=== PATIENT | male | born 1960 | race American Indian/Alaskan Native ===

== ENCOUNTER 2017-04-22 18:43 | Inpatient (IN) | payer MEDICAID ==
--- NOTE | 2017-04-22 19:05 | EDM.PDOC ---
ED HPI GENERAL MEDICAL PROBLEM - General Stated Complaint: DIFFICULTY BREATHING Time Seen by Provider: 04/22/17 18:43 Source of Information: Reports: Patient, Family History Limitations: Reports: Physical Impairment, Respiratory Distress - History of Present Illness INITIAL COMMENTS - FREE TEXT/NARRATIVE: 56 y.o.w.m with a h/o dementia, came to the ed dur to SOB. Pt O2 was 82% on RA. [facility] and disability. Pt is not able to give a HPI deu to his underlying medical issues. Caregivers are present. BP 130/78 Pulse 75 Pulse ox 94% on 2 liters O2. Temp 36.7 Onset: Gradual Onset Date: 04/21/17 Onset Time: 07:00 Duration: Day(s):, Getting Worse Location: Reports: Chest, Abdomen Quality: Reports: Other (SOB) Severity: Moderate Improves with: Reports: Medication, Rest Worsens with: Reports: Other (supine position) Context: Reports: Other (elevated diaphram) Associated Symptoms: Reports: Loss of Appetite, Shortness of Breath, Weakness - Related Data Allergies Allergy/AdvReac Type Severity Reaction Status Date / Time Penicillins Allergy Cannot Verified 04/22/17 19:19 Remember vancomycin Allergy Cannot Verified 04/22/17 19:19 Remember Home Meds: Home Meds LORazepam 1 mg PO ASDIRECTED PRN 02/25/13 [History] Albuterol [Proventil HFA] 1 puff INH TID 06/13/14 [History] Benztropine Mesylate 1 mg PO BEDTIME 06/13/14 [History] Cholecalciferol (Vitamin D3) [Vitamin D3] 1,000 unit PO DAILY@0600 06/13/14 [ History] Gabapentin [Neurontin] 300 mg PO QID@08,12,16,20 06/13/14 [History] Insulin Glarg,Human.Rec.Analog [Lantus Solostar] 12 unit SUBCUT BEDTIME [History] Levothyroxine [Synthroid] 50 mcg PO DAILY 06/13/14 [History] Levothyroxine [Synthroid] 200 mcg PO DAILY@06 06/13/14 [History] Magnesium Chloride [Magnesium Dr] 128 mg PO BID 06/13/14 [History] Metoprolol Tartrate [Lopressor] 50 mg PO BID 06/13/14 [History] Multivitamin with Minerals [Multivitamins with Minerals] 1 tab PO BEDTIME [History] Omeprazole 20 mg PO BEDTIME 06/13/14 [History] Sertraline [Zoloft] 200 mg PO DAILY 06/13/14 [History] Benzoyl Peroxide 1 applic TOP BEDTIME 05/09/15 [History] Nitroglycerin [Nitrostat] 0.4 mg SL Q5M PRN 05/09/15 [History] ARIPiprazole [Abilify] 20 mg PO BEDTIME 04/23/17 [History] Aspirin [Halfprin] 81 mg PO DAILY 04/23/17 [History] Doxycycline [Vibramycin] 100 mg PO BID 04/23/17 [History] Ferrous Gluconate 324 mg PO BIDMEALS 04/23/17 [History] Furosemide [Lasix] 20 mg PO DAILY@0600 04/23/17 [History] Selenium Sulfide [Anti-Dandruff] 1 applic TOP SUWEFR 04/23/17 [History] Tiotropium [Spiriva] 18 mcg INH DAILY 04/23/17 [History] Triamcinolone Acetonide [Triamcinolone Acetonide 0.1% Crm] 1 applic TOP BID PRN 04/23/17 [History] atorvaSTATin [Lipitor] 10 mg PO BEDTIME 04/23/17 [History] Past Medical History HEENT History: Reports: Allergic Rhinitis, Impaired Vision Cardiovascular History: Reports: Angina, Hypertension Respiratory History: Reports: COPD Gastrointestinal History: Reports: Colon Polyp Genitourinary History: Reports: None PHARMACY INTAKE COORDINATOR History: Reports: None Musculoskeletal History: Reports: None Neurological History: Reports: Seizure Psychiatric History: Reports: Anxiety, Depression, Developmental Delay, Mood Swings, Psych Hospitalization(s), Suicide Attempt Endocrine/Metabolic History: Reports: Diabetes, Type II, Hypothyroidism Oncologic (Cancer) History: Reports: None Dermatologic History: Reports: Cellulitis - Infectious Disease History Infectious Disease History: Reports: Chicken Pox - Past Surgical History GI Surgical History: Reports: Appendectomy, Cholecystectomy, Colonoscopy Male Surgical History: Reports: None Social & Family History - Tobacco Use Smoking Status *Q: Never Smoker - Alcohol Use Days Per Week of Alcohol Use: 0 - Recreational Drug Use Recreational Drug Use: No ED ROS GENERAL - Review of Systems Review Of Systems: Unable To Obtain ED EXAM, GENERAL - Physical Exam Exam: See Below Exam Limited By: Altered Mental Status General Appearance: Alert, WD/WN, Mild Distress Eye Exam: Bilateral Eye: Normal Inspection Ears: Normal External Exam Ear Exam: Bilateral Ear: Auricle Normal Nose: Normal Inspection Throat/Mouth: Normal Inspection, Normal Lips Head: Atraumatic, Normocephalic Neck: Normal Inspection, Supple, Non-Tender, Full Range of Motion Respiratory/Chest: No Respiratory Distress, Respiratory Distress, Decreased Breath Sounds Cardiovascular: Normal Peripheral Pulses, Regular Rate, Rhythm, No Edema, No Gallop Peripheral Pulses: 1+: Brachial (R) GI/Abdominal: Non-Tender, Distended, Abnormal Bowel Sounds (Male) Exam: Deferred Rectal (Males) Exam: Deferred Back Exam: Normal Inspection, Full Range of Motion Extremities: Normal Inspection, Normal Range of Motion, Non-Tender, No Pedal Edema Neurological: Alert, CN II-XII Intact, No Motor/Sensory Deficits, Abnormal Gait Psychiatric: Normal Affect, Normal Mood Skin Exam: Warm, Dry, Intact, Normal Color, No Rash Lymphatic: No Adenopathy Course - Vital Signs Text/Narrative:: 56 y.o.w.m with a h/o dementia, came to the ed dur to SOB. Pt O2 was 82% on RA. [facility] and disability. Pt is not able to give a HPI deu to his underlying medical issues. Caregivers are present. BP 130/78 Pulse 75 Pulse ox 94% on 2 liters O2. Temp 36.7, pt is pasing loose stool daily. PE: WNWD WM with dementia and physical disability. Imaging: CXR: Bilat Elevated diaphram Abd. Flat/upright: Gaseous distension of bowel loops throughout the abdomen and pelvis, favored to present colon loops. DDx: Colonic ileous/Jose Syndrome vs distal colonic obstruction. CT Abd/ pelvis: Air and stool distension of the ascending colon, air distended transverse colon measureing up to 15 cm, stood distended descending and sigmoid colon Labs: CBC nl INR 1.14 D Dimer 315 PNP 355 BUN/CR ratio 50 Impression: Colonic ileus, Elevated Diaphragm, Resp distress, Dementia, Physical disability, dsitended abdomen. H/O DM Tx: NS, Duoneb Reexam: Improved, pt was able to keep his puls oxa at 94% on RA. Plan: Admit for obs with possible GI consultation Last Recorded V/S: Last Vital Signs Temp 36.6 C 04/23/17 05:20 Pulse 64 04/23/17 05:20 Resp 16 04/23/17 05:20 BP 106/63 04/23/17 05:20 Pulse Ox 94 L 04/23/17 05:20 - Orders/Labs/Meds Orders: Active Orders 24 hr Category Date Time Status Patient Status [ADT] Routine ADT 04/23/17 00:47 Active Oxygen Therapy [RC] PRN Care 04/23/17 00:47 Active VTE/DVT Education [RC] Per Unit Routine Care 04/23/17 00:47 Active Vital Signs [RC] Q4H Care 04/23/17 00:47 Active Abdomen 2V AP Flat Upright [CR] Stat Exams 04/22/17 21:52 Taken Abdomen Pelvis wo Cont [CT] Stat Exams 04/22/17 23:00 Taken CXR [Chest 1V Frontal] [CR] Stat Exams 04/22/17 18:58 Taken Resuscitation Status Routine Resus Stat 04/23/17 00:20 Ordered Medication Orders Albuterol (Ventolin Hfa) 0 gm INH TIDRT [facility] Last Admin: 04/23/17 09:07 Dose: 1 inhalation Aripiprazole (Abilify) 20 mg PO BEDTIME [facility] Aspirin (Aspirin) 81 mg PO DAILY [facility] Last Admin: 04/23/17 09:11 Dose: 81 mg Benztropine Mesylate (Cogentin) 1 mg PO BEDTIME [facility] Cholecalciferol (Vitamin D3) 1,000 units PO DAILY [facility] Last Admin: 04/23/17 09:08 Dose: 1,000 units Gabapentin (Neurontin) 300 mg PO QID [facility] Last Admin: 04/23/17 09:08 Dose: 300 mg Insulin Aspart (Novolog) 0 unit SUBCUT BIDAC [facility] PRN Reason: Protocol Last Admin: 04/23/17 09:06 Dose: Not Given Levothyroxine Sodium (Levothyroxine) 200 mcg PO DAILY@0600 [facility] Last Admin: 04/23/17 06:00 Dose: 200 mcg Lorazepam (Ativan) 1 mg PO Q4H PRN PRN Reason: Anxiety Magnesium Chloride (Mag-64) 128 mg PO BID [facility] Last Admin: 04/23/17 09:08 Dose: 128 mg Metoprolol Tartrate (Lopressor) 75 mg PO BID [facility] Multivitamins/Minerals (Vitamins And Minerals) 1 tab PO BEDTIME [facility] Nitroglycerin (Nitrostat) 0.4 mg SL ASDIRECTED PRN PRN Reason: Chest Pain Non-Formulary Medication (Benzoyl Peroxide [Benzoyl Peroxide]) 1 applic TOP BEDTIME [facility] Pantoprazole Sodium (Protonix) 40 mg PO BEDTIME [facility] Sertraline HCl (Zoloft) 200 mg PO DAILY [facility] Last Admin: 04/23/17 09:07 Dose: 200 mg Tiotropium [place] (Spiriva Handihaler) 18 mcg INH BIDRT [facility] Labs: Laboratory Tests 04/22/17 04/22/17 04/22/17 Range/Units 19:10 19:10 19:10 WBC 5.6 (4.5-12.0) X10-3/uL RBC 4.32 (4.30-5.75) x10(6)uL Hgb 12.9 (11.5-15.5) g/dL Hct 39.2 (30.0-51.3) % MCV 90.8 (80-96) fL MCH 29.8 (27.7-33.6) pg MCHC 32.8 (32.2-35.4) g/dL RDW 14.5 (11.5-15.5) % Plt Count 170 (125-369) X10(3)uL MPV 8.0 (7.4-10.4) fL Neut % (Auto) 49.7 (46-82) % Lymph % (Auto) 34.0 (13-37) % [place] % (Auto) 5.6 (4-12) % Eos % (Auto) 10 H (1.0-5.0) % Baso % (Auto) 1 (0-2) % Neut # (Auto) 2.8 (1.6-8.3) # Lymph # (Auto) 1.9 (0.6-5.0) # [place] # (Auto) 0.3 (0.0-1.3) # Eos # (Auto) 0.6 (0.0-0.8) # Baso # (Auto) 0.0 (0.0-0.2) # PT 11.5 H (8.7-11.1) INR 1.14 H (0.89-1.13) D-Dimer, Quantitative 315 (100-400) ng/mL Sodium (135-145) mmol/L Potassium (3.5-5.3) mmol/L Chloride (100-110) mmol/L Carbon Dioxide (21-32) mmol/L BUN (7-18) mg/dL Creatinine (0.70-1.30) mg/dL Est Cr Clr Drug Dosing mL/min Estimated GFR (MDRD) (>60) BUN/Creatinine Ratio (9-20) Glucose (80-116) mg/dL Calcium (8.6-10.2) mg/dL NT-Pro-B Natriuret Pep (<=125) pg/mL 04/22/17 04/22/17 Range/Units 19:10 19:10 WBC (4.5-12.0) X10-3/uL RBC (4.30-5.75) x10(6)uL Hgb (11.5-15.5) g/dL Hct (30.0-51.3) % MCV (80-96) fL MCH (27.7-33.6) pg MCHC (32.2-35.4) g/dL RDW (11.5-15.5) % Plt Count (125-369) X10(3)uL MPV (7.4-10.4) fL Neut % (Auto) (46-82) % Lymph % (Auto) (13-37) % [place] % (Auto) (4-12) % Eos % (Auto) (1.0-5.0) % Baso % (Auto) (0-2) % Neut # (Auto) (1.6-8.3) # Lymph # (Auto) (0.6-5.0) # [place] # (Auto) (0.0-1.3) # Eos # (Auto) (0.0-0.8) # Baso # (Auto) (0.0-0.2) # PT (8.7-11.1) INR (0.89-1.13) D-Dimer, Quantitative (100-400) ng/mL Sodium 140 (135-145) mmol/L Potassium 4.8 (3.5-5.3) mmol/L Chloride 107 (100-110) mmol/L Carbon Dioxide 25 (21-32) mmol/L BUN 50 H (7-18) mg/dL Creatinine 1.0 (0.70-1.30) mg/dL Est Cr Clr Drug Dosing 73.46 mL/min Estimated GFR (MDRD) > 60 (>60) BUN/Creatinine Ratio 50.0 H (9-20) Glucose 100 (80-116) mg/dL Calcium 9.0 (8.6-10.2) mg/dL NT-Pro-B Natriuret Pep 355 H (<=125) pg/mL Meds: Medications Generic Name Dose Route Start Last Admin Trade Name Freq PRN Reason Stop Dose Admin Albuterol 0 gm 04/23/17 07:00 04/23/17 09:07 Ventolin Hfa INH 1 inhalation TIDRT [facility] Administration Aripiprazole 20 mg 04/23/17 21:00 Abilify PO BEDTIME [facility] Aspirin 81 mg 04/23/17 09:00 04/23/17 09:11 Aspirin PO 81 mg DAILY [facility] Administration Benztropine Mesylate 1 mg 04/23/17 21:00 Cogentin PO BEDTIME [facility] Cholecalciferol 1,000 units 04/23/17 09:00 04/23/17 09:08 Vitamin D3 PO 1,000 units DAILY [facility] Administration Gabapentin 300 mg 04/23/17 09:00 04/23/17 09:08 Neurontin PO 300 mg QID [facility] Administration Insulin Aspart 0 unit 04/23/17 08:30 04/23/17 09:06 Novolog SUBCUT Not Given BIDAC [facility] Protocol Levothyroxine Sodium 200 mcg 04/23/17 06:00 04/23/17 06:00 Levothyroxine PO 200 mcg DAILY@0600 [facility] Administration Lorazepam 1 mg 04/23/17 02:28 Ativan PO Q4H PRN Anxiety Magnesium Chloride 128 mg 04/23/17 09:00 04/23/17 09:08 Mag-64 PO 128 mg BID [facility] Administration Metoprolol Tartrate 75 mg 04/23/17 09:00 Lopressor PO BID [facility] Multivitamins/Minerals 1 tab 04/23/17 21:00 Vitamins And Minerals PO BEDTIME [facility] Nitroglycerin 0.4 mg 04/23/17 02:28 Nitrostat SL ASDIRECTED PRN Chest Pain Non-Formulary Medication 1 applic 04/23/17 21:00 Benzoyl Peroxide [Benzoyl Peroxide] TOP BEDTIME [facility] Pantoprazole Sodium 40 mg 04/23/17 21:00 Protonix PO BEDTIME [facility] Sertraline HCl 200 mg 04/23/17 09:00 04/23/17 09:07 Zoloft PO 200 mg DAILY [facility] Administration Tiotropium [place] 18 mcg 04/23/17 07:00 Spiriva Handihaler INH BIDRT [facility] Discontinued Medications Generic Name Dose Route Start Last Admin Trade Name Carlos PRN Reason Stop Dose Admin Levothyroxine Sodium 50 mcg 04/23/17 09:00 Synthroid PO DAILY [facility] Non-Formulary Medication 200 mcg 04/23/17 09:00 Levothyroxine [Synthroid] PO DAILY [facility] Non-Formulary Medication 20 mg 04/23/17 21:00 Omeprazole [Omeprazole] PO BEDTIME [facility] Departure - Departure Time of Disposition: 00:19 Disposition: Admitted As Inpatient 68 Condition: Fair Clinical Impression: Abdominal distention, Elevated diaphragm Dementia Qualifiers: Alzheimer's disease onset: unspecified onset Dementia behavioral disturbance: with behavioral disturbance - Discharge Information - My Orders Last 24 Hours: My Active Orders 04/22/17 18:58 CXR [Chest 1V Frontal] [CR] Stat 04/22/17 21:52 Abdomen 2V AP Flat Upright [CR] Stat 04/22/17 23:00 Abdomen Pelvis wo Cont [CT] Stat 04/23/17 00:20 Resuscitation Status Routine 04/23/17 00:47 Patient Status [ADT] Routine Oxygen Therapy [RC] PRN VTE/DVT Education [RC] Per Unit Routine Vital Signs [RC] Q4H - Assessment/Plan Last 24 Hours: My Active Orders 04/22/17 18:58 CXR [Chest 1V Frontal] [CR] Stat 04/22/17 21:52 Abdomen 2V AP Flat Upright [CR] Stat 04/22/17 23:00 Abdomen Pelvis wo Cont [CT] Stat 04/23/17 00:20 Resuscitation Status Routine 04/23/17 00:47 Patient Status [ADT] Routine Oxygen Therapy [RC] PRN VTE/DVT Education [RC] Per Unit Routine Vital Signs [RC] Q4H
[2017-04-23] MEDS ORDERED: Nitroglycerin 0.4 MG Tab.SL SL PRN (02:28)
[2017-04-23] MEDS ORDERED: LORazepam 1 MG Tab PO PRN (02:28)
[2017-04-23] MEDS ORDERED: Tiotropium Inhaler 18 MCG Inhalation Powder Cap Kit of 5 INH SCH (07:00)
[2017-04-23] MEDS ORDERED: Insulin Regular, Human 100 Units/ML 3 ML Vial SUBCUT SCH (07:30)
[2017-04-23] MEDS ORDERED: Levothyroxine 50 MCG Tab PO SCH ×2 (07:30→09:00)
[2017-04-23] MEDS ORDERED: Aspirin 81 MG Tab.Chew PO SCH (09:00)
[2017-04-23] MEDS ORDERED: Magnesium Chloride 64 MG Tab.ER PO SCH (09:00)
[2017-04-23] MEDS ORDERED: Cholecalciferol (Vitamin D3) 1,000 Unit Tab PO SCH (09:00)
[2017-04-23] MEDS ORDERED: Metoprolol Tartrate 50 MG Tab PO SCH (09:00)
[2017-04-23] MEDS ORDERED: LEVOTHYROXINE 200 MCG PO SCH (09:00)
[2017-04-23] MEDS: Insulin Aspart 100 Units/ML 3 ML Pen SUBCUT SCH (09:06)
[2017-04-23] MEDS: Sertraline 100 MG Tab PO SCH (09:07)
[2017-04-23] MEDS: Albuterol 8 GM Inhaler INH SCH ×3 (09:07→20:45)
[2017-04-23] MEDS: Gabapentin 300 MG Cap PO SCH ×4 (09:08→21:41)
[2017-04-23] MEDS: Metoprolol Tartrate 50 MG Tab PO SCH ×2 (11:06→20:38)
[2017-04-23] MEDS: Tiotropium Inhaler 18 MCG Inhalation Powder Cap Kit of 5 INH SCH (11:06)
[2017-04-23] MEDS: Dextrose 5%-0.9% NaCl 1,000 ML IV SCH ×2 (13:05→21:03)
[2017-04-23] MEDS: Potassium Chloride 100 ML IV SCH ×2 (13:05→15:23)
--- NOTE | 2017-04-23 13:17 | PCM.HP ---
H&P History of Present Illness - General Date of Service: 04/23/17 - History of Present Illness Initial Comments - Free Text/Narative: Patient is a 56-year-old male comes to the emergency room per [facility] where he has a resident there. Concern was that the patient was having bouts of shortness of breath and low oxygen sats in the mid to upper 80s. This was not accompanied by fevers vomiting chills sweats rash or recent illness. Noted to have acute on chronic abdominal distention with continued loose stool and flatus. Presentation he was given O2 via nasal cannula at sats came up to the 90s respirations are less than 20 otherwise labs were normal. Chest x-ray revealed bilateral elevated diaphragms with significant large bowel air distention/colonic stool throughout. There were no signs of air-fluid levels however this did prompt a CT scan to rule out intra-abdominal free air which was negative. There was no sign of mechanical or pathological obstructive process. Review of patient's medical record indicates a prior colonoscopy in 2016 was unable to be passed through the transverse colon secondary to redundancy. Otherwise he has had no bowel resection or procedures. Currently being treated with doxycycline twice a day for a mild right foot dorsal cellulitis with slight abrasion and tenderness more. No complication. Functional status includes up with assist feeds himself is continent of urine and stool moderate cognitive disability with a history of central cerebral atrophy leading to inability to live independently. Initial examination he is sitting upright in wheelchair. Is wearing his glasses. He makes good eye contact, his speech is slurred but intelligible. this is baseline. He also tells me that he is hungry and he has no pain during my examination. He does not appear in any acute distress however he is a poor historian so history review systems are taken from caregiver and ER physician. - Related Data Allergies/Adverse Reactions: Allergies Allergy/AdvReac Type Severity Reaction Status Date / Time Penicillins Allergy Cannot Verified 04/22/17 19:19 Remember vancomycin Allergy Cannot Verified 04/22/17 19:19 Remember Home Medications: Home Meds LORazepam 1 mg PO ASDIRECTED PRN 02/25/13 [History] Albuterol [Proventil HFA] 1 puff INH TID 06/13/14 [History] Benztropine Mesylate 1 mg PO BEDTIME 06/13/14 [History] Cholecalciferol (Vitamin D3) [Vitamin D3] 1,000 unit PO DAILY@0600 06/13/14 [ History] Gabapentin [Neurontin] 300 mg PO QID@08,12,16,20 06/13/14 [History] Insulin Glarg,Human.Rec.Analog [Lantus Solostar] 12 unit SUBCUT BEDTIME [History] Levothyroxine [Synthroid] 50 mcg PO DAILY 06/13/14 [History] Levothyroxine [Synthroid] 200 mcg PO DAILY@06 06/13/14 [History] Magnesium Chloride [Magnesium Dr] 128 mg PO BID 06/13/14 [History] Metoprolol Tartrate [Lopressor] 50 mg PO BID 06/13/14 [History] Multivitamin with Minerals [Multivitamins with Minerals] 1 tab PO BEDTIME [History] Omeprazole 20 mg PO BEDTIME 06/13/14 [History] Sertraline [Zoloft] 200 mg PO DAILY 06/13/14 [History] Benzoyl Peroxide 1 applic TOP BEDTIME 05/09/15 [History] Nitroglycerin [Nitrostat] 0.4 mg SL Q5M PRN 05/09/15 [History] ARIPiprazole [Abilify] 20 mg PO BEDTIME 04/23/17 [History] Aspirin [Halfprin] 81 mg PO DAILY 04/23/17 [History] Doxycycline [Vibramycin] 100 mg PO BID 04/23/17 [History] Ferrous Gluconate 324 mg PO BIDMEALS 04/23/17 [History] Furosemide [Lasix] 20 mg PO DAILY@0600 04/23/17 [History] Selenium Sulfide [Anti-Dandruff] 1 applic TOP SUWEFR 04/23/17 [History] Tiotropium [Spiriva] 18 mcg INH DAILY 04/23/17 [History] Triamcinolone Acetonide [Triamcinolone Acetonide 0.1% Crm] 1 applic TOP BID PRN 04/23/17 [History] atorvaSTATin [Lipitor] 10 mg PO BEDTIME 04/23/17 [History] Past Medical History HEENT History: Reports: Allergic Rhinitis, Impaired Vision Other HEENT History: Allergic rhinitis. Cardiovascular History: Reports: Angina, Hypertension Other Cardiovascular History: lower leg edema. Respiratory History: Reports: COPD Gastrointestinal History: Reports: Colon Polyp Genitourinary History: Reports: None Other Genitourinary History: Increased alkaline phosphatase, hypocalcemia. 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 Neurological History: Reports: Seizure Other Neuro History: Neuroleptic induced Parkinsonism. Psychiatric History: Reports: Anxiety, Depression, Developmental Delay, Mood Swings, Psych Hospitalization(s), Suicide Attempt Other Psychiatric History: Transient alteration of awareness, moderate intellectual disabilities. Endocrine/Metabolic History: Reports: Diabetes, Type II, Hypothyroidism Hematologic History: Reports: Anemia Oncologic (Cancer) History: Reports: None Dermatologic History: Reports: Cellulitis Other Dermatologic History: Acne, dermatitis, dry scalp, stasis dermatitis both legs, history of VERSA. 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 - Past Surgical History GI Surgical History: Reports: Appendectomy, Cholecystectomy, Colonoscopy Male Surgical History: Reports: None Social & Family History - Tobacco Use Smoking Status *Q: Never Smoker - Caffeine Use Caffeine Use: Reports: Coffee - Alcohol Use Days Per Week of Alcohol Use: 0 - Recreational Drug Use Recreational Drug Use: No - Living Situation & Occupation Living situation: Reports: Single, Extended Care Facility (Resident in halfway for cognitive delay/disability.) H&P Review of Systems - Review of Systems: Review Of Systems: ROS reveals no pertinent complaints other than HPI. Exam - Exam Exam: See Below - Vital Signs Vital Signs: Last Vital Signs Temp 99 F 04/23/17 08:00 Pulse 77 04/23/17 11:06 Resp 18 04/23/17 08:00 BP 137/81 04/23/17 11:06 Pulse Ox 95 04/23/17 08:00 Weight: 81.737 kg - Exam General: Alert, Cooperative. No: Mild Distress HEENT: Conjunctiva Clear, Hearing Intact, Glasses Neck: Supple, Trachea Midline. No: Lymphadenopathy Lungs: Clear to Auscultation, Normal Respiratory Effort, Decreased Breath Sounds (Not aerating well down into the bases this is secondary to elevated hemidiaphragms.) Cardiovascular: Regular Rate, Regular Rhythm GI/Abdominal Exam: Non-Tender, Distended, Abnormal Bowel Sounds. No: Guarding, Rigid, Tender, Hernia (Male) Exam: No Hernia, Normal Inspection, Normal Prostate. No: Circumcised , Inguinal Lymphadenopathy, Scrotal Swelling, Urethral Discharge Rectal (Males) Exam: Normal Rectal Tone, Black Stool, Heme - Stool, Other ( Unusual odor to the stool. I was able to collect a smear for Hemoccult without difficulty.). No: Bloody Stool, Fecal Impaction, Hemorrhoids, Mass, Perirectal Abscess, Rectal Fissure, Tenderness Back Exam: Other (Evidence of scratches bilateral superior scapula self- inflicted. No evidence of infection. He does have scattered melanosis of the low back some of which could even be considered caf au lait in presentation. Again this is chronic and nonacute process.). No: Paraspinal Tenderness, Vertebral Tenderness Extremities: Normal Capillary Refill, Pedal Edema, Redness (There is some swelling and slight redness roughly 3 cm induration surrounding a 0.5 cm superficial abrasion with minimal serous drainage. No fluctuance or abscess formation.) Skin: Wound (Dorsum of left foot) Neuro Extensive - Motor, Sensory, Reflexes: Other (Positive gag reflex swallow mechanism. Able to protect his airway.) Psychiatric: Normal Mood, Other (Pleasant answers questions appropriately, follows instructions, asked when he will be able to go home.). No: Anxious, Agitated - Patient Data Lab Results Last 24 hrs: Laboratory Tests 04/22/17 04/22/17 04/22/17 Range/Units 19:10 19:10 19:10 WBC 5.6 (4.5-12.0) X10-3/uL RBC 4.32 (4.30-5.75) x10(6)uL Hgb 12.9 (11.5-15.5) g/dL Hct 39.2 (30.0-51.3) % MCV 90.8 (80-96) fL MCH 29.8 (27.7-33.6) pg MCHC 32.8 (32.2-35.4) g/dL RDW 14.5 (11.5-15.5) % Plt Count 170 (125-369) X10(3)uL MPV 8.0 (7.4-10.4) fL Neut % (Auto) 49.7 (46-82) % Lymph % (Auto) 34.0 (13-37) % Bowie % (Auto) 5.6 (4-12) % Eos % (Auto) 10 H (1.0-5.0) % Baso % (Auto) 1 (0-2) % Neut # (Auto) 2.8 (1.6-8.3) # Lymph # (Auto) 1.9 (0.6-5.0) # Bowie # (Auto) 0.3 (0.0-1.3) # Eos # (Auto) 0.6 (0.0-0.8) # Baso # (Auto) 0.0 (0.0-0.2) # PT 11.5 H (8.7-11.1) INR 1.14 H (0.89-1.13) D-Dimer, Quantitative 315 (100-400) ng/mL Sodium (135-145) mmol/L Potassium (3.5-5.3) mmol/L Chloride (100-110) mmol/L Carbon Dioxide (21-32) mmol/L BUN (7-18) mg/dL Creatinine (0.70-1.30) mg/dL Est Cr Clr Drug Dosing mL/min Estimated GFR (MDRD) (>60) BUN/Creatinine Ratio (9-20) Glucose (80-116) mg/dL POC Glucose (80-116) mg/dL Calcium (8.6-10.2) mg/dL NT-Pro-B Natriuret Pep (<=125) pg/mL 04/22/17 04/22/17 04/23/17 Range/Units 19:10 19:10 06:44 WBC (4.5-12.0) X10-3/uL RBC (4.30-5.75) x10(6)uL Hgb (11.5-15.5) g/dL Hct (30.0-51.3) % MCV (80-96) fL MCH (27.7-33.6) pg MCHC (32.2-35.4) g/dL RDW (11.5-15.5) % Plt Count (125-369) X10(3)uL MPV (7.4-10.4) fL Neut % (Auto) (46-82) % Lymph % (Auto) (13-37) % Bowie % (Auto) (4-12) % Eos % (Auto) (1.0-5.0) % Baso % (Auto) (0-2) % Neut # (Auto) (1.6-8.3) # Lymph # (Auto) (0.6-5.0) # Bowie # (Auto) (0.0-1.3) # Eos # (Auto) (0.0-0.8) # Baso # (Auto) (0.0-0.2) # PT (8.7-11.1) INR (0.89-1.13) D-Dimer, Quantitative (100-400) ng/mL Sodium 140 (135-145) mmol/L Potassium 4.8 (3.5-5.3) mmol/L Chloride 107 (100-110) mmol/L Carbon Dioxide 25 (21-32) mmol/L BUN 50 H (7-18) mg/dL Creatinine 1.0 (0.70-1.30) mg/dL Est Cr Clr Drug Dosing 73.46 mL/min Estimated GFR (MDRD) > 60 (>60) BUN/Creatinine Ratio 50.0 H (9-20) Glucose 100 (80-116) mg/dL POC Glucose 133 H (80-116) mg/dL Calcium 9.0 (8.6-10.2) mg/dL NT-Pro-B Natriuret Pep 355 H (<=125) pg/mL 04/23/17 Range/Units 11:09 WBC (4.5-12.0) X10-3/uL RBC (4.30-5.75) x10(6)uL Hgb (11.5-15.5) g/dL Hct (30.0-51.3) % MCV (80-96) fL MCH (27.7-33.6) pg MCHC (32.2-35.4) g/dL RDW (11.5-15.5) % Plt Count (125-369) X10(3)uL MPV (7.4-10.4) fL Neut % (Auto) (46-82) % Lymph % (Auto) (13-37) % Bowie % (Auto) (4-12) % Eos % (Auto) (1.0-5.0) % Baso % (Auto) (0-2) % Neut # (Auto) (1.6-8.3) # Lymph # (Auto) (0.6-5.0) # Bowie # (Auto) (0.0-1.3) # Eos # (Auto) (0.0-0.8) # Baso # (Auto) (0.0-0.2) # PT (8.7-11.1) INR (0.89-1.13) D-Dimer, Quantitative (100-400) ng/mL Sodium (135-145) mmol/L Potassium (3.5-5.3) mmol/L Chloride (100-110) mmol/L Carbon Dioxide (21-32) mmol/L BUN (7-18) mg/dL Creatinine (0.70-1.30) mg/dL Est Cr Clr Drug Dosing mL/min Estimated GFR (MDRD) (>60) BUN/Creatinine Ratio (9-20) Glucose (80-116) mg/dL POC Glucose 99 (80-116) mg/dL Calcium (8.6-10.2) mg/dL NT-Pro-B Natriuret Pep (<=125) pg/mL Result Diagrams: 04/22/17 19:10 04/22/17 19:10 Rhys Results Last 24 hrs: Microbiology 04/23/17 11:32 Stool Occult Blood (RHYS) - Final Stool / Feces NEGATIVE *Q Meaningful Use (ADM) - VTE *Q VTE Criteria *Q: - Stroke *Q Stroke Criteria *Q: - AMI *Q AMI Criteria *Q: - Problem List (1) Abnormal large bowel motility SNOMED Code(s): 89097711 ICD Code: K59.9 - FUNCTIONAL INTESTINAL DISORDER, UNSPECIFIED Status: Acute Current Visit: Yes (2) Abdominal distention SNOMED Code(s): 46080035 ICD Code: R14.0 - ABDOMINAL DISTENSION (GASEOUS) Status: Acute Current Visit: Yes (3) Elevated diaphragm SNOMED Code(s): 08913505 ICD Code: J98.6 - DISORDERS OF DIAPHRAGM Status: Acute Current Visit: Yes (4) SOB (shortness of breath) SNOMED Code(s): 960927494 ICD Code: R06.02 - SHORTNESS OF BREATH Status: Acute Current Visit: Yes (5) Abrasion, left foot, initial encounter SNOMED Code(s): 241635453 ICD Code: S90.812A - ABRASION, LEFT FOOT, INITIAL ENCOUNTER Status: Acute Current Visit: Yes (6) Cellulitis of left foot SNOMED Code(s): 066140990 ICD Code: L03.116 - CELLULITIS OF LEFT LOWER LIMB Status: Acute Priority : Medium Current Visit: Yes (7) Dementia SNOMED Code(s): 08263706 ICD Code: F03.90 - UNSPECIFIED DEMENTIA WITHOUT BEHAVIORAL DISTURBANCE Status: Chronic Current Visit: Yes Qualifiers: Alzheimer's disease onset: unspecified onset Dementia behavioral disturbance: with behavioral disturbance (8) Lives in halfway SNOMED Code(s): 903534232 ICD Code: Z59.3 - PROBLEMS RELATED TO LIVING IN RESIDENTIAL INSTITUTION Status: Chronic Current Visit: Yes Problem List Initiated/Reviewed/Updated: Yes Orders Last 24hrs: Active Orders 24 hr Category Date Time Status Blood Glucose Check, Bedside [RC] BIDAC Care 04/23/17 02:57 Active Notify Provider Consults [RC] ASDIRECTED Care 04/23/17 11:36 Active Consult to Physician [CONS] Routine Cons 04/23/17 11:34 Ordered ARIPiprazole [Abilify] Med 04/23/17 21:00 Active 20 mg PO BEDTIME Albuterol [Ventolin HFA] Med 04/23/17 07:00 Active 0 gm INH TIDRT Aspirin Med 04/23/17 09:00 Active 81 mg PO DAILY Bacitracin/Neomycin/Polymyxin [Triple Antibiotic Oint] Med 04/23/17 11:15 Active 0 gm TOP BID Benzoyl Peroxide [Benzoyl Peroxide] Med 04/23/17 21:00 Active 1 applic TOP BEDTIME Benztropine [Cogentin] Med 04/23/17 21:00 Active 1 mg PO BEDTIME Cholecalciferol (Vitamin D3) [Vitamin D3] Med 04/23/17 09:00 Active 1,000 units PO DAILY Dextrose 5%-0.9% NaCl [Dextrose 5%-Normal Saline] 1,000 Med 04/23/17 11:45 Active ml IV ASDIRECTED Gabapentin [Neurontin] Med 04/23/17 09:00 Active 300 mg PO QID Insulin Aspart [NovoLOG] Med 04/23/17 08:30 Hold 0 unit SUBCUT BIDAC LORazepam [Ativan] Med 04/23/17 02:28 Active 1 mg PO Q4H PRN Levothyroxine Med 04/23/17 06:00 Active 200 mcg PO DAILY@0600 Magnesium Chloride [Mag-64] Med 04/23/17 09:00 Active 128 mg PO BID Metoprolol Tartrate [Lopressor] Med 04/23/17 10:15 Active 50 mg PO BID Multivitamins/Minerals [Vitamins and Minerals] Med 04/23/17 21:00 Active 1 tab PO BEDTIME Nitroglycerin [Nitrostat] Med 04/23/17 02:28 Active 0.4 mg SL ASDIRECTED PRN Pantoprazole [ProTONIX] Med 04/23/17 21:00 Active 40 mg PO BEDTIME Potassium Chloride [KCL 20 MEQ in Water 100 ML] 100 ml Med 04/23/17 12:30 Active IV Q2H Sertraline [Zoloft] Med 04/23/17 09:00 Active 200 mg PO DAILY Tiotropium [Spiriva HandiHaler] Med 04/23/17 10:15 Active 18 mcg INH DAILY Medication Orders Albuterol (Ventolin Hfa) 0 gm INH TIDRT [facility] Last Admin: 04/23/17 09:07 Dose: 1 inhalation Aripiprazole (Abilify) 20 mg PO BEDTIME [facility] Aspirin (Aspirin) 81 mg PO DAILY [facility] Last Admin: 04/23/17 09:11 Dose: 81 mg Benztropine Mesylate (Cogentin) 1 mg PO BEDTIME [facility] Cholecalciferol (Vitamin D3) 1,000 units PO DAILY [facility] Last Admin: 04/23/17 09:08 Dose: 1,000 units Gabapentin (Neurontin) 300 mg PO QID [facility] Last Admin: 04/23/17 09:08 Dose: 300 mg Dextrose/Sodium Chloride (Dextrose 5%-Normal Saline) 1,000 mls @ 150 mls/hr IV ASDIRECTED [facility] Potassium Chloride (Kcl 20 Meq In Water 100 Ml) 100 mls @ 50 mls/hr IV Q2H [facility] Stop: 04/23/17 16:29 Insulin Aspart (Novolog) 0 unit SUBCUT BIDAC [facility] PRN Reason: Protocol Last Admin: 04/23/17 09:06 Dose: Levothyroxine Sodium (Levothyroxine) 200 mcg PO DAILY@0600 [facility] Last Admin: 04/23/17 06:00 Dose: 200 mcg Lorazepam (Ativan) 1 mg PO Q4H PRN PRN Reason: Anxiety Magnesium Chloride (Mag-64) 128 mg PO BID [facility] Last Admin: 04/23/17 09:08 Dose: 128 mg Metoprolol Tartrate (Lopressor) 50 mg PO BID [facility] Last Admin: 04/23/17 11:06 Dose: 50 mg Multivitamins/Minerals (Vitamins And Minerals) 1 tab PO BEDTIME [facility] Neomycin/Polymyxin/Bacitracin (Triple Antibiotic Oint) 0 gm TOP BID [facility] Nitroglycerin (Nitrostat) 0.4 mg SL ASDIRECTED PRN PRN Reason: Chest Pain Non-Formulary Medication (Benzoyl Peroxide [Benzoyl Peroxide]) 1 applic TOP BEDTIME [facility] Pantoprazole Sodium (Protonix) 40 mg PO BEDTIME [facility] Sertraline HCl (Zoloft) 200 mg PO DAILY [facility] Last Admin: 04/23/17 09:07 Dose: 200 mg Tiotropium [place] (Spiriva Handihaler) 18 mcg INH DAILY [facility] Last Admin: 04/23/17 11:06 Dose: 1 inhalation Assessment/Plan Comment:: Personal review of chest and abdominal x-rays as well as CT abdomen and pelvis I believe the shortness of breath is due to colonic distention compressing the lungs. I do not see any active infiltrate such as a consolidative pneumonia or pneumonitis. Significant bowel distention of the transverse colon ascending and descending colon. There is a concern for abnormal peristalsis resulting in ileus. Does not appear to be toxic megacolon but could possibly be early stages. No evidence of ischemic colitis at this point but with the degree of distention there is always a concern for avascularization of the colonic bowel versus perforation. I will get a surgical consult regarding the above concerns and best course of action whether it be NG tube, rectal tube, or even possible laparotomy should we not be able to decompress the bowel in a conservative manner. He will be made nothing by mouth. We will continue his doxycycline IV. We will use topical antibiotic to the abrasion and conservative cares for the left dorsum of the foot. This is mild. Otherwise await surgical recommendation and will follow up appropriately. Anticipate inpatient stay 48-72 hours pending above recommendations and response to management.
[2017-04-23] MEDS: Bacitracin/Neomycin/Polymyxin B Oint 28.4 GM Tube TOP SCH ×2 (13:40→20:44)
[2017-04-23] MEDS ORDERED: Doxycycline 100 MG Tab PO SCH ×2 (14:00→17:00)
[2017-04-23] MEDS: Doxycycline 100 MG in Sodium Chloride 0.9% 100 ML IV SCH (18:10)
--- NOTE | 2017-04-23 18:26 | PCM.CONS ---
H&P History of Present Illness - General Date of Service: 04/23/17 Source of Information: Patient, Old Records - History of Present Illness Initial Comments - Free Text/Narative: 56 yo RAIN who was admitted yesterday after presenting with a complaint of shortness of breath. This apparently resolved in the ED but he was noted as well to have marked abd distention. This was confirmed on both KUB as well as CT scan. It appears that this is an acute on chronic process. The pt has some issues with dementia. He does deny any abd pain, nausea or vomiting. He did have a bowel movement today and has been passing flatus this afternoon. A NGT was also placed and per nursing some air as been noted to be coming out of this as well. His CBC was normal, He has had a c scope to the mid transverse colon in the past. Unable to complete due to redundant sigmoid colon. denies pain when asked Pain Score (Numeric/FACES): 0 - Related Data Allergies/Adverse Reactions: Allergies Allergy/AdvReac Type Severity Reaction Status Date / Time Penicillins Allergy Cannot Verified 04/22/17 19:19 Remember vancomycin Allergy Cannot Verified 04/22/17 19:19 Remember Home Medications: Home Meds LORazepam 1 mg PO ASDIRECTED PRN 02/25/13 [History] Albuterol [Proventil HFA] 1 puff INH TID 06/13/14 [History] Benztropine Mesylate 1 mg PO BEDTIME 06/13/14 [History] Cholecalciferol (Vitamin D3) [Vitamin D3] 1,000 unit PO DAILY@0600 06/13/14 [ History] Gabapentin [Neurontin] 300 mg PO QID@08,12,16,20 06/13/14 [History] Insulin Glarg,Human.Rec.Analog [Lantus Solostar] 12 unit SUBCUT BEDTIME [History] Levothyroxine [Synthroid] 50 mcg PO DAILY 06/13/14 [History] Levothyroxine [Synthroid] 200 mcg PO DAILY@06 06/13/14 [History] Magnesium Chloride [Magnesium Dr] 128 mg PO BID 06/13/14 [History] Metoprolol Tartrate [Lopressor] 50 mg PO BID 06/13/14 [History] Multivitamin with Minerals [Multivitamins with Minerals] 1 tab PO BEDTIME [History] Omeprazole 20 mg PO BEDTIME 06/13/14 [History] Sertraline [Zoloft] 200 mg PO DAILY 06/13/14 [History] Benzoyl Peroxide 1 applic TOP BEDTIME 05/09/15 [History] Nitroglycerin [Nitrostat] 0.4 mg SL Q5M PRN 05/09/15 [History] ARIPiprazole [Abilify] 20 mg PO BEDTIME 04/23/17 [History] Aspirin [Halfprin] 81 mg PO DAILY 04/23/17 [History] Doxycycline [Vibramycin] 100 mg PO BID 04/23/17 [History] Ferrous Gluconate 324 mg PO BIDMEALS 04/23/17 [History] Furosemide [Lasix] 20 mg PO DAILY@0600 04/23/17 [History] Selenium Sulfide [Anti-Dandruff] 1 applic TOP SUWEFR 04/23/17 [History] Tiotropium [Spiriva] 18 mcg INH DAILY 04/23/17 [History] Triamcinolone Acetonide [Triamcinolone Acetonide 0.1% Crm] 1 applic TOP BID PRN 04/23/17 [History] atorvaSTATin [Lipitor] 10 mg PO BEDTIME 04/23/17 [History] Past Medical History HEENT History: Reports: Allergic Rhinitis, Impaired Vision Other HEENT History: Allergic rhinitis. Cardiovascular History: Reports: Angina, Hypertension Other Cardiovascular History: lower leg edema. Respiratory History: Reports: COPD Gastrointestinal History: Reports: Colon Polyp Genitourinary History: Reports: None Other Genitourinary History: Increased alkaline phosphatase, hypocalcemia. [employer] History: Reports: None Musculoskeletal History: Reports: None Other Musculoskeletal History: Unsteady gait, recurrent falls, plantar fasciitis. Neurological History: Reports: Seizure Other Neuro History: Neuroleptic induced Parkinsonism. Psychiatric History: Reports: Anxiety, Depression, Developmental Delay, Mood Swings, Psych Hospitalization(s), Suicide Attempt Other Psychiatric History: Transient alteration of awareness, moderate intellectual disabilities. Endocrine/Metabolic History: Reports: Diabetes, Type II, Hypothyroidism Hematologic History: Reports: Anemia Oncologic (Cancer) History: Reports: None Dermatologic History: Reports: Cellulitis Other Dermatologic History: Acne, dermatitis, dry scalp, stasis dermatitis both legs, history of VERSA. 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 - Past Surgical History GI Surgical History: Reports: Appendectomy, Cholecystectomy, Colonoscopy Male Surgical History: Reports: None Social & Family History - Tobacco Use Smoking Status *Q: Never Smoker - Caffeine Use Caffeine Use: Reports: Coffee - Alcohol Use Days Per Week of Alcohol Use: 0 - Recreational Drug Use Recreational Drug Use: No - Living Situation & Occupation Living situation: Reports: Single, Extended Care Facility (Resident in shelter for cognitive delay/disability.) H&P Review of Systems - Review of Systems: Review Of Systems: See Below Pulmonary: Reports: Shortness of Breath Cardiovascular: Reports: No Symptoms Gastrointestinal: Reports: Distension Skin: Reports: Erythema Exam - Exam Exam: See Below - Vital Signs Vital Signs: Last Vital Signs Temp 36.9 C 04/23/17 16:25 Pulse 64 04/23/17 16:25 Resp 18 04/23/17 16:25 BP 105/59 L 04/23/17 12:15 Pulse Ox 95 04/23/17 16:25 Weight: 81.737 kg - Exam General: Alert, Cooperative. No: Mild Distress Lungs: Clear to Auscultation, Normal Respiratory Effort Cardiovascular: Regular Rate, Regular Rhythm GI/Abdominal Exam: Distended (Markedly ), Abnormal Bowel Sounds. No: Rigid, Rebound, Tender - Patient Data Lab Results Last 24 hrs: Laboratory Results - last 24 hr 04/23/17 04/23/17 04/23/17 Range/Units 06:44 11:09 18:06 POC Glucose 133 H 99 143 H (80-116) mg/dL Result Diagrams: 04/22/17 19:10 04/22/17 19:10 Rhys Results Last 24 hrs: Microbiology 04/23/17 11:32 Stool Occult Blood (RHYS) - Final Stool / Feces Consult PN Assessment/Plan Procedures: Procedures ASSAY OF CK (CPK) (06/13/14) ASSAY OF TROPONIN QUANT (06/13/14) CHEST X-RAY 1 VIEW FRONTAL (06/13/14) COMPLETE CBC W/AUTO DIFF WBC (06/13/14) COMPREHEN METABOLIC PANEL (06/13/14) CREATINE MB FRACTION (06/13/14) CT HEAD/BRAIN W/O DYE (04/06/17) CT NECK SPINE W/O DYE (02/25/13) DIAGNOSTIC COLONOSCOPY (06/13/15) ELECTROCARDIOGRAM TRACING (06/13/14) EMERGENCY DEPT VISIT (06/13/14) EMERGENCY DEPT VISIT (02/25/13) GLUCOSE BLOOD TEST (06/13/15) ROUTINE VENIPUNCTURE (06/13/14) (1) Abdominal distention SNOMED Code(s): 33355262 Code(s): R14.0 - ABDOMINAL DISTENSION (GASEOUS) Current Visit: Yes (2) Abnormal large bowel motility SNOMED Code(s): 43808206 Code(s): K59.9 - FUNCTIONAL INTESTINAL DISORDER, UNSPECIFIED Current Visit : Yes Problem List Initiated/Reviewed/Updated: Yes My Orders Last 24 Hours: My Active Orders 04/23/17 14:38 NG [Gastrointestinal Tube Mgmt] [RC] 08,16,00 NG Tube Placement [CR] Urgent 04/23/17 14:55 Nasogastric Orogastric Tube Insertion [OM.PC] Routine 04/23/17 18:09 Communication Order [RC] ASDIRECTED 04/23/17 18:14 Communication Order [RC] ASDIRECTED 04/24/17 05:11 CBC WITH AUTO DIFF [HEME] AM 04/25/17 05:11 KUB [Abdomen 1V Flat] [CR] AM Plan: This appears to be a chronic process. Will treat with bowel rest, ngt decompression. will consider Neostigmine if no improvement. will transfer to my service as well.
[2017-04-23] MEDS: ARIPiprazole 5 MG Tab PO SCH (20:35)
[2017-04-23] MEDS: Benztropine 1 MG Tab PO SCH (20:37)
[2017-04-23] MEDS: Multivitamins, Therapeutic with Minerals Tab PO SCH (20:45)
[2017-04-23] MEDS ORDERED: Pantoprazole 40 MG Tab.CR PO SCH (21:00)
[2017-04-23] MEDS ORDERED: Non-Formulary Medication 1 Each (Aripiprazole [Abilify] 20 MG) PO SCH (21:00)
[2017-04-23] MEDS ORDERED: BENZOYL PEROXIDE TOP SCH (21:00)
[2017-04-23] MEDS ORDERED: Non-Formulary Medication 1 Each (Omeprazole [Omeprazole] 20 MG) PO SCH (21:00)
[2017-04-24] MEDS: Dextrose 5%-0.9% NaCl 1,000 ML IV SCH (03:40)
[2017-04-24] MEDS: Doxycycline 100 MG in Sodium Chloride 0.9% 100 ML IV SCH (04:23)
[2017-04-24] MEDS: Furosemide 20 MG Tab PO SCH (05:32)
[2017-04-24] MEDS ORDERED: Sodium Phosphate,Monobasic/Sodium Phosphate,Dibasic Enema 133 ML Bottle RECTAL ONE (07:45)
--- NOTE | 2017-04-24 07:45 | PCM.SURGPN ---
- General Info Date of Service: 04/24/17 POD#: 0 - Review of Systems Systems Review Comment:: had an additional bowel movement this am. notes some discomfort on the right side. - Patient Data Vitals - Most Recent: Last Vital Signs Temp 36.9 C 04/24/17 01:00 Pulse 61 04/24/17 05:30 Resp 18 04/24/17 01:00 BP 115/69 04/24/17 05:30 Pulse Ox 95 04/24/17 01:00 Weight - Most Recent: 81.737 kg I&O - Last 24 Hours: Intake & Output 04/23/17 04/24/17 04/24/17 22:59 06:59 14:59 Intake Total 784 1255 Output Total 50 Balance 784 1205 Lab Results Last 24 Hrs: Laboratory Results - last 24 hr 04/23/17 04/23/17 04/23/17 Range/Units 11:09 18:06 21:09 WBC (4.5-12.0) X10-3/uL RBC (4.30-5.75) x10(6)uL Hgb (11.5-15.5) g/dL Hct (30.0-51.3) % MCV (80-96) fL MCH (27.7-33.6) pg MCHC (32.2-35.4) g/dL RDW (11.5-15.5) % Plt Count (125-369) X10(3)uL MPV (7.4-10.4) fL Neut % (Auto) (46-82) % Lymph % (Auto) (13-37) % [place] % (Auto) (4-12) % Eos % (Auto) (1.0-5.0) % Baso % (Auto) (0-2) % Neut # (Auto) (1.6-8.3) # Lymph # (Auto) (0.6-5.0) # [place] # (Auto) (0.0-1.3) # Eos # (Auto) (0.0-0.8) # Baso # (Auto) (0.0-0.2) # Sodium (135-145) mmol/L Potassium (3.5-5.3) mmol/L Chloride (100-110) mmol/L Carbon Dioxide (21-32) mmol/L BUN (7-18) mg/dL Creatinine (0.70-1.30) mg/dL Est Cr Clr Drug Dosing mL/min Estimated GFR (MDRD) (>60) BUN/Creatinine Ratio (9-20) Glucose (80-116) mg/dL POC Glucose 99 143 H 134 H (80-116) mg/dL Calcium (8.6-10.2) mg/dL 04/24/17 04/24/17 04/24/17 Range/Units 06:08 06:08 06:11 WBC 5.9 (4.5-12.0) X10-3/uL RBC 3.89 L (4.30-5.75) x10(6)uL Hgb 11.4 L (11.5-15.5) g/dL Hct 35.5 (30.0-51.3) % MCV 91.1 (80-96) fL MCH 29.4 (27.7-33.6) pg MCHC 32.2 (32.2-35.4) g/dL RDW 14.8 (11.5-15.5) % Plt Count 158 (125-369) X10(3)uL MPV 7.9 (7.4-10.4) fL Neut % (Auto) 55.9 (46-82) % Lymph % (Auto) 29.5 (13-37) % [place] % (Auto) 6.1 (4-12) % Eos % (Auto) 8 H (1.0-5.0) % Baso % (Auto) 1 (0-2) % Neut # (Auto) 3.2 (1.6-8.3) # Lymph # (Auto) 1.7 (0.6-5.0) # [place] # (Auto) 0.4 (0.0-1.3) # Eos # (Auto) 0.5 (0.0-0.8) # Baso # (Auto) 0.1 (0.0-0.2) # Sodium 145 (135-145) mmol/L Potassium 3.7 D (3.5-5.3) mmol/L Chloride 112 H D (100-110) mmol/L Carbon Dioxide 23 (21-32) mmol/L BUN 49 H (7-18) mg/dL Creatinine 1.0 (0.70-1.30) mg/dL Est Cr Clr Drug Dosing 73.46 mL/min Estimated GFR (MDRD) > 60 (>60) BUN/Creatinine Ratio 49.0 H (9-20) Glucose 91 (80-116) mg/dL POC Glucose 90 (80-116) mg/dL Calcium 8.3 L (8.6-10.2) mg/dL Rhys Results Last 24 Hrs: Microbiology 04/23/17 11:32 Stool Occult Blood (RHYS) - Final Stool / Feces Med Orders - Current: Current Medications Albuterol (Ventolin Hfa) 0 gm INH TID [facility] Last Admin: 04/23/17 20:45 Dose: 1 puff Aripiprazole (Abilify) 20 mg PO BEDTIME [facility] Last Admin: 04/23/17 20:35 Dose: 20 mg Benztropine Mesylate (Cogentin) 1 mg PO BEDTIME [facility] Last Admin: 04/23/17 20:37 Dose: 1 mg Furosemide (Lasix) 20 mg PO DAILY@0600 [facility] Last Admin: 04/24/17 05:32 Dose: 20 mg Gabapentin (Neurontin) 300 mg PO QID [facility] Last Admin: 04/23/17 21:41 Dose: 300 mg Dextrose/Sodium Chloride (Dextrose 5%-Normal Saline) 1,000 mls @ 150 mls/hr IV ASDIRECTED [facility] Last Admin: 04/24/17 03:40 Dose: 150 mls/hr Doxycycline Hyclate 100 mg/ (Sodium Chloride) 100 mls @ 100 mls/hr IV Q12H [facility] Last Admin: 04/24/17 04:23 Dose: 100 mls/hr Insulin Aspart (Novolog) 0 unit SUBCUT BIDAC [facility] PRN Reason: Protocol Last Admin: 04/23/17 09:06 Dose: Not Given Levothyroxine Sodium (Levothyroxine) 200 mcg PO DAILY@0600 [facility] Last Admin: 04/24/17 05:32 Dose: 200 mcg Lorazepam (Ativan) 1 mg PO Q4H PRN PRN Reason: Anxiety Metoprolol Tartrate (Lopressor) 50 mg PO BID [facility] Last Admin: 04/23/17 20:38 Dose: 50 mg Multivitamins/Minerals (Vitamins And Minerals) 1 tab PO BEDTIME [facility] Last Admin: 04/23/17 20:45 Dose: 1 tab Neomycin/Polymyxin/Bacitracin (Triple Antibiotic Oint) 0 gm TOP BID [facility] Last Admin: 04/23/17 20:44 Dose: 1 applic Nitroglycerin (Nitrostat) 0.4 mg SL ASDIRECTED PRN PRN Reason: Chest Pain Non-Formulary Medication (Benzoyl Peroxide [Benzoyl Peroxide]) 1 applic TOP BEDTIME [facility] Last Admin: 04/23/17 22:23 Dose: Not Given Sertraline HCl (Zoloft) 200 mg PO DAILY [facility] Last Admin: 04/23/17 09:07 Dose: 200 mg Tiotropium [place] (Spiriva Handihaler) 18 mcg INH DAILY [facility] Last Admin: 04/23/17 11:06 Dose: 1 inhalation Discontinued Medications Albuterol (Ventolin Hfa) 0 gm INH TIDRT [facility] Last Admin: 04/23/17 15:11 Dose: 1 inhalation Aspirin (Aspirin) 81 mg PO DAILY [facility] Last Admin: 04/23/17 09:11 Dose: 81 mg Aspirin (Halfprin) 81 mg PO DAILY [facility] Cholecalciferol (Vitamin D3) 1,000 units PO DAILY [facility] Last Admin: 04/23/17 09:08 Dose: 1,000 units Doxycycline Monohydrate (Vibramycin) 100 mg PO BID@0600,2000 [facility] Last Admin: 04/23/17 20:11 Dose: Not Given Potassium Chloride (Kcl 20 Meq In Water 100 Ml) 100 mls @ 50 mls/hr IV Q2H [facility] Stop: 04/23/17 16:29 Last Admin: 04/23/17 15:23 Dose: 50 mls/hr Levothyroxine Sodium (Synthroid) 50 mcg PO DAILY [facility] Magnesium Chloride (Mag-64) 128 mg PO BID [facility] Last Admin: 04/23/17 09:08 Dose: 128 mg Non-Formulary Medication (Levothyroxine [Synthroid]) 200 mcg PO DAILY [facility] Non-Formulary Medication (Omeprazole [Omeprazole]) 20 mg PO BEDTIME [facility] Pantoprazole Sodium (Protonix) 40 mg PO BEDTIME [facility] - Exam General: Alert, Cooperative, No Acute Distress Lungs: Clear to Auscultation, Normal Respiratory Effort Cardiovascular: Regular Rate, Regular Rhythm GI/Abdominal Exam: Non-Tender, Distended (improved from yesterday ), Abnormal Bowel Sounds - Problem List & Annotations (1) Abdominal distention SNOMED Code(s): 28302863 Code(s): R14.0 - ABDOMINAL DISTENSION (GASEOUS) Status: Acute Current Visit: Yes (2) Abnormal large bowel motility SNOMED Code(s): 22356274 Code(s): K59.9 - FUNCTIONAL INTESTINAL DISORDER, UNSPECIFIED Status: Acute Current Visit: Yes - Problem List Review Problem List Initiated/Reviewed/Updated: Yes - My Orders Last 24 Hours: Active Orders 24 hr Category Date Time Status Accu Check [Blood Glucose Check, Bedside] [RC] Care 04/23/17 13:42 Active QIDACANDBED Communication Order [RC] ASDIRECTED Care 04/23/17 18:09 Active Communication Order [RC] ASDIRECTED Care 04/23/17 18:14 Active Foot Care [RC] BID Care 04/23/17 21:00 Active NG [Gastrointestinal Tube Mgmt] [RC] 08,16,00 Care 04/23/17 14:38 Active Notify Provider Consults [RC] ASDIRECTED Care 04/23/17 11:36 Active Consult to Physician [CONS] Routine Cons 04/23/17 11:34 Ordered Nothing Per Oral Diet [DIET] Diet 04/24/17 Breakfast Active KUB [Abdomen 1V Flat] [CR] AM Exams 04/25/17 05:11 Ordered NG Tube Placement [CR] Urgent Exams 04/23/17 14:38 Taken ARIPiprazole [Abilify] Med 04/23/17 21:00 Active 20 mg PO BEDTIME Albuterol [Ventolin HFA] Med 04/23/17 21:00 Active 0 gm INH TID Bacitracin/Neomycin/Polymyxin [Triple Antibiotic Oint] Med 04/23/17 11:15 Active 0 gm TOP BID Benzoyl Peroxide [Benzoyl Peroxide] Med 04/23/17 21:00 Active 1 applic TOP BEDTIME Benztropine [Cogentin] Med 04/23/17 21:00 Active 1 mg PO BEDTIME Dextrose 5%-0.9% NaCl [Dextrose 5%-Normal Saline] 1,000 Med 04/23/17 11:45 Stop Req ml IV ASDIRECTED Doxycycline [Vibramycin] 100 mg Med 04/23/17 17:00 Active Sodium Chloride 0.9% [Normal Saline] 100 ml IV Q12H Furosemide [Lasix] Med 04/24/17 06:00 Active 20 mg PO DAILY@0600 Gabapentin [Neurontin] Med 04/23/17 09:00 Active 300 mg PO QID Insulin Aspart [NovoLOG] Med 04/23/17 08:30 Hold 0 unit SUBCUT BIDAC Metoprolol Tartrate [Lopressor] Med 04/23/17 10:15 Active 50 mg PO BID Multivitamins/Minerals [Vitamins and Minerals] Med 04/23/17 21:00 Active 1 tab PO BEDTIME Sertraline [Zoloft] Med 04/23/17 09:00 Active 200 mg PO DAILY Tiotropium [Spiriva HandiHaler] Med 04/23/17 10:15 Active 18 mcg INH DAILY Nasogastric Orogastric Tube Insertion [OM.PC] Routine Oth 04/23/17 14:55 Ordered SCD [Sequential Compression Device] [OM.PC] Routine Oth 04/23/17 13:23 Ordered Medication Orders Albuterol (Ventolin Hfa) 0 gm INH TID [facility] Last Admin: 04/23/17 20:45 Dose: 1 puff Aripiprazole (Abilify) 20 mg PO BEDTIME [facility] Last Admin: 04/23/17 20:35 Dose: 20 mg Benztropine Mesylate (Cogentin) 1 mg PO BEDTIME [facility] Last Admin: 04/23/17 20:37 Dose: 1 mg Furosemide (Lasix) 20 mg PO DAILY@0600 [facility] Last Admin: 04/24/17 05:32 Dose: 20 mg Gabapentin (Neurontin) 300 mg PO QID [facility] Last Admin: 04/23/17 21:41 Dose: 300 mg Admin: 04/23/17 18:12 Dose: 300 mg Admin: 04/23/17 13:52 Dose: 300 mg Admin: 04/23/17 09:08 Dose: 300 mg Dextrose/Sodium Chloride (Dextrose 5%-Normal Saline) 1,000 mls @ 150 mls/hr IV ASDIRECTED [facility] Last Admin: 04/24/17 03:40 Dose: 150 mls/hr Infusion: 04/24/17 03:40 Dose: 150 mls/hr Admin: 04/23/17 21:03 Dose: 150 mls/hr Infusion: 04/23/17 19:46 Dose: 150 mls/hr Admin: 04/23/17 13:05 Dose: 150 mls/hr Doxycycline Hyclate 100 mg/ (Sodium Chloride) 100 mls @ 100 mls/hr IV Q12H [facility] Last Admin: 04/24/17 04:23 Dose: 100 mls/hr Admin: 04/23/17 18:10 Dose: 100 mls/hr Insulin Aspart (Novolog) 0 unit SUBCUT BIDAC [facility] PRN Reason: Protocol Last Admin: 04/23/17 09:06 Dose: Levothyroxine Sodium (Levothyroxine) 200 mcg PO DAILY@0600 [facility] Last Admin: 04/24/17 05:32 Dose: 200 mcg Admin: 04/23/17 06:00 Dose: 200 mcg Lorazepam (Ativan) 1 mg PO Q4H PRN PRN Reason: Anxiety Metoprolol Tartrate (Lopressor) 50 mg PO BID [facility] Last Admin: 04/23/17 20:38 Dose: 50 mg Admin: 04/23/17 11:06 Dose: 50 mg Multivitamins/Minerals (Vitamins And Minerals) 1 tab PO BEDTIME [facility] Last Admin: 04/23/17 20:45 Dose: 1 tab Neomycin/Polymyxin/Bacitracin (Triple Antibiotic Oint) 0 gm TOP BID [facility] Last Admin: 04/23/17 20:44 Dose: 1 applic Admin: 04/23/17 13:40 Dose: 1 applic Nitroglycerin (Nitrostat) 0.4 mg SL ASDIRECTED PRN PRN Reason: Chest Pain Non-Formulary Medication (Benzoyl Peroxide [Benzoyl Peroxide]) 1 applic TOP BEDTIME [facility] Last Admin: 04/23/17 22:23 Dose: Sertraline HCl (Zoloft) 200 mg PO DAILY [facility] Last Admin: 04/23/17 09:07 Dose: 200 mg Tiotropium [place] (Spiriva Handihaler) 18 mcg INH DAILY [facility] Last Admin: 04/23/17 11:06 Dose: 1 inhalation - Assessment Assessment (Free Text/Narrative):: slight improvement - Plan Plan (Free Text/Narrative):: continue NPO NGT decompression iv erythromycin fleets this am
[2017-04-24] MEDS: D5 1/2 NS w/ 20 mEq/L KCl 1,000 ML IV SCH ×2 (08:31→17:36)
[2017-04-24] MEDS ORDERED: Aspirin 81 MG Tab.EC PO SCH (09:00)
[2017-04-24] MEDS: Albuterol 8 GM Inhaler INH SCH ×3 (09:42→21:16)
[2017-04-24] MEDS: Sertraline 100 MG Tab PO SCH (09:42)
[2017-04-24] MEDS: Tiotropium Inhaler 18 MCG Inhalation Powder Cap Kit of 5 INH SCH (09:43)
[2017-04-24] MEDS: Gabapentin 300 MG Cap PO SCH ×4 (09:43→21:16)
[2017-04-24] MEDS: Bacitracin/Neomycin/Polymyxin B Oint 28.4 GM Tube TOP SCH ×2 (09:43→21:16)
[2017-04-24] MEDS: Metoprolol Tartrate 50 MG Tab PO SCH ×2 (09:45→21:15)
[2017-04-24] MEDS: Azithromycin 500 MG in Sodium Chloride 0.9% 250 ML IV SCH (10:21)
--- NOTE | 2017-04-24 13:09 | CR ---
INDICATION: Distended bowel. NG TUBE PLACEMENT X-RAY: A portable upright view of the chest/abdomen revealed nasogastric tube in place with its tip in the area of the gastric body proximally. Markedly distended loops of large bowel are noted, raising question of a severe paralytic ileus or possibly a distal colonic obstruction. MTDD
--- NOTE | 2017-04-24 16:47 | PCM.SN ---
- Free Text/Narrative Note: pt reports feeling better. lungs cta heart rrr abd still distended slight improvement. tympanic bowel sounds nontender slow progress cbc in am bmp in am
[2017-04-24] MEDS: Insulin Aspart 100 Units/ML 3 ML Pen SUBCUT SCH (17:40)
[2017-04-24] MEDS: ARIPiprazole 5 MG Tab PO SCH (21:15)
[2017-04-24] MEDS: Benztropine 1 MG Tab PO SCH (21:15)
[2017-04-24] MEDS: Multivitamins, Therapeutic with Minerals Tab PO SCH (21:16)
[2017-04-25] MEDS: D5 1/2 NS w/ 20 mEq/L KCl 1,000 ML IV SCH ×3 (02:24→20:06)
[2017-04-25] MEDS: Furosemide 20 MG Tab PO SCH (06:24)
[2017-04-25] MEDS: Insulin Aspart 100 Units/ML 3 ML Pen SUBCUT SCH ×2 (07:46→17:06)
--- NOTE | 2017-04-25 08:15 | PCM.SN ---
- Free Text/Narrative Note: Pt continues to pass flatus. Still distended. lungs: CTA heart RRR abd soft nontender. still distended. assess colonic distention persists will proceed with a c scope.
[2017-04-25] MEDS: Azithromycin 500 MG in Sodium Chloride 0.9% 250 ML IV SCH (09:08)
[2017-04-25] MEDS: Sertraline 100 MG Tab PO SCH (09:10)
[2017-04-25] MEDS: Tiotropium Inhaler 18 MCG Inhalation Powder Cap Kit of 5 INH SCH (09:10)
[2017-04-25] MEDS: Albuterol 8 GM Inhaler INH SCH ×3 (09:10→21:27)
[2017-04-25] MEDS: Metoprolol Tartrate 50 MG Tab PO SCH ×2 (09:10→21:26)
[2017-04-25] MEDS: Gabapentin 300 MG Cap PO SCH ×4 (09:10→22:20)
[2017-04-25] MEDS: Bacitracin/Neomycin/Polymyxin B Oint 28.4 GM Tube TOP SCH ×2 (09:11→21:27)
--- NOTE | 2017-04-25 10:42 | PCM.SN ---
- Free Text/Narrative Note: Multiple attempts to contact the POA have not been successful. Due to need to decompress the colon will proceed with the procedure.
[2017-04-25] MEDS ORDERED: Propofol 200 MG/20 ML SDV IV ONE (11:30)
--- NOTE | 2017-04-25 12:03 | PCM.OPNOTE ---
- General Post-Op/Procedure Note Date of Surgery/Procedure: 04/25/17 Operative Procedure(s): colonoscopy with decompression of the colon Findings: to transverse colon aspirated large amount of air marked improvement of abd exam Pre Op Diagnosis: colonic dilation Post-Op Diagnosis: Same Anesthesia Technique: MAC Primary Surgeon: Geovani Morrison Anesthesia Provider: Tere Hong Pathology: none Complications: None Condition: Fair Free Text/Narrative:: Intake & Output 04/24/17 04/25/17 04/25/17 22:59 06:59 14:59 Intake Total 943 1055 Balance 943 1055 see dictation
--- NOTE | 2017-04-25 14:15 | OR ---
DATE OF OPERATION: 04/25/2017 SURGEON: Geovani Morrison MD PROCEDURE PERFORMED: Colonoscopy with decompression of dilated colon. INDICATIONS FOR PROCEDURE: This is a 56-year-old white male who was admitted with some respiratory distress and noted to have a markedly dilated colon, appears to be an [id number] condition secondary to his medications. Conservative therapy up to this point has not been successful in treating this condition. Therefore, it was felt that a decompression via colonoscope was indicated. DESCRIPTION OF PROCEDURE: After an excellent IV sedation was administered, digital rectal exam was performed. No marked abnormality was noted. Flexible colonoscope was inserted and advanced to the transverse colon. Due to the redundancy, we were not able to advance the scope further. This is a known condition from his previous colonoscopy several years ago. We then decompressed the stomach by aspirating the air with marked physical improvement of the patient's abdominal appearance and exam. The scope was slowly withdrawn, removing the bulk of the air from the patient's colon. Tolerated procedure well, and was taken back to his room in good condition. /[id number] /MODL
[2017-04-25] MEDS: Pantoprazole 40 MG Vial IVPUSH SCH (14:40)
[2017-04-25] MEDS: Aluminum Hydroxide/Magnesium Hydroxide Susp 30 ML Cup PO PRN ×2 (14:40→20:29)
[2017-04-25] MEDS: Benztropine 1 MG Tab PO SCH (21:26)
[2017-04-25] MEDS: ARIPiprazole 5 MG Tab PO SCH (21:26)
[2017-04-25] MEDS: Multivitamins, Therapeutic with Minerals Tab PO SCH (21:26)
[2017-04-26] MEDS ORDERED: Albuterol/Ipratropium 3.0-0.5 MG/3 ML Neb Soln NEB PRN (00:40)
[2017-04-26] MEDS: D5 1/2 NS w/ 20 mEq/L KCl 1,000 ML IV SCH ×3 (01:14→07:58)
[2017-04-26] MEDS: Furosemide 20 MG Tab PO SCH (05:57)
[2017-04-26] MEDS: Insulin Aspart 100 Units/ML 3 ML Pen SUBCUT SCH ×2 (07:20→18:42)
[2017-04-26] MEDS: Tiotropium Inhaler 18 MCG Inhalation Powder Cap Kit of 5 INH SCH (08:33)
[2017-04-26] MEDS: Gabapentin 300 MG Cap PO SCH ×4 (08:49→20:09)
[2017-04-26] MEDS: Bacitracin/Neomycin/Polymyxin B Oint 28.4 GM Tube TOP SCH ×2 (08:49→20:09)
[2017-04-26] MEDS: Metoprolol Tartrate 50 MG Tab PO SCH (08:50)
[2017-04-26] MEDS: Albuterol 8 GM Inhaler INH SCH ×3 (08:50→20:10)
[2017-04-26] MEDS: Pantoprazole 40 MG Vial IVPUSH SCH (08:51)
[2017-04-26] MEDS: Azithromycin 500 MG in Sodium Chloride 0.9% 250 ML IV SCH (08:51)
[2017-04-26] MEDS: Sertraline 100 MG Tab PO SCH (08:52)
--- NOTE | 2017-04-26 09:04 | PCM.SURGPN ---
- General Info Date of Service: 04/26/17 Date of Surgery/Procedure: 04/25/17 Functional Status: Reports: Incentive Spirometry - Review of Systems Pulmonary: Reports: Wheezing (last pm started on IS as well as nebs. better this am ) Cardiovascular: Reports: Other (bp down this am ) Gastrointestinal: Reports: Other (several large liquid bowel movements. ). Denies: Abdominal Pain - Patient Data Vitals - Most Recent: Last Vital Signs Temp 37.4 C 04/26/17 08:00 Pulse 60 04/26/17 08:00 Resp 18 04/26/17 08:00 BP 100/59 L 04/26/17 08:00 Pulse Ox 95 04/26/17 08:00 Weight - Most Recent: 81.737 kg I&O - Last 24 Hours: Intake & Output 04/25/17 04/26/17 04/26/17 22:59 06:59 14:59 Intake Total 925 502 Output Total 300 200 Balance 625 302 Lab Results Last 24 Hrs: Laboratory Results - last 24 hr 04/25/17 04/25/17 04/25/17 Range/Units 12:36 17:03 21:00 WBC (4.5-12.0) X10-3/uL RBC (4.30-5.75) x10(6)uL Hgb (11.5-15.5) g/dL Hct (30.0-51.3) % MCV (80-96) fL MCH (27.7-33.6) pg MCHC (32.2-35.4) g/dL RDW (11.5-15.5) % Plt Count (125-369) X10(3)uL MPV (7.4-10.4) fL Neut % (Auto) (46-82) % Lymph % (Auto) (13-37) % Kinney % (Auto) (4-12) % Eos % (Auto) (1.0-5.0) % Baso % (Auto) (0-2) % Neut # (Auto) (1.6-8.3) # Lymph # (Auto) (0.6-5.0) # Kinney # (Auto) (0.0-1.3) # Eos # (Auto) (0.0-0.8) # Baso # (Auto) (0.0-0.2) # Sodium (135-145) mmol/L Potassium (3.5-5.3) mmol/L Chloride (100-110) mmol/L Carbon Dioxide (21-32) mmol/L BUN (7-18) mg/dL Creatinine (0.70-1.30) mg/dL Est Cr Clr Drug Dosing mL/min Estimated GFR (MDRD) (>60) BUN/Creatinine Ratio (9-20) Glucose (80-116) mg/dL POC Glucose 101 116 119 H (80-116) mg/dL Calcium (8.6-10.2) mg/dL 04/26/17 04/26/17 Range/Units 06:30 06:30 WBC 5.5 (4.5-12.0) X10-3/uL RBC 3.39 L (4.30-5.75) x10(6)uL Hgb 10.0 L (11.5-15.5) g/dL Hct 30.6 (30.0-51.3) % MCV 90.1 (80-96) fL MCH 29.5 (27.7-33.6) pg MCHC 32.7 (32.2-35.4) g/dL RDW 14.1 (11.5-15.5) % Plt Count 123 L (125-369) X10(3)uL MPV 7.8 (7.4-10.4) fL Neut % (Auto) 59.6 (46-82) % Lymph % (Auto) 25.4 (13-37) % Kinney % (Auto) 7.4 (4-12) % Eos % (Auto) 7 H (1.0-5.0) % Baso % (Auto) 1 (0-2) % Neut # (Auto) 3.3 (1.6-8.3) # Lymph # (Auto) 1.4 (0.6-5.0) # Kinney # (Auto) 0.4 (0.0-1.3) # Eos # (Auto) 0.4 (0.0-0.8) # Baso # (Auto) 0.0 (0.0-0.2) # Sodium 145 (135-145) mmol/L Potassium 3.8 (3.5-5.3) mmol/L Chloride 115 H (100-110) mmol/L Carbon Dioxide 23 (21-32) mmol/L BUN 22 H D (7-18) mg/dL Creatinine 0.8 (0.70-1.30) mg/dL Est Cr Clr Drug Dosing 91.82 mL/min Estimated GFR (MDRD) > 60 (>60) BUN/Creatinine Ratio 27.5 H (9-20) Glucose 94 (80-116) mg/dL POC Glucose (80-116) mg/dL Calcium 8.1 L (8.6-10.2) mg/dL Med Orders - Current: Current Medications Al Hydroxide/Mg Hydroxide (Mag-Al Susp) 30 ml PO Q2H PRN PRN Reason: Heartburn Last Admin: 04/25/17 20:29 Dose: 30 ml Albuterol (Ventolin Hfa) 0 gm INH TID [facility] Last Admin: 04/26/17 08:50 Dose: 1 puff Albuterol/Ipratropium (Duoneb 3.0-0.5 Mg/3 Ml) 3 ml NEB Q6H PRN PRN Reason: Dyspnea Last Admin: 04/26/17 00:52 Dose: 3 ml Aripiprazole (Abilify) 20 mg PO BEDTIME [facility] Last Admin: 04/25/17 21:26 Dose: 20 mg Atorvastatin Calcium (Lipitor) 10 mg PO BEDTIME [facility] Benztropine Mesylate (Cogentin) 1 mg PO BEDTIME [facility] Last Admin: 04/25/17 21:26 Dose: 1 mg Furosemide (Lasix) 20 mg PO DAILY@0600 [facility] Last Admin: 04/26/17 05:57 Dose: 20 mg Gabapentin (Neurontin) 300 mg PO QID [facility] Last Admin: 04/26/17 08:49 Dose: 300 mg Azithromycin 500 mg/ Sodium (Chloride) 250 mls @ 250 mls/hr IV Q24H [facility] Last Admin: 04/26/17 08:51 Dose: 250 mls/hr Insulin Aspart (Novolog) 0 unit SUBCUT BIDAC [facility] PRN Reason: Protocol Last Admin: 04/26/17 07:20 Dose: Not Given Levothyroxine Sodium (Levothyroxine) 200 mcg PO DAILY@0600 [facility] Last Admin: 04/26/17 05:56 Dose: 200 mcg Lorazepam (Ativan) 1 mg PO Q4H PRN PRN Reason: Anxiety Metoprolol Tartrate (Lopressor) 50 mg PO BID [facility] Last Admin: 04/26/17 08:50 Dose: Not Given Multivitamins/Minerals (Vitamins And Minerals) 1 tab PO BEDTIME [facility] Last Admin: 04/25/17 21:26 Dose: 1 tab Neomycin/Polymyxin/Bacitracin (Triple Antibiotic Oint) 0 gm TOP BID [facility] Last Admin: 04/26/17 08:49 Dose: 1 applic Nitroglycerin (Nitrostat) 0.4 mg SL ASDIRECTED PRN PRN Reason: Chest Pain Sertraline HCl (Zoloft) 200 mg PO DAILY [facility] Last Admin: 04/26/17 08:52 Dose: 200 mg Tiotropium Edgard (Spiriva Handihaler) 18 mcg INH DAILY [facility] Last Admin: 04/26/17 08:33 Dose: 1 inhalation Discontinued Medications Albuterol (Ventolin Hfa) 0 gm INH TIDRT [facility] Last Admin: 04/23/17 15:11 Dose: 1 inhalation Aspirin (Aspirin) 81 mg PO DAILY [facility] Last Admin: 04/23/17 09:11 Dose: 81 mg Aspirin (Halfprin) 81 mg PO DAILY [facility] Cholecalciferol (Vitamin D3) 1,000 units PO DAILY [facility] Last Admin: 04/23/17 09:08 Dose: 1,000 units Doxycycline Monohydrate (Vibramycin) 100 mg PO BID@0600,2000 [facility] Last Admin: 04/23/17 20:11 Dose: Not Given Dextrose/Sodium Chloride (Dextrose 5%-Normal Saline) 1,000 mls @ 150 mls/hr IV ASDIRECTED [facility] Last Admin: 04/24/17 03:40 Dose: 150 mls/hr Potassium Chloride (Kcl 20 Meq In Water 100 Ml) 100 mls @ 50 mls/hr IV Q2H [facility] Stop: 04/23/17 16:29 Last Admin: 04/23/17 15:23 Dose: 50 mls/hr Doxycycline Hyclate 100 mg/ (Sodium Chloride) 100 mls @ 100 mls/hr IV Q12H [facility] Last Admin: 04/24/17 04:23 Dose: 100 mls/hr Potassium Chloride/Dextrose/Sod Cl (D5 1/2 Ns W/ 20 Meq/L Kcl) 1,000 mls @ 75 mls/hr IV Q8H [facility] Last Admin: 04/26/17 07:58 Dose: Not Given Levothyroxine Sodium (Synthroid) 50 mcg PO DAILY [facility] Magnesium Chloride (Mag-64) 128 mg PO BID [facility] Last Admin: 04/23/17 09:08 Dose: 128 mg Non-Formulary Medication (Benzoyl Peroxide [Benzoyl Peroxide]) 1 applic TOP BEDTIME [facility] Last Admin: 04/23/17 22:23 Dose: Not Given Non-Formulary Medication (Levothyroxine [Synthroid]) 200 mcg PO DAILY [facility] Non-Formulary Medication (Omeprazole [Omeprazole]) 20 mg PO BEDTIME [facility] Pantoprazole Sodium (Protonix) 40 mg PO BEDTIME [facility] Pantoprazole Sodium (Protonix Iv) 40 mg IVPUSH DAILY [facility] Last Admin: 04/26/17 08:51 Dose: 40 mg Sodium Biphosphate/Sodium Phosphate (Fleet Enema) 133 ml RECTAL ONETIME ONE Stop: 04/24/17 07:46 Last Admin: 04/24/17 08:34 Dose: 133 ml - Exam General: Alert, Oriented, No Acute Distress Lungs: Clear to Auscultation, Normal Respiratory Effort Cardiovascular: Regular Rate, Regular Rhythm GI/Abdominal Exam: Normal Bowel Sounds, Soft, No Distention (markedly improved from yesterday. ) Skin: Warm, Dry, Intact - Problem List & Annotations (1) Abdominal distention SNOMED Code(s): 33048069 Code(s): R14.0 - ABDOMINAL DISTENSION (GASEOUS) Status: Acute Current Visit: Yes (2) Abnormal large bowel motility SNOMED Code(s): 44853656 Code(s): K59.9 - FUNCTIONAL INTESTINAL DISORDER, UNSPECIFIED Status: Acute Current Visit: Yes - Problem List Review Problem List Initiated/Reviewed/Updated: Yes - My Orders Last 24 Hours: Active Orders 24 hr Category Date Time Status DC Millan Catheter [Urinary Catheter Removal] [RC] Per Care 04/26/17 08:52 Ordered Unit Routine Incentive Spirometry [RT Incentive Spirometry] [] Care 04/26/17 00:42 Active Q2HWA RT Aerosol Therapy [] ASDIRECTED Care 04/26/17 00:41 Active Consistent Carbohydrate Diet [DIET] Diet 04/26/17 Lunch Ordered PRO B-TYPE NATRIUR PEPT,BNPPRO [CHEM] Routine Lab 04/26/17 08:45 Ordered Albuterol/Ipratropium [DuoNeb 3.0-0.5 MG/3 ML] Med 04/26/17 00:40 Active 3 ml NEB Q6H PRN Alum Hydroxide/Mag Hydroxide [Mag-Al Susp] Med 04/25/17 14:10 Active 30 ml PO Q2H PRN Pantoprazole [ProTONIX] Med 04/27/17 06:00 Ordered 40 mg PO 0600 atorvaSTATin [Lipitor] Med 04/26/17 21:00 Ordered 10 mg PO BEDTIME Convert IV to Saline Lock [OM.PC] Routine Oth 04/26/17 08:54 Ordered Medication Orders Al Hydroxide/Mg Hydroxide (Mag-Al Susp) 30 ml PO Q2H PRN PRN Reason: Heartburn Last Admin: 04/25/17 20:29 Dose: 30 ml Admin: 04/25/17 14:40 Dose: 30 ml Albuterol (Ventolin Hfa) 0 gm INH TID [facility] Last Admin: 04/26/17 08:50 Dose: 1 puff Admin: 04/25/17 21:27 Dose: 1 puff Admin: 04/25/17 13:50 Dose: 1 puff Admin: 04/25/17 09:10 Dose: 1 puff Admin: 04/24/17 21:16 Dose: 1 puff Admin: 04/24/17 13:54 Dose: 1 puff Admin: 04/24/17 09:42 Dose: 1 puff Admin: 04/23/17 20:45 Dose: 1 puff Albuterol/Ipratropium (Duoneb 3.0-0.5 Mg/3 Ml) 3 ml NEB Q6H PRN PRN Reason: Dyspnea Last Admin: 04/26/17 00:52 Dose: 3 ml Aripiprazole (Abilify) 20 mg PO BEDTIME [facility] Last Admin: 04/25/17 21:26 Dose: 20 mg Admin: 04/24/17 21:15 Dose: 20 mg Admin: 04/23/17 20:35 Dose: 20 mg Atorvastatin Calcium (Lipitor) 10 mg PO BEDTIME [facility] Benztropine Mesylate (Cogentin) 1 mg PO BEDTIME [facility] Last Admin: 04/25/17 21:26 Dose: 1 mg Admin: 04/24/17 21:15 Dose: 1 mg Admin: 04/23/17 20:37 Dose: 1 mg Furosemide (Lasix) 20 mg PO DAILY@0600 [facility] Last Admin: 04/26/17 05:57 Dose: 20 mg Admin: 04/25/17 06:24 Dose: 20 mg Admin: 04/24/17 05:32 Dose: 20 mg Gabapentin (Neurontin) 300 mg PO QID [facility] Last Admin: 04/26/17 08:49 Dose: 300 mg Admin: 04/25/17 22:20 Dose: 300 mg Admin: 04/25/17 17:06 Dose: 300 mg Admin: 04/25/17 12:49 Dose: 300 mg Admin: 04/25/17 09:10 Dose: 300 mg Admin: 04/24/17 21:16 Dose: 300 mg Admin: 04/24/17 17:38 Dose: 300 mg Admin: 04/24/17 13:19 Dose: 300 mg Admin: 04/24/17 09:43 Dose: 300 mg Admin: 04/23/17 21:41 Dose: 300 mg Admin: 04/23/17 18:12 Dose: 300 mg Admin: 04/23/17 13:52 Dose: 300 mg Admin: 04/23/17 09:08 Dose: 300 mg Azithromycin 500 mg/ Sodium (Chloride) 250 mls @ 250 mls/hr IV Q24H [facility] Last Admin: 04/26/17 08:51 Dose: 250 mls/hr Admin: 04/25/17 09:08 Dose: 250 mls/hr Admin: 04/24/17 10:21 Dose: 250 mls/hr Insulin Aspart (Novolog) 0 unit SUBCUT BIDAC [facility] PRN Reason: Protocol Last Admin: 04/26/17 07:20 Dose: Admin: 04/25/17 17:06 Dose: Not Given Admin: 04/25/17 07:46 Dose: Not Given Admin: 04/24/17 17:40 Dose: Not Given Admin: 04/23/17 09:06 Dose: Levothyroxine Sodium (Levothyroxine) 200 mcg PO DAILY@0600 [facility] Last Admin: 04/26/17 05:56 Dose: 200 mcg Admin: 04/25/17 06:24 Dose: 200 mcg Admin: 04/24/17 05:32 Dose: 200 mcg Admin: 04/23/17 06:00 Dose: 200 mcg Lorazepam (Ativan) 1 mg PO Q4H PRN PRN Reason: Anxiety Metoprolol Tartrate (Lopressor) 50 mg PO BID [facility] Last Admin: 04/26/17 08:50 Dose: Admin: 04/25/17 21:26 Dose: 50 mg Admin: 04/25/17 09:10 Dose: 50 mg Admin: 04/24/17 21:15 Dose: 50 mg Admin: 04/24/17 09:45 Dose: 50 mg Admin: 04/23/17 20:38 Dose: 50 mg Admin: 04/23/17 11:06 Dose: 50 mg Multivitamins/Minerals (Vitamins And Minerals) 1 tab PO BEDTIME [facility] Last Admin: 04/25/17 21:26 Dose: 1 tab Admin: 04/24/17 21:16 Dose: 1 tab Admin: 04/23/17 20:45 Dose: 1 tab Neomycin/Polymyxin/Bacitracin (Triple Antibiotic Oint) 0 gm TOP BID [facility] Last Admin: 04/26/17 08:49 Dose: 1 applic Admin: 04/25/17 21:27 Dose: 1 applic Admin: 04/25/17 09:11 Dose: 1 applic Admin: 04/24/17 21:16 Dose: 1 applic Admin: 04/24/17 09:43 Dose: 1 applic Admin: 04/23/17 20:44 Dose: 1 applic Admin: 04/23/17 13:40 Dose: 1 applic Nitroglycerin (Nitrostat) 0.4 mg SL ASDIRECTED PRN PRN Reason: Chest Pain Sertraline HCl (Zoloft) 200 mg PO DAILY [facility] Last Admin: 04/26/17 08:52 Dose: 200 mg Admin: 04/25/17 09:10 Dose: 200 mg Admin: 04/24/17 09:42 Dose: 200 mg Admin: 04/23/17 09:07 Dose: 200 mg Tiotropium Edgard (Spiriva Handihaler) 18 mcg INH DAILY [facility] Last Admin: 04/26/17 08:33 Dose: 1 inhalation Admin: 04/25/17 09:10 Dose: 1 inhalation Admin: 04/24/17 09:43 Dose: 1 inhalation Admin: 04/23/17 11:06 Dose: 1 inhalation - Assessment Assessment (Free Text/Narrative):: SBP is down this am. holding the beta emmy. His bowel function is markedly better since the decompression. will advance his diet. I am checking a BNP this am. Meds to po except for the azithromycin, which we will keep iv. I am d/cing his millan. Will allow free po liquid intake. - Plan Plan (Free Text/Narrative):: see above
[2017-04-26] MEDS: Aluminum Hydroxide/Magnesium Hydroxide Susp 30 ML Cup PO PRN (09:16)
[2017-04-26] MEDS: Polyethylene Glycol 3350 Powder 17 GM Packet PO SCH (09:16)
[2017-04-26] MEDS: ARIPiprazole 5 MG Tab PO SCH (20:09)
[2017-04-26] MEDS: Benztropine 1 MG Tab PO SCH (20:09)
[2017-04-26] MEDS: Multivitamins, Therapeutic with Minerals Tab PO SCH (20:10)
[2017-04-26] MEDS ORDERED: atorvaSTATin 10 MG Tab PO SCH (21:00)
[2017-04-27] MEDS: Aluminum Hydroxide/Magnesium Hydroxide Susp 30 ML Cup PO PRN (00:49)
[2017-04-27] MEDS ORDERED: Pantoprazole 40 MG Tab.CR PO SCH (06:00)
[2017-04-27] MEDS: Furosemide 20 MG Tab PO SCH (06:31)
--- NOTE | 2017-04-27 07:51 | PCM.DCSUM1 ---
Discharge Summary - Hospital Course Free Text/Narrative:: Pt presented to the ED with a complaint of dyspnea. This was addressed in the ED. He was noted to have marked abd distention, which was confirmed on KUB as well as CT scan. He was admitted and placed on NPO. NGT was placed the following morning and he was transferred to the surgical service. Azithromycin was started as a prokinetic agent and he appeared to have started to move the air and have bowel movements. He was taken to the endoscopy suite the next day and was decompressed via c scope as he still was distended. NGT and Banks were d/c and he was started on a clear liquid diet the following day. The diet was advanced and he appeared to tolerate it. He was started on daily Miralax. He appears to be well enough to go home. This appears to be a chronic condition most likely secondary to his Cogentin. Will have him see his PCP to see if other medications could be considered. - Discharge Data Discharge Date: 04/27/17 Discharge Disposition: Home, Self-Care 01 Condition: Fair - Discharge Diagnosis/Problem(s) (1) Abdominal distention SNOMED Code(s): 72262881 ICD Code: R14.0 - ABDOMINAL DISTENSION (GASEOUS) Status: Acute Current Visit: Yes (2) Abnormal large bowel motility SNOMED Code(s): 17812175 ICD Code: K59.9 - FUNCTIONAL INTESTINAL DISORDER, UNSPECIFIED Status: Acute Current Visit: Yes - Patient Summary/Data Operative Procedure(s) Performed: colonoscopy with decompression of the colon Consults: Consultations 04/23/17 11:34 Consult to Physician [CONS] Routine Consulting Provider: Geovani Morrison Courtesy Call Completed to Consulting Physician: Yes Reason for Consult: Abdominal distension/obstruction? Person Notified: susan Morrison Date Notified: 04/23/17 Time Notified: 11:35 - Patient Instructions Diet: Usual Diet as Tolerated Activity: As Tolerated Showering/Bathing: June Shower - Discharge Plan Prescriptions/Med Rec: Polyethylene Glycol 3350 [MiraLAX] 17 gm PO DAILY #60 packet Home Medications: Home Meds LORazepam 1 mg PO ASDIRECTED PRN 02/25/13 [History] Albuterol [Proventil HFA] 1 puff INH TID 06/13/14 [History] Benztropine Mesylate 1 mg PO BEDTIME 06/13/14 [History] Cholecalciferol (Vitamin D3) [Vitamin D3] 1,000 unit PO DAILY@0600 06/13/14 [ History] Gabapentin [Neurontin] 300 mg PO QID@08,12,16,20 06/13/14 [History] Insulin Glarg,Human.Rec.Analog [Lantus Solostar] 12 unit SUBCUT BEDTIME [History] Levothyroxine [Synthroid] 50 mcg PO DAILY 06/13/14 [History] Levothyroxine [Synthroid] 200 mcg PO DAILY@06 06/13/14 [History] Magnesium Chloride [Magnesium Dr] 128 mg PO BID 06/13/14 [History] Metoprolol Tartrate [Lopressor] 50 mg PO BID 06/13/14 [History] Multivitamin with Minerals [Multivitamins with Minerals] 1 tab PO BEDTIME [History] Omeprazole 20 mg PO BEDTIME 06/13/14 [History] Sertraline [Zoloft] 200 mg PO DAILY 06/13/14 [History] Benzoyl Peroxide 1 applic TOP BEDTIME 05/09/15 [History] Nitroglycerin [Nitrostat] 0.4 mg SL Q5M PRN 05/09/15 [History] ARIPiprazole [Abilify] 20 mg PO BEDTIME 04/23/17 [History] Aspirin [Halfprin] 81 mg PO DAILY 04/23/17 [History] Doxycycline [Vibramycin] 100 mg PO BID 04/23/17 [History] Ferrous Gluconate 324 mg PO BIDMEALS 04/23/17 [History] Furosemide [Lasix] 20 mg PO DAILY@0600 04/23/17 [History] Selenium Sulfide [Anti-Dandruff] 1 applic TOP SUWEFR 04/23/17 [History] Tiotropium [Spiriva HandiHaler] 18 mcg INH DAILY 04/23/17 [History] Triamcinolone Acetonide [Triamcinolone Acetonide 0.1% Crm] 1 applic TOP BID PRN 04/23/17 [History] atorvaSTATin [Lipitor] 10 mg PO BEDTIME 04/23/17 [History] Polyethylene Glycol 3350 [MiraLAX] 17 gm PO DAILY #60 packet 04/27/17 [Rx] Referrals: Noy Lepe NP [Primary Care Provider] - (this week to change Cogentin rx ) Geovani Morrison MD [Physician] - (2 wks ) - Discharge Summary/Plan Comment DC Time >30 min.: No - Patient Data Vitals - Most Recent: Last Vital Signs Temp 36.9 C 04/27/17 04:27 Pulse 66 04/27/17 04:27 Resp 18 04/27/17 04:27 BP 140/69 04/27/17 04:27 Pulse Ox 94 L 04/27/17 04:27 Weight - Most Recent: 81.737 kg Lab Results - Last 24 hrs: Laboratory Results - last 24 hr 04/26/17 04/26/17 04/26/17 Range/Units 06:30 11:19 16:18 POC Glucose 82 92 (80-116) mg/dL NT-Pro-B Natriuret Pep 923 H (<=125) pg/mL 04/26/17 04/27/17 Range/Units 21:29 06:30 POC Glucose 91 82 (80-116) mg/dL NT-Pro-B Natriuret Pep (<=125) pg/mL Med Orders - Current: Current Medications Al Hydroxide/Mg Hydroxide (Mag-Al Susp) 30 ml PO Q2H PRN PRN Reason: Heartburn Last Admin: 04/27/17 00:49 Dose: 30 ml Albuterol (Ventolin Hfa) 0 gm INH TID [facility] Last Admin: 04/26/17 20:10 Dose: 1 puff Albuterol/Ipratropium (Duoneb 3.0-0.5 Mg/3 Ml) 3 ml NEB Q6H PRN PRN Reason: Dyspnea Last Admin: 04/26/17 00:52 Dose: 3 ml Aripiprazole (Abilify) 20 mg PO BEDTIME [facility] Last Admin: 04/26/17 20:09 Dose: 20 mg Atorvastatin Calcium (Lipitor) 10 mg PO BEDTIME [facility] Last Admin: 04/26/17 20:09 Dose: 10 mg Benztropine Mesylate (Cogentin) 1 mg PO BEDTIME [facility] Last Admin: 04/26/17 20:09 Dose: 1 mg Furosemide (Lasix) 20 mg PO DAILY@0600 [facility] Last Admin: 04/27/17 06:31 Dose: 20 mg Gabapentin (Neurontin) 300 mg PO QID [facility] Last Admin: 04/26/17 20:09 Dose: 300 mg Azithromycin 500 mg/ Sodium (Chloride) 250 mls @ 250 mls/hr IV Q24H [facility] Last Admin: 04/26/17 08:51 Dose: 250 mls/hr Insulin Aspart (Novolog) 0 unit SUBCUT BIDAC [facility] PRN Reason: Protocol Last Admin: 04/26/17 18:42 Dose: Not Given Levothyroxine Sodium (Levothyroxine) 200 mcg PO DAILY@0600 [facility] Last Admin: 04/27/17 06:31 Dose: 200 mcg Lorazepam (Ativan) 1 mg PO Q4H PRN PRN Reason: Anxiety Metoprolol Tartrate (Lopressor) 50 mg PO BID [facility] Last Admin: 04/26/17 08:50 Dose: Not Given Multivitamins/Minerals (Vitamins And Minerals) 1 tab PO BEDTIME [facility] Last Admin: 04/26/17 20:10 Dose: 1 tab Neomycin/Polymyxin/Bacitracin (Triple Antibiotic Oint) 0 gm TOP BID [facility] Last Admin: 04/26/17 20:09 Dose: 1 applic Nitroglycerin (Nitrostat) 0.4 mg SL ASDIRECTED PRN PRN Reason: Chest Pain Pantoprazole Sodium (Protonix) 40 mg PO DAILY@0600 [facility] Last Admin: 04/27/17 06:31 Dose: 40 mg Polyethylene Glycol (Miralax) 17 gm PO DAILY [facility] Last Admin: 04/26/17 09:16 Dose: 17 gm Sertraline HCl (Zoloft) 200 mg PO DAILY [facility] Last Admin: 04/26/17 08:52 Dose: 200 mg Tiotropium [place] (Spiriva Handihaler) 18 mcg INH DAILY [facility] Last Admin: 04/26/17 08:33 Dose: 1 inhalation Discontinued Medications Albuterol (Ventolin Hfa) 0 gm INH TIDRT [facility] Last Admin: 04/23/17 15:11 Dose: 1 inhalation Aspirin (Aspirin) 81 mg PO DAILY [facility] Last Admin: 04/23/17 09:11 Dose: 81 mg Aspirin (Halfprin) 81 mg PO DAILY [facility] Cholecalciferol (Vitamin D3) 1,000 units PO DAILY [facility] Last Admin: 04/23/17 09:08 Dose: 1,000 units Doxycycline Monohydrate (Vibramycin) 100 mg PO BID@0600,1999 [facility] Last Admin: 04/23/17 20:11 Dose: Not Given Dextrose/Sodium Chloride (Dextrose 5%-Normal Saline) 1,000 mls @ 150 mls/hr IV ASDIRECTED [facility] Last Admin: 04/24/17 03:40 Dose: 150 mls/hr Potassium Chloride (Kcl 20 Meq In Water 100 Ml) 100 mls @ 50 mls/hr IV Q2H [facility] Stop: 04/23/17 16:29 Last Admin: 04/23/17 15:23 Dose: 50 mls/hr Doxycycline Hyclate 100 mg/ (Sodium Chloride) 100 mls @ 100 mls/hr IV Q12H [facility] Last Admin: 04/24/17 04:23 Dose: 100 mls/hr Potassium Chloride/Dextrose/Sod Cl (D5 1/2 Ns W/ 20 Meq/L Kcl) 1,000 mls @ 75 mls/hr IV Q8H [facility] Last Admin: 04/26/17 07:58 Dose: Not Given Levothyroxine Sodium (Synthroid) 50 mcg PO DAILY [facility] Magnesium Chloride (Mag-64) 128 mg PO BID [facility] Last Admin: 04/23/17 09:08 Dose: 128 mg Non-Formulary Medication (Benzoyl Peroxide [Benzoyl Peroxide]) 1 applic TOP BEDTIME [facility] Last Admin: 04/23/17 22:23 Dose: Not Given Non-Formulary Medication (Levothyroxine [Synthroid]) 200 mcg PO DAILY [facility] Non-Formulary Medication (Omeprazole [Omeprazole]) 20 mg PO BEDTIME [facility] Pantoprazole Sodium (Protonix) 40 mg PO BEDTIME [facility] Pantoprazole Sodium (Protonix Iv) 40 mg IVPUSH DAILY [facility] Last Admin: 04/26/17 08:51 Dose: 40 mg Sodium Biphosphate/Sodium Phosphate (Fleet Enema) 133 ml RECTAL ONETIME ONE Stop: 04/24/17 07:46 Last Admin: 04/24/17 08:34 Dose: 133 ml *Q Meaningful Use (DIS) - VTE *Q VTE Criteria *Q: - Stroke *Q Stroke Criteria *Q: - AMI *Q AMI Criteria *Q:
[2017-04-27] MEDS: Gabapentin 300 MG Cap PO SCH (08:04)
[2017-04-27] MEDS: Insulin Aspart 100 Units/ML 3 ML Pen SUBCUT SCH (08:04)
[2017-04-27] MEDS: Tiotropium Inhaler 18 MCG Inhalation Powder Cap Kit of 5 INH SCH (08:05)
[2017-04-27] MEDS: Bacitracin/Neomycin/Polymyxin B Oint 28.4 GM Tube TOP SCH (08:05)
[2017-04-27] MEDS: Albuterol 8 GM Inhaler INH SCH (08:06)
[2017-04-27] MEDS: Sertraline 100 MG Tab PO SCH (08:07)
[2017-04-27] MEDS: Azithromycin 500 MG in Sodium Chloride 0.9% 250 ML IV SCH (08:08)
[2017-04-27] MEDS: Metoprolol Tartrate 50 MG Tab PO SCH (08:10)
[2017-04-27] MEDS: Polyethylene Glycol 3350 Powder 17 GM Packet PO SCH (08:24)
[2017-04-27 10:47] VITALS: BP 117/72
--- NOTE | 2017-04-27 13:28 | CR ---
INDICATION: Colonic distention. ABDOMEN: Four images of the abdomen were obtained in supine projection and revealed massive distention of the colon, as noted previously on a CT scan of . There is suggestion of some gas in the area of the rectum. However, the possibility of a distal - sigmoid colon obstructive process cannot be excluded. Colonoscopy is recommended for further evaluation, depending on clinical correlation. Nasogastric tube is noted in place with its tip likely in the gastric body. No other organomegaly or mass lesions were suggested. A mild dextroconcave scoliosis of the upper lumbar spine is noted. Degenerative changes and disk disease are noted at L2-3. IMPRESSION: Massive - toxic colonic distention. Distal colonic obstruction at the level of the sigmoid colon is suspected, although findings could be on the basis of a severe paralytic ileus. Depending upon clinical correlation, additional examination could be obtained, such as barium enema, colonoscopy, or CT with rectal contrast, as felt to be clinically necessary. MTDD
== END 2017-04-27 10:35 | disposition home or self-care (01) | DRG 345 ==
LOC: FB.ED 18:43 → FB.MS 04-23 00:56
PROVIDERS: ADMIT Family Medicine; ATTEND Surgery
PROC: 0D9E8ZZ Drainage of Large Intestine, Via Natural or Artificial Opening Endoscopic (ICD-10-PCS; principal; 2017-04-25)
DX: K59.9 Functional intestinal disorder, unspecified (principal); L03.116 Cellulitis of left lower limb; F02.81 Dementia in other diseases classified elsewhere, unspecified severity, with behavioral disturbance; R14.0 Abdominal distension (gaseous); I10 Essential (primary) hypertension; G40.909 Epilepsy, unspecified, not intractable, without status epilepticus; S90.812A Abrasion, left foot, initial encounter; X58.XXXA Exposure to other specified factors, initial encounter; R26.81 Unsteadiness on feet; R29.6 Repeated falls; E11.9 Type 2 diabetes mellitus without complications; E03.9 Hypothyroidism, unspecified; Z86.14 Personal history of Methicillin resistant Staphylococcus aureus infection; Z79.4 Long term (current) use of insulin; R06.02 Shortness of breath; R09.02 Hypoxemia; J98.6 Disorders of diaphragm; G30.9 Alzheimer's disease, unspecified; G31.89 Other specified degenerative diseases of nervous system; F41.9 Anxiety disorder, unspecified; F32.9 Major depressive disorder, single episode, unspecified; H54.7 Unspecified visual loss; F71 Moderate intellectual disabilities; Z79.82 Long term (current) use of aspirin; Z88.0 Allergy status to penicillin
CPT/HCPCS: 36415; 43752; 51702; 71045; 74018; 74019; 74176; 80048; 82272; 82962; 83880; 85025; 85379; 85610; 94150; 94640; 99285; A9270; A9270-GY; C9113; J0456; J1815; J3480; J7030; J7050; J7620

== ENCOUNTER 2018-03-16 09:41 | Emergency (ER) | payer MEDICAID ==
[2018-03-16] MEDS: Sodium Chloride 0.9% 1,000 ML IV SCH ×2 (09:45→10:46)
[2018-03-16] MEDS ORDERED: Sodium Chloride 0.9% 1,000 ML IV ONE ×2 (09:45→10:20)
[2018-03-16] MEDS ORDERED: Norepinephrine 4 MG in Dextrose 5% in Water 246 ML IV SCH ×2 (10:15)
[2018-03-16 10:25] LABS: HEMOGLOBIN A1C 5.5 % (4.5-6.2)
--- NOTE | 2018-03-16 10:29 | EDM.PDOC ---
ED HPI GENERAL MEDICAL PROBLEM - General Stated Complaint: STOMACH PAIN Time Seen by Provider: 03/16/18 09:45 Source of Information: Reports: Patient History Limitations: Reports: No Limitations, Other (Treatment speaks softly as decreased sensorium but is able to communicate and move all parts his body brief episode DGCS 50) - History of Present Illness INITIAL COMMENTS - FREE TEXT/NARRATIVE: This 57-year-old with known Parkinson's anxiety disorder" control disorder. Congestive heart failure normal liver function tests with elevated alkaline phosphatase hypothyroidism chronic constipation COPD with previous need for ventilation on a ventilator 09/30/10, type 2 diabetes with microalbuminuria versa V stat x-ray suggests she may have distal abdominal colonic obstruction process Curtis has extensive ear. 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 The bilateral breath sounds without rales decreased air exchange C hypotensive 58/43 heart rate 60 oxygen saturation 94% with 5 L nasal cannula respiratory rate 18 D Glascow 15 is responsive whispers answers questions also strength not tested E total exam patient massive abdomen scattered ecchymosis no rash Secondary exam SEE chart below Onset: Sudden - Related Data Allergies Allergy/AdvReac Type Severity Reaction Status Date / Time Penicillins Allergy Cannot Verified 09/30/17 09:48 Remember vancomycin Allergy Cannot Verified 09/30/17 09:48 Remember Home Meds: Home Meds Albuterol [Proventil HFA] 1 puff INH TID 06/13/14 [History] Cholecalciferol (Vitamin D3) [Vitamin D3] 1,000 unit PO DAILY@0600 06/13/14 [ History] Gabapentin [Neurontin] 300 mg PO QID@08,12,16,20 06/13/14 [History] Levothyroxine [Synthroid] 200 mcg PO DAILY@06 06/13/14 [History] Magnesium Chloride 128 mg PO BID 06/13/14 [History] Multivitamin with Minerals [Multivitamins with Minerals] 1 tab PO BEDTIME [History] Omeprazole 20 mg PO BEDTIME 06/13/14 [History] Sertraline [Zoloft] 200 mg PO DAILY 06/13/14 [History] Benzoyl Peroxide 1 applic TOP BEDTIME 05/09/15 [History] Nitroglycerin [Nitrostat] 0.4 mg SL Q5M PRN 05/09/15 [History] Aspirin [Halfprin] 81 mg PO DAILY 04/23/17 [History] Ferrous Gluconate 324 mg PO BIDMEALS 04/23/17 [History] Selenium Sulfide [Anti-Dandruff] 1 applic TOP SUWEFR 04/23/17 [History] Tiotropium [Spiriva HandiHaler] 18 mcg INH DAILY 04/23/17 [History] Triamcinolone Acetonide [Triamcinolone Acetonide 0.1% Crm] 1 applic TOP BID PRN 04/23/17 [History] atorvaSTATin [Lipitor] 10 mg PO BEDTIME 04/23/17 [History] Polyethylene Glycol 3350 [MiraLAX] 17 gm PO DAILY #60 packet 04/27/17 [Rx] Aloe Vera/Sodium Chloride [[place] Saline Nasal Gel] 1 applic LOBITO BID 09/30/17 [ History] Carbidopa/Levodopa [Carbidopa-Levodopa 25-100] 1 tab PO TID 09/30/17 [History] Emollient Combination No.75 [Wells Butter] 1 applic TOP BID 09/30/17 [History] Metoclopramide HCl 5 mg PO Q8H 09/30/17 [History] Levothyroxine 25 mcg PO 0600 tablet 10/01/17 [Rx] Lisinopril 2.5 mg PO DAILY #30 tablet 10/01/17 [Rx] Metoprolol Succinate [Toprol XL] 12.5 mg PO QAM #15 tab.er 10/01/17 [Rx] SitaGLIPtin [Januvia] 25 mg PO DAILY #30 tablet 10/01/17 [Rx] Past Medical History HEENT History: Reports: Allergic Rhinitis, Impaired Vision Other HEENT History: Allergic rhinitis. Cardiovascular History: Reports: Angina, Hypertension Other Cardiovascular History: lower leg edema. Respiratory History: Reports: COPD Gastrointestinal History: Reports: Colon Polyp Genitourinary History: Reports: None Other Genitourinary History: Increased alkaline phosphatase, hypocalcemia. 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 Neurological History: Reports: Seizure Other Neuro History: Neuroleptic induced Parkinsonism. Psychiatric History: Reports: Anxiety, Depression, Developmental Delay, Mood Swings, Psych Hospitalization(s), Suicide Attempt Other Psychiatric History: Transient alteration of awareness, moderate intellectual disabilities. Endocrine/Metabolic History: Reports: Diabetes, Type II, Hypothyroidism Hematologic History: Reports: Anemia Oncologic (Cancer) History: Reports: None Dermatologic History: Reports: Cellulitis Other Dermatologic History: Acne, dermatitis, dry scalp, stasis dermatitis both legs, history of VERSA. 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 - Past Surgical History GI Surgical History: Reports: Appendectomy, Cholecystectomy, Colonoscopy Male Surgical History: Reports: None Social & Family History - Family History Family Medical History: Noncontributory - Caffeine Use Caffeine Use: Reports: Coffee - Living Situation & Occupation Living situation: Reports: Single, Extended Care Facility (Resident in residential for cognitive delay/disability.) ED ROS GENERAL - Review of Systems Review Of Systems: Unable To Obtain ED EXAM, GENERAL - Physical Exam Exam: See Below Free Text/Narrative:: This patient Singaporean Japanese this 7-year-old male who is in marked distress appears has marked pain and abdominal girth double size normal HEENT. Tach pharynx without mouth E no scleral icterus. Pharynx is dry. Neck no bruits. Lungs decreased air exchange few scattered rales heart S1-S2 no regularity rhythm abdomen distended markedly with decreased bowel sounds no tinkles or rushes moderate pain with palpation but is was distended so I can press in the abdomen no palpable masses within 3 cm to 6 cm of the abdominal wall. No bruits. Exam Limited By: Other (Semi-somnolent but arousable) General Appearance: Moderate Distress Eye Exam: Bilateral Eye: Normal Inspection Ears: Normal External Exam, Normal Canal, Hearing Grossly Normal, Normal TMs Ear Exam: Bilateral Ear: Auricle Normal, Canal Normal, TM normal Throat/Mouth: Normal Inspection, Other (Dry oral mucosa fair dentition) Head: Atraumatic, Normocephalic Neck: Normal Inspection, Supple, Non-Tender, Full Range of Motion Respiratory/Chest: No Respiratory Distress, Lungs Clear, No Accessory Muscle Use , Chest Non-Tender, Other (Decreased air exchange and occasional rale) Cardiovascular: Regular Rate, Rhythm, No Edema, No Gallop, No JVD, No Murmur, No Rub, Other (Palpable pulses extremities femoral and dorsalis pedis hemoglobin pressures were low at 58/43, 80/46.) Peripheral Pulses: 1+: Radial (L), Radial (R), Femoral (L), Femoral (R) GI/Abdominal: Soft, No Abnormal Bruit (Unable to determine if patient has masses abdomen because his massively distended abdomen), No Mass, Abnormal Bowel Sounds, Other (Tender abdomen abnormal bowel sounds without tinkles) (Male) Exam: Deferred Rectal (Males) Exam: Deferred Extremities: Normal Inspection, Normal Range of Motion, Non-Tender, No Pedal Edema Neurological: Other (Diminished alertness and soft speech) Psychiatric: Other Skin Exam: Warm, Dry, Intact, Other Lymphatic: No Adenopathy (Pale) Course - Orders/Labs/Meds Orders: Active Orders 24 hr Category Date Time Status EKG Documentation Completion [RC] ASDIRECTED Care 03/16/18 10:09 Ordered Abdomen 1V Flat [CR] Stat Exams 03/16/18 10:06 Ordered Chest 1V Frontal [CR] Stat Exams 03/16/18 10:06 Ordered BLOOD GAS ARTERIAL [BG] Urgent Lab 03/16/18 10:07 Ordered D-DIMER QUANTITATIVE [COAG] Urgent Lab 03/16/18 10:08 Ordered DRUG SCREEN, URINE ALERE [URCHEM] Urgent Lab 03/16/18 10:07 Ordered PRO B-TYPE NATRIUR PEPT,BNPPRO [CHEM] Stat Lab 03/16/18 10:08 Ordered TSH ULTRASENSITIVE [CHEM] Stat Lab 03/16/18 10:07 Ordered Norepinephrine 4 MG in D5W @ 2 MCG/MIN(250ml) Med 03/16/18 10:15 Ordered Norepinephrine [Levophed] 4 mg Dextrose 5% in Water 246 ml IV TITRATE Medication Orders Norepinephrine Bitartrate 4 mg (/ Dextrose/Water) 250 mls @ 7.5 mls/hr IV TITRATE MATT; Protocol Labs: Laboratory Tests 03/16/18 03/16/18 03/16/18 Range/Units 09:50 09:50 09:50 WBC 7.3 (4.5-12.0) X10-3/uL RBC 3.46 L (4.30-5.75) x10(6)uL Hgb 10.6 L (11.5-15.5) g/dL Hct 32.3 (30.0-51.3) % MCV 93.4 (80-96) fL MCH 30.7 (27.7-33.6) pg MCHC 32.9 (32.2-35.4) g/dL RDW 15.4 (11.5-15.5) % Plt Count 168 (125-369) X10(3)uL MPV 7.9 (7.4-10.4) fL Neut % (Auto) 77.0 (46-82) % Lymph % (Auto) 13.4 (13-37) % Roosevelt % (Auto) 6.5 (4-12) % Eos % (Auto) 3 (1.0-5.0) % Baso % (Auto) 0 (0-2) % Neut # (Auto) 5.6 (1.6-8.3) # Lymph # (Auto) 1.0 (0.6-5.0) # Roosevelt # (Auto) 0.5 (0.0-1.3) # Eos # (Auto) 0.2 (0.0-0.8) # Baso # (Auto) 0.0 (0.0-0.2) # Sodium 140 (135-145) mmol/L Potassium 5.4 H (3.5-5.3) mmol/L Chloride 111 H (100-110) mmol/L Carbon Dioxide 17 L (21-32) mmol/L BUN 70 H D (7-18) mg/dL Creatinine 2.4 H* (0.70-1.30) mg/dL Est Cr Clr Drug Dosing TNP Estimated GFR (MDRD) 28 L (>60) BUN/Creatinine Ratio 29.2 H (9-20) Glucose 123 H (80-116) mg/dL Hemoglobin A1c (4.5-6.2) % Lactic Acid 1.5 (0.4-2.2) mmol/L Calcium 8.6 (8.6-10.2) mg/dL Total Bilirubin 0.2 (0.1-1.3) mg/dL AST 25 D (5-25) IU/L ALT 34 D (12-36) U/L Alkaline Phosphatase 163 H (56-112) IU/L Total Protein 6.8 (6.0-8.0) g/dL Albumin 3.2 L (3.5-5.2) g/dL Globulin 3.6 g/dL Albumin/Globulin Ratio 0.9 Amylase (25-115) U/L 03/16/18 03/16/18 Range/Units 09:50 09:50 WBC (4.5-12.0) X10-3/uL RBC (4.30-5.75) x10(6)uL Hgb (11.5-15.5) g/dL Hct (30.0-51.3) % MCV (80-96) fL MCH (27.7-33.6) pg MCHC (32.2-35.4) g/dL RDW (11.5-15.5) % Plt Count (125-369) X10(3)uL MPV (7.4-10.4) fL Neut % (Auto) (46-82) % Lymph % (Auto) (13-37) % Roosevelt % (Auto) (4-12) % Eos % (Auto) (1.0-5.0) % Baso % (Auto) (0-2) % Neut # (Auto) (1.6-8.3) # Lymph # (Auto) (0.6-5.0) # Roosevelt # (Auto) (0.0-1.3) # Eos # (Auto) (0.0-0.8) # Baso # (Auto) (0.0-0.2) # Sodium (135-145) mmol/L Potassium (3.5-5.3) mmol/L Chloride (100-110) mmol/L Carbon Dioxide (21-32) mmol/L BUN (7-18) mg/dL Creatinine (0.70-1.30) mg/dL Est Cr Clr Drug Dosing Estimated GFR (MDRD) (>60) BUN/Creatinine Ratio (9-20) Glucose (80-116) mg/dL Hemoglobin A1c 5.5 (4.5-6.2) % Lactic Acid (0.4-2.2) mmol/L Calcium (8.6-10.2) mg/dL Total Bilirubin (0.1-1.3) mg/dL AST (5-25) IU/L ALT (12-36) U/L Alkaline Phosphatase (56-112) IU/L Total Protein (6.0-8.0) g/dL Albumin (3.5-5.2) g/dL Globulin g/dL Albumin/Globulin Ratio Amylase 84 (25-115) U/L Meds: Medications Generic Name Dose Route Start Last Admin Trade Name Freq PRN Reason Stop Dose Admin Norepinephrine Bitartrate 4 mg 250 mls @ 7.5 mls/hr 03/16/18 10:15 / Dextrose/Water IV TITRATE MATT Protocol 2 MCG/MIN Departure - Departure Time of Disposition: 09:47 (Status discussed with Dr. PARRISH SURG. AND DR KELLY CLEMONS [place] , AIR NOT AR WAILABLE THEN CALL BACK [facility] BUT no demonstrates full transports just as quickly.) Disposition: DC/Tfer to Acute Hospital 02 Preliminary Cause of *Q: Other_Special Instruction (Probable bowel obstruction with COPD heart failure coronary disease dementia DNR/DNI transfer to [facility] for possible bowel obstruction surgery discussed with surgeon and ED doctor) Condition: Poor Clinical Impression: Parkinsons Bowel obstruction Qualifiers: Intestinal obstruction type: unspecified Intestinal obstruction extent: complete Qualified Code(s): K56.601 - Complete intestinal obstruction, unspecified as to cause Abdominal pain Qualifiers: Abdominal location: generalized Qualified Code(s): R10.84 - Generalized abdominal pain Congestive heart failure Qualifiers: Heart failure type: diastolic Heart failure chronicity: chronic Qualified Code( s): I50.32 - Chronic diastolic (congestive) heart failure Hypothyroidism Qualifiers: Hypothyroidism type: unspecified Qualified Code(s): E03.9 - Hypothyroidism, unspecified COPD (chronic obstructive pulmonary disease) Qualifiers: COPD type: emphysema Emphysema type: unspecified Qualified Code(s): J43.9 - Emphysema, unspecified - Discharge Information *PRESCRIPTION DRUG MONITORING PROGRAM REVIEWED*: Not Applicable *COPY OF PRESCRIPTION DRUG MONITORING REPORT IN PATIENT [place]: Not Applicable Referrals: Canelo Skaggs MD [Primary Care Provider] - - My Orders Last 24 Hours: My Active Orders 03/16/18 10:06 Abdomen 1V Flat [CR] Stat Chest 1V Frontal [CR] Stat 03/16/18 10:07 BLOOD GAS ARTERIAL [BG] Urgent DRUG SCREEN, URINE ALERE [URCHEM] Urgent TSH ULTRASENSITIVE [CHEM] Stat 03/16/18 10:08 D-DIMER QUANTITATIVE [COAG] Urgent PRO B-TYPE NATRIUR PEPT,BNPPRO [CHEM] Stat 03/16/18 10:09 EKG Documentation Completion [RC] ASDIRECTED 03/16/18 10:15 Norepinephrine 4 MG in D5W @ 2 MCG/MIN(250ml) Norepinephrine [Levophed] 4 mg Dextrose 5% in Water 246 ml IV TITRATE - Assessment/Plan Last 24 Hours: My Active Orders 03/16/18 10:06 Abdomen 1V Flat [CR] Stat Chest 1V Frontal [CR] Stat 03/16/18 10:07 BLOOD GAS ARTERIAL [BG] Urgent DRUG SCREEN, URINE ALERE [URCHEM] Urgent TSH ULTRASENSITIVE [CHEM] Stat 03/16/18 10:08 D-DIMER QUANTITATIVE [COAG] Urgent PRO B-TYPE NATRIUR PEPT,BNPPRO [CHEM] Stat 03/16/18 10:09 EKG Documentation Completion [RC] ASDIRECTED 03/16/18 10:15 Norepinephrine 4 MG in D5W @ 2 MCG/MIN(250ml) Norepinephrine [Levophed] 4 mg Dextrose 5% in Water 246 ml IV TITRATE
[2018-03-16] MEDS ORDERED: Lidocaine 2% Jelly 5 ML Urojet MUCMEM ONE (10:30)
[2018-03-16] MEDS ORDERED: fentaNYL 100 MCG/2 ML SDV IVPUSH PRN (10:30)
[2018-03-16] MEDS ORDERED: Sodium Bicarbonate 8.4% 50 MEQ/50 ML Syringe IVPUSH ONE (10:50)
--- NOTE | 2018-03-16 10:54 | CR ---
INDICATION: Short of breath. CHEST: AP Trendelenburg view of the chest at 40 inches was obtained 03-16-18 and compared with 09-30-17. Very poor inspiration is noted. Possibility of CHF cannot be excluded with Trendelenburg positioning. The heart appears enlarged but is emphasized by the positioning and poor inspiration. The aorta is tortuous with calcifications in the arch. Overlying EKG leads are noted. Distended bowel loops are noted filled with air in the abdomen. While it is difficult to entirely exclude active infiltrate, a definite consolidating pneumonia or definite effusion was not identified. IMPRESSION: 1. No definite acute process but cannot exclude CHF and infiltration. 2. Distended bowel loops noted in the abdomen but were present at least to a similar degree on the previous study of 09-30-17. MTDD
--- NOTE | 2018-03-16 11:02 | CR ---
INDICATION: Bloating, distended stomach. ABDOMEN: Two images of the abdomen were obtained Trendelenburg positioning and revealed fairly marked distention of large bowel loops down to the level of the rectosigmoid. The rectum is not specifically visualized raising the question of a distal obstructive process at the level of the sigmoid. This should be correlated clinically. A specific etiology is not identified. Bowel loops appear to be distended to a similar or perhaps slightly less prominent extent then on the previous abdomen x-ray of 04-25-17. No definite gross free air was identified. IMPRESSION: Fairly marked distention of the colon is again noted seen previously in April of 2017 and to a lesser extent on a chest x-ray from . MTDD
== END 2018-03-16 10:55 ==
LOC: FB.ED 09:41
DX: K56.601 Complete intestinal obstruction, unspecified as to cause (principal); I13.0 Hypertensive heart and chronic kidney disease with heart failure and stage 1 through stage 4 chronic kidney disease, or unspecified chronic kidney disease; E11.22 Type 2 diabetes mellitus with diabetic chronic kidney disease; I50.32 Chronic diastolic (congestive) heart failure; N18.9 Chronic kidney disease, unspecified; G20 Parkinson's disease; F02.80 Dementia in other diseases classified elsewhere, unspecified severity, without behavioral disturbance, psychotic disturbance, mood disturbance, and anxiety; E03.9 Hypothyroidism, unspecified; J43.9 Emphysema, unspecified; Z90.49 Acquired absence of other specified parts of digestive tract; Z88.1 Allergy status to other antibiotic agents; Z79.82 Long term (current) use of aspirin; Z79.899 Other long term (current) drug therapy; Z88.0 Allergy status to penicillin
CPT/HCPCS: 36415; 36600; 43752; 51702; 71045; 74018; 80053; 80305; 81001; 82150; 82803; 83036; 83605; 83880; 84443; 85025; 85379; 96361; 96374; 99285; J3010; J7030

== ENCOUNTER 2018-05-15 14:02 | Emergency (ER) | payer MEDICAID ==
--- NOTE | 2018-05-15 14:29 | EDM.PDOC ---
ED HPI GENERAL MEDICAL PROBLEM - General Chief Complaint: General Stated Complaint: POSSIBLE OD Time Seen by Provider: 05/15/18 14:05 Source of Information: Reports: Patient - History of Present Illness INITIAL COMMENTS - FREE TEXT/NARRATIVE: pt is a resident at a nursing home with Hx of behavioral problems, Parkinson, dementia and frequent suicidal gestures, comes today with post acute care registered nurse after he supposedly taken 24 nitro tablets this morning, pt has hunter bottle hanged to his neck, and this afternoon about an hr ago he told the staff that he has taken early in the morning all of the 24 tablets that were in it, pt here is alert with stable vitals , he does follow simple commands , tells me he just felt like taking those medications, denies any other intension , denies also any HAs. neuro sx, GI or CV or resp Sx. pt has no free access to any of his other meds at the nursing home., he is resting here comfortably. - Related Data Allergies Allergy/AdvReac Type Severity Reaction Status Date / Time Penicillins Allergy Cannot Verified 09/30/17 09:48 Remember vancomycin Allergy Cannot Verified 09/30/17 09:48 Remember Home Meds: Home Meds Albuterol [Proventil HFA] 1 puff INH TID 06/13/14 [History] Cholecalciferol (Vitamin D3) [Vitamin D3] 1,000 unit PO DAILY@0600 06/13/14 [ History] Gabapentin [Neurontin] 300 mg PO QID@08,12,16,20 06/13/14 [History] Levothyroxine [Synthroid] 200 mcg PO DAILY@06 06/13/14 [History] Magnesium Chloride 128 mg PO BID 06/13/14 [History] Multivitamin with Minerals [Multivitamins with Minerals] 1 tab PO BEDTIME [History] Omeprazole 20 mg PO BEDTIME 06/13/14 [History] Sertraline [Zoloft] 200 mg PO DAILY 06/13/14 [History] Benzoyl Peroxide 1 applic TOP BEDTIME 05/09/15 [History] Nitroglycerin [Nitrostat] 0.4 mg SL Q5M PRN 05/09/15 [History] Aspirin [Halfprin] 81 mg PO DAILY 04/23/17 [History] Ferrous Gluconate 324 mg PO BIDMEALS 04/23/17 [History] Selenium Sulfide [Anti-Dandruff] 1 applic TOP SUWEFR 04/23/17 [History] Tiotropium [Spiriva HandiHaler] 18 mcg INH DAILY 04/23/17 [History] Triamcinolone Acetonide [Triamcinolone Acetonide 0.1% Crm] 1 applic TOP BID PRN 04/23/17 [History] atorvaSTATin [Lipitor] 10 mg PO BEDTIME 04/23/17 [History] Polyethylene Glycol 3350 [MiraLAX] 17 gm PO DAILY #60 packet 04/27/17 [Rx] Aloe Vera/Sodium Chloride [[place] Saline Nasal Gel] 1 applic LOBITO BID 09/30/17 [ History] Carbidopa/Levodopa [Carbidopa-Levodopa 25-100] 1 tab PO TID 09/30/17 [History] Emollient Combination No.75 [[place]astern Butter] 1 applic TOP BID 09/30/17 [History] Metoclopramide HCl 5 mg PO Q8H 09/30/17 [History] Levothyroxine 25 mcg PO 0600 tablet 10/01/17 [Rx] Lisinopril 2.5 mg PO DAILY #30 tablet 10/01/17 [Rx] Metoprolol Succinate [Toprol XL] 12.5 mg PO QAM #15 tab.er 10/01/17 [Rx] SitaGLIPtin [Januvia] 25 mg PO DAILY #30 tablet 10/01/17 [Rx] Past Medical History HEENT History: Reports: Allergic Rhinitis, Impaired Vision Other HEENT History: Allergic rhinitis. Cardiovascular History: Reports: Angina, Hypertension Other Cardiovascular History: lower leg edema. Respiratory History: Reports: COPD Gastrointestinal History: Reports: Colon Polyp Genitourinary History: Reports: None Other Genitourinary History: Increased alkaline phosphatase, hypocalcemia. 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 Neurological History: Reports: Seizure Other Neuro History: Neuroleptic induced Parkinsonism. Psychiatric History: Reports: Anxiety, Depression, Developmental Delay, Mood Swings, Psych Hospitalization(s), Suicide Attempt Other Psychiatric History: Transient alteration of awareness, moderate intellectual disabilities. Endocrine/Metabolic History: Reports: Diabetes, Type II, Hypothyroidism Hematologic History: Reports: Anemia Oncologic (Cancer) History: Reports: None Dermatologic History: Reports: Cellulitis Other Dermatologic History: Acne, dermatitis, dry scalp, stasis dermatitis both legs, history of VERSA. 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 - Past Surgical History GI Surgical History: Reports: Appendectomy, Cholecystectomy, Colonoscopy Male Surgical History: Reports: None Social & Family History - Family History Family Medical History: Noncontributory - Caffeine Use Caffeine Use: Reports: Coffee - Living Situation & Occupation Living situation: Reports: Single, Extended Care Facility (Resident in nursing home for cognitive delay/disability.) ED ROS GENERAL - Review of Systems Review Of Systems: See Below Constitutional: Reports: No Symptoms HEENT: Reports: No Symptoms Respiratory: Reports: No Symptoms Cardiovascular: Reports: No Symptoms GI/Abdominal: Reports: No Symptoms Neurological: Reports: No Symptoms ED EXAM, GENERAL - Physical Exam Exam: See Below Exam Limited By: Other (mental impairment.) General Appearance: Alert Eye Exam: Bilateral Eye: Normal Inspection Nose: Normal Inspection, Normal Mucosa Throat/Mouth: Normal Inspection Head: Atraumatic Neck: Normal Inspection, Supple, Non-Tender Respiratory/Chest: No Respiratory Distress Cardiovascular: Normal Peripheral Pulses, Regular Rate, Rhythm, No Edema, No JVD GI/Abdominal: Normal Bowel Sounds, Soft, Non-Tender Extremities: Normal Inspection Course - Vital Signs Text/Narrative:: lab results/ EKG were reviewed and explained to post acute care registered nurse. pt condition remained stable and he is very much asymptomatic , SBP here between 130s to occasianaly 150s-160s. i really doubt that actually pt took all of the 24 tablets of nitro, he was monitored here for about 2 hrs and remained asymptomatic with stable vitals. i do feel pt is simply demonstrating behavioral issue , he does not sound suicidal and i dont feel he is. his trop and EKG are stable, pt is medically stable for discharge back to his nursing home with his post acute care registered nurse. i did ask post acute care registered nurse to have closer monitoring and control on pt medications. - Orders/Labs/Meds Orders: Active Orders 24 hr Category Date Time Status EKG Documentation Completion [RC] ASDIRECTED Care 05/15/18 14:31 Active EKG 12 Lead [EK] Routine Ther 05/15/18 14:30 Ordered Labs: Laboratory Tests 05/15/18 05/15/18 05/15/18 Range/Units 14:37 14:37 14:37 WBC 5.6 (4.5-12.0) X10-3/uL RBC 3.47 L (4.30-5.75) x10(6)uL Hgb 10.5 L (13.5-17.8) g/dL Hct 31.2 (30.0-51.3) % MCV 89.8 (80-96) fL MCH 30.2 (27.7-33.6) pg MCHC 33.7 (32.2-35.4) g/dL RDW 13.0 (11.5-15.5) % Plt Count 182 (125-369) X10(3)uL MPV 7.5 (7.4-10.4) fL Neut % (Auto) 71.1 (46-82) % Lymph % (Auto) 20.3 (13-37) % Cameron % (Auto) 4.1 (4-12) % Eos % (Auto) 4 (1.0-5.0) % Baso % (Auto) 1 (0-2) % Neut # (Auto) 4.1 (1.6-8.3) # Lymph # (Auto) 1.1 (0.6-5.0) # Cameron # (Auto) 0.2 (0.0-1.3) # Eos # (Auto) 0.2 (0.0-0.8) # Baso # (Auto) 0.0 (0.0-0.2) # Sodium 142 (135-145) mmol/L Potassium 4.5 (3.5-5.3) mmol/L Chloride 106 D (100-110) mmol/L Carbon Dioxide 30 (21-32) mmol/L BUN 37 H D (7-18) mg/dL Creatinine 1.1 (0.70-1.30) mg/dL Est Cr Clr Drug Dosing TNP Estimated GFR (MDRD) > 60 (>60) BUN/Creatinine Ratio 33.6 H (9-20) Glucose 172 H (80-116) mg/dL Calcium 8.4 L (8.6-10.2) mg/dL Total Bilirubin 0.3 (0.1-1.3) mg/dL AST 28 H D (5-25) IU/L ALT 34 (12-36) U/L Alkaline Phosphatase 149 H (56-112) IU/L Troponin I < 0.017 L (<0.017-0.056) ng/mL Total Protein 6.1 (6.0-8.0) g/dL Albumin 2.9 L (3.5-5.2) g/dL Globulin 3.2 g/dL Albumin/Globulin Ratio 0.9 Departure - Departure Time of Disposition: 15:50 Disposition: Home, Self-Care 01 Clinical Impression: Abnormal behavior - Discharge Information Referrals: Nima Mejias MD [Primary Care Provider] - Forms: ED Department Discharge - My Orders Last 24 Hours: My Active Orders 05/15/18 14:30 EKG 12 Lead [EK] Routine 05/15/18 14:31 EKG Documentation Completion [RC] ASDIRECTED - Assessment/Plan Last 24 Hours: My Active Orders 05/15/18 14:30 EKG 12 Lead [EK] Routine 05/15/18 14:31 EKG Documentation Completion [RC] ASDIRECTED
== END 2018-05-15 16:10 | disposition home or self-care (01) ==
LOC: FB.ED 14:02
DX: R46.89 Other symptoms and signs involving appearance and behavior (principal); I10 Essential (primary) hypertension; J44.9 Chronic obstructive pulmonary disease, unspecified; E11.9 Type 2 diabetes mellitus without complications; Z88.0 Allergy status to penicillin; Z88.1 Allergy status to other antibiotic agents; Z79.899 Other long term (current) drug therapy; Z79.82 Long term (current) use of aspirin
CPT/HCPCS: 36415; 80053; 84484; 85025; 93005; 99284-25

== ENCOUNTER 2018-06-01 13:54 | Inpatient (IN) | payer MEDICAID ==
[2018-06-01] MEDS ORDERED: Sodium Chloride 0.9% 1,000 ML IV ONE ×2 (14:33→16:06)
--- NOTE | 2018-06-01 14:46 | EDM.PDOC ---
ED HPI GENERAL MEDICAL PROBLEM - General Chief Complaint: Gastrointestinal Problem Stated Complaint: LOW BLOOD PRESSURE Time Seen by Provider: 06/01/18 14:10 Source of Information: Reports: Patient, RN History Limitations: Reports: No Limitations - History of Present Illness INITIAL COMMENTS - FREE TEXT/NARRATIVE: c/o abd pain pt with chronic loose stools as he is not supposed to have firm stools at 8:30 AM however he had several watery stools that were much loosier than usual, BY 74/48 then when RN assested him, altho he later ate a normal lunch and has a BP 129/71 now with HR 76 no n/v, however has continued to be lethargic walks with a walker as he has done today but very little no f/c/d he is on a bowel regimen that includes Miralax TID and a bowel stimulant out of [facility] colonoscopy 1y ago here by Dr Morrison shows very redundant bowel up to mid transverse colon and then scope could not be advanced further d/t looping, no strictures noted 3m ago pt came to ED hypotensive with pH 7/07 and pCO2 46, placed on epi drip and sent to [facility] where he was reported to have had a bowel obstruction pt alert and conversant today, does tend to close his eyes and drift off altho is easily arousable - Related Data Allergies Allergy/AdvReac Type Severity Reaction Status Date / Time Penicillins Allergy Cannot Verified 06/01/18 14:19 Remember vancomycin Allergy Cannot Verified 06/01/18 14:19 Remember Home Meds: Home Meds Albuterol [Proventil HFA] 1 puff INH TID 06/13/14 [History] Cholecalciferol (Vitamin D3) [Vitamin D3] 1,000 unit PO DAILY@0600 06/13/14 [ History] Levothyroxine [Synthroid] 200 mcg PO DAILY@06 06/13/14 [History] Multivitamin with Minerals [Multivitamins with Minerals] 1 tab PO BEDTIME [History] Omeprazole 20 mg PO BEDTIME 06/13/14 [History] Sertraline [Zoloft] 200 mg PO DAILY 06/13/14 [History] Benzoyl Peroxide 1 applic TOP BEDTIME 05/09/15 [History] Nitroglycerin [Nitrostat] 0.4 mg SL Q5M PRN 05/09/15 [History] Aspirin [Halfprin] 81 mg PO DAILY 04/23/17 [History] Ferrous Gluconate 324 mg PO BIDMEALS 04/23/17 [History] Selenium Sulfide [Anti-Dandruff] 1 applic TOP SUWEFR 04/23/17 [History] Tiotropium [Spiriva HandiHaler] 18 mcg INH DAILY 04/23/17 [History] Triamcinolone Acetonide [Triamcinolone Acetonide 0.1% Crm] 1 applic TOP BID PRN 04/23/17 [History] atorvaSTATin [Lipitor] 10 mg PO BEDTIME 04/23/17 [History] Aloe Vera/Sodium Chloride [[place] Saline Nasal Gel] 1 applic LOBITO BID 09/30/17 [ History] Emollient Combination No.75 [[place] Butter] 1 applic TOP BID 09/30/17 [History] Levothyroxine 25 mcg PO 0600 tablet 10/01/17 [Rx] Metoprolol Succinate [Toprol XL] 12.5 mg PO QAM #15 tab.er 10/01/17 [Rx] .Domperidone 10 mg PO TID 06/01/18 [History] Gabapentin [Neurontin] 400 mg PO QID@08,12,16,20 06/01/18 [History] Glycerin 1 supp RECTAL DAILY PRN 06/01/18 [History] Magnesium Oxide 250 mg PO DAILY 06/01/18 [History] Polyethylene Glycol 3350 [MiraLAX] 17 gm PO TID 06/01/18 [History] QUEtiapine [SEROquel] 50 mg PO 08,12 06/01/18 [History] QUEtiapine [SEROquel] 300 mg PO BEDTIME 06/01/18 [History] Past Medical History HEENT History: Reports: Allergic Rhinitis, Impaired Vision Other HEENT History: Allergic rhinitis. Cardiovascular History: Reports: Angina, Hypertension Other Cardiovascular History: lower leg edema. Respiratory History: Reports: COPD Gastrointestinal History: Reports: Colon Polyp Genitourinary History: Reports: None Other Genitourinary History: Increased alkaline phosphatase, hypocalcemia. [employer] History: Reports: None Musculoskeletal History: Reports: None Other Musculoskeletal History: Unsteady gait, recurrent falls, plantar fasciitis. Neurological History: Reports: Seizure Other Neuro History: Neuroleptic induced Parkinsonism. Psychiatric History: Reports: Anxiety, Depression, Developmental Delay, Mood Swings, Psych Hospitalization(s), Suicide Attempt Other Psychiatric History: Transient alteration of awareness, moderate intellectual disabilities. Endocrine/Metabolic History: Reports: Diabetes, Type II, Hypothyroidism Hematologic History: Reports: Anemia Oncologic (Cancer) History: Reports: None Dermatologic History: Reports: Cellulitis Other Dermatologic History: Acne, dermatitis, dry scalp, stasis dermatitis both legs, history of VERSA. 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 - Past Surgical History GI Surgical History: Reports: Appendectomy, Cholecystectomy, Colonoscopy Male Surgical History: Reports: None Social & Family History - Family History Family Medical History: Noncontributory - Caffeine Use Caffeine Use: Reports: Coffee - Living Situation & Occupation Living situation: Reports: Single, Extended Care Facility (Resident in jail for cognitive delay/disability.) ED ROS GENERAL - Review of Systems Review Of Systems: See Below Constitutional: Reports: Fatigue. Denies: Fever, Decreased Appetite HEENT: Reports: No Symptoms Respiratory: Reports: No Symptoms Cardiovascular: Reports: Blood Pressure Problem Endocrine: Reports: No Symptoms GI/Abdominal: Reports: Abdominal Pain, Diarrhea, Other (vague c/o abd pain) : Reports: No Symptoms Musculoskeletal: Reports: No Symptoms Skin: Reports: No Symptoms Neurological: Reports: No Symptoms Psychiatric: Reports: No Symptoms Hematologic/Lymphatic: Reports: No Symptoms Immunologic: Reports: No Symptoms ED EXAM, GI/ABD - Physical Exam Exam: See Below Exam Limited By: Altered Mental Status General Appearance: Alert, WD/WN, No Apparent Distress, Other (alert, makes good contact, answer questions in complete sentences, normal speech pattern, ) Nose: Normal Inspection, Normal Mucosa, No Blood Throat/Mouth: Normal Inspection, Normal Lips, Normal Voice, No Airway Compromise Head: Atraumatic, Normocephalic Neck: Normal Inspection, Supple, Non-Tender, Full Range of Motion. No: Lymphadenopathy (R), Lymphadenopathy (L) Respiratory/Chest: No Respiratory Distress, Lungs Clear, Normal Breath Sounds, No Accessory Muscle Use, Chest Non-Tender Cardiovascular: Regular Rate, Rhythm, No Edema, No Gallop, No JVD, No Murmur, No Rub GI/Abdominal Exam: Soft, Other (rounded distended abd that is soft, BS present throughout, no guard, no rebound, no definite tenderness, has chronic distention , difficult to determine if this is more than usual) Extremities: Normal Inspection, Normal Range of Motion, Non-Tender, No Pedal Edema Neurological: Alert, Oriented, CN II-XII Intact, Normal Cognition, No Motor/ Sensory Deficits Psychiatric: Normal Affect, Normal Mood Skin Exam: Warm, Dry, Intact, Normal Color, No Rash Lymphatic: No Adenopathy Course - Vital Signs Last Recorded V/S: Last Vital Signs Temp 36.8 C 06/01/18 16:54 Pulse 73 06/01/18 16:54 Resp 18 06/01/18 16:54 BP 128/68 06/01/18 16:54 Pulse Ox 97 06/01/18 16:54 - Orders/Labs/Meds Orders: Active Orders 24 hr Category Date Time Status EKG Documentation Completion [RC] ASDIRECTED Care 06/01/18 15:57 Active Abdomen Pelvis wo Cont [CT] Stat Exams 06/01/18 14:32 Taken C DIFFICILE, CYTOTOXIN B Stat Lab 06/01/18 16:06 Ordered CULTURE BLOOD [BC] Urgent Lab 06/01/18 16:22 Received CULTURE BLOOD [BC] Urgent Lab 06/01/18 16:28 Received Sodium Chloride 0.9% [Normal Saline] 1,000 ml Med 06/01/18 16:06 Active IV .BOLUS Sodium Chloride 0.9% [Saline Flush] Med 06/01/18 15:52 Active 10 ml FLUSH ASDIRECTED PRN cefTAZidime Pentahydrate [Fortaz] 2 gm Med 06/01/18 18:00 Active Sodium Chloride 0.9% [Normal Saline] 100 ml IV Q8H metroNIDAZOLE/Normal Saline [Flagyl 500 MG in NS 100 ML Med 06/01/18 16:15 Active ] 500 mg Premix Bag 1 bag IV Q8H Blood Culture x2 Reflex Set [OM.PC] Urgent Oth 06/01/18 15:55 Ordered Peripheral IV Insertion Adult [OM.PC] Routine Oth 06/01/18 15:00 Ordered EKG 12 Lead [EK] Routine Ther 06/01/18 15:57 Ordered Medication Orders Ceftazidime 2 gm/ Sodium (Chloride) 100 mls @ 200 mls/hr IV Q8H MATT Metronidazole 500 mg/ Premix 100 mls @ 100 mls/hr IV Q8H MATT Sodium Chloride (Normal Saline) 1,000 mls @ 999 mls/hr IV .BOLUS ONE Stop: 06/01/18 17:06 Last Admin: 06/01/18 16:20 Dose: 999 mls/hr Sodium Chloride (Saline Flush) 10 ml FLUSH ASDIRECTED PRN PRN Reason: Keep Vein Open Last Admin: 06/01/18 15:10 Dose: 10 ml Labs: Laboratory Tests 06/01/18 06/01/18 06/01/18 Range/Units 14:45 14:45 14:45 WBC 6.4 (4.5-12.0) X10-3/uL RBC 3.48 L (4.30-5.75) x10(6)uL Hgb 10.2 L (13.5-17.8) g/dL Hct 31.6 (30.0-51.3) % MCV 90.8 (80-96) fL MCH 29.3 (27.7-33.6) pg MCHC 32.3 (32.2-35.4) g/dL RDW 13.3 (11.5-15.5) % Plt Count 137 (125-369) X10(3)uL MPV 8.0 (7.4-10.4) fL Neut % (Auto) 81.6 (46-82) % Lymph % (Auto) 11.7 L (13-37) % [place] % (Auto) 5.3 (4-12) % Eos % (Auto) 1 (1.0-5.0) % Baso % (Auto) 0 (0-2) % Neut # (Auto) 5.2 (1.6-8.3) # Lymph # (Auto) 0.8 (0.6-5.0) # [place] # (Auto) 0.3 (0.0-1.3) # Eos # (Auto) 0.1 (0.0-0.8) # Baso # (Auto) 0.0 (0.0-0.2) # Sodium 137 (135-145) mmol/L Potassium 3.5 D (3.5-5.3) mmol/L Chloride 104 (100-110) mmol/L Carbon Dioxide 23 (21-32) mmol/L BUN 74 H D (7-18) mg/dL Creatinine 2.2 H* (0.70-1.30) mg/dL Est Cr Clr Drug Dosing TNP Estimated GFR (MDRD) 31 L (>60) BUN/Creatinine Ratio 33.6 H (9-20) Glucose 177 H (80-116) mg/dL Lactic Acid (0.4-2.2) mmol/L Calcium 8.2 L (8.6-10.2) mg/dL Magnesium (1.8-2.5) mg/dL Total Bilirubin 0.4 (0.1-1.3) mg/dL AST 28 H (5-25) IU/L ALT 38 H D (12-36) U/L Alkaline Phosphatase 105 (56-112) IU/L Troponin I (<0.017-0.056) ng/mL C-Reactive Protein 15.6 H* (0.5-0.9) mg/dL Total Protein 5.8 L (6.0-8.0) g/dL Albumin 2.6 L (3.5-5.2) g/dL Globulin 3.2 g/dL Albumin/Globulin Ratio 0.8 Amylase 45 (25-115) U/L Urine Color (YELLOW) Urine Appearance (CLEAR) Urine pH (5.0-6.5) Ur Specific Cass (1.010-1.025) Urine Protein (NEGATIVE) mg/dL Urine Glucose (UA) (NORMAL) mg/dL Urine Ketones (NEGATIVE) mg/dL Urine Occult Blood (NEGATIVE) Urine Nitrite (NEGATIVE) Urine Bilirubin (NEGATIVE) Urine Urobilinogen (NEGATIVE) mg/dL Ur Leukocyte Esterase (NEGATIVE) Urine RBC (0-5) Urine WBC (0-5) Ur Squamous Epith Cells (NS,R,O) Urine Bacteria (NS) Hyaline Casts (NS) 06/01/18 06/01/18 06/01/18 Range/Units 14:45 14:45 14:45 WBC (4.5-12.0) X10-3/uL RBC (4.30-5.75) x10(6)uL Hgb (13.5-17.8) g/dL Hct (30.0-51.3) % MCV (80-96) fL MCH (27.7-33.6) pg MCHC (32.2-35.4) g/dL RDW (11.5-15.5) % Plt Count (125-369) X10(3)uL MPV (7.4-10.4) fL Neut % (Auto) (46-82) % Lymph % (Auto) (13-37) % [place] % (Auto) (4-12) % Eos % (Auto) (1.0-5.0) % Baso % (Auto) (0-2) % Neut # (Auto) (1.6-8.3) # Lymph # (Auto) (0.6-5.0) # [place] # (Auto) (0.0-1.3) # Eos # (Auto) (0.0-0.8) # Baso # (Auto) (0.0-0.2) # Sodium (135-145) mmol/L Potassium (3.5-5.3) mmol/L Chloride (100-110) mmol/L Carbon Dioxide (21-32) mmol/L BUN (7-18) mg/dL Creatinine (0.70-1.30) mg/dL Est Cr Clr Drug Dosing Estimated GFR (MDRD) (>60) BUN/Creatinine Ratio (9-20) Glucose (80-116) mg/dL Lactic Acid 1.2 (0.4-2.2) mmol/L Calcium (8.6-10.2) mg/dL Magnesium 2.7 H (1.8-2.5) mg/dL Total Bilirubin (0.1-1.3) mg/dL AST (5-25) IU/L ALT (12-36) U/L Alkaline Phosphatase (56-112) IU/L Troponin I < 0.017 L (<0.017-0.056) ng/mL C-Reactive Protein (0.5-0.9) mg/dL Total Protein (6.0-8.0) g/dL Albumin (3.5-5.2) g/dL Globulin g/dL Albumin/Globulin Ratio Amylase (25-115) U/L Urine Color (YELLOW) Urine Appearance (CLEAR) Urine pH (5.0-6.5) Ur Specific [place] (1.010-1.025) Urine Protein (NEGATIVE) mg/dL Urine Glucose (UA) (NORMAL) mg/dL Urine Ketones (NEGATIVE) mg/dL Urine Occult Blood (NEGATIVE) Urine Nitrite (NEGATIVE) Urine Bilirubin (NEGATIVE) Urine Urobilinogen (NEGATIVE) mg/dL Ur Leukocyte Esterase (NEGATIVE) Urine RBC (0-5) Urine WBC (0-5) Ur Squamous Epith Cells (NS,R,O) Urine Bacteria (NS) Hyaline Casts (NS) 06/01/18 Range/Units 16:03 WBC (4.5-12.0) X10-3/uL RBC (4.30-5.75) x10(6)uL Hgb (13.5-17.8) g/dL Hct (30.0-51.3) % MCV (80-96) fL MCH (27.7-33.6) pg MCHC (32.2-35.4) g/dL RDW (11.5-15.5) % Plt Count (125-369) X10(3)uL MPV (7.4-10.4) fL Neut % (Auto) (46-82) % Lymph % (Auto) (13-37) % [place] % (Auto) (4-12) % Eos % (Auto) (1.0-5.0) % Baso % (Auto) (0-2) % Neut # (Auto) (1.6-8.3) # Lymph # (Auto) (0.6-5.0) # [place] # (Auto) (0.0-1.3) # Eos # (Auto) (0.0-0.8) # Baso # (Auto) (0.0-0.2) # Sodium (135-145) mmol/L Potassium (3.5-5.3) mmol/L Chloride (100-110) mmol/L Carbon Dioxide (21-32) mmol/L BUN (7-18) mg/dL Creatinine (0.70-1.30) mg/dL Est Cr Clr Drug Dosing Estimated GFR (MDRD) (>60) BUN/Creatinine Ratio (9-20) Glucose (80-116) mg/dL Lactic Acid (0.4-2.2) mmol/L Calcium (8.6-10.2) mg/dL Magnesium (1.8-2.5) mg/dL Total Bilirubin (0.1-1.3) mg/dL AST (5-25) IU/L ALT (12-36) U/L Alkaline Phosphatase (56-112) IU/L Troponin I (<0.017-0.056) ng/mL C-Reactive Protein (0.5-0.9) mg/dL Total Protein (6.0-8.0) g/dL Albumin (3.5-5.2) g/dL Globulin g/dL Albumin/Globulin Ratio Amylase (25-115) U/L Urine Color Yellow (YELLOW) Urine Appearance Clear (CLEAR) Urine pH 5.0 (5.0-6.5) Ur Specific [place] 1.020 (1.010-1.025) Urine Protein 100 H (NEGATIVE) mg/dL Urine Glucose (UA) Normal (NORMAL) mg/dL Urine Ketones Negative (NEGATIVE) mg/dL Urine Occult Blood Negative (NEGATIVE) Urine Nitrite Negative (NEGATIVE) Urine Bilirubin Small H (NEGATIVE) Urine Urobilinogen Normal (NEGATIVE) mg/dL Ur Leukocyte Esterase Negative (NEGATIVE) Urine RBC 0-5 (0-5) Urine WBC 0-5 (0-5) Ur Squamous Epith Cells Few H (NS,R,O) Urine Bacteria Many H (NS) Hyaline Casts Few H (NS) Meds: Medications Generic Name Dose Route Start Last Admin Trade Name Freq PRN Reason Stop Dose Admin Ceftazidime 2 gm/ Sodium 100 mls @ 200 mls/hr 06/01/18 18:00 Chloride IV Q8H MATT Metronidazole 500 mg/ Premix 100 mls @ 100 mls/hr 06/01/18 16:15 IV Q8H MATT Sodium Chloride 1,000 mls @ 999 mls/hr 06/01/18 16:06 06/01/18 16:20 Normal Saline IV 06/01/18 17:06 999 mls/hr .BOLUS ONE Administration Sodium Chloride 10 ml 06/01/18 15:52 06/01/18 15:10 Saline Flush FLUSH 10 ml ASDIRECTED PRN Administration Keep Vein Open Discontinued Medications Generic Name Dose Route Start Last Admin Trade Name Freq PRN Reason Stop Dose Admin Sodium Chloride 1,000 mls @ 999 mls/hr 06/01/18 14:33 06/01/18 15:15 Normal Saline IV 06/01/18 15:33 999 mls/hr .BOLUS ONE Administration Potassium Chloride 40 meq 06/01/18 16:06 Klor-Con 10 PO 06/01/18 16:07 ONETIME ONE - Re-Assessments/Exams Free Text/Narrative Re-Assessment/Exam: 06/01/18 16:42 labs reviewed, remarkable for CRP 15.6 (was 1.2 from 8m ago) and BUN/creat 74/ 2.2 (baseline 22/0.8) lactic acid 1.2, pt remains alert and conversant apparently is incontinent, cath u/a has been obtained and is pending CT abd/pelvis without, per Dr Mello shows inc'd megacolon to 16.5 cm, previously 12 cm max, liquid stool and air in colon, no thickening of wall, no free air, cannot exclude air in wall in ascending colon, no evidence of obstruction must consider an intrabdominal infection despite normal WBC, no fever and stable vs here concerns for intrabdominal infection are lethargy, worsening megacolon, vague abd pain, inc'd CRP and h/o sepsis 3m ago when he was sent to [facility] C diff pending will use ceftazidime for inc'd penetration into peritoneal fluid and add metronidazole for additional anaerobe coverage will not place on complete bowel rest altho will use a full liquid diet for now d/w Dr Juan who accepted pt in admission, d/w pt's RN who agrees, RN will notify pt's guardian Departure - Departure Time of Disposition: 16:49 Disposition: Admitted As Inpatient 68 Condition: Fair Clinical Impression: Colitis, Moderate dehydration, Acute on chronic renal insufficiency, Elevated C -reactive protein (CRP), Toxic megacolon, Lethargy, UTI, Urinary tract infectious disease - Discharge Information *PRESCRIPTION DRUG MONITORING PROGRAM REVIEWED*: Not Applicable *COPY OF PRESCRIPTION DRUG MONITORING REPORT IN PATIENT [place]: Not Applicable - My Orders Last 24 Hours: My Active Orders 06/01/18 14:32 Abdomen Pelvis wo Cont [CT] Stat 06/01/18 15:00 Peripheral IV Insertion Adult [OM.PC] Routine 06/01/18 15:52 Sodium Chloride 0.9% [Saline Flush] 10 ml FLUSH ASDIRECTED PRN 06/01/18 15:55 Blood Culture x2 Reflex Set [OM.PC] Urgent 06/01/18 15:57 EKG Documentation Completion [RC] ASDIRECTED EKG 12 Lead [EK] Routine 06/01/18 16:06 C DIFFICILE, CYTOTOXIN B Stat Sodium Chloride 0.9% [Normal Saline] 1,000 ml IV .BOLUS 06/01/18 16:15 metroNIDAZOLE/Normal Saline [Flagyl 500 MG in NS 100 ML] 500 mg Premix Bag 1 bag IV Q8H 06/01/18 16:22 CULTURE BLOOD [BC] Urgent 06/01/18 16:28 CULTURE BLOOD [BC] Urgent 06/01/18 18:00 cefTAZidime Pentahydrate [Fortaz] 2 gm Sodium Chloride 0.9% [Normal Saline] 100 ml IV Q8H - Assessment/Plan Last 24 Hours: My Active Orders 06/01/18 14:32 Abdomen Pelvis wo Cont [CT] Stat 06/01/18 15:00 Peripheral IV Insertion Adult [OM.PC] Routine 06/01/18 15:52 Sodium Chloride 0.9% [Saline Flush] 10 ml FLUSH ASDIRECTED PRN 06/01/18 15:55 Blood Culture x2 Reflex Set [OM.PC] Urgent 06/01/18 15:57 EKG Documentation Completion [RC] ASDIRECTED EKG 12 Lead [EK] Routine 06/01/18 16:06 C DIFFICILE, CYTOTOXIN B Stat Sodium Chloride 0.9% [Normal Saline] 1,000 ml IV .BOLUS 06/01/18 16:15 metroNIDAZOLE/Normal Saline [Flagyl 500 MG in NS 100 ML] 500 mg Premix Bag 1 bag IV Q8H 06/01/18 16:22 CULTURE BLOOD [BC] Urgent 06/01/18 16:28 CULTURE BLOOD [BC] Urgent 06/01/18 18:00 cefTAZidime Pentahydrate [Fortaz] 2 gm Sodium Chloride 0.9% [Normal Saline] 100 ml IV Q8H
[2018-06-01] MEDS: Sodium Chloride 0.9% 10 ML Syringe FLUSH PRN (15:10)
[2018-06-01] MEDS ORDERED: Potassium Chloride 10 MEQ Tab.ER PO ONE (16:06)
[2018-06-01] MEDS ORDERED: metroNIDAZOLE/Normal Saline 500 MG in Premix Bag 1 BAG IV SCH (16:15)
[2018-06-01] MEDS ORDERED: Acetaminophen 325 MG Tab PO PRN (17:12)
[2018-06-01] MEDS ORDERED: Ondansetron 4 MG/2 ML SDV IV PRN (17:12)
[2018-06-01] MEDS ORDERED: Ibuprofen 600 MG Tab PO PRN (17:12)
[2018-06-01] MEDS ORDERED: Nitroglycerin 0.4 MG Tab.SL SL PRN (17:16)
[2018-06-01] MEDS ORDERED: Glycerin Adult 2.1 GM Supp RECTAL PRN (17:16)
[2018-06-01] MEDS ORDERED: cefTAZidime Pentahydrate 2 GM in Sodium Chloride 0.9% 50 ML IV SCH (17:30)
[2018-06-01] MEDS ORDERED: Non-Formulary Medication 1 Each (Ferrous Gluconate [Ferrous Gluconate] 324 MG) PO SCH (18:00)
[2018-06-01] MEDS: metroNIDAZOLE/Normal Saline 500 MG in Premix Bag 1 BAG IV SCH (18:26)
[2018-06-01] MEDS ORDERED: Potassium Chloride 10 MEQ Tab.ER ONE (18:33)
[2018-06-01] MEDS: Sodium Chloride 0.9% 1,000 ML IV SCH (19:19)
[2018-06-01] MEDS: Enoxaparin 40 MG/0.4 ML Syringe SUBCUT SCH (19:21)
[2018-06-01] MEDS ORDERED: Gabapentin 400 MG Cap PO SCH (20:00)
[2018-06-01] MEDS: Polyethylene Glycol 3350 Powder 17 GM Packet PO SCH (20:26)
[2018-06-01] MEDS: QUEtiapine 100 MG Tab PO SCH (20:27)
[2018-06-01] MEDS: Albuterol 8 GM Inhaler INH SCH (20:27)
[2018-06-01] MEDS ORDERED: BENZOYL PEROXIDE TOP SCH (21:00)
[2018-06-01] MEDS ORDERED: Multivitamin Tab PO SCH (21:00)
[2018-06-01] MEDS ORDERED: Pantoprazole 40 MG Tab.CR PO SCH (21:00)
[2018-06-01] MEDS ORDERED: atorvaSTATin 10 MG Tab PO SCH (21:00)
[2018-06-02] MEDS: metroNIDAZOLE/Normal Saline 500 MG in Premix Bag 1 BAG IV SCH ×4 (01:06→17:27)
[2018-06-02] MEDS ORDERED: LEVOTHYROXINE 200 MCG PO SCH (06:00)
[2018-06-02] MEDS ORDERED: Metoprolol Succinate 25 MG Tab.ER PO SCH (06:00)
[2018-06-02] MEDS ORDERED: Levothyroxine 25 MCG Tab PO SCH (06:00)
[2018-06-02] MEDS: Sodium Chloride 0.9% 1,000 ML IV SCH (07:47)
--- NOTE | 2018-06-02 08:24 | CT ---
INDICATION: Lethargy, abdominal distention, question of obstruction. CT ABDOMEN AND PELVIS WITHOUT CONTRAST: Spiral 2.5 mm axial sections were obtained through the abdomen and pelvis without contrast, with sagittal and coronal reconstructions, 06/01/18, and compared with 03/16/18. Total exam DLP = 863.03 mGy-cm. There are pleural parenchymal changes, minimal, at the right lower lobe and parenchymal changes minimally with subpleural change also at the left lung base - lower lobe, likely fibrotic in nature. Little change is seen, compared with March of 2018. The heart is enlarged. No pericardial effusion is seen. Massive distention of the colon is again noted down to the descending colon area , with measurements of up to 14 to 15 cm, compatible with megacolon. No gross thickening of the wall is noted; however, there is question of some air in the wall of the bowel, which could be on the basis of infectious disease process but should be correlated clinically. No gross thickening of the wall is seen. No evidence of free air or peritonitis was seen. Liquid appearing stool is noted with air fluid levels in the colon, including at the level of the rectum, although it is more formed in the rectal area. The urinary bladder was unremarkable. The appendix is not definitely visualized. The gallbladder is absent, compatible with history of its removal. Liver density appeared normal. No intrahepatic ductal dilatation was suggested. The adrenal glands and kidneys appear to be fairly normal. The spleen had a normal appearance. The pancreas appeared normal. No retroperitoneal masses were seen. Arterial calcifications are noted. No other organomegaly, mass lesions, or free fluid collections were identified in the abdomen or pelvis. IMPRESSION: Massive disention of the colon, compatible with megacolon. A mechanically obstructive process is not definite, as there is liquidy appearing stool in the distal colon - rectum with relatively small diameter of the colon distal to the dilated portion in the descending colon area. The appearance is overall similar to the previous study of March 2018 but may be slightly increased in distention, compared with that study. There also is suspicion of increased gas in the wall of the ascending colon, which could represent infection but should be correlated clinically. Report was called to Dr. Max at 1545 hours on 06/01/18. [facility]
[2018-06-02] MEDS: Sertraline 100 MG Tab PO SCH (08:33)
[2018-06-02] MEDS: Tiotropium Inhaler 18 MCG Inhalation Powder Cap Kit of 5 INH SCH (08:33)
[2018-06-02] MEDS: Albuterol 8 GM Inhaler INH SCH ×3 (08:34→20:43)
[2018-06-02] MEDS: Aloe Vera/Sodium Chloride Gel 14.1 GM Tube NAS SCH ×2 (08:39→20:43)
[2018-06-02] MEDS: Polyethylene Glycol 3350 Powder 17 GM Packet PO SCH ×3 (08:39→20:40)
[2018-06-02] MEDS ORDERED: MAGNESIUM OXIDE 250 MG PO SCH (09:00)
[2018-06-02] MEDS ORDERED: Aspirin 81 MG Tab.EC PO SCH (09:00)
--- NOTE | 2018-06-02 12:27 | PCM.CONS ---
H&P History of Present Illness - General Date of Service: 06/02/18 Admit Problem/Dx: Admission Diagnosis/Problem Admission Diagnosis/Problem Colitis Source of Information: Old Records History Limitations: Reports: Other (dementia ) - History of Present Illness Initial Comments - Free Text/Narative: Pt admitted yesterday. He has a hx of what appears to be a pseudo obstruction. Tolerates a dilated colon. Has been worked up the past with the only finding being a redundant dilated colon. Denies any abd pain at this time. - Related Data Allergies/Adverse Reactions: Allergies Allergy/AdvReac Type Severity Reaction Status Date / Time Penicillins Allergy Cannot Verified 06/01/18 14:19 Remember vancomycin Allergy Cannot Verified 06/01/18 14:19 Remember Home Medications: Home Meds Albuterol [Proventil HFA] 1 puff INH TID 06/13/14 [History] Cholecalciferol (Vitamin D3) [Vitamin D3] 1,000 unit PO DAILY@0600 06/13/14 [ History] Levothyroxine [Synthroid] 200 mcg PO DAILY@06 06/13/14 [History] Multivitamin with Minerals [Multivitamins with Minerals] 1 tab PO BEDTIME [History] Omeprazole 20 mg PO BEDTIME 06/13/14 [History] Sertraline [Zoloft] 200 mg PO DAILY 06/13/14 [History] Benzoyl Peroxide 1 applic TOP BEDTIME 05/09/15 [History] Nitroglycerin [Nitrostat] 0.4 mg SL Q5M PRN 05/09/15 [History] Aspirin [Halfprin] 81 mg PO DAILY 04/23/17 [History] Ferrous Gluconate 324 mg PO BIDMEALS 04/23/17 [History] Selenium Sulfide [Anti-Dandruff] 1 applic TOP SUWEFR 04/23/17 [History] Tiotropium [Spiriva HandiHaler] 18 mcg INH DAILY 04/23/17 [History] Triamcinolone Acetonide [Triamcinolone Acetonide 0.1% Crm] 1 applic TOP BID PRN 04/23/17 [History] atorvaSTATin [Lipitor] 10 mg PO BEDTIME 04/23/17 [History] Aloe Vera/Sodium Chloride [[place] Saline Nasal Gel] 1 applic LOBITO BID 09/30/17 [ History] Emollient Combination No.75 [[facility] [place] Butter] 1 applic TOP BID 09/30/17 [History] Levothyroxine 25 mcg PO 0600 tablet 10/01/17 [Rx] Metoprolol Succinate [Toprol XL] 12.5 mg PO QAM #15 tab.er 10/01/17 [Rx] .Domperidone 10 mg PO TID 06/01/18 [History] Gabapentin [Neurontin] 400 mg PO QID@08,12,16,20 06/01/18 [History] Glycerin 1 supp RECTAL DAILY PRN 06/01/18 [History] Magnesium Oxide 250 mg PO DAILY 06/01/18 [History] Polyethylene Glycol 3350 [MiraLAX] 17 gm PO TID 06/01/18 [History] QUEtiapine [SEROquel] 50 mg PO ,06/01/18 [History] QUEtiapine [SEROquel] 300 mg PO BEDTIME 06/01/18 [History] Past Medical History HEENT History: Reports: Allergic Rhinitis, Impaired Vision Other HEENT History: Allergic rhinitis. Cardiovascular History: Reports: Angina, Hypertension Other Cardiovascular History: lower leg edema. Respiratory History: Reports: COPD Gastrointestinal History: Reports: Colon Polyp Genitourinary History: Reports: None Other Genitourinary History: Increased alkaline phosphatase, hypocalcemia. ADULT CARE MANAGER History: Reports: None Musculoskeletal History: Reports: None Other Musculoskeletal History: Unsteady gait, recurrent falls, plantar fasciitis. Neurological History: Reports: Seizure Other Neuro History: Neuroleptic induced Parkinsonism. Psychiatric History: Reports: Anxiety, Depression, Developmental Delay, Mood Swings, Psych Hospitalization(s), Suicide Attempt Other Psychiatric History: Transient alteration of awareness, moderate intellectual disabilities. Endocrine/Metabolic History: Reports: Diabetes, Type II, Hypothyroidism Hematologic History: Reports: Anemia Oncologic (Cancer) History: Reports: None Dermatologic History: Reports: Cellulitis Other Dermatologic History: Acne, dermatitis, dry scalp, stasis dermatitis both legs, history of VERSA. 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 - Past Surgical History GI Surgical History: Reports: Appendectomy, Cholecystectomy, Colonoscopy Male Surgical History: Reports: None Social & Family History - Family History Family Medical History: Noncontributory - Tobacco Use Smoking Status *Q: Never Smoker Second Hand Smoke Exposure: No - Caffeine Use Caffeine Use: Reports: Coffee - Recreational Drug Use Recreational Drug Use: No - Living Situation & Occupation Living situation: Reports: Single, Extended Care Facility (Resident in [facility] for cognitive delay/disability.) H&P Review of Systems - Review of Systems: Review Of Systems: Unable To Obtain Exam - Exam Exam: See Below - Vital Signs Vital Signs: Last Vital Signs Temp 98.2 F 06/02/18 07:52 Pulse 70 06/02/18 07:52 Resp 20 06/02/18 07:52 BP 129/72 06/02/18 07:52 Pulse Ox 94 L 06/02/18 07:52 Weight: 84.277 kg - Exam General: Alert, Cooperative Lungs: Clear to Auscultation, Normal Respiratory Effort Cardiovascular: Regular Rate, Regular Rhythm GI/Abdominal Exam: Normal Bowel Sounds, Distended. No: Rigid, Rebound, Tender Back Exam: Normal Inspection - Patient Data Lab Results Last 24 hrs: Laboratory Results - last 24 hr 06/01/18 06/01/18 06/01/18 Range/Units 14:45 14:45 14:45 WBC 6.4 (4.5-12.0) X10-3/uL RBC 3.48 L (4.30-5.75) x10(6)uL Hgb 10.2 L (13.5-17.8) g/dL Hct 31.6 (30.0-51.3) % MCV 90.8 (80-96) fL MCH 29.3 (27.7-33.6) pg MCHC 32.3 (32.2-35.4) g/dL RDW 13.3 (11.5-15.5) % Plt Count 137 (125-369) X10(3)uL MPV 8.0 (7.4-10.4) fL Neut % (Auto) 81.6 (46-82) % Lymph % (Auto) 11.7 L (13-37) % [place] % (Auto) 5.3 (4-12) % Eos % (Auto) 1 (1.0-5.0) % Baso % (Auto) 0 (0-2) % Neut # (Auto) 5.2 (1.6-8.3) # Lymph # (Auto) 0.8 (0.6-5.0) # [place] # (Auto) 0.3 (0.0-1.3) # Eos # (Auto) 0.1 (0.0-0.8) # Baso # (Auto) 0.0 (0.0-0.2) # Sodium 137 (135-145) mmol/L Potassium 3.5 D (3.5-5.3) mmol/L Chloride 104 (100-110) mmol/L Carbon Dioxide 23 (21-32) mmol/L BUN 74 H D (7-18) mg/dL Creatinine 2.2 H* (0.70-1.30) mg/dL Est Cr Clr Drug Dosing TNP Estimated GFR (MDRD) 31 L (>60) BUN/Creatinine Ratio 33.6 H (9-20) Glucose 177 H (80-116) mg/dL POC Glucose (80-116) mg/dL Lactic Acid (0.4-2.2) mmol/L Calcium 8.2 L (8.6-10.2) mg/dL Magnesium (1.8-2.5) mg/dL Total Bilirubin 0.4 (0.1-1.3) mg/dL AST 28 H (5-25) IU/L ALT 38 H D (12-36) U/L Alkaline Phosphatase 105 (56-112) IU/L Creatine Kinase (60-160) IU/L Troponin I (<0.017-0.056) ng/mL C-Reactive Protein 15.6 H* (0.5-0.9) mg/dL Total Protein 5.8 L (6.0-8.0) g/dL Albumin 2.6 L (3.5-5.2) g/dL Globulin 3.2 g/dL Albumin/Globulin Ratio 0.8 Amylase 45 (25-115) U/L Urine Color (YELLOW) Urine Appearance (CLEAR) Urine pH (5.0-6.5) Ur Specific Lopez (1.010-1.025) Urine Protein (NEGATIVE) mg/dL Urine Glucose (UA) (NORMAL) mg/dL Urine Ketones (NEGATIVE) mg/dL Urine Occult Blood (NEGATIVE) Urine Nitrite (NEGATIVE) Urine Bilirubin (NEGATIVE) Urine Urobilinogen (NEGATIVE) mg/dL Ur Leukocyte Esterase (NEGATIVE) Urine RBC (0-5) Urine WBC (0-5) Ur Squamous Epith Cells (NS,R,O) Urine Bacteria (NS) Hyaline Casts (NS) 06/01/18 06/01/18 06/01/18 Range/Units 14:45 14:45 14:45 WBC (4.5-12.0) X10-3/uL RBC (4.30-5.75) x10(6)uL Hgb (13.5-17.8) g/dL Hct (30.0-51.3) % MCV (80-96) fL MCH (27.7-33.6) pg MCHC (32.2-35.4) g/dL RDW (11.5-15.5) % Plt Count (125-369) X10(3)uL MPV (7.4-10.4) fL Neut % (Auto) (46-82) % Lymph % (Auto) (13-37) % [place] % (Auto) (4-12) % Eos % (Auto) (1.0-5.0) % Baso % (Auto) (0-2) % Neut # (Auto) (1.6-8.3) # Lymph # (Auto) (0.6-5.0) # [place] # (Auto) (0.0-1.3) # Eos # (Auto) (0.0-0.8) # Baso # (Auto) (0.0-0.2) # Sodium (135-145) mmol/L Potassium (3.5-5.3) mmol/L Chloride (100-110) mmol/L Carbon Dioxide (21-32) mmol/L BUN (7-18) mg/dL Creatinine (0.70-1.30) mg/dL Est Cr Clr Drug Dosing Estimated GFR (MDRD) (>60) BUN/Creatinine Ratio (9-20) Glucose (80-116) mg/dL POC Glucose (80-116) mg/dL Lactic Acid 1.2 (0.4-2.2) mmol/L Calcium (8.6-10.2) mg/dL Magnesium 2.7 H (1.8-2.5) mg/dL Total Bilirubin (0.1-1.3) mg/dL AST (5-25) IU/L ALT (12-36) U/L Alkaline Phosphatase (56-112) IU/L Creatine Kinase (60-160) IU/L Troponin I < 0.017 L (<0.017-0.056) ng/mL C-Reactive Protein (0.5-0.9) mg/dL Total Protein (6.0-8.0) g/dL Albumin (3.5-5.2) g/dL Globulin g/dL Albumin/Globulin Ratio Amylase (25-115) U/L Urine Color (YELLOW) Urine Appearance (CLEAR) Urine pH (5.0-6.5) Ur Specific Lopez (1.010-1.025) Urine Protein (NEGATIVE) mg/dL Urine Glucose (UA) (NORMAL) mg/dL Urine Ketones (NEGATIVE) mg/dL Urine Occult Blood (NEGATIVE) Urine Nitrite (NEGATIVE) Urine Bilirubin (NEGATIVE) Urine Urobilinogen (NEGATIVE) mg/dL Ur Leukocyte Esterase (NEGATIVE) Urine RBC (0-5) Urine WBC (0-5) Ur Squamous Epith Cells (NS,R,O) Urine Bacteria (NS) Hyaline Casts (NS) 06/01/18 06/01/18 06/01/18 Range/Units 14:45 16:03 17:54 WBC (4.5-12.0) X10-3/uL RBC (4.30-5.75) x10(6)uL Hgb (13.5-17.8) g/dL Hct (30.0-51.3) % MCV (80-96) fL MCH (27.7-33.6) pg MCHC (32.2-35.4) g/dL RDW (11.5-15.5) % Plt Count (125-369) X10(3)uL MPV (7.4-10.4) fL Neut % (Auto) (46-82) % Lymph % (Auto) (13-37) % [place] % (Auto) (4-12) % Eos % (Auto) (1.0-5.0) % Baso % (Auto) (0-2) % Neut # (Auto) (1.6-8.3) # Lymph # (Auto) (0.6-5.0) # [place] # (Auto) (0.0-1.3) # Eos # (Auto) (0.0-0.8) # Baso # (Auto) (0.0-0.2) # Sodium (135-145) mmol/L Potassium (3.5-5.3) mmol/L Chloride (100-110) mmol/L Carbon Dioxide (21-32) mmol/L BUN (7-18) mg/dL Creatinine (0.70-1.30) mg/dL Est Cr Clr Drug Dosing Estimated GFR (MDRD) (>60) BUN/Creatinine Ratio (9-20) Glucose (80-116) mg/dL POC Glucose 100 (80-116) mg/dL Lactic Acid (0.4-2.2) mmol/L Calcium (8.6-10.2) mg/dL Magnesium (1.8-2.5) mg/dL Total Bilirubin (0.1-1.3) mg/dL AST (5-25) IU/L ALT (12-36) U/L Alkaline Phosphatase (56-112) IU/L Creatine Kinase 78 (60-160) IU/L Troponin I (<0.017-0.056) ng/mL C-Reactive Protein (0.5-0.9) mg/dL Total Protein (6.0-8.0) g/dL Albumin (3.5-5.2) g/dL Globulin g/dL Albumin/Globulin Ratio Amylase (25-115) U/L Urine Color Yellow (YELLOW) Urine Appearance Clear (CLEAR) Urine pH 5.0 (5.0-6.5) Ur Specific Lopez 1.020 (1.010-1.025) Urine Protein 100 H (NEGATIVE) mg/dL Urine Glucose (UA) Normal (NORMAL) mg/dL Urine Ketones Negative (NEGATIVE) mg/dL Urine Occult Blood Negative (NEGATIVE) Urine Nitrite Negative (NEGATIVE) Urine Bilirubin Small H (NEGATIVE) Urine Urobilinogen Normal (NEGATIVE) mg/dL Ur Leukocyte Esterase Negative (NEGATIVE) Urine RBC 0-5 (0-5) Urine WBC 0-5 (0-5) Ur Squamous Epith Cells Few H (NS,R,O) Urine Bacteria Many H (NS) Hyaline Casts Few H (NS) 06/01/18 06/02/18 06/02/18 Range/Units 21:01 05:54 05:54 WBC 4.2 L (4.5-12.0) X10-3/uL RBC 3.16 L (4.30-5.75) x10(6)uL Hgb 9.5 L (13.5-17.8) g/dL Hct 28.8 L (30.0-51.3) % MCV 91.4 (80-96) fL MCH 30.1 (27.7-33.6) pg MCHC 32.9 (32.2-35.4) g/dL RDW 13.1 (11.5-15.5) % Plt Count 113 L (125-369) X10(3)uL MPV 8.1 (7.4-10.4) fL Neut % (Auto) 62.1 (46-82) % Lymph % (Auto) 19.1 (13-37) % [place] % (Auto) 7.8 (4-12) % Eos % (Auto) 10 H (1.0-5.0) % Baso % (Auto) 1 (0-2) % Neut # (Auto) 2.7 (1.6-8.3) # Lymph # (Auto) 0.8 (0.6-5.0) # [place] # (Auto) 0.3 (0.0-1.3) # Eos # (Auto) 0.4 (0.0-0.8) # Baso # (Auto) 0.0 (0.0-0.2) # Sodium 141 (135-145) mmol/L Potassium 4.4 (3.5-5.3) mmol/L Chloride 110 D (100-110) mmol/L Carbon Dioxide 23 (21-32) mmol/L BUN 56 H D (7-18) mg/dL Creatinine 1.3 (0.70-1.30) mg/dL Est Cr Clr Drug Dosing 55.85 Estimated GFR (MDRD) 57 L (>60) BUN/Creatinine Ratio 43.1 H (9-20) Glucose 88 D (80-116) mg/dL POC Glucose 121 H (80-116) mg/dL Lactic Acid (0.4-2.2) mmol/L Calcium 7.3 L (8.6-10.2) mg/dL Magnesium (1.8-2.5) mg/dL Total Bilirubin (0.1-1.3) mg/dL AST (5-25) IU/L ALT (12-36) U/L Alkaline Phosphatase (56-112) IU/L Creatine Kinase (60-160) IU/L Troponin I (<0.017-0.056) ng/mL C-Reactive Protein (0.5-0.9) mg/dL Total Protein (6.0-8.0) g/dL Albumin (3.5-5.2) g/dL Globulin g/dL Albumin/Globulin Ratio Amylase (25-115) U/L Urine Color (YELLOW) Urine Appearance (CLEAR) Urine pH (5.0-6.5) Ur Specific Lopez (1.010-1.025) Urine Protein (NEGATIVE) mg/dL Urine Glucose (UA) (NORMAL) mg/dL Urine Ketones (NEGATIVE) mg/dL Urine Occult Blood (NEGATIVE) Urine Nitrite (NEGATIVE) Urine Bilirubin (NEGATIVE) Urine Urobilinogen (NEGATIVE) mg/dL Ur Leukocyte Esterase (NEGATIVE) Urine RBC (0-5) Urine WBC (0-5) Ur Squamous Epith Cells (NS,R,O) Urine Bacteria (NS) Hyaline Casts (NS) 06/02/18 06/02/18 Range/Units 05:54 11:58 WBC (4.5-12.0) X10-3/uL RBC (4.30-5.75) x10(6)uL Hgb (13.5-17.8) g/dL Hct (30.0-51.3) % MCV (80-96) fL MCH (27.7-33.6) pg MCHC (32.2-35.4) g/dL RDW (11.5-15.5) % Plt Count (125-369) X10(3)uL MPV (7.4-10.4) fL Neut % (Auto) (46-82) % Lymph % (Auto) (13-37) % [place] % (Auto) (4-12) % Eos % (Auto) (1.0-5.0) % Baso % (Auto) (0-2) % Neut # (Auto) (1.6-8.3) # Lymph # (Auto) (0.6-5.0) # [place] # (Auto) (0.0-1.3) # Eos # (Auto) (0.0-0.8) # Baso # (Auto) (0.0-0.2) # Sodium (135-145) mmol/L Potassium (3.5-5.3) mmol/L Chloride (100-110) mmol/L Carbon Dioxide (21-32) mmol/L BUN (7-18) mg/dL Creatinine (0.70-1.30) mg/dL Est Cr Clr Drug Dosing Estimated GFR (MDRD) (>60) BUN/Creatinine Ratio (9-20) Glucose (80-116) mg/dL POC Glucose 91 103 (80-116) mg/dL Lactic Acid (0.4-2.2) mmol/L Calcium (8.6-10.2) mg/dL Magnesium (1.8-2.5) mg/dL Total Bilirubin (0.1-1.3) mg/dL AST (5-25) IU/L ALT (12-36) U/L Alkaline Phosphatase (56-112) IU/L Creatine Kinase (60-160) IU/L Troponin I (<0.017-0.056) ng/mL C-Reactive Protein (0.5-0.9) mg/dL Total Protein (6.0-8.0) g/dL Albumin (3.5-5.2) g/dL Globulin g/dL Albumin/Globulin Ratio Amylase (25-115) U/L Urine Color (YELLOW) Urine Appearance (CLEAR) Urine pH (5.0-6.5) Ur Specific Lopez (1.010-1.025) Urine Protein (NEGATIVE) mg/dL Urine Glucose (UA) (NORMAL) mg/dL Urine Ketones (NEGATIVE) mg/dL Urine Occult Blood (NEGATIVE) Urine Nitrite (NEGATIVE) Urine Bilirubin (NEGATIVE) Urine Urobilinogen (NEGATIVE) mg/dL Ur Leukocyte Esterase (NEGATIVE) Urine RBC (0-5) Urine WBC (0-5) Ur Squamous Epith Cells (NS,R,O) Urine Bacteria (NS) Hyaline Casts (NS) Result Diagrams: 06/02/18 05:54 06/02/18 05:54 Rhys Results Last 24 hrs: Microbiology 06/02/18 05:50 Stool Occult Blood (RHYS) - Final Stool / Feces NEGATIVE OCCULT BLOOD Consult PN Assessment/Plan Procedures: Procedures AIRWAY INHALATION TREATMENT (04/23/17) ASSAY OF AMYLASE (03/16/18) ASSAY OF CK (CPK) (09/30/17) ASSAY OF LACTIC ACID (03/16/18) ASSAY OF NATRIURETIC PEPTIDE (03/16/18) ASSAY OF TROPONIN QUANT (05/15/18) ASSAY THYROID STIM HORMONE (03/16/18) BLOOD GASES ANY COMBINATION (03/16/18) C-REACTIVE PROTEIN (09/30/17) CHEST X-RAY 1 VIEW FRONTAL (06/13/14) COMPLETE CBC W/AUTO DIFF WBC (05/15/18) COMPREHEN METABOLIC PANEL (05/15/18) CREATINE MB FRACTION (06/13/14) CT ABD & PELVIS W/O CONTRAST (04/23/17) CT ANGIOGRAPHY CHEST (09/30/17) CT HEAD/BRAIN W/O DYE (04/06/17) CT NECK SPINE W/O DYE (02/25/13) DIAGNOSTIC COLONOSCOPY (06/13/15) DRUG TEST PRSMV DIR OPT OBS (03/16/18) ELECTROCARDIOGRAM TRACING (05/15/18) EMERGENCY DEPT VISIT (05/15/18) EMERGENCY DEPT VISIT (03/16/18) EMERGENCY DEPT VISIT (02/25/13) FIBRIN DEGRADATION QUANT (03/16/18) GLUCOSE BLOOD TEST (09/30/17) GLYCOSYLATED HEMOGLOBIN TEST (03/16/18) HYDRATE IV INFUSION ADD-ON (03/16/18) HYDRATION IV INFUSION INIT (09/30/17) INSERT TEMP BLADDER CATH (03/16/18) METABOLIC PANEL TOTAL CA (09/30/17) NASAL/OROGASTRIC W/TUBE PLMT (03/16/18) OCCULT BLD FECES 1-3 TESTS (04/23/17) PROTHROMBIN TIME (09/30/17) ROUTINE VENIPUNCTURE (05/15/18) THER/PROPH/DIAG INJ IV PUSH (03/16/18) THER/PROPH/DIAG INJ SC/IM (09/30/17) URINALYSIS AUTO W/SCOPE (03/16/18) VITAL CAPACITY TEST (04/23/17) WITHDRAWAL OF ARTERIAL BLOOD (03/16/18) X-RAY EXAM ABDOMEN 1 VIEW (03/16/18) X-RAY EXAM ABDOMEN 2 VIEWS (09/30/17) X-RAY EXAM CHEST 1 VIEW (03/16/18) X-RAY EXAM CHEST 2 VIEWS (09/30/17) (1) Abnormal large bowel motility SNOMED Code(s): 48042239 Code(s): K59.9 - FUNCTIONAL INTESTINAL DISORDER, UNSPECIFIED Current Visit : No Problem List Initiated/Reviewed/Updated: Yes My Orders Last 24 Hours: this is not a true pseudo obstruction. At this point no intervention would be required. E mycin has helped in the past and I would recommend a short trial.
--- NOTE | 2018-06-02 12:44 | PN ---
DATE SEEN: 06/02/2018 SUBJECTIVE: Canelo Dejesus is a 57-year-old male admitted with concerns about sepsis. Appears much more comfortable today. Appetite returned. Vital signs are stable. Had a good watery stool, which contained contents of the dinner yesterday, i.e., corn. LABORATORY STUDIES: White count 4200, hemoglobin 9.5, normal indices, platelet count 113. BUN fell from 74 to 56, creatinine from 2.2 to 1.3. Lactic acid 7.3. OBJECTIVE: VITAL SIGNS: 36.8, 129/72, 91, 94. CHEST: Clear in all lung smith. HEART: No ectopy or murmur. ABDOMEN: Less distended. Good bowel sounds. ASSESSMENT: 1. Obstruction absent, clinically and radiographically. 2. Sepsis, low suspicion. PLAN: We will continue antibiotics to the day, blood cultures are pending, intervention and care as appropriate. /[id number] SHANE/TAMMI
--- NOTE | 2018-06-02 14:03 | HP ---
ADMISSION DATE: 06/01/2018 REASON FOR VISIT: Complicated abdominal pain. HISTORY OF PRESENT ILLNESS: Canelo Dejesus is a 57-year-old male, long term resident, seen at [facility] ER. Presented with vague abdominal pain. History of chronic megacolon and chronic loose stools due to megacolon. Stools have been much more loose than usual. Blood pressure was labile, history of sepsis in the past. Lethargic, distractible, and under duress. He is presently on MiraLAX and a stimulant provided only out of [place]. Had a colonoscopy about a year ago, redundant colon, difficult to complete. He had an episode of severe hypotension at [facility], required aggressive intervention. Concerns related to that noted. ALLERGIES: Allergic to penicillin and vancomycin, origin unknown. MEDICATIONS: Please see medication reconciliation list. PAST MEDICAL HISTORY: Significant for allergic rhinitis, hypertension, complicated lower extremity edema. Had a previous appendectomy, cholecystectomy, and colonoscopy. No other complicating health issues. SOCIAL HISTORY: detention resident. Never . Nonsmoker. No alcohol consumption. FAMILY HISTORY: Not available. REVIEW OF SYSTEMS: Unable to give history of consequence. OBJECTIVE: VITAL SIGNS: 36.8, 70, 129/72, 20, 94%. GENERAL: Reasonably alert, awake, appropriate. A little bit lethargic. Funduscopic benign. Bright TMs. Clear nasal discharge. Mouth and oropharynx benign. NECK: Benign. No adenopathy. CHEST: Clear in all lung smith. No adventitious sounds. HEART: Occasional ectopy, without significant murmur. ABDOMEN: Markedly distended. Tympanitic. RECTAL: Benign. EXTREMITIES: Unremarkable. : Unremarkable. LABORATORY STUDIES: White count 6,400, hemoglobin 10.2, creatinine 2.2, up above baseline, GFR 31. Troponin negative, mildly elevated CRP. Urinalysis unremarkable. RADIOGRAPHS: Abdomen CT revealed massive distention of colon, no definable obstructive process, unchanged from March of 2018. ASSESSMENT: Sepsis under consideration, similar history, chronic megacolon. PLAN: Put the bowel to rest, IV fluids, close observation. Dr. Morrison will provide consultation. /[id number] /TAMMI
[2018-06-02] MEDS ORDERED: SELENIUM SULFIDE TOP SCH (17:16)
[2018-06-02] MEDS: Enoxaparin 40 MG/0.4 ML Syringe SUBCUT SCH (18:22)
[2018-06-02] MEDS: QUEtiapine 100 MG Tab PO SCH (20:41)
[2018-06-03] MEDS: metroNIDAZOLE/Normal Saline 500 MG in Premix Bag 1 BAG IV SCH ×2 (01:01→09:55)
[2018-06-03] MEDS: Sodium Chloride 0.9% 10 ML Syringe FLUSH PRN ×2 (02:35→09:55)
[2018-06-03] MEDS: Polyethylene Glycol 3350 Powder 17 GM Packet PO SCH (09:57)
[2018-06-03] MEDS: Tiotropium Inhaler 18 MCG Inhalation Powder Cap Kit of 5 INH SCH (09:57)
[2018-06-03] MEDS: Aloe Vera/Sodium Chloride Gel 14.1 GM Tube NAS SCH (09:58)
[2018-06-03] MEDS: Albuterol 8 GM Inhaler INH SCH (09:59)
[2018-06-03] MEDS: Sertraline 100 MG Tab PO SCH (10:01)
[2018-06-03 10:16] VITALS: BP 124/70
--- NOTE | 2018-06-29 09:00 | DISCH ---
DISCHARGE DATE: 06/03/2018 HOSPITAL COURSE: Canelo Dejesus is a 57-year-old male, care home resident, seen in [facility], admitted with abdominal pain, distention and concerns about an obstructive process. Placed on IV fluids, observation and intervention. He was seen by Dr. Morrison on 06/02/2018. Pseudo-obstruction, dilated colon, workup in the past had been present. Laxatives on board. PHYSICAL EXAMINATION AT THE TIME OF DISCHARGE: VITAL SIGNS: Stable; 36.8, 69, 124/70, pulse 69, respirations 18, and 93%. General: Appears comfortable. Speech was fluent. HEENT: Mouth and oropharynx clear. NECK: Benign. Thyroid small. CHEST: Clear in all lung smith. HEART: Distant heart sounds. Occasional ectopy. ABDOMEN: Markedly distended. Good bowel sounds. PLAN: Discharge home. Medications recon provided, complementary care, well being, fluids, hydration. Laxatives on board. Follow up p.r.n. SURGICAL PROCEDURES: None. CONSULTATION: None. 30 minute discharge exam and discharge planning, care home revisit. /[id number] /TAMMI
== END 2018-06-03 11:20 | DRG 392 ==
LOC: FB.ED 13:54 → FB.MS 16:20
PROVIDERS: ADMIT Family Medicine; ATTEND Family Medicine
DX: R10.9 Unspecified abdominal pain (principal); K59.9 Functional intestinal disorder, unspecified; G21.11 Neuroleptic induced parkinsonism; K59.39 Other megacolon; I10 Essential (primary) hypertension; E11.9 Type 2 diabetes mellitus without complications; E03.9 Hypothyroidism, unspecified; J44.9 Chronic obstructive pulmonary disease, unspecified; F71 Moderate intellectual disabilities; D64.9 Anemia, unspecified; R26.81 Unsteadiness on feet; R29.6 Repeated falls; F39 Unspecified mood [affective] disorder; F32.9 Major depressive disorder, single episode, unspecified; F41.9 Anxiety disorder, unspecified; R60.9 Edema, unspecified; J30.9 Allergic rhinitis, unspecified; H54.7 Unspecified visual loss; Z79.82 Long term (current) use of aspirin; Z88.1 Allergy status to other antibiotic agents; Z88.0 Allergy status to penicillin
CPT/HCPCS: 36415; 74176; 80048; 80053; 81001; 82150; 82272; 82550; 82962; 83605; 83735; 84484; 85025; 86140; 87040; 87086; 93005; 96360; 99285-25; A9270-GY; J0713; J1650; J3490; J7030

== ENCOUNTER 2018-08-16 21:34 | Emergency (ER) | payer MEDICAID ==
--- NOTE | 2018-08-16 22:09 | EDM.PDOC ---
ED HPI GENERAL MEDICAL PROBLEM - General Chief Complaint: General Stated Complaint: DIZZINESS AND BP LOW Time Seen by Provider: 08/16/18 21:45 Source of Information: Reports: Patient, Family History Limitations: Reports: No Limitations - History of Present Illness INITIAL COMMENTS - FREE TEXT/NARRATIVE: Canelo is a special needs adult who resides at [facility] who left the shower this evening with sxs of lt headiness and weakness, subsequent BP 78/50, VR 70. A re check BP was unchanged, and staff recommended ED visit for assessment. Upon arrival, BP 147/87, VR 75 and no ectopy. His 02 sat 95% on RA. Telemetry noted NSR. He is alert, moves all extremities spontaneously, and appears to be baseline for behavior according to staff. - Related Data Allergies Allergy/AdvReac Type Severity Reaction Status Date / Time Penicillins Allergy Cannot Verified 08/16/18 23:20 Remember vancomycin Allergy Cannot Verified 08/16/18 23:20 Remember Home Meds: Home Meds Albuterol [Proventil HFA] 1 puff INH TID 06/13/14 [History] Cholecalciferol (Vitamin D3) [Vitamin D3] 1,000 unit PO DAILY@0600 06/13/14 [ History] Levothyroxine [Synthroid] 200 mcg PO DAILY@06 06/13/14 [History] Multivitamin with Minerals [Multivitamins with Minerals] 1 tab PO BEDTIME [History] Omeprazole 20 mg PO BEDTIME 06/13/14 [History] Sertraline [Zoloft] 200 mg PO DAILY 06/13/14 [History] Benzoyl Peroxide 1 applic TOP BEDTIME 05/09/15 [History] Nitroglycerin [Nitrostat] 0.4 mg SL Q5M PRN 05/09/15 [History] Aspirin [Halfprin] 81 mg PO DAILY 04/23/17 [History] Ferrous Gluconate 324 mg PO BIDMEALS 04/23/17 [History] Selenium Sulfide [Anti-Dandruff] 1 applic TOP SUWEFR 04/23/17 [History] Triamcinolone Acetonide [Triamcinolone Acetonide 0.1% Crm] 1 applic TOP BID PRN 04/23/17 [History] atorvaSTATin [Lipitor] 10 mg PO BEDTIME 04/23/17 [History] Aloe Vera/Sodium Chloride [[place] Saline Nasal Gel] 1 applic LOBITO BID 09/30/17 [ History] Emollient Combination No.75 [[place] Butter] 1 applic TOP BID 09/30/17 [History] Levothyroxine 25 mcg PO 0600 tablet 10/01/17 [Rx] Metoprolol Succinate [Toprol XL] 12.5 mg PO QAM #15 tab.er 10/01/17 [Rx] .Domperidone 10 mg PO TID 06/01/18 [History] Gabapentin [Neurontin] 400 mg PO QID@08,12,16,20 06/01/18 [History] Glycerin 1 supp RECTAL DAILY PRN 06/01/18 [History] Magnesium Oxide 250 mg PO DAILY 06/01/18 [History] Polyethylene Glycol 3350 [MiraLAX] 17 gm PO TID 06/01/18 [History] QUEtiapine [SEROquel] 50 mg PO 08,12 06/01/18 [History] QUEtiapine [SEROquel] 300 mg PO BEDTIME 06/01/18 [History] Past Medical History HEENT History: Reports: Allergic Rhinitis, Impaired Vision Other HEENT History: Allergic rhinitis. Cardiovascular History: Reports: Angina, Hypertension Other Cardiovascular History: lower leg edema. Respiratory History: Reports: COPD Gastrointestinal History: Reports: Colon Polyp Genitourinary History: Reports: None Other Genitourinary History: Increased alkaline phosphatase, hypocalcemia. GLOVE FORMER History: Reports: None Musculoskeletal History: Reports: None Other Musculoskeletal History: Unsteady gait, recurrent falls, plantar fasciitis. Neurological History: Reports: Seizure Other Neuro History: Neuroleptic induced Parkinsonism. Psychiatric History: Reports: Anxiety, Depression, Developmental Delay, Mood Swings, Psych Hospitalization(s), Suicide Attempt Other Psychiatric History: Transient alteration of awareness, moderate intellectual disabilities. Endocrine/Metabolic History: Reports: Diabetes, Type II, Hypothyroidism Hematologic History: Reports: Anemia Oncologic (Cancer) History: Reports: None Dermatologic History: Reports: Cellulitis Other Dermatologic History: Acne, dermatitis, dry scalp, stasis dermatitis both legs, history of VERSA. 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 - Past Surgical History GI Surgical History: Reports: Appendectomy, Cholecystectomy, Colonoscopy Male Surgical History: Reports: None Social & Family History - Family History Family Medical History: Noncontributory - Caffeine Use Caffeine Use: Reports: Coffee - Living Situation & Occupation Living situation: Reports: Single, Extended Care Facility (Resident in intermediate for cognitive delay/disability.) ED ROS GENERAL - Review of Systems Review Of Systems: Unable To Obtain ED EXAM, GENERAL - Physical Exam Exam: See Below Exam Limited By: Physical Impairment General Appearance: Alert, WD/WN, No Apparent Distress, Obese Eye Exam: Bilateral Eye: EOMI, Normal Inspection, PERRL Ears: Normal External Exam Nose: Normal Inspection Throat/Mouth: Normal Inspection Head: Normocephalic Neck: Normal Inspection, Supple Respiratory/Chest: No Respiratory Distress, Lungs Clear, Normal Breath Sounds, No Accessory Muscle Use Cardiovascular: Regular Rate, Rhythm, No Gallop, No Murmur GI/Abdominal: Normal Bowel Sounds, Soft, Non-Tender, No Organomegaly, No Distention, No Mass (Male) Exam: Deferred Rectal (Males) Exam: Deferred Back Exam: Normal Inspection Extremities: Normal Inspection, Pedal Edema Neurological: Alert, CN II-XII Intact Psychiatric: Flat Affect Skin Exam: Warm, Dry, Intact, Normal Color Lymphatic: No Adenopathy Course - Vital Signs Text/Narrative:: Following assessment, I started an IV in the LUE and administered 2 L of NS pending results of screening labs: the CBC and CMP were baseline, Troponin I < 0.017, 12 lead ekg noted NSR. BPs remained stable during 3 hrs of observation. - Orders/Labs/Meds Orders: Active Orders 24 hr Category Date Time Status EKG Documentation Completion [RC] ASDIRECTED Care 08/16/18 23:17 Active Sodium Chloride 0.9% [Normal Saline] 1,000 ml Med 08/16/18 22:30 Active IV ASDIRECTED Sodium Chloride 0.9% [Normal Saline] 1,000 ml Med 08/16/18 23:30 Active IV ASDIRECTED Sodium Chloride 0.9% [Saline Flush] Med 08/16/18 22:21 Active 10 ml FLUSH ASDIRECTED PRN Peripheral IV Insertion Adult [OM.PC] Routine Oth 08/16/18 22:21 Ordered EKG 12 Lead [EK] Routine Ther 08/16/18 23:16 Ordered Medication Orders Sodium Chloride (Normal Saline) 1,000 mls @ 999 mls/hr IV ASDIRECTED MATT Stop: 08/17/18 23:31 Last Admin: 08/16/18 22:27 Dose: 999 mls/hr Sodium Chloride (Normal Saline) 1,000 mls @ 500 mls/hr IV ASDIRECTED MATT Sodium Chloride (Saline Flush) 10 ml FLUSH ASDIRECTED PRN PRN Reason: Keep Vein Open Labs: Laboratory Tests 08/16/18 08/16/18 08/16/18 Range/Units 23:45 23:45 23:45 WBC 4.2 L (4.5-12.0) X10-3/uL RBC 3.44 L (4.30-5.75) x10(6)uL Hgb 10.4 L (13.5-17.8) g/dL Hct 30.9 (30.0-51.3) % MCV 89.9 (80-96) fL MCH 30.1 (27.7-33.6) pg MCHC 33.5 (32.2-35.4) g/dL RDW 13.9 (11.5-15.5) % Plt Count 126 (125-369) X10(3)uL MPV 8.0 (7.4-10.4) fL Neut % (Auto) 39.4 L (46-82) % Lymph % (Auto) 40.1 H (13-37) % [place] % (Auto) 8.2 (4-12) % Eos % (Auto) 12 H (1.0-5.0) % Baso % (Auto) 1 (0-2) % Neut # (Auto) 1.7 (1.6-8.3) # Lymph # (Auto) 1.7 (0.6-5.0) # [place] # (Auto) 0.3 (0.0-1.3) # Eos # (Auto) 0.5 (0.0-0.8) # Baso # (Auto) 0.0 (0.0-0.2) # Sodium 139 (135-145) mmol/L Potassium 5.3 D (3.5-5.3) mmol/L Chloride 105 D (100-110) mmol/L Carbon Dioxide 29 (21-32) mmol/L BUN 36 H (7-18) mg/dL Creatinine 1.2 (0.70-1.30) mg/dL Est Cr Clr Drug Dosing TNP Estimated GFR (MDRD) > 60 (>60) BUN/Creatinine Ratio 30.0 H (9-20) Glucose 94 (80-116) mg/dL Calcium 8.0 L (8.6-10.2) mg/dL Total Bilirubin 0.2 (0.1-1.3) mg/dL AST 24 D (5-25) IU/L ALT 37 H (12-36) U/L Alkaline Phosphatase 125 H (56-112) IU/L Troponin I < 0.017 L (<0.017-0.056) ng/mL Total Protein 6.0 (6.0-8.0) g/dL Albumin 3.0 L (3.5-5.2) g/dL Globulin 3.0 g/dL Albumin/Globulin Ratio 1.0 Meds: Medications Generic Name Dose Route Start Last Admin Trade Name Freq PRN Reason Stop Dose Admin Sodium Chloride 1,000 mls @ 999 mls/hr 08/16/18 22:30 08/16/18 22:27 Normal Saline IV 08/17/18 23:31 999 mls/hr ASDIRECTED MATT Administration Sodium Chloride 1,000 mls @ 500 mls/hr 08/16/18 23:30 Normal Saline IV ASDIRECTED MATT Sodium Chloride 10 ml 08/16/18 22:21 Saline Flush FLUSH ASDIRECTED PRN Keep Vein Open Departure - Departure Time of Disposition: 00:51 Disposition: DC/Tfer to [facility]04 Condition: Good Clinical Impression: Hypotension due to hypovolemia - Discharge Information *PRESCRIPTION DRUG MONITORING PROGRAM REVIEWED*: Not Applicable *COPY OF PRESCRIPTION DRUG MONITORING REPORT IN PATIENT [place]: Not Applicable Referrals: Nima Mejias MD [Primary Care Provider] - Forms: ED Department Discharge - Problem List & Annotations (1) Hypotension due to hypovolemia SNOMED Code(s): 61498881 Code(s): I95.89 - OTHER HYPOTENSION; E86.1 - HYPOVOLEMIA Status: Acute Current Visit: Yes Annotation/Comment:: Hypotension likely secondary to hypovolemia, improved with IV fluids. Staff will monitor fluid intakes. - Problem List Review Problem List Initiated/Reviewed/Updated: Yes - My Orders Last 24 Hours: My Active Orders 08/16/18 22:21 Sodium Chloride 0.9% [Saline Flush] 10 ml FLUSH ASDIRECTED PRN Peripheral IV Insertion Adult [OM.PC] Routine 08/16/18 22:30 Sodium Chloride 0.9% [Normal Saline] 1,000 ml IV ASDIRECTED 08/16/18 23:16 EKG 12 Lead [EK] Routine 08/16/18 23:17 EKG Documentation Completion [RC] ASDIRECTED 08/16/18 23:30 Sodium Chloride 0.9% [Normal Saline] 1,000 ml IV ASDIRECTED - Assessment/Plan Last 24 Hours: My Active Orders 08/16/18 22:21 Sodium Chloride 0.9% [Saline Flush] 10 ml FLUSH ASDIRECTED PRN Peripheral IV Insertion Adult [OM.PC] Routine 08/16/18 22:30 Sodium Chloride 0.9% [Normal Saline] 1,000 ml IV ASDIRECTED 08/16/18 23:16 EKG 12 Lead [EK] Routine 08/16/18 23:17 EKG Documentation Completion [RC] ASDIRECTED 08/16/18 23:30 Sodium Chloride 0.9% [Normal Saline] 1,000 ml IV ASDIRECTED Plan: Follow up with PCP if needed.
[2018-08-16] MEDS ORDERED: Sodium Chloride 0.9% 10 ML Syringe FLUSH PRN (22:21)
[2018-08-16] MEDS: Sodium Chloride 0.9% 1,000 ML IV SCH ×2 (22:27→23:30)
[2018-08-16] MEDS ORDERED: Sodium Chloride 0.9% 1,000 ML IV SCH (23:30)
[2018-08-17 05:10] VITALS: BP 161/84
== END 2018-08-17 01:05 ==
LOC: FB.ED 21:34
DX: I95.89 Other hypotension (principal); E86.1 Hypovolemia; I10 Essential (primary) hypertension; J44.9 Chronic obstructive pulmonary disease, unspecified; F41.9 Anxiety disorder, unspecified; F32.9 Major depressive disorder, single episode, unspecified; E11.9 Type 2 diabetes mellitus without complications; E03.9 Hypothyroidism, unspecified; Z79.82 Long term (current) use of aspirin; Z88.1 Allergy status to other antibiotic agents; Z88.0 Allergy status to penicillin; Z79.899 Other long term (current) drug therapy
CPT/HCPCS: 36415; 80053; 84484; 85025; 93005; 96360; 96361; 99284-25; J7030

== ENCOUNTER 2018-09-20 16:20 | Emergency (ER) | payer MEDICAID ==
[2018-09-20] MEDS ORDERED: Sodium Chloride 0.9% 10 ML Syringe FLUSH PRN (16:57)
[2018-09-20] MEDS ORDERED: Sodium Chloride 0.9% 1,000 ML IV SCH (17:00)
--- NOTE | 2018-09-20 17:04 | EDM.PDOC ---
ED HPI GENERAL MEDICAL PROBLEM - General Chief Complaint: Abdominal Pain Stated Complaint: ABDOMINAL PAIN Time Seen by Provider: 09/20/18 16:40 Source of Information: Reports: Old Records, Other (SNOW GROOMER) History Limitations: Reports: Other (low functioning) - History of Present Illness INITIAL COMMENTS - FREE TEXT/NARRATIVE: Canelo returns to [facility] ED with progressive abdominal distention and reported LLQ pain today. There has been no vomiting. He did have 1 loose stool without blood or mucous reported. There has been no fever, sweats, or nausea. He has been eating today. Of interest is a hospitalization for suspected bowel obstruction from September 13- at [facility]. No surgery was performed, managed with NG suction and eventual GI consults with endoscopy and conservative management. lower abd KIKI Pain Score (Numeric/FACES): 8 - Related Data Allergies Allergy/AdvReac Type Severity Reaction Status Date / Time Penicillins Allergy Cannot Verified 09/20/18 16:46 Remember vancomycin Allergy Cannot Verified 09/20/18 16:46 Remember Home Meds: Home Meds Albuterol [Proventil HFA] 1 puff INH TID 06/13/14 [History] Cholecalciferol (Vitamin D3) [Vitamin D3] 1,000 unit PO DAILY@0600 06/13/14 [ History] Levothyroxine [Synthroid] 200 mcg PO DAILY@06 06/13/14 [History] Multivitamin with Minerals [Multivitamins with Minerals] 1 tab PO BEDTIME [History] Omeprazole 20 mg PO BEDTIME 06/13/14 [History] Sertraline [Zoloft] 200 mg PO DAILY 06/13/14 [History] Benzoyl Peroxide 1 applic TOP BEDTIME 05/09/15 [History] Nitroglycerin [Nitrostat] 0.4 mg SL Q5M PRN 05/09/15 [History] Aspirin [Halfprin] 81 mg PO DAILY 04/23/17 [History] Ferrous Gluconate 324 mg PO BIDMEALS 04/23/17 [History] Selenium Sulfide [Anti-Dandruff] 1 applic TOP SUWEFR 04/23/17 [History] Triamcinolone Acetonide [Triamcinolone Acetonide 0.1% Crm] 1 applic TOP BID PRN 04/23/17 [History] atorvaSTATin [Lipitor] 10 mg PO BEDTIME 04/23/17 [History] Aloe Vera/Sodium Chloride [[place] Saline Nasal Gel] 1 applic LOBITO BID 09/30/17 [ History] Emollient Combination No.75 [[place] Butter] 1 applic TOP BID 09/30/17 [History] Levothyroxine 25 mcg PO 0600 tablet 10/01/17 [Rx] Metoprolol Succinate [Toprol XL] 12.5 mg PO QAM #15 tab.er 10/01/17 [Rx] .Domperidone 10 mg PO TID 06/01/18 [History] Gabapentin [Neurontin] 400 mg PO QID@08,12,16,20 06/01/18 [History] Glycerin 1 supp RECTAL DAILY PRN 06/01/18 [History] Magnesium Oxide 250 mg PO DAILY 06/01/18 [History] Polyethylene Glycol 3350 [MiraLAX] 17 gm PO TID 06/01/18 [History] QUEtiapine [SEROquel] 50 mg PO 08,12 06/01/18 [History] QUEtiapine [SEROquel] 300 mg PO BEDTIME 06/01/18 [History] Past Medical History HEENT History: Reports: Allergic Rhinitis, Impaired Vision Other HEENT History: Allergic rhinitis. Cardiovascular History: Reports: Angina, Hypertension Other Cardiovascular History: lower leg edema. Respiratory History: Reports: COPD Gastrointestinal History: Reports: Colon Polyp, Other (See Below) (obstruction) Genitourinary History: Reports: None Other Genitourinary History: Increased alkaline phosphatase, hypocalcemia. ORDER EXPEDITER History: Reports: None Musculoskeletal History: Reports: None Other Musculoskeletal History: Unsteady gait, recurrent falls, plantar fasciitis. Neurological History: Reports: Seizure Other Neuro History: Neuroleptic induced Parkinsonism. Psychiatric History: Reports: Anxiety, Depression, Developmental Delay, Mood Swings, Psych Hospitalization(s), Suicide Attempt Other Psychiatric History: Transient alteration of awareness, moderate intellectual disabilities. Endocrine/Metabolic History: Reports: Diabetes, Type II, Hypothyroidism Hematologic History: Reports: Anemia Oncologic (Cancer) History: Reports: None Dermatologic History: Reports: Cellulitis Other Dermatologic History: Acne, dermatitis, dry scalp, stasis dermatitis both legs, history of VERSA. 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 - Past Surgical History GI Surgical History: Reports: Appendectomy, Cholecystectomy, Colonoscopy Male Surgical History: Reports: None Social & Family History - Family History Family Medical History: Noncontributory - Caffeine Use Caffeine Use: Reports: Coffee - Living Situation & Occupation Living situation: Reports: Single, Extended Care Facility (Resident in penitentiary for cognitive delay/disability.) ED ROS GENERAL - Review of Systems Review Of Systems: See Below Constitutional: Reports: Malaise, Decreased Appetite HEENT: Reports: No Symptoms Respiratory: Reports: No Symptoms Cardiovascular: Reports: No Symptoms Endocrine: Reports: No Symptoms GI/Abdominal: Reports: Abdominal Pain (LLQ), Diarrhea, Decreased Appetite, Distension : Reports: Incontinence Musculoskeletal: Reports: No Symptoms Skin: Reports: No Symptoms Neurological: Reports: No Symptoms Psychiatric: Reports: Other (low functioning, intellectual impairments) Hematologic/Lymphatic: Reports: No Symptoms Immunologic: Reports: No Symptoms ED EXAM, GI/ABD - Physical Exam Exam: See Below Exam Limited By: Other (intellectual impairments) General Appearance: Alert, WD/WN, Mild Distress, Other (markedly distended) Eyes: Bilateral: Normal Appearance, EOMI Ears: Normal External Exam Nose: Normal Inspection Throat/Mouth: Normal Inspection, No Airway Compromise Head: Normocephalic Neck: Normal Inspection, Supple, Non-Tender, Full Range of Motion Respiratory/Chest: No Respiratory Distress, No Accessory Muscle Use, Chest Non- Tender, Decreased Breath Sounds Cardiovascular: Regular Rate, Rhythm, No Murmur GI/Abdominal Exam: Normal Bowel Sounds, No Organomegaly, No Mass, Distended, Tender (LLQ) (Male) Exam: No Hernia, Normal Prostate Rectal (Males) Exam: Normal Rectal Tone, Prostate Normal Back Exam: Normal Inspection Extremities: Normal Inspection Neurological: Alert, CN II-XII Intact, No Motor/Sensory Deficits Psychiatric: Normal Mood, Flat Affect Skin Exam: Warm, Dry, Intact, Normal Color Lymphatic: No Adenopathy Course - Vital Signs Text/Narrative:: Following assessment, I inserted an IV and started NS at 500 ml/hr, inserted an NG tube to low gomco, and obtained F&U plain films and subsequent Abd CT which appears to demonstrate a sigmoid volvulus. CBC and CMP were obtained and baseline, CRP 5.0 elevated. The UA was pending. Case was discussed with Dr Chirinos Gen Surgery at [facility], and Canelo will be transferred by EMS for surgical consultation and managment. Last Recorded V/S: Last Vital Signs Temp 36.3 C 09/20/18 16:20 Pulse 82 09/20/18 16:20 Resp 20 09/20/18 16:20 BP 173/90 H 09/20/18 16:20 Pulse Ox 96 09/20/18 16:20 - Orders/Labs/Meds Orders: Active Orders 24 hr Category Date Time Status Abdomen 2V AP Flat Upright [CR] Stat Exams 09/20/18 16:30 Taken Abdomen Pelvis wo Cont [CT] Stat Exams 09/20/18 17:02 Taken UA W/MICROSCOPIC [URIN] Stat Lab 09/20/18 16:30 Ordered Sodium Chloride 0.9% [Normal Saline] 1,000 ml Med 09/20/18 17:00 Active IV ASDIRECTED Sodium Chloride 0.9% [Saline Flush] Med 09/20/18 16:57 Active 10 ml FLUSH ASDIRECTED PRN Nasogastric Orogastric Tube Insertion [OM.PC] Routine Oth 09/20/18 16:57 Ordered Peripheral IV Insertion Adult [OM.PC] Routine Oth 09/20/18 16:57 Ordered Medication Orders Sodium Chloride (Normal Saline) 1,000 mls @ 500 mls/hr IV ASDIRECTED MATT Stop: 09/21/18 18:59 Sodium Chloride (Saline Flush) 10 ml FLUSH ASDIRECTED PRN PRN Reason: Keep Vein Open Labs: Laboratory Tests 09/20/18 09/20/18 09/20/18 Range/Units 17:00 17:00 17:30 WBC 6.3 (4.5-12.0) X10-3/uL RBC 3.94 L (4.30-5.75) x10(6)uL Hgb 12.0 L (13.5-17.8) g/dL Hct 35.1 (30.0-51.3) % MCV 89.2 (80-96) fL MCH 30.6 (27.7-33.6) pg MCHC 34.3 (32.2-35.4) g/dL RDW 14.4 (11.5-15.5) % Plt Count 171 (125-369) X10(3)uL MPV 7.3 L (7.4-10.4) fL Neut % (Auto) 59.4 (46-82) % Lymph % (Auto) 23.0 (13-37) % [place] % (Auto) 8.7 (4-12) % Eos % (Auto) 9 H (1.0-5.0) % Baso % (Auto) 0 (0-2) % Neut # (Auto) 3.9 (1.6-8.3) # Lymph # (Auto) 1.4 (0.6-5.0) # [place] # (Auto) 0.5 (0.0-1.3) # Eos # (Auto) 0.5 (0.0-0.8) # Baso # (Auto) 0.0 (0.0-0.2) # Sodium 143 (135-145) mmol/L Potassium 3.9 D (3.5-5.3) mmol/L Chloride 107 (100-110) mmol/L Carbon Dioxide 30 (21-32) mmol/L BUN 42 H (7-18) mg/dL Creatinine 1.2 (0.70-1.30) mg/dL Est Cr Clr Drug Dosing TNP Estimated GFR (MDRD) > 60 (>60) BUN/Creatinine Ratio 35.0 H (9-20) Glucose 107 (80-116) mg/dL Lactic Acid 0.5 (0.4-2.2) mmol/L Calcium 9.0 (8.6-10.2) mg/dL Total Bilirubin 0.3 (0.1-1.3) mg/dL AST 21 D (5-25) IU/L ALT 33 D (12-36) U/L Alkaline Phosphatase 145 H (56-112) IU/L C-Reactive Protein (0.5-0.9) mg/dL Total Protein 7.4 (6.0-8.0) g/dL Albumin 3.6 (3.5-5.2) g/dL Globulin 3.8 g/dL Albumin/Globulin Ratio 1.0 // Range/Units 17:30 WBC (4.5-12.0) X10-3/uL RBC (4.30-5.75) x10(6)uL Hgb (13.5-17.8) g/dL Hct (30.0-51.3) % MCV (80-96) fL MCH (27.7-33.6) pg MCHC (32.2-35.4) g/dL RDW (11.5-15.5) % Plt Count (125-369) X10(3)uL MPV (7.4-10.4) fL Neut % (Auto) (46-82) % Lymph % (Auto) (13-37) % [place] % (Auto) (4-12) % Eos % (Auto) (1.0-5.0) % Baso % (Auto) (0-2) % Neut # (Auto) (1.6-8.3) # Lymph # (Auto) (0.6-5.0) # [place] # (Auto) (0.0-1.3) # Eos # (Auto) (0.0-0.8) # Baso # (Auto) (0.0-0.2) # Sodium (135-145) mmol/L Potassium (3.5-5.3) mmol/L Chloride (100-110) mmol/L Carbon Dioxide (21-32) mmol/L BUN (7-18) mg/dL Creatinine (0.70-1.30) mg/dL Est Cr Clr Drug Dosing Estimated GFR (MDRD) (>60) BUN/Creatinine Ratio (9-20) Glucose (80-116) mg/dL Lactic Acid (0.4-2.2) mmol/L Calcium (8.6-10.2) mg/dL Total Bilirubin (0.1-1.3) mg/dL AST (5-25) IU/L ALT (12-36) U/L Alkaline Phosphatase (56-112) IU/L C-Reactive Protein 5.0 H* (0.5-0.9) mg/dL Total Protein (6.0-8.0) g/dL Albumin (3.5-5.2) g/dL Globulin g/dL Albumin/Globulin Ratio Meds: Medications Generic Name Dose Route Start Last Admin Trade Name Freq PRN Reason Stop Dose Admin Sodium Chloride 1,000 mls @ 500 mls/hr 09/20/18 17:00 Normal Saline IV 09/21/18 18:59 ASDIRECTED MATT Sodium Chloride 10 ml 09/20/18 16:57 Saline Flush FLUSH ASDIRECTED PRN Keep Vein Open Departure - Departure Time of Disposition: 18:26 Disposition: DC/Tfer to Other 70 Condition: Fair Clinical Impression: Sigmoid volvulus - Discharge Information *PRESCRIPTION DRUG MONITORING PROGRAM REVIEWED*: Not Applicable *COPY OF PRESCRIPTION DRUG MONITORING REPORT IN PATIENT [place]: Not Applicable Referrals: Noy Lepe NP [Primary Care Provider] - Forms: ED Department Discharge - Problem List & Annotations (1) Sigmoid volvulus Status: Acute Current Visit: Yes Annotation/Comment:: Findings suggestive of sigmoid volvulus, and he will be transferred to [facility]. - Problem List Review Problem List Initiated/Reviewed/Updated: Yes - My Orders Last 24 Hours: My Active Orders 09/20/18 16:30 Abdomen 2V AP Flat Upright [CR] Stat UA W/MICROSCOPIC [URIN] Stat 09/20/18 16:57 Sodium Chloride 0.9% [Saline Flush] 10 ml FLUSH ASDIRECTED PRN Nasogastric Orogastric Tube Insertion [OM.PC] Routine Peripheral IV Insertion Adult [OM.PC] Routine 09/20/18 17:00 Sodium Chloride 0.9% [Normal Saline] 1,000 ml IV ASDIRECTED 09/20/18 17:02 Abdomen Pelvis wo Cont [CT] Stat - Assessment/Plan Last 24 Hours: My Active Orders 09/20/18 16:30 Abdomen 2V AP Flat Upright [CR] Stat UA W/MICROSCOPIC [URIN] Stat 09/20/18 16:57 Sodium Chloride 0.9% [Saline Flush] 10 ml FLUSH ASDIRECTED PRN Nasogastric Orogastric Tube Insertion [OM.PC] Routine Peripheral IV Insertion Adult [OM.PC] Routine 09/20/18 17:00 Sodium Chloride 0.9% [Normal Saline] 1,000 ml IV ASDIRECTED 09/20/18 17:02 Abdomen Pelvis wo Cont [CT] Stat Plan: Follow up with PCP upon return from [place].
[2018-09-20 19:09] VITALS: BP 173/96; PULSE 80
--- NOTE | 2018-09-21 08:04 | CR ---
INDICATION: Distended. History of megacolon. ABDOMEN TWO VIEW: Eight images of the abdomen in the supine and upright positions were obtained 09/20/18 and again reveal massive distention of the colon which appears to be fairly generalized extending into the pelvis but not definitely reaching to the rectum. This would raise suspicion for a mechanically obstructive process of the distal colon--correlate clinically-- colon examination may be warranted depending upon clinical correlation. No other organomegaly or definite mass lesions were identified. IMPRESSION: Megacolon down to the level of the pelvis cannot exclude a distal obstructive process of mechanical nature at the distal colon--rectosigmoid level. MTDD
--- NOTE | 2018-09-21 08:21 | CR ---
INDICATION: Bloating. History of megacolon. CT ABDOMEN AND PELVIS WITHOUT CONTRAST: Spiral 2.5 mm axial sections were obtained through the abdomen and pelvis with sagittal and coronal reconstruction 09/20/18 and compared with 06/01/18. Total exam DLP = 1180.51 mGy-cm. No gallstones were demonstrated. There were some parenchymal changes at the lung bases right greater than left most likely representing fibrosis with an appearance raising question of minimal patchy pneumonia at the right lower lobe. The heart did not appear enlarged. No pericardial effusion was seen. The colon is markedly dilated down to the level of the sigmoid colon. There is beak-like extension extending into the more proximal sigmoid colon, which is massively redundant raising question of a sigmoid volvulus. There appears to be some twisting of the bowel in that area compatible with volvulus. No definite free air was seen. The liver was unremarkable, as was the spleen and the pancreas. No definite adrenal mass was seen. The kidneys showed evidence of very minimal scarring. No obstructive uropathy. There are some aortic and iliac artery calcifications noted. Urinary bladder was pressed upon by bowel but otherwise did show some thickening of the wall raising question of cystitis--correlate clinically. No definite ventral hernia was seen. IMPRESSION: 1. Findings are suspicious for sigmoid volvulus--correlate clinically. Barium enema examination or colonoscopy may be helpful for further evaluation. Report was called to Dr. Rodriguez at 1800 hours approximately. [facility]
== END 2018-09-20 18:55 | disposition other institution (70) ==
LOC: FB.ED 16:20
DX: K56.2 Volvulus (principal); I10 Essential (primary) hypertension; E11.9 Type 2 diabetes mellitus without complications; E03.9 Hypothyroidism, unspecified; J44.9 Chronic obstructive pulmonary disease, unspecified; F41.9 Anxiety disorder, unspecified; F32.9 Major depressive disorder, single episode, unspecified; Z79.82 Long term (current) use of aspirin; Z79.899 Other long term (current) drug therapy; Z90.49 Acquired absence of other specified parts of digestive tract; Z88.0 Allergy status to penicillin; Z88.1 Allergy status to other antibiotic agents
CPT/HCPCS: 36415; 74019; 74176; 80053; 82272; 83605; 85025; 86140; 96360; 99284; J7030

== ENCOUNTER 2018-10-08 16:39 | Inpatient (IN) | payer MEDICAID ==
[2018-10-08] MEDS ORDERED: oxyCODONE 5 MG Tab PO PRN (17:11)
[2018-10-08] MEDS ORDERED: Triamcinolone Acetonide 0.1% Crm 15 GM Tube TOP PRN (17:11)
[2018-10-08] MEDS ORDERED: Acetaminophen 325 MG Tab PO PRN (17:11)
[2018-10-08] MEDS ORDERED: Acetaminophen 500 MG Tab PO PRN (17:11)
[2018-10-08] MEDS ORDERED: Albuterol 8 GM Inhaler INH PRN (17:11)
[2018-10-08] MEDS ORDERED: Nitroglycerin 0.4 MG Tab.SL SL PRN (17:11)
[2018-10-08] MEDS ORDERED: SELENIUM SULFIDE TOP SCH (17:15)
[2018-10-08] MEDS ORDERED: Non-Formulary Medication 1 Each (Ferrous Gluconate [Ferrous Gluconate] 324 MG) PO SCH (18:00)
[2018-10-08] MEDS ORDERED: Insulin Regular, Human 100 Units/ML 3 ML Vial IV ONE (18:12)
[2018-10-08] MEDS ORDERED: Calcium Gluconate 10% 1 GM/10 ML SDV IVPUSH ONE (18:12)
[2018-10-08] MEDS ORDERED: Albuterol 0.083% 2.5 MG/3 ML Neb Soln NEB ONE (18:12)
[2018-10-08] MEDS ORDERED: 50% Dextrose in Water 50 ML Syringe IVPUSH ONE ×2 (18:14→19:44)
[2018-10-08] MEDS ORDERED: Sodium Chloride 0.9% 1,000 ML IV SCH (18:15)
--- NOTE | 2018-10-08 18:48 | PCM.HP ---
H&P History of Present Illness - General Date of Service: 10/08/18 Admit Problem/Dx: Admission Diagnosis/Problem Admission Diagnosis/Problem Dehydration Source of Information: Patient, Old Records, Provider History Limitations: Reports: Physical Impairment - History of Present Illness Initial Comments - Free Text/Narative: Was called on patient for direct admission for hypotension, hyperkalemia, dehydration, diarrhea of 2 day duration. Patient was admitted to [facility] September 20 through Oct 04(this past Thursday) for colonic inertia with chronic megacolon, sigmoid volvulus, s/p Ileostomy on September 22, BUSHRA drain in place. He was discharged on Thursday with 500 cc/day output from his BUSHRA drain and about 600- 700 cc/day from his ileostomy. He was to continue Loperamide and Imodium unless he got constipated, stop laxative medications, had PT/OT in hospital and was ambulating at his baseline by discharge. Noted by staff at his intermediate that he had increased volume of stools(4950 cc-Weds, 3200cc-Th, 1600cc-Today by 1: 20pm), becoming more watery by Thursday. His BUSHRA drain showed 545 cc-Wed, 190 cc -Thurs, 140cc-Today by 10:45 am which is decreased from discharge on Thursday. He was taken to [facility] and seen by Noy Ugalde APRN who did WBC which 7.5 with hemoglobin of 10.6, Chemistry was remarkable for potassium of 7.4 , sodium 133, Cr 1.61 which are all up from when he was discharged on Thursday(Cr 0.89, sodium 136, potassium 4.8). He also had fall on Thursday with bruising to his nose, on the way into the hospital patient fell with staff from home and hit his knee, small abrasion to left knee. He was noted to have more weakness by staff. Discharge summary, labs from [facility] reviewed. Drainage output documentation was also brought in by staff and reviewed. MAR was reviewed by myself and pharmacist. Patient was able to give some history(has developmental learning delay) stated he had no chills, fever, no chest pain or shortness of breath, no cough. No nausea. Pain when press on his belly and knee pain. - Related Data Allergies/Adverse Reactions: Allergies Allergy/AdvReac Type Severity Reaction Status Date / Time Penicillins Allergy Cannot Verified 09/20/18 16:46 Remember vancomycin Allergy Cannot Verified 09/20/18 16:46 Remember Home Medications: Home Meds Albuterol [Proventil HFA] 1 puff INH TID 06/13/14 [History] Cholecalciferol (Vitamin D3) [Vitamin D3] 1,000 unit PO DAILY@0600 06/13/14 [ History] Multivitamin with Minerals [Multivitamins with Minerals] 1 tab PO BEDTIME [History] Omeprazole 20 mg PO BEDTIME 06/13/14 [History] Sertraline [Zoloft] 200 mg PO DAILY 06/13/14 [History] Benzoyl Peroxide 1 applic TOP BEDTIME 05/09/15 [History] Nitroglycerin [Nitrostat] 0.4 mg SL Q5M PRN 05/09/15 [History] Aspirin [Halfprin] 81 mg PO DAILY 04/23/17 [History] Ferrous Gluconate 324 mg PO BIDMEALS 04/23/17 [History] Selenium Sulfide [Anti-Dandruff] 1 applic TOP SUWEFR 04/23/17 [History] atorvaSTATin [Lipitor] 10 mg PO BEDTIME 04/23/17 [History] Aloe Vera/Sodium Chloride [Nemo Saline Nasal Gel] 1 applic LOBITO BID 09/30/17 [ History] Emollient Combination No.75 [[place] Butter] 1 applic TOP BID 09/30/17 [History] Levothyroxine 25 mcg PO 0600 tablet 10/01/17 [Rx] Gabapentin [Neurontin] 400 mg PO QID@08,12,16,20 06/01/18 [History] Glycerin 1 supp RECTAL DAILY PRN 06/01/18 [History] Magnesium Oxide 250 mg PO DAILY 06/01/18 [History] QUEtiapine [SEROquel] 50 mg PO 08,12 06/01/18 [History] QUEtiapine [SEROquel] 300 mg PO BEDTIME 06/01/18 [History] Acetaminophen [Tylenol Extra Strength] 500 mg PO TID PRN 10/08/18 [History] Acetaminophen [Tylenol] 650 mg PO Q4H PRN 10/08/18 [History] Albuterol Sulfate [Albuterol Sulfate Hfa] 1 puff IH Q4H PRN 10/08/18 [History] Diphenoxylate HCl/Atropine [Lomotil] 1 tab PO QID 10/08/18 [History] Furosemide [Lasix] 20 mg PO DAILY 10/08/18 [History] Levothyroxine 200 mcg PO DAILY@0600 10/08/18 [History] Loperamide [Imodium] 2 mg PO ASDIRECTED 10/08/18 [History] Metoprolol Succinate [Toprol XL] 12.5 mg PO DAILY 10/08/18 [History] Tiotropium [Spiriva HandiHaler] 18 mcg IH DAILY 10/08/18 [History] Triamcinolone Acetonide [Triamcinolone Acetonide 0.1% Crm] 1 applic TOP BID PRN 10/08/18 [History] oxyCODONE 5 mg PO Q4H PRN 10/08/18 [History] Past Medical History HEENT History: Reports: Allergic Rhinitis, Impaired Vision Other HEENT History: Allergic rhinitis. Cardiovascular History: Reports: Angina, Hypertension Other Cardiovascular History: lower leg edema. Respiratory History: Reports: COPD Gastrointestinal History: Reports: Colon Polyp, Other (See Below) (obstruction) Genitourinary History: Reports: None Other Genitourinary History: Increased alkaline phosphatase, hypocalcemia. POLEYARD SUPERVISOR History: Reports: None Musculoskeletal History: Reports: None Other Musculoskeletal History: Unsteady gait, recurrent falls, plantar fasciitis. Neurological History: Reports: Parkinson's, Seizure Other Neuro History: Neuroleptic induced Parkinsonism. Psychiatric History: Reports: Anxiety, Depression, Developmental Delay, Mood Swings, Psych Hospitalization(s), Suicide Attempt Other Psychiatric History: Transient alteration of awareness, moderate intellectual disabilities. Endocrine/Metabolic History: Reports: Diabetes, Type II, Hypothyroidism Hematologic History: Reports: Anemia Oncologic (Cancer) History: Reports: None Dermatologic History: Reports: Cellulitis Other Dermatologic History: Acne, dermatitis, dry scalp, stasis dermatitis both legs, history of VERSA. 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 - Past Surgical History GI Surgical History: Reports: Appendectomy, Cholecystectomy, Colon (subtotal colectomy & end ileostomy 09/22/2018), Colonoscopy Male Surgical History: Reports: None Social & Family History - Family History Family Medical History: Noncontributory - Caffeine Use Caffeine Use: Reports: Coffee - Living Situation & Occupation Living situation: Reports: Single, Extended Care Facility (Resident in snf for cognitive delay/disability.) H&P Review of Systems - Review of Systems: Review Of Systems: ROS reveals no pertinent complaints other than HPI. Exam - Exam Exam: See Below - Exam General: Alert, Cooperative HEENT: PERRLA, Conjunctiva Clear, EOMI, Hearing Intact, Nares Patent, Posterior Pharynx Clear, Other (Dry tacky mucus membranes) Neck: Supple, Trachea Midline. No: Lymphadenopathy Lungs: Clear to Auscultation, Normal Respiratory Effort Cardiovascular: Regular Rate, Regular Rhythm GI/Abdominal Exam: Soft, No Distention, Tender, Other (BUSHRA drain in place, Ileostomy leaking around bag, green watery stool present) Extremities: Leg Pain (left knee), Limited Range of Motion Peripheral Pulses: 2+: Radial (L), Radial (R), Dorsalis Pedis (L), Dorsalis Pedis (R) Skin: Warm, Dry, Ecchymosis (abrasion to left knee) Neuro Extensive - Mental Status: Alert - Patient Data Lab Results Last 24 hrs: Laboratory Results - last 24 hr 10/08/18 Range/Units 17:30 Sodium 134 L (135-145) mmol/L Potassium 7.7 H* D (3.5-5.3) mmol/L Chloride 108 (100-110) mmol/L Carbon Dioxide 18 L (21-32) mmol/L BUN 44 H (7-18) mg/dL Creatinine 1.6 H (0.70-1.30) mg/dL Est Cr Clr Drug Dosing TNP Estimated GFR (MDRD) 45 L (>60) BUN/Creatinine Ratio 27.5 H (9-20) Glucose 96 (80-116) mg/dL Calcium 8.6 (8.6-10.2) mg/dL Magnesium 1.6 L (1.8-2.5) mg/dL Result Diagrams: 10/08/18 17:30 EKG INTERPRETATION EKG Date: 10/08/18 Time: 18:04 Rhythm: Other (junctional rhythm) Rate (Beats/Min): 61 [place]: LAD-Left [place] Deviation P-Wave: Absent QRS: LBBB ST-T: Normal (peaked T waves in V2, V3) QT: Normal EKG Interpretation Comments: Peaked T waves in septal leads, junctional rhythm, LBBB. - Problem List (1) Hyperkalemia SNOMED Code(s): 69412255 ICD Code: E87.5 - HYPERKALEMIA Status: Acute Current Visit: Yes (2) Diarrhea SNOMED Code(s): 62474019 ICD Code: R19.7 - DIARRHEA, UNSPECIFIED Status: Acute Current Visit: Yes (3) Left knee pain SNOMED Code(s): 11531160 ICD Code: M25.562 - PAIN IN LEFT KNEE Status: Acute Current Visit: Yes (4) Fall SNOMED Code(s): 8975562, 148063409 ICD Code: W19.XXXA - UNSPECIFIED FALL, INITIAL ENCOUNTER Status: Acute Current Visit: Yes (5) Acute on chronic renal insufficiency SNOMED Code(s): 803460671 ICD Code: N28.9 - DISORDER OF KIDNEY AND URETER, UNSPECIFIED; N18.9 - CHRONIC KIDNEY DISEASE, UNSPECIFIED Status: Acute Current Visit: No (6) Congestive heart failure SNOMED Code(s): 53658176 ICD Code: I50.9 - HEART FAILURE, UNSPECIFIED Status: Acute Current Visit : No Qualifiers: Heart failure type: diastolic Heart failure chronicity: chronic Qualified Code(s): I50.32 - Chronic diastolic (congestive) heart failure (7) DM type 2 (diabetes mellitus, type 2) SNOMED Code(s): 00084255 ICD Code: E11.9 - TYPE 2 DIABETES MELLITUS WITHOUT COMPLICATIONS Status: Acute Current Visit: No Problem Details: With A1c of 5.3%, stopped insulin and started Januvia. BS stable here. (8) HTN (hypertension) SNOMED Code(s): 25691813 ICD Code: I10 - ESSENTIAL (PRIMARY) HYPERTENSION Status: Acute Current Visit: No Problem Details: Controlled. Tolerated low dose lisinopril and changed to Toprol XL 12.5 mg daily. May need to be titrated up for better BP control. Recheck BMP at visit on the . (9) Hypoalbuminemia SNOMED Code(s): 803312062 ICD Code: E88.09 - OTH DISORDERS OF PLASMA-PROTEIN METABOLISM, NEC Status: Acute Current Visit: No (10) Hypothyroidism SNOMED Code(s): 77645002 ICD Code: E03.9 - HYPOTHYROIDISM, UNSPECIFIED Status: Acute Current Visit : No Qualifiers: Hypothyroidism type: unspecified Qualified Code(s): E03.9 - Hypothyroidism , unspecified (11) Moderate dehydration SNOMED Code(s): 1800129044326 ICD Code: E86.0 - DEHYDRATION Status: Acute Current Visit: No (12) Parkinsons SNOMED Code(s): 87495421 ICD Code: G20 - PARKINSON'S DISEASE Status: Acute Current Visit: No (13) Dementia SNOMED Code(s): 69618314 ICD Code: F03.90 - UNSPECIFIED DEMENTIA WITHOUT BEHAVIORAL DISTURBANCE Status: Chronic Current Visit: No Qualifiers: Alzheimer's disease onset: unspecified onset Dementia behavioral disturbance: with behavioral disturbance (14) Lives in snf SNOMED Code(s): 680031170 ICD Code: Z59.3 - PROBLEMS RELATED TO LIVING IN RESIDENTIAL INSTITUTION Status: Chronic Current Visit: No Problem List Initiated/Reviewed/Updated: Yes Orders Last 24hrs: Active Orders 24 hr Category Date Time Status Patient Status [ADT] Routine ADT 10/08/18 17:04 Active Blood Glucose Check, Bedside [RC] QIDACANDBED Care 10/08/18 17:04 Active EKG Documentation Completion [RC] ASDIRECTED Care 10/08/18 17:57 Active Height and Weight [RC] UPON Care 10/08/18 17:04 Active Intake and Output [RC] QSHIFT Care 10/08/18 17:05 Active Oxygen Therapy [RC] PRN Care 10/08/18 17:04 Active RT Aerosol Therapy [RC] ASDIRECTED Care 10/08/18 18:13 Active Telemetry Monitoring [Cardiac Monitoring] [RC] .As Care 10/08/18 17:56 Active Directed Up With Assistance [RC] ASDIRECTED Care 10/08/18 17:04 Active VTE/DVT Education [RC] Per Unit Routine Care 10/08/18 17:04 Active Vital Signs [RC] Q4H Care 10/08/18 17:04 Active Consult to Case Management/Director Of State [CONS] Cons 10/08/18 17:04 Active Routine Consult to Pc Installation Engineer [CONS] Routine Cons 10/08/18 17:04 Active PT Evaluation and Treatment [CONS] Routine Cons 10/08/18 17:04 Active BASIC METABOLIC PANEL,BMP [CHEM] Routine Lab 10/09/18 06:00 Ordered COMPREHENSIVE METABOLIC PN,CMP [CHEM] Routine Lab 10/08/18 22:00 Ordered STOOL CULTURE Routine Lab 10/08/18 17:09 Ordered Acetaminophen [Tylenol Extra Strength] Med 10/08/18 17:11 Pending 500 mg PO TID PRN Acetaminophen [Tylenol] Med 10/08/18 17:11 Pending 650 mg PO Q4H PRN Albuterol [Ventolin HFA] Med 10/08/18 17:11 Active 0 gm INH Q4H PRN Albuterol [Ventolin HFA] Med 10/08/18 21:00 Active 0 gm INH TID Aloe Vera/Sodium Chloride [Nemo Saline Nasal Gel] Med 10/08/18 21:00 Active 0 gm LOBITO BID Aspirin [Halfprin] Med 10/09/18 09:00 Active 81 mg PO DAILY Benzoyl Peroxide [Benzoyl Peroxide] Med 10/08/18 21:00 Pending 1 applic TOP BEDTIME Cholecalciferol (Vitamin D3) [Vitamin D3] Med 10/09/18 06:00 Active 25 mcg PO DAILY@0600 Emollient Combination No.75 [[place] Butter] Med 10/08/18 21:00 Pending 1 applic TOP BID Ferrous Gluconate [Ferrous Gluconate] Med 10/08/18 18:00 Pending 324 mg PO BIDMEALS Furosemide [Lasix] Med 10/09/18 09:00 Active 20 mg PO DAILY Gabapentin [Neurontin] Med 10/08/18 20:00 Active 400 mg PO QID@08,12,16,20 Levothyroxine Med 10/09/18 06:00 Active 200 mcg PO DAILY@0600 Levothyroxine Med 10/09/18 06:00 Active 25 mcg PO DAILY@0600 Metoprolol Succinate [Toprol XL] Med 10/09/18 09:00 Active 12.5 mg PO DAILY Multivitamins w-Iron/Ca/FA/Min [Thera M Plus] Med 10/08/18 21:00 Active 1 tab PO BEDTIME Nitroglycerin [Nitrostat] Med 10/08/18 17:11 Active 0.4 mg SL Q5M PRN Pantoprazole [ProTONIX] Med 10/08/18 21:00 Active 40 mg PO BEDTIME QUEtiapine [SEROquel] Med 10/08/18 21:00 Active 300 mg PO BEDTIME QUEtiapine [SEROquel] Med 10/09/18 08:00 Active 50 mg PO BID@0800,1200 Selenium Sulfide [Anti-Dandruff] Med 10/08/18 17:15 Pending 1 applic TOP SUWEFR Sertraline [Zoloft] Med 10/09/18 09:00 Active 200 mg PO DAILY Sodium Chloride 0.9% [Normal Saline] 1,000 ml Med 10/08/18 18:15 Active IV ASDIRECTED Sodium Chloride 0.9% [Saline Flush] Med 10/08/18 17:04 Active 10 ml FLUSH ASDIRECTED PRN Tiotropium [Spiriva HandiHaler] Med 10/09/18 09:00 Active 18 mcg INH DAILY Triamcinolone Acetonide [Triamcinolone Acetonide 0.1% Med 10/08/18 17:11 Active Crm] 0 gm TOP BID PRN atorvaSTATin [Lipitor] Med 10/08/18 21:00 Active 10 mg PO BEDTIME oxyCODONE Med 10/08/18 17:11 Active 5 mg PO Q4H PRN Antiembolic Hose [OM.PC] Per Unit Routine Oth 10/08/18 17:06 Ordered Isolation [COMM] Stat Oth 10/08/18 17:10 Ordered Peripheral IV Insertion Adult [OM.PC] Routine Oth 10/08/18 17:04 Ordered Saline Lock Insert [OM.PC] Routine Oth 10/08/18 17:50 Ordered Resuscitation Status Routine Resus Stat 10/08/18 17:04 Ordered EKG 12 Lead [EK] Routine Ther 10/08/18 17:57 Ordered Medication Orders Acetaminophen (Tylenol) 650 mg PO Q4H PRN PRN Reason: FEVER/PAIN Acetaminophen (Tylenol Extra Strength) 500 mg PO TID PRN PRN Reason: MILD PAIN Albuterol (Ventolin Hfa) 0 gm INH TID MATT Albuterol (Ventolin Hfa) 0 gm INH Q4H PRN PRN Reason: Wheezing Aspirin (Halfprin) 81 mg PO DAILY MATT Atorvastatin Calcium (Lipitor) 10 mg PO BEDTIME MATT Cholecalciferol (Vitamin D3) 25 mcg PO DAILY@0600 MATT Furosemide (Lasix) 20 mg PO DAILY MATT Gabapentin (Neurontin) 400 mg PO QID@08,12,16,20 MATT Sodium Chloride (Normal Saline) 1,000 mls @ 125 mls/hr IV ASDIRECTED MATT Levothyroxine Sodium (Levothyroxine) 25 mcg PO DAILY@0600 MATT Levothyroxine Sodium (Levothyroxine) 200 mcg PO DAILY@0600 [facility] Metoprolol Succinate (Toprol Xl) 12.5 mg PO DAILY MATT Multivitamins/Minerals (Thera M Plus) 1 tab PO BEDTIME MATT Nitroglycerin (Nitrostat) 0.4 mg SL Q5M PRN PRN Reason: Chest Pain Non-Formulary Medication (Benzoyl Peroxide [Benzoyl Peroxide]) 1 applic TOP BEDTIME MATT Non-Formulary Medication (Emollient Combination No.75 [[place] Butter]) 1 applic TOP BID MATT Non-Formulary Medication (Ferrous Gluconate [Ferrous Gluconate]) 324 mg PO BIDMEALS MATT Non-Formulary Medication (Selenium Sulfide [Anti-Dandruff]) 1 applic TOP SUWEFR MATT Oxycodone HCl (Oxycodone) 5 mg PO Q4H PRN PRN Reason: MODERATE PAIN Pantoprazole Sodium (Protonix) 40 mg PO BEDTIME MATT Quetiapine Fumarate (Seroquel) 50 mg PO BID@0800,1200 MATT Quetiapine Fumarate (Seroquel) 300 mg PO BEDTIME MATT Sertraline HCl (Zoloft) 200 mg PO DAILY [facility] Sodium Chloride (Saline Flush) 10 ml FLUSH ASDIRECTED PRN PRN Reason: Keep Vein Open Sodium Chloride (Nemo Saline Nasal Gel) 0 gm LOBITO BID MATT Tiotropium [place] (Spiriva Handihaler) 18 mcg INH DAILY MATT Triamcinolone Acetonide (Triamcinolone Acetonide 0.1% Crm) 0 gm TOP BID PRN PRN Reason: Rash Assessment/Plan Comment:: 1. Admit to inpatient for hyperkalemia, telemetry, IV fluids, repeat BMP with magnesium. 2. Calcium 1 gm, Albuterol nebs, D50 with insulin 10 units for hyperkalemia, EKG , repeat BMP tonight and in the am. 3. NS IV fluids. 4. Reviewed medications with pharmacy, no medications that he was discharged on would account for his elevated potassium. Will do further checking as the Lomotil and Imodium were the most recent changes to his MAR. 5. C. Difficile and stool cultures collected, contact precautions until C. difficile is resulted. 6. Left knee x-ray for in the morning. 7. Full code.
[2018-10-08] MEDS: Sodium Chloride 0.9% 10 ML Syringe FLUSH PRN ×2 (19:39→19:50)
[2018-10-08] MEDS: Gabapentin 400 MG Cap PO SCH (20:21)
[2018-10-08] MEDS: Dextrose 5%-0.9% NaCl 1,000 ML IV SCH (20:51)
[2018-10-08] MEDS ORDERED: BENZOYL PEROXIDE TOP SCH (21:00)
[2018-10-08] MEDS ORDERED: [UNRECOGNIZED DRUG - OTHER] TOP SCH (21:00)
[2018-10-08] MEDS: Multivitamins with Iron/Calcium/Folic Acid/Minerals Tab PO SCH (21:20)
[2018-10-08] MEDS: QUEtiapine 100 MG Tab PO SCH (21:20)
[2018-10-08] MEDS: Pantoprazole 40 MG Tab.CR PO SCH (21:20)
[2018-10-08] MEDS: atorvaSTATin 10 MG Tab PO SCH (21:20)
[2018-10-08] MEDS: Albuterol 8 GM Inhaler INH SCH (21:21)
[2018-10-08] MEDS: Aloe Vera/Sodium Chloride Gel 14.1 GM Tube NAS SCH (23:27)
[2018-10-09] MEDS: Dextrose 5%-0.9% NaCl 1,000 ML IV SCH ×3 (04:33→22:05)
[2018-10-09] MEDS ORDERED: Calcium Gluconate 10% 1 GM/10 ML SDV IVPUSH ONE (06:13)
[2018-10-09] MEDS ORDERED: Insulin Regular, Human 100 Units/ML 3 ML Vial IV ONE (06:13)
[2018-10-09] MEDS ORDERED: Albuterol 0.083% 2.5 MG/3 ML Neb Soln NEB ONE ×2 (06:13→14:49)
[2018-10-09] MEDS ORDERED: 50% Dextrose in Water 50 ML Syringe IVPUSH ONE (06:13)
[2018-10-09] MEDS ORDERED: Dextrose 5%-0.9% NaCl 1,000 ML IV SCH (06:15)
[2018-10-09] MEDS: Cholecalciferol (Vitamin D3) 25 MCG Tab PO SCH (06:35)
[2018-10-09] MEDS: Levothyroxine 25 MCG Tab PO SCH (06:36)
[2018-10-09] MEDS: Sodium Chloride 0.9% 10 ML Syringe FLUSH PRN (07:08)
[2018-10-09] MEDS: Levothyroxine 100 MCG Tab PO SCH (07:42)
[2018-10-09] MEDS ORDERED: Metoprolol Succinate 25 MG Tab.ER PO SCH (09:00)
[2018-10-09] MEDS: Gabapentin 400 MG Cap PO SCH ×4 (09:45→20:55)
[2018-10-09] MEDS: QUEtiapine 25 MG Tab PO SCH ×2 (10:17→13:41)
[2018-10-09] MEDS: Ferrous Sulfate 325 MG Tab PO SCH ×2 (10:17→17:48)
[2018-10-09] MEDS: Aspirin 81 MG Tab.EC PO SCH (10:54)
[2018-10-09] MEDS: Furosemide 20 MG Tab PO SCH (10:54)
[2018-10-09] MEDS: Tiotropium Inhaler 18 MCG Inhalation Powder Cap Kit of 5 INH SCH (10:55)
[2018-10-09] MEDS: Albuterol 8 GM Inhaler INH SCH ×3 (11:06→20:58)
[2018-10-09] MEDS: Aloe Vera/Sodium Chloride Gel 14.1 GM Tube NAS SCH ×2 (11:27→20:55)
[2018-10-09] MEDS ORDERED: Loperamide 2 MG Cap PO SCH (11:45)
--- NOTE | 2018-10-09 11:47 | PCM.PN ---
- General Info Date of Service: 10/09/18 Subjective Update: Patient still having a lot of output from his ileostomy bag, has become a little more formed but not much. C. Difficile came back negative. Knee x-ray this morning. States knee is more sore today, better. He states he feels better this morning, wants to get up in the chair. Some pain in belly when you press on it. No chest pain or shortness of breath. Urine dark khalif this morning. - Patient Data Vitals - Most Recent: Last Vital Signs Temp 36.5 C 10/09/18 08:00 Pulse 80 10/09/18 10:54 Resp 16 10/09/18 08:00 BP 124/70 10/09/18 10:54 Pulse Ox 97 10/09/18 08:00 Weight - Most Recent: 77.065 kg I&O - Last 24 Hours: Intake & Output 10/08/18 10/09/18 10/09/18 22:59 06:59 14:59 Intake Total 200 1252 Output Total 510 Balance 200 742 Lab Results Last 24 Hours: Laboratory Results - last 24 hr 10/08/18 10/08/18 10/08/18 Range/Units 17:30 19:41 20:19 Sodium 134 L (135-145) mmol/L Potassium 7.7 H* D (3.5-5.3) mmol/L Chloride 108 (100-110) mmol/L Carbon Dioxide 18 L (21-32) mmol/L BUN 44 H (7-18) mg/dL Creatinine 1.6 H (0.70-1.30) mg/dL Est Cr Clr Drug Dosing TNP Estimated GFR (MDRD) 45 L (>60) BUN/Creatinine Ratio 27.5 H (9-20) Glucose 96 (80-116) mg/dL POC Glucose 45 L 64 L (80-116) mg/dL Calcium 8.6 (8.6-10.2) mg/dL Magnesium 1.6 L (1.8-2.5) mg/dL Total Bilirubin (0.1-1.3) mg/dL AST (5-25) IU/L ALT (12-36) U/L Alkaline Phosphatase (56-112) IU/L Total Protein (6.0-8.0) g/dL Albumin (3.5-5.2) g/dL Globulin g/dL Albumin/Globulin Ratio 10/08/18 10/09/18 Range/Units 22:00 05:32 Sodium 136 135 (135-145) mmol/L Potassium 5.7 H D 6.9 H* D (3.5-5.3) mmol/L Chloride 109 110 (100-110) mmol/L Carbon Dioxide 16 L 15 L (21-32) mmol/L BUN 45 H 46 H (7-18) mg/dL Creatinine 1.7 H 1.6 H (0.70-1.30) mg/dL Est Cr Clr Drug Dosing 42.21 44.84 Estimated GFR (MDRD) 42 L 45 L (>60) BUN/Creatinine Ratio 26.5 H 28.8 H (9-20) Glucose 78 L 107 (80-116) mg/dL POC Glucose (80-116) mg/dL Calcium 8.7 8.5 L (8.6-10.2) mg/dL Magnesium (1.8-2.5) mg/dL Total Bilirubin 0.4 (0.1-1.3) mg/dL AST 22 (5-25) IU/L ALT 34 (12-36) U/L Alkaline Phosphatase 159 H (56-112) IU/L Total Protein 6.0 (6.0-8.0) g/dL Albumin 2.2 L (3.5-5.2) g/dL Globulin 3.8 g/dL Albumin/Globulin Ratio 0.6 Rhys Results Last 24 Hours: Microbiology 10/08/18 19:11 Clostridium difficile Toxin A & B - Final Ileostomy Drainage NEGATIVE CDIFF TOXIN REFERENCE RANGE: NEGATIVE Med Orders - Current: Current Medications Acetaminophen (Tylenol) 650 mg PO Q4H PRN PRN Reason: FEVER/PAIN Albuterol (Ventolin Hfa) 0 gm INH TID [facility] Last Admin: 10/09/18 11:06 Dose: 1 puff Albuterol (Ventolin Hfa) 0 gm INH Q4H PRN PRN Reason: Wheezing Aspirin (Halfprin) 81 mg PO DAILY [facility] Last Admin: 10/09/18 10:54 Dose: 81 mg Atorvastatin Calcium (Lipitor) 10 mg PO BEDTIME [facility] Last Admin: 10/08/18 21:20 Dose: 10 mg Cholecalciferol (Vitamin D3) 25 mcg PO DAILY@0600 [facility] Last Admin: 10/09/18 06:35 Dose: 25 mcg Diphenoxylate HCl/Atropine (Lomotil 0.025-2.5 Mg) 1 tab PO QID [facility] Ferrous Sulfate (Ferrous Sulfate) 325 mg PO BIDMEALS [facility] Last Admin: 10/09/18 10:17 Dose: 325 mg Furosemide (Lasix) 20 mg PO DAILY [facility] Last Admin: 10/09/18 10:54 Dose: 20 mg Gabapentin (Neurontin) 400 mg PO QID@08,12,16,20 [facility] Last Admin: 10/09/18 09:45 Dose: 400 mg Sodium Chloride (Normal Saline) 1,000 mls @ 125 mls/hr IV ASDIRECTED [facility] Last Admin: 10/08/18 19:39 Dose: 125 mls/hr Dextrose/Sodium Chloride (Dextrose 5%-Normal Saline) 1,000 mls @ 125 mls/hr IV ASDIRECTED [facility] Last Admin: 10/09/18 04:33 Dose: 125 mls/hr Dextrose/Sodium Chloride (Dextrose 5%-Normal Saline) 1,000 mls @ 999 mls/hr IV ASDIRECTED [facility] Last Admin: 10/09/18 07:04 Dose: 999 mls/hr Levothyroxine Sodium (Levothyroxine) 25 mcg PO DAILY@0600 [facility] Last Admin: 10/09/18 06:36 Dose: 25 mcg Levothyroxine Sodium (Synthroid) 200 mcg PO DAILY@0600 [facility] Last Admin: 10/09/18 07:42 Dose: 200 mcg Loperamide HCl (Imodium) 2 mg PO ASDIRECTED [facility] Metoprolol Succinate (Toprol Xl) 12.5 mg PO DAILY [facility] Last Admin: 10/09/18 10:54 Dose: 12.5 mg Multivitamins/Minerals (Thera M Plus) 1 tab PO BEDTIME [facility] Last Admin: 10/08/18 21:20 Dose: 1 tab Nitroglycerin (Nitrostat) 0.4 mg SL Q5M PRN PRN Reason: Chest Pain Non-Formulary Medication (Magnesium Oxide [Magnesium Oxide]) 250 mg PO DAILY [facility] Oxycodone HCl (Oxycodone) 5 mg PO Q4H PRN PRN Reason: MODERATE PAIN Pantoprazole Sodium (Protonix) 40 mg PO BEDTIME [facility] Last Admin: 10/08/18 21:20 Dose: 40 mg Quetiapine Fumarate (Seroquel) 300 mg PO BEDTIME [facility] Last Admin: 10/08/18 21:20 Dose: 300 mg Quetiapine Fumarate (Seroquel) 50 mg PO BID@0800,1200 [facility] Last Admin: 10/09/18 10:17 Dose: 50 mg Saccharomyces Boulardii (Florastor) 250 mg PO BID [facility] Sertraline HCl (Zoloft) 200 mg PO DAILY [facility] Sodium Chloride (Saline Flush) 10 ml FLUSH ASDIRECTED PRN PRN Reason: Keep Vein Open Last Admin: 10/09/18 07:08 Dose: 10 ml Sodium Chloride ([place] Saline Nasal Gel) 0 gm LOBITO BID [facility] Last Admin: 10/09/18 11:27 Dose: 1 applic Tiotropium [place] (Spiriva Handihaler) 18 mcg INH DAILY [facility] Last Admin: 10/09/18 10:55 Dose: 1 inhalation Triamcinolone Acetonide (Triamcinolone Acetonide 0.1% Crm) 0 gm TOP BID PRN PRN Reason: Rash Discontinued Medications Acetaminophen (Tylenol Extra Strength) 500 mg PO TID PRN PRN Reason: MILD PAIN Albuterol (Proventil Neb Soln) 2.5 mg NEB ONETIME ONE Stop: 10/08/18 18:13 Last Admin: 10/08/18 18:25 Dose: 2.5 mg Albuterol (Proventil Neb Soln) 2.5 mg NEB ONETIME ONE Stop: 10/09/18 06:14 Last Admin: 10/09/18 06:35 Dose: 2.5 mg Calcium Gluconate (Calcium Gluconate) 1 gm IVPUSH ONETIME ONE Stop: 10/08/18 18:13 Last Admin: 10/08/18 18:25 Dose: 1 gm Calcium Gluconate (Calcium Gluconate) 1 gm IVPUSH ONETIME ONE Stop: 10/09/18 06:14 Last Admin: 10/09/18 06:42 Dose: 1 gm Dextrose/Water (Dextrose 50% In Water) 50 ml IVPUSH ONETIME ONE Stop: 10/08/18 18:15 Last Admin: 10/08/18 18:23 Dose: 50 ml Dextrose/Water (Dextrose 50% In Water) 50 ml IVPUSH ONETIME ONE Stop: 10/08/18 19:45 Last Admin: 10/08/18 19:50 Dose: 50 ml Dextrose/Water (Dextrose 50% In Water) 50 ml IVPUSH ONETIME ONE Stop: 10/09/18 06:14 Last Admin: 10/09/18 06:39 Dose: 50 ml Insulin Human Regular (Humulin R) 10 unit IV ONETIME ONE Stop: 10/08/18 18:13 Last Admin: 10/08/18 18:28 Dose: 0.3 ml Insulin Human Regular (Humulin R) 10 unit IV ONETIME ONE Stop: 10/09/18 06:14 Last Admin: 10/09/18 06:52 Dose: 10 units Levothyroxine Sodium (Levothyroxine) 200 mcg PO DAILY@0600 [facility] Non-Formulary Medication (Benzoyl Peroxide [Benzoyl Peroxide]) 1 applic TOP BEDTIME [facility] Non-Formulary Medication (Emollient Combination No.75 [[place] Butter]) 1 applic TOP BID [facility] Non-Formulary Medication (Ferrous Gluconate [Ferrous Gluconate]) 324 mg PO BIDMEALS [facility] Non-Formulary Medication (Selenium Sulfide [Anti-Dandruff]) 1 applic TOP SUWEFR [facility] Quetiapine Fumarate (Seroquel) 50 mg PO BID@0800,1200 [facility] - Exam General: Alert, Oriented (person, developmental delay.), Cooperative Lungs: Clear to Auscultation, Normal Respiratory Effort Cardiovascular: Regular Rate, Regular Rhythm GI/Abdominal Exam: Normal Bowel Sounds, Soft, Tender, Abnormal Bowel Sounds ( hyperactive) Extremities: No Pedal Edema, Limited Range of Motion. No: Increased Warmth, Redness (abrasion to left knee) Skin: Warm, Dry - Problem List & Annotations (1) Hyperkalemia SNOMED Code(s): 47160724 Code(s): E87.5 - HYPERKALEMIA Status: Acute Current Visit: Yes (2) Diarrhea SNOMED Code(s): 49484646 Code(s): R19.7 - DIARRHEA, UNSPECIFIED Status: Acute Current Visit: Yes (3) Left knee pain SNOMED Code(s): 20902381 Code(s): M25.562 - PAIN IN LEFT KNEE Status: Acute Current Visit: Yes (4) Fall SNOMED Code(s): 0978522, 480041958 Code(s): W19.XXXA - UNSPECIFIED FALL, INITIAL ENCOUNTER Status: Acute Current Visit: Yes (5) Acute on chronic renal insufficiency SNOMED Code(s): 953865897 Code(s): N28.9 - DISORDER OF KIDNEY AND URETER, UNSPECIFIED; N18.9 - CHRONIC KIDNEY DISEASE, UNSPECIFIED Status: Acute Current Visit: No (6) Congestive heart failure SNOMED Code(s): 14789386 Code(s): I50.9 - HEART FAILURE, UNSPECIFIED Status: Acute Current Visit: No Qualifiers: Heart failure type: diastolic Heart failure chronicity: chronic Qualified Code(s): I50.32 - Chronic diastolic (congestive) heart failure (7) DM type 2 (diabetes mellitus, type 2) SNOMED Code(s): 75571206 Code(s): E11.9 - TYPE 2 DIABETES MELLITUS WITHOUT COMPLICATIONS Status: Acute Current Visit: No Annotation/Comment:: With A1c of 5.3%, stopped insulin and started Januvia. BS stable here. (8) HTN (hypertension) SNOMED Code(s): 51213728 Code(s): I10 - ESSENTIAL (PRIMARY) HYPERTENSION Status: Acute Current Visit: No Annotation/Comment:: Controlled. Tolerated low dose lisinopril and changed to Toprol XL 12.5 mg daily. May need to be titrated up for better BP control. Recheck BMP at visit on the . (9) Hypoalbuminemia SNOMED Code(s): 490947137 Code(s): E88.09 - OTH DISORDERS OF PLASMA-PROTEIN METABOLISM, NEC Status: Acute Current Visit: No (10) Hypothyroidism SNOMED Code(s): 83578065 Code(s): E03.9 - HYPOTHYROIDISM, UNSPECIFIED Status: Acute Current Visit : No Qualifiers: Hypothyroidism type: unspecified Qualified Code(s): E03.9 - Hypothyroidism , unspecified (11) Moderate dehydration SNOMED Code(s): 0341849851156 Code(s): E86.0 - DEHYDRATION Status: Acute Current Visit: No (12) Parkinsons SNOMED Code(s): 48314907 Code(s): G20 - PARKINSON'S DISEASE Status: Acute Current Visit: No (13) Dementia SNOMED Code(s): 99998520 Code(s): F03.90 - UNSPECIFIED DEMENTIA WITHOUT BEHAVIORAL DISTURBANCE Status: Chronic Current Visit: No Qualifiers: Alzheimer's disease onset: unspecified onset Dementia behavioral disturbance: with behavioral disturbance (14) Lives in assisted SNOMED Code(s): 194908555 Code(s): Z59.3 - PROBLEMS RELATED TO LIVING IN RESIDENTIAL INSTITUTION Status: Chronic Current Visit: No - Problem List Review Problem List Initiated/Reviewed/Updated: Yes - My Orders Last 24 Hours: My Active Orders 10/08/18 17:04 Patient Status [ADT] Routine Blood Glucose Check, Bedside [RC] QIDACANDBED Height and Weight [RC] UPON Oxygen Therapy [RC] PRN Up With Assistance [RC] ASDIRECTED VTE/DVT Education [RC] Per Unit Routine Vital Signs [RC] 00,04,08,12,16,20 Consult to Case Management/Tumbler Dyeing Machine Operator [CONS] Routine Consult to Budget Counselor [CONS] Routine PT Evaluation and Treatment [CONS] Routine Sodium Chloride 0.9% [Saline Flush] 10 ml FLUSH ASDIRECTED PRN Peripheral IV Insertion Adult [OM.PC] Routine Resuscitation Status Routine 10/08/18 17:05 Intake and Output [RC] 06,14,22 10/08/18 17:06 Antiembolic Hose [OM.PC] Per Unit Routine 10/08/18 17:10 Isolation [COMM] Stat 10/08/18 17:11 Acetaminophen [Tylenol] 650 mg PO Q4H PRN Albuterol [Ventolin HFA] 0 gm INH Q4H PRN Nitroglycerin [Nitrostat] 0.4 mg SL Q5M PRN Triamcinolone Acetonide [Triamcinolone Acetonide 0.1% Crm] 0 gm TOP BID PRN oxyCODONE 5 mg PO Q4H PRN 10/08/18 17:50 Saline Lock Insert [OM.PC] Routine 10/08/18 19:11 STOOL CULTURE Routine 10/08/18 20:00 Gabapentin [Neurontin] 400 mg PO QID@08,12,16,20 10/08/18 20:29 Isolation [COMM] Stat 10/08/18 21:00 Albuterol [Ventolin HFA] 0 gm INH TID Aloe Vera/Sodium Chloride [[place] Saline Nasal Gel] 0 gm LOBITO BID Multivitamins w-Iron/Ca/FA/Min [Thera M Plus] 1 tab PO BEDTIME Pantoprazole [ProTONIX] 40 mg PO BEDTIME QUEtiapine [SEROquel] 300 mg PO BEDTIME atorvaSTATin [Lipitor] 10 mg PO BEDTIME 10/09/18 06:00 Cholecalciferol (Vitamin D3) [Vitamin D3] 25 mcg PO DAILY@0600 Levothyroxine 25 mcg PO DAILY@0600 10/09/18 07:00 Knee 3V Lt [CR] Routine 10/09/18 07:30 Levothyroxine [Synthroid] 200 mcg PO DAILY@0600 10/09/18 08:00 Ferrous Sulfate 325 mg PO BIDMEALS 10/09/18 09:00 Aspirin [Halfprin] 81 mg PO DAILY Furosemide [Lasix] 20 mg PO DAILY Metoprolol Succinate [Toprol XL] 12.5 mg PO DAILY Sertraline [Zoloft] 200 mg PO DAILY Tiotropium [Spiriva HandiHaler] 18 mcg INH DAILY 10/09/18 10:00 QUEtiapine [SEROquel] 50 mg PO BID@0800,1200 10/09/18 11:41 Saccharomyces Boulardii [Florastor] 250 mg PO BID 10/09/18 11:45 Loperamide [Imodium] 2 mg PO ASDIRECTED 10/09/18 13:00 BASIC METABOLIC PANEL,BMP [CHEM] Routine Atropine/Diphenoxylate [Lomotil 0.025-2.5 MG] 1 tab PO QID 10/10/18 09:00 Magnesium Oxide [Magnesium Oxide] 250 mg PO DAILY - Plan Plan:: 1. Hyperkalemia improved to 5.7 last night but up to 6.9 this morning. His discharge K was 4.8 on ThursdayOct 04. Given D50 again for low blood sugar after insulin given overnight. Lasix 20 mg given this morning. Calcium gluconate and Albuterol neb given this morning again. Repeat BMP after lunch. Will not give Kayexalate as this would cause worse diarrhea and Lasix IV will dehydrate him further. 2. Continue IV fluids D5NS, if potassium is still up may switch to D5W. 3. Restart Lomotil & Loperamide, add Florastor bid. Stool culture pending.
[2018-10-09] MEDS: Sertraline 100 MG Tab PO SCH (12:12)
[2018-10-09] MEDS: Atropine/Diphenoxylate 0.025-2.5 MG Tab PO SCH ×3 (13:41→20:56)
[2018-10-09] MEDS: Saccharomyces Boulardii (Probiotic) 250 MG Cap PO SCH ×2 (13:41→20:56)
[2018-10-09] MEDS: Pantoprazole 40 MG Tab.CR PO SCH (20:56)
[2018-10-09] MEDS: atorvaSTATin 10 MG Tab PO SCH (20:56)
[2018-10-09] MEDS: QUEtiapine 100 MG Tab PO SCH (20:57)
[2018-10-09] MEDS: Multivitamins with Iron/Calcium/Folic Acid/Minerals Tab PO SCH (20:57)
[2018-10-10] MEDS: Dextrose 5%-0.9% NaCl 1,000 ML IV SCH (06:03)
[2018-10-10] MEDS: Levothyroxine 25 MCG Tab PO SCH (06:04)
[2018-10-10] MEDS: Levothyroxine 100 MCG Tab PO SCH (06:04)
[2018-10-10] MEDS: Cholecalciferol (Vitamin D3) 25 MCG Tab PO SCH (06:09)
[2018-10-10] MEDS: Gabapentin 400 MG Cap PO SCH ×4 (08:58→20:01)
[2018-10-10] MEDS: Ferrous Sulfate 325 MG Tab PO SCH ×2 (08:58→17:00)
[2018-10-10] MEDS: QUEtiapine 25 MG Tab PO SCH ×2 (08:58→13:23)
[2018-10-10] MEDS: Furosemide 20 MG Tab PO SCH (08:58)
[2018-10-10] MEDS: Sertraline 100 MG Tab PO SCH (08:58)
[2018-10-10] MEDS: Aspirin 81 MG Tab.EC PO SCH (08:58)
[2018-10-10] MEDS: Saccharomyces Boulardii (Probiotic) 250 MG Cap PO SCH ×2 (08:58→20:02)
[2018-10-10] MEDS: Magnesium Oxide 400 MG Tab PO SCH (08:58)
[2018-10-10] MEDS: Atropine/Diphenoxylate 0.025-2.5 MG Tab PO SCH ×4 (08:58→20:02)
[2018-10-10] MEDS: Albuterol 8 GM Inhaler INH SCH ×3 (09:04→20:04)
[2018-10-10] MEDS: Tiotropium Inhaler 18 MCG Inhalation Powder Cap Kit of 5 INH SCH (09:04)
[2018-10-10] MEDS: Aloe Vera/Sodium Chloride Gel 14.1 GM Tube NAS SCH ×2 (09:06→20:02)
[2018-10-10] MEDS: Dextrose 5 %-0.2 % NaCl 1,000 ML IV SCH ×2 (10:02→18:05)
[2018-10-10] MEDS ORDERED: Albuterol 0.083% 2.5 MG/3 ML Neb Soln NEB ONE (12:22)
[2018-10-10] MEDS ORDERED: Insulin Lispro 100 Unit/ML 3 ML KwikPen SUBCUT ONE (12:59)
--- NOTE | 2018-10-10 13:26 | PCM.PN ---
- General Info Date of Service: 10/10/18 Subjective Update: Having a lot of gas in his ileostomy today, still having more output, watery. C. difficile was negative and Stool culture pending. Having more serous drainage out his BUSHRA drain. He feels better, stronger. Asking about going home. Urinating much better today. Some drainage around his BUSHRA drain today. No pain. - Patient Data Vitals - Most Recent: Last Vital Signs Temp 36.7 C 10/10/18 03:56 Pulse 73 10/10/18 03:56 Resp 17 10/10/18 03:56 BP 98/52 L 10/10/18 03:56 Pulse Ox 95 10/10/18 03:56 Weight - Most Recent: 77.065 kg I&O - Last 24 Hours: Intake & Output 10/09/18 10/10/18 10/10/18 22:59 06:59 14:59 Intake Total 1863 1136 Output Total 945 1135 500 Balance 918 1 -500 Lab Results Last 24 Hours: Laboratory Results - last 24 hr 10/09/18 10/09/18 10/09/18 Range/Units 13:00 17:28 21:27 Sodium 136 (135-145) mmol/L Potassium 5.7 H D (3.5-5.3) mmol/L Chloride 109 (100-110) mmol/L Carbon Dioxide 18 L (21-32) mmol/L BUN 39 H (7-18) mg/dL Creatinine 1.4 H (0.70-1.30) mg/dL Est Cr Clr Drug Dosing 51.25 mL/min Estimated GFR (MDRD) 52 L (>60) BUN/Creatinine Ratio 27.9 H (9-20) Glucose 147 H (80-116) mg/dL POC Glucose 162 H 190 H (80-116) mg/dL Calcium 8.5 L (8.6-10.2) mg/dL 10/09/18 10/10/18 10/10/18 Range/Units 21:50 06:10 06:13 Sodium 137 (135-145) mmol/L Potassium 5.2 5.5 H (3.5-5.3) mmol/L Chloride 112 H (100-110) mmol/L Carbon Dioxide 15 L (21-32) mmol/L BUN 33 H (7-18) mg/dL Creatinine 1.2 (0.70-1.30) mg/dL Est Cr Clr Drug Dosing 59.79 mL/min Estimated GFR (MDRD) > 60 (>60) BUN/Creatinine Ratio 27.5 H (9-20) Glucose 104 (80-116) mg/dL POC Glucose 132 H (80-116) mg/dL Calcium 7.7 L (8.6-10.2) mg/dL 10/10/18 10/10/18 Range/Units 12:10 12:45 Sodium (135-145) mmol/L Potassium 5.5 H (3.5-5.3) mmol/L Chloride (100-110) mmol/L Carbon Dioxide (21-32) mmol/L BUN (7-18) mg/dL Creatinine (0.70-1.30) mg/dL Est Cr Clr Drug Dosing mL/min Estimated GFR (MDRD) (>60) BUN/Creatinine Ratio (9-20) Glucose (80-116) mg/dL POC Glucose 203 H (80-116) mg/dL Calcium (8.6-10.2) mg/dL Rhys Results Last 24 Hours: Microbiology 10/08/18 19:11 Clostridium difficile Toxin A & B - Final Ileostomy Drainage NEGATIVE CDIFF TOXIN REFERENCE RANGE: NEGATIVE Med Orders - Current: Current Medications Acetaminophen (Tylenol) 650 mg PO Q4H PRN PRN Reason: FEVER/PAIN Albuterol (Ventolin Hfa) 0 gm INH TID [facility] Last Admin: 10/10/18 09:04 Dose: 1 puff Albuterol (Ventolin Hfa) 0 gm INH Q4H PRN PRN Reason: Wheezing Amlodipine Besylate (Norvasc) 2.5 mg PO DAILY [facility] Aspirin (Halfprin) 81 mg PO DAILY [facility] Last Admin: 10/10/18 08:58 Dose: 81 mg Atorvastatin Calcium (Lipitor) 10 mg PO BEDTIME [facility] Last Admin: 10/09/18 20:56 Dose: 10 mg Cholecalciferol (Vitamin D3) 25 mcg PO DAILY@0600 [facility] Last Admin: 10/10/18 06:09 Dose: 25 mcg Diphenoxylate HCl/Atropine (Lomotil 0.025-2.5 Mg) 1 tab PO QID [facility] Last Admin: 10/10/18 08:58 Dose: 1 tab Ferrous Sulfate (Ferrous Sulfate) 325 mg PO BIDMEALS [facility] Last Admin: 10/10/18 08:58 Dose: 325 mg Furosemide (Lasix) 20 mg PO DAILY [facility] Last Admin: 10/10/18 08:58 Dose: 20 mg Gabapentin (Neurontin) 400 mg PO QID@08,12,16,20 [facility] Last Admin: 10/10/18 08:58 Dose: 400 mg Dextrose/Sodium Chloride (Dextrose 5%-1/4 Ns) 1,000 mls @ 125 mls/hr IV ASDIRECTED [facility] Last Admin: 10/10/18 10:02 Dose: 125 mls/hr Levothyroxine Sodium (Levothyroxine) 25 mcg PO DAILY@0600 [facility] Last Admin: 10/10/18 06:04 Dose: 25 mcg Levothyroxine Sodium (Synthroid) 200 mcg PO DAILY@0600 [facility] Last Admin: 10/10/18 06:04 Dose: 200 mcg Loperamide HCl (Imodium) 2 mg PO ASDIRECTED [facility] Magnesium Oxide (Magnesium Oxide) 400 mg PO DAILY [facility] Last Admin: 10/10/18 08:58 Dose: 400 mg Multivitamins/Minerals (Thera M Plus) 1 tab PO BEDTIME [facility] Last Admin: 10/09/18 20:57 Dose: 1 tab Nitroglycerin (Nitrostat) 0.4 mg SL Q5M PRN PRN Reason: Chest Pain Oxycodone HCl (Oxycodone) 5 mg PO Q4H PRN PRN Reason: MODERATE PAIN Pantoprazole Sodium (Protonix) 40 mg PO BEDTIME [facility] Last Admin: 10/09/18 20:56 Dose: 40 mg Quetiapine Fumarate (Seroquel) 300 mg PO BEDTIME [facility] Last Admin: 10/09/18 20:57 Dose: 300 mg Quetiapine Fumarate (Seroquel) 50 mg PO BID@0800,1200 [facility] Last Admin: 10/10/18 08:58 Dose: 50 mg Saccharomyces Boulardii (Florastor) 250 mg PO BID [facility] Last Admin: 10/10/18 08:58 Dose: 250 mg Sertraline HCl (Zoloft) 200 mg PO DAILY [facility] Last Admin: 10/10/18 08:58 Dose: 200 mg Sodium Chloride (Saline Flush) 10 ml FLUSH ASDIRECTED PRN PRN Reason: Keep Vein Open Last Admin: 10/09/18 07:08 Dose: 10 ml Sodium Chloride ([place] Saline Nasal Gel) 0 gm LOBITO BID [facility] Last Admin: 10/10/18 09:06 Dose: 1 applic Tiotropium [place] (Spiriva Handihaler) 18 mcg INH DAILY [facility] Last Admin: 10/10/18 09:04 Dose: 1 inhalation Triamcinolone Acetonide (Triamcinolone Acetonide 0.1% Crm) 0 gm TOP BID PRN PRN Reason: Rash Discontinued Medications Acetaminophen (Tylenol Extra Strength) 500 mg PO TID PRN PRN Reason: MILD PAIN Albuterol (Proventil Neb Soln) 2.5 mg NEB ONETIME ONE Stop: 10/08/18 18:13 Last Admin: 10/08/18 18:25 Dose: 2.5 mg Albuterol (Proventil Neb Soln) 2.5 mg NEB ONETIME ONE Stop: 10/09/18 06:14 Last Admin: 10/09/18 06:35 Dose: 2.5 mg Albuterol (Proventil Neb Soln) 2.5 mg NEB ONETIME ONE Stop: 10/09/18 14:50 Last Admin: 10/09/18 15:50 Dose: 2.5 mg Albuterol (Proventil Neb Soln) 2.5 mg NEB ONETIME ONE Stop: 10/10/18 12:23 Calcium Gluconate (Calcium Gluconate) 1 gm IVPUSH ONETIME ONE Stop: 10/08/18 18:13 Last Admin: 10/08/18 18:25 Dose: 1 gm Calcium Gluconate (Calcium Gluconate) 1 gm IVPUSH ONETIME ONE Stop: 10/09/18 06:14 Last Admin: 10/09/18 06:42 Dose: 1 gm Dextrose/Water (Dextrose 50% In Water) 50 ml IVPUSH ONETIME ONE Stop: 10/08/18 18:15 Last Admin: 10/08/18 18:23 Dose: 50 ml Dextrose/Water (Dextrose 50% In Water) 50 ml IVPUSH ONETIME ONE Stop: 10/08/18 19:45 Last Admin: 10/08/18 19:50 Dose: 50 ml Dextrose/Water (Dextrose 50% In Water) 50 ml IVPUSH ONETIME ONE Stop: 10/09/18 06:14 Last Admin: 10/09/18 06:39 Dose: 50 ml Sodium Chloride (Normal Saline) 1,000 mls @ 125 mls/hr IV ASDIRECTED [facility] Last Admin: 10/08/18 19:39 Dose: 125 mls/hr Dextrose/Sodium Chloride (Dextrose 5%-Normal Saline) 1,000 mls @ 125 mls/hr IV ASDIRECTED [facility] Last Admin: 10/10/18 06:03 Dose: 125 mls/hr Dextrose/Sodium Chloride (Dextrose 5%-Normal Saline) 1,000 mls @ 999 mls/hr IV ASDIRECTED [facility] Last Admin: 10/09/18 07:04 Dose: 999 mls/hr Insulin Human Lispro (Humalog) 2 unit SUBCUT ONETIME ONE Stop: 10/10/18 13:00 Insulin Human Regular (Humulin R) 10 unit IV ONETIME ONE Stop: 10/08/18 18:13 Last Admin: 10/08/18 18:28 Dose: 0.3 ml Insulin Human Regular (Humulin R) 10 unit IV ONETIME ONE Stop: 10/09/18 06:14 Last Admin: 10/09/18 06:52 Dose: 10 units Levothyroxine Sodium (Levothyroxine) 200 mcg PO DAILY@0600 [facility] Last Admin: 10/09/18 18:54 Dose: Not Given Metoprolol Succinate (Toprol Xl) 12.5 mg PO DAILY [facility] Last Admin: 10/09/18 10:54 Dose: 12.5 mg Non-Formulary Medication (Benzoyl Peroxide [Benzoyl Peroxide]) 1 applic TOP BEDTIME [facility] Non-Formulary Medication (Emollient Combination No.75 [[place] Butter]) 1 applic TOP BID [facility] Non-Formulary Medication (Ferrous Gluconate [Ferrous Gluconate]) 324 mg PO BIDMEALS [facility] Last Admin: 10/09/18 19:26 Dose: Not Given Non-Formulary Medication (Selenium Sulfide [Anti-Dandruff]) 1 applic TOP SUWEFR [facility] Last Admin: 10/09/18 19:25 Dose: Not Given Quetiapine Fumarate (Seroquel) 50 mg PO BID@0800,1200 [facility] Last Admin: 10/09/18 18:53 Dose: Not Given - Exam General: Alert, Cooperative Lungs: Clear to Auscultation, Normal Respiratory Effort Cardiovascular: Regular Rate, Regular Rhythm GI/Abdominal Exam: Normal Bowel Sounds, Soft, Non-Tender, Abnormal Bowel Sounds (normal/hyperactive) - Problem List & Annotations (1) Hyperkalemia SNOMED Code(s): 01073174 Code(s): E87.5 - HYPERKALEMIA Status: Acute Current Visit: Yes (2) Diarrhea SNOMED Code(s): 99890756 Code(s): R19.7 - DIARRHEA, UNSPECIFIED Status: Acute Current Visit: Yes (3) Left knee pain SNOMED Code(s): 13355718 Code(s): M25.562 - PAIN IN LEFT KNEE Status: Acute Current Visit: Yes (4) Fall SNOMED Code(s): 1017290, 619627038 Code(s): W19.XXXA - UNSPECIFIED FALL, INITIAL ENCOUNTER Status: Acute Current Visit: Yes (5) Acute on chronic renal insufficiency SNOMED Code(s): 359626478 Code(s): N28.9 - DISORDER OF KIDNEY AND URETER, UNSPECIFIED; N18.9 - CHRONIC KIDNEY DISEASE, UNSPECIFIED Status: Acute Current Visit: No (6) Congestive heart failure SNOMED Code(s): 59164061 Code(s): I50.9 - HEART FAILURE, UNSPECIFIED Status: Acute Current Visit: No Qualifiers: Heart failure type: diastolic Heart failure chronicity: chronic Qualified Code(s): I50.32 - Chronic diastolic (congestive) heart failure (7) DM type 2 (diabetes mellitus, type 2) SNOMED Code(s): 69855788 Code(s): E11.9 - TYPE 2 DIABETES MELLITUS WITHOUT COMPLICATIONS Status: Acute Current Visit: No Annotation/Comment:: With A1c of 5.3%, stopped insulin and started Januvia. BS stable here. (8) HTN (hypertension) SNOMED Code(s): 80639784 Code(s): I10 - ESSENTIAL (PRIMARY) HYPERTENSION Status: Acute Current Visit: No Annotation/Comment:: Controlled. Tolerated low dose lisinopril and changed to Toprol XL 12.5 mg daily. May need to be titrated up for better BP control. Recheck BMP at visit on the . (9) Hypoalbuminemia SNOMED Code(s): 174900557 Code(s): E88.09 - OTH DISORDERS OF PLASMA-PROTEIN METABOLISM, NEC Status: Acute Current Visit: No (10) Hypothyroidism SNOMED Code(s): 78806368 Code(s): E03.9 - HYPOTHYROIDISM, UNSPECIFIED Status: Acute Current Visit : No Qualifiers: Hypothyroidism type: unspecified Qualified Code(s): E03.9 - Hypothyroidism , unspecified (11) Moderate dehydration SNOMED Code(s): 8329763902854 Code(s): E86.0 - DEHYDRATION Status: Acute Current Visit: No (12) Parkinsons SNOMED Code(s): 59850613 Code(s): G20 - PARKINSON'S DISEASE Status: Acute Current Visit: No (13) Dementia SNOMED Code(s): 01024830 Code(s): F03.90 - UNSPECIFIED DEMENTIA WITHOUT BEHAVIORAL DISTURBANCE Status: Chronic Current Visit: No Qualifiers: Alzheimer's disease onset: unspecified onset Dementia behavioral disturbance: with behavioral disturbance (14) Lives in snf SNOMED Code(s): 725411454 Code(s): Z59.3 - PROBLEMS RELATED TO LIVING IN RESIDENTIAL INSTITUTION Status: Chronic Current Visit: No - Problem List Review Problem List Initiated/Reviewed/Updated: Yes - My Orders Last 24 Hours: My Active Orders 10/09/18 13:00 Atropine/Diphenoxylate [Lomotil 0.025-2.5 MG] 1 tab PO QID 10/09/18 14:49 Ambulate [RC] ASDIRECTED RT Aerosol Therapy [RC] ASDIRECTED 10/10/18 08:00 Dextrose 5 %-0.2 % NaCl [Dextrose 5%-1/4 NS] 1,000 ml IV ASDIRECTED 10/10/18 09:00 Magnesium Oxide 400 mg PO DAILY 10/10/18 12:22 RT Aerosol Therapy [RC] ASDIRECTED 10/10/18 13:01 Abdomen 2V AP Flat Upright [CR] Routine 10/11/18 06:00 ALDOSTERONE LCMS, SERUM Routine BASIC METABOLIC PANEL,BMP [CHEM] Routine RENIN ACTIVITY, PLASMA Routine 10/11/18 09:00 amLODIPine [Norvasc] 2.5 mg PO DAILY - Plan Plan:: 1. Hyperkalemia improved to 5.5, will stop his Metoprolol as this could be affecting his aldosterone levels thus raising his potassium levels. Renin/ Aldosterone levels ordered tomorrow as they are sent out. Will add Amlodipine tomorrow if his blood pressure is still elevated. 2. Continue IV fluids D51/4NS, insulin as needed for elevated sugars. 3. Lomotil & Loperamide, add Florastor bid. Stool culture pending. Flat & upright abdomen to check position of drain and if issues with ileostomy.
[2018-10-10] MEDS ORDERED: Insulin Lispro 100 Unit/ML 3 ML KwikPen SUBCUT PRN (15:03)
[2018-10-10] MEDS ORDERED: [UNRECOGNIZED DRUG - OTHER] PO PRN (16:29)
[2018-10-10] MEDS: atorvaSTATin 10 MG Tab PO SCH (20:02)
[2018-10-10] MEDS: Multivitamins with Iron/Calcium/Folic Acid/Minerals Tab PO SCH (20:03)
[2018-10-10] MEDS: Pantoprazole 40 MG Tab.CR PO SCH (20:03)
[2018-10-10] MEDS: QUEtiapine 100 MG Tab PO SCH (20:03)
[2018-10-11] MEDS: Dextrose 5 %-0.2 % NaCl 1,000 ML IV SCH (02:01)
[2018-10-11] MEDS: Levothyroxine 25 MCG Tab PO SCH (05:08)
[2018-10-11] MEDS: Levothyroxine 100 MCG Tab PO SCH (05:08)
[2018-10-11] MEDS: Cholecalciferol (Vitamin D3) 25 MCG Tab PO SCH (05:08)
[2018-10-11] MEDS ORDERED: Sodium Chloride 0.9% 10 ML Syringe FLUSH PRN (08:56)
[2018-10-11] MEDS: Ferrous Sulfate 325 MG Tab PO SCH ×2 (08:56→17:12)
[2018-10-11] MEDS: Saccharomyces Boulardii (Probiotic) 250 MG Cap PO SCH ×2 (08:57→20:20)
[2018-10-11] MEDS: Furosemide 20 MG Tab PO SCH (08:57)
[2018-10-11] MEDS: Magnesium Oxide 400 MG Tab PO SCH (08:57)
[2018-10-11] MEDS: Aspirin 81 MG Tab.EC PO SCH (08:57)
[2018-10-11] MEDS: Aloe Vera/Sodium Chloride Gel 14.1 GM Tube NAS SCH ×2 (08:57→20:20)
[2018-10-11] MEDS: Sertraline 100 MG Tab PO SCH (08:58)
[2018-10-11] MEDS ORDERED: amLODIPine 2.5 MG Tab PO SCH (09:00)
[2018-10-11] MEDS: Albuterol 8 GM Inhaler INH SCH ×3 (09:05→20:23)
[2018-10-11] MEDS: Tiotropium Inhaler 18 MCG Inhalation Powder Cap Kit of 5 INH SCH (09:05)
[2018-10-11] MEDS: Gabapentin 400 MG Cap PO SCH ×4 (09:13→20:19)
[2018-10-11] MEDS: Atropine/Diphenoxylate 0.025-2.5 MG Tab PO SCH ×4 (09:15→20:19)
--- NOTE | 2018-10-11 10:49 | CR ---
INDICATION: Fall on left knee. LEFT KNEE: Three portable views of the left knee were obtained, 10/09/18 - no comparisons. Mild hypertrophic degenerative changes are noted at the intercondylar notch and spines. Minimal degenerative changes noted at the patellofemoral joint. A definite displaced fracture site or dislocation was not identified. There is some irregularity of the cortex of the proximal tibia, which may be on the basis of previous healed fracture site and should be correlated clinically. Nuclear bone imaging or CT may be helpful in that regard. The left knee was otherwise unremarkable. IMPRESSION: No definite acute process - no definite displaced fracture or dislocation acutely. The possibility of healing fracture or healed fracture site in the proximal tibia would be a consideration. If active disease is suspected in that area, additional examination such as nuclear bone imaging, CT , or MRI may be helpful. LUIS MD
--- NOTE | 2018-10-11 10:56 | CR ---
INDICATION: Increased diarrhea, drainage. ABDOMEN: Six images of the abdomen were obtained in supine and upright projections, 10/10/18, and compared with 09/20/18. The massive distention of the large bowel seen on the previous examination is not present on todays examination. There are, however, noted somewhat distended loops of small bowel with air fluid levels, which may be on the basis of partial or early obstruction and/or paralytic ileus. There is what appears to be a colostomy in the right mid abdomen. Overlying tubing is noted, apparently drain with a safety clip overlying. No other organomegaly or mass lesions were identified. A device is noted in the pelvis, which has a somewhat metallic appearance. No free air was noted. A PA view of the chest was obtained and revealed no evidence of free air under the hemidiaphragm leaves. The heart did not appear enlarged. The aorta is tortuous with calcification in the arch. Overlying EKG leads are noted. A definite active infiltrate or effusion was not identified. IMPRESSION: Early or partial small bowel obstruction versus paralytic ileus. Colostomy now seen in the right mid abdomen. MTDD
--- NOTE | 2018-10-11 13:44 | PCM.PN ---
- General Info Date of Service: 10/11/18 Subjective Update: Patient feels good today, eating breakfast, no shortness of breath, states no belly pain unless someone presses on it. Left knee feels good. Nursing states his stool has become more pudding like in form, digested. Stool & BUSHRA drain output is decreased from previous. Patient asked today if he can go home. Spoke with [facility] and he has appointments in [place] on for his wound care and ileostomy check. They also reported that he's had problems with his potassium going high on and off since he has been at the home. - Patient Data Vitals - Most Recent: Last Vital Signs Temp 36.4 C 10/11/18 08:00 Pulse 80 10/11/18 08:00 Resp 16 10/11/18 08:00 BP 118/62 10/11/18 08:58 Pulse Ox 99 10/11/18 08:00 Weight - Most Recent: 77.065 kg I&O - Last 24 Hours: Intake & Output 10/10/18 10/11/18 10/11/18 22:59 06:59 14:59 Intake Total 1220 1191 400 Output Total 1640 985 750 Balance -420 206 -350 Lab Results Last 24 Hours: Laboratory Results - last 24 hr 10/10/18 10/10/18 10/11/18 Range/Units 17:02 21:01 05:52 Sodium (135-145) mmol/L Potassium (3.5-5.3) mmol/L Chloride (100-110) mmol/L Carbon Dioxide (21-32) mmol/L BUN (7-18) mg/dL Creatinine (0.70-1.30) mg/dL Est Cr Clr Drug Dosing mL/min Estimated GFR (MDRD) (>60) BUN/Creatinine Ratio (9-20) Glucose (80-116) mg/dL POC Glucose 203 H 175 H 110 (80-116) mg/dL Calcium (8.6-10.2) mg/dL 10/11/18 10/11/18 Range/Units 06:15 13:05 Sodium 134 L 134 L (135-145) mmol/L Potassium 4.8 4.3 (3.5-5.3) mmol/L Chloride 109 107 (100-110) mmol/L Carbon Dioxide 17 L 17 L (21-32) mmol/L BUN 26 H 26 H (7-18) mg/dL Creatinine 1.1 1.1 (0.70-1.30) mg/dL Est Cr Clr Drug Dosing 65.23 65.23 mL/min Estimated GFR (MDRD) > 60 > 60 (>60) BUN/Creatinine Ratio 23.6 H 23.6 H (9-20) Glucose 102 118 H (80-116) mg/dL POC Glucose (80-116) mg/dL Calcium 7.6 L 7.7 L (8.6-10.2) mg/dL Med Orders - Current: Current Medications Acetaminophen (Tylenol) 650 mg PO Q4H PRN PRN Reason: FEVER/PAIN Albuterol (Ventolin Hfa) 0 gm INH TID [facility] Last Admin: 10/11/18 09:05 Dose: 1 puff Albuterol (Ventolin Hfa) 0 gm INH Q4H PRN PRN Reason: Wheezing Iljij-X-Ccloejwpvjspi (Beano) 1 tab PO ASDIRECTED PRN PRN Reason: Gas Amlodipine Besylate (Norvasc) 2.5 mg PO DAILY [facility] Last Admin: 10/11/18 08:58 Dose: 2.5 mg Aspirin (Halfprin) 81 mg PO DAILY [facility] Last Admin: 10/11/18 08:57 Dose: 81 mg Atorvastatin Calcium (Lipitor) 10 mg PO BEDTIME [facility] Last Admin: 10/10/18 20:02 Dose: 10 mg Cholecalciferol (Vitamin D3) 25 mcg PO DAILY@0600 [facility] Last Admin: 10/11/18 05:08 Dose: 25 mcg Diphenoxylate HCl/Atropine (Lomotil 0.025-2.5 Mg) 1 tab PO QID [facility] Last Admin: 10/11/18 12:15 Dose: 1 tab Ferrous Sulfate (Ferrous Sulfate) 325 mg PO BIDMEALS [facility] Last Admin: 10/11/18 08:56 Dose: 325 mg Furosemide (Lasix) 20 mg PO DAILY [facility] Last Admin: 10/11/18 08:57 Dose: 20 mg Gabapentin (Neurontin) 400 mg PO QID@08,12,16,20 [facility] Last Admin: 10/11/18 12:15 Dose: 400 mg Insulin Human Lispro (Humalog) 0 unit SUBCUT TIDMEALS PRN; Protocol PRN Reason: Blood Glucose Levothyroxine Sodium (Levothyroxine) 25 mcg PO DAILY@0600 [facility] Last Admin: 10/11/18 05:08 Dose: 25 mcg Levothyroxine Sodium (Levothyroxine) 200 mcg PO DAILY@0600 [facility] Loperamide HCl (Imodium) 2 mg PO ASDIRECTED [facility] Magnesium Oxide (Magnesium Oxide) 400 mg PO DAILY [facility] Last Admin: 10/11/18 08:57 Dose: 400 mg Multivitamins/Minerals (Thera M Plus) 1 tab PO BEDTIME [facility] Last Admin: 10/10/18 20:03 Dose: 1 tab Nitroglycerin (Nitrostat) 0.4 mg SL Q5M PRN PRN Reason: Chest Pain Oxycodone HCl (Oxycodone) 5 mg PO Q4H PRN PRN Reason: MODERATE PAIN Pantoprazole Sodium (Protonix) 40 mg PO BEDTIME [facility] Last Admin: 10/10/18 20:03 Dose: 40 mg Quetiapine Fumarate (Seroquel) 300 mg PO BEDTIME [facility] Last Admin: 10/10/18 20:03 Dose: 300 mg Quetiapine Fumarate (Seroquel) 50 mg PO BID@0800,1200 [facility] Last Admin: 10/11/18 12:15 Dose: 50 mg Saccharomyces Boulardii (Florastor) 250 mg PO BID [facility] Last Admin: 10/11/18 08:57 Dose: 250 mg Sertraline HCl (Zoloft) 200 mg PO DAILY [facility] Last Admin: 10/11/18 08:58 Dose: 200 mg Sodium Chloride (Saline Flush) 10 ml FLUSH ASDIRECTED PRN PRN Reason: Keep Vein Open Last Admin: 10/09/18 07:08 Dose: 10 ml Sodium Chloride ([place] Sal[place] Nasal Gel) 0 gm LOBITO BID [facility] Last Admin: 10/11/18 08:57 Dose: 1 applic Sodium Chloride (Saline Flush) 10 ml FLUSH ASDIRECTED PRN PRN Reason: Keep Vein Open Tiotropium [place] (Spiriva Handihaler) 18 mcg INH DAILY [facility] Last Admin: 10/11/18 09:05 Dose: 1 inhalation Triamcinolone Acetonide (Triamcinolone Acetonide 0.1% Crm) 0 gm TOP BID PRN PRN Reason: Rash Discontinued Medications Acetaminophen (Tylenol Extra Strength) 500 mg PO TID PRN PRN Reason: MILD PAIN Albuterol (Proventil Neb Soln) 2.5 mg NEB ONETIME ONE Stop: 10/08/18 18:13 Last Admin: 10/08/18 18:25 Dose: 2.5 mg Albuterol (Proventil Neb Soln) 2.5 mg NEB ONETIME ONE Stop: 10/09/18 06:14 Last Admin: 10/09/18 06:35 Dose: 2.5 mg Albuterol (Proventil Neb Soln) 2.5 mg NEB ONETIME ONE Stop: 10/09/18 14:50 Last Admin: 10/09/18 15:50 Dose: 2.5 mg Albuterol (Proventil Neb Soln) 2.5 mg NEB ONETIME ONE Stop: 10/10/18 12:23 Last Admin: 10/10/18 13:17 Dose: 2.5 mg Calcium Gluconate (Calcium Gluconate) 1 gm IVPUSH ONETIME ONE Stop: 10/08/18 18:13 Last Admin: 10/08/18 18:25 Dose: 1 gm Calcium Gluconate (Calcium Gluconate) 1 gm IVPUSH ONETIME ONE Stop: 10/09/18 06:14 Last Admin: 10/09/18 06:42 Dose: 1 gm Dextrose/Water (Dextrose 50% In Water) 50 ml IVPUSH ONETIME ONE Stop: 10/08/18 18:15 Last Admin: 10/08/18 18:23 Dose: 50 ml Dextrose/Water (Dextrose 50% In Water) 50 ml IVPUSH ONETIME ONE Stop: 10/08/18 19:45 Last Admin: 10/08/18 19:50 Dose: 50 ml Dextrose/Water (Dextrose 50% In Water) 50 ml IVPUSH ONETIME ONE Stop: 10/09/18 06:14 Last Admin: 10/09/18 06:39 Dose: 50 ml Sodium Chloride (Normal Saline) 1,000 mls @ 125 mls/hr IV ASDIRECTED [facility] Last Admin: 10/08/18 19:39 Dose: 125 mls/hr Dextrose/Sodium Chloride (Dextrose 5%-Normal Saline) 1,000 mls @ 125 mls/hr IV ASDIRECTED [facility] Last Admin: 10/10/18 06:03 Dose: 125 mls/hr Dextrose/Sodium Chloride (Dextrose 5%-Normal Saline) 1,000 mls @ 999 mls/hr IV ASDIRECTED [facility] Last Admin: 10/09/18 07:04 Dose: 999 mls/hr Dextrose/Sodium Chloride (Dextrose 5%-1/4 Ns) 1,000 mls @ 125 mls/hr IV ASDIRECTED [facility] Last Admin: 10/11/18 02:01 Dose: 125 mls/hr Insulin Human Lispro (Humalog) 2 unit SUBCUT ONETIME ONE Stop: 10/10/18 13:00 Last Admin: 10/10/18 13:27 Dose: 2 units Insulin Human Regular (Humulin R) 10 unit IV ONETIME ONE Stop: 10/08/18 18:13 Last Admin: 10/08/18 18:28 Dose: 0.3 ml Insulin Human Regular (Humulin R) 10 unit IV ONETIME ONE Stop: 10/09/18 06:14 Last Admin: 10/09/18 06:52 Dose: 10 units Levothyroxine Sodium (Levothyroxine) 200 mcg PO DAILY@0600 [facility] Last Admin: 10/09/18 18:54 Dose: Not Given Levothyroxine Sodium (Synthroid) 200 mcg PO DAILY@0600 [facility] Last Admin: 10/11/18 05:08 Dose: 200 mcg Metoprolol Succinate (Toprol Xl) 12.5 mg PO DAILY [facility] Last Admin: 10/09/18 10:54 Dose: 12.5 mg Non-Formulary Medication (Benzoyl Peroxide [Benzoyl Peroxide]) 1 applic TOP BEDTIME [facility] Non-Formulary Medication (Emollient Combination No.75 [[place] Butter]) 1 applic TOP BID [facility] Non-Formulary Medication (Ferrous Gluconate [Ferrous Gluconate]) 324 mg PO BIDMEALS [facility] Last Admin: 10/09/18 19:26 Dose: Not Given Non-Formulary Medication (Selenium Sulfide [Anti-Dandruff]) 1 applic TOP SUWEFR [facility] Last Admin: 10/09/18 19:25 Dose: Not Given Quetiapine Fumarate (Seroquel) 50 mg PO BID@0800,1200 [facility] Last Admin: 10/09/18 18:53 Dose: Not Given Quetiapine Fumarate (Seroquel) 50 mg PO BID@0800,1200 [facility] Last Admin: 10/10/18 13:23 Dose: 50 mg - Exam General: Alert, Oriented, Cooperative Lungs: Clear to Auscultation, Normal Respiratory Effort Cardiovascular: Regular Rate, Regular Rhythm GI/Abdominal Exam: Normal Bowel Sounds, Soft, Non-Tender Extremities: No Pedal Edema - Problem List & Annotations (1) Hyperkalemia SNOMED Code(s): 67667125 Code(s): E87.5 - HYPERKALEMIA Status: Resolved Current Visit: Yes (2) Diarrhea SNOMED Code(s): 89794205 Code(s): R19.7 - DIARRHEA, UNSPECIFIED Status: Acute Current Visit: Yes Annotation/Comment:: improved (3) Left knee pain SNOMED Code(s): 12426239 Code(s): M25.562 - PAIN IN LEFT KNEE Status: Acute Current Visit: Yes Qualifiers: Chronicity: acute Qualified Code(s): M25.562 - Pain in left knee Annotation/Comment:: improved (4) Fall SNOMED Code(s): 7877458, 093570906 Code(s): W19.XXXA - UNSPECIFIED FALL, INITIAL ENCOUNTER Status: Acute Current Visit: Yes (5) Acute on chronic renal insufficiency SNOMED Code(s): 191534343 Code(s): N28.9 - DISORDER OF KIDNEY AND URETER, UNSPECIFIED; N18.9 - CHRONIC KIDNEY DISEASE, UNSPECIFIED Status: Resolved Current Visit: No (6) Congestive heart failure SNOMED Code(s): 46391297 Code(s): I50.9 - HEART FAILURE, UNSPECIFIED Status: Acute Current Visit: No Qualifiers: Heart failure type: diastolic Heart failure chronicity: chronic Qualified Code(s): I50.32 - Chronic diastolic (congestive) heart failure (7) DM type 2 (diabetes mellitus, type 2) SNOMED Code(s): 96711956 Code(s): E11.9 - TYPE 2 DIABETES MELLITUS WITHOUT COMPLICATIONS Status: Acute Current Visit: No Qualifiers: Diabetes mellitus custodial insulin use: without custodial use Annotation/Comment:: With A1c of 5.3%, stopped insulin and started Januvia. BS stable here. (8) HTN (hypertension) SNOMED Code(s): 30765766 Code(s): I10 - ESSENTIAL (PRIMARY) HYPERTENSION Status: Acute Current Visit: No Qualifiers: Hypertension type: essential hypertension Qualified Code(s): I10 - Essential (primary) hypertension Annotation/Comment:: Controlled. Tolerated low dose lisinopril and changed to Toprol XL 12.5 mg daily. May need to be titrated up for better BP control. Recheck BMP at visit on the . (9) Hypoalbuminemia SNOMED Code(s): 948893145 Code(s): E88.09 - OTH DISORDERS OF PLASMA-PROTEIN METABOLISM, NEC Status: Acute Current Visit: No (10) Hypothyroidism SNOMED Code(s): 95308678 Code(s): E03.9 - HYPOTHYROIDISM, UNSPECIFIED Status: Acute Current Visit : No Qualifiers: Hypothyroidism type: unspecified Qualified Code(s): E03.9 - Hypothyroidism , unspecified (11) Moderate dehydration SNOMED Code(s): 0280965984304 Code(s): E86.0 - DEHYDRATION Status: Resolved Current Visit: No (12) Parkinsons SNOMED Code(s): 88841914 Code(s): G20 - PARKINSON'S DISEASE Status: Acute Current Visit: No (13) Dementia SNOMED Code(s): 75911518 Code(s): F03.90 - UNSPECIFIED DEMENTIA WITHOUT BEHAVIORAL DISTURBANCE Status: Chronic Current Visit: No Qualifiers: Alzheimer's disease onset: unspecified onset Dementia behavioral disturbance: with behavioral disturbance (14) Lives in pen[facility]iary SNOMED Code(s): 039259837 Code(s): Z59.3 - PROBLEMS RELATED TO LIVING IN RESIDENTIAL INSTITUTION Status: Chronic Current Visit: No - Problem List Review Problem List Initiated/Reviewed/Updated: Yes - My Orders Last 24 Hours: My Active Orders 10/10/18 15:03 Insulin Lispro [HumaLOG] See Protocol SUBCUT TIDMEALS PRN 10/10/18 16:29 Chrgj-T-Ixztvhfmkqtoq [Beano] 1 tab PO ASDIRECTED PRN 10/11/18 06:15 ALDOSTERONE LCMS, SERUM Routine CORTISOL - AM Routine RENIN ACTIVITY, PLASMA Routine 10/11/18 08:00 QUEtiapine [SEROquel] 50 mg PO BID@0800,1200 10/11/18 08:56 Sodium Chloride 0.9% [Saline Flush] 10 ml FLUSH ASDIRECTED PRN Saline Lock Insert [OM.PC] Routine 10/11/18 09:00 amLODIPine [Norvasc] 2.5 mg PO DAILY 10/12/18 06:00 BASIC METABOLIC PANEL,BMP [CHEM] Routine Levothyroxine 200 mcg PO DAILY@0600 10/12/18 07:00 Abdomen 2V AP Flat Upright [CR] Routine - Plan Plan:: 1. Potassium down to 4.8 this morning and 4.3 this afternoon. D51/4NS discontinued. Repeat labs in the am. Renin, Aldosterone sent out. Spoke with pharmacy, low likelihood of Metoprolol causing the hyperkalemia so will restart and discontinue Amlodipine. 2. Diabetic diet, patient is not on insulin at the home, sugars should stabilize since IVF have been discontinued. 3. Lomotil & Loperamide, hold for constipation. Florastor bid. Stool culture pending. Flat & upright abdomen questionable paralytic ileus vs partial obstruction. He did have subtotal colectomy(which side was not stated in Discharge summary from [place]). Spoke with Dr Mello, will repeat AXR in the morning.
[2018-10-11] MEDS: QUEtiapine 100 MG Tab PO SCH (20:20)
[2018-10-11] MEDS: Pantoprazole 40 MG Tab.CR PO SCH (20:21)
[2018-10-11] MEDS: atorvaSTATin 10 MG Tab PO SCH (20:21)
[2018-10-11] MEDS: Multivitamins with Iron/Calcium/Folic Acid/Minerals Tab PO SCH (20:23)
[2018-10-12] MEDS: Cholecalciferol (Vitamin D3) 25 MCG Tab PO SCH (05:37)
[2018-10-12] MEDS: Levothyroxine 25 MCG Tab PO SCH (05:37)
[2018-10-12] MEDS ORDERED: Metoprolol Succinate 25 MG Tab.ER PO SCH (09:00)
[2018-10-12] MEDS: Gabapentin 400 MG Cap PO SCH (09:20)
[2018-10-12] MEDS: Ferrous Sulfate 325 MG Tab PO SCH (09:20)
[2018-10-12] MEDS: Saccharomyces Boulardii (Probiotic) 250 MG Cap PO SCH (09:21)
[2018-10-12] MEDS: Aspirin 81 MG Tab.EC PO SCH (09:21)
[2018-10-12] MEDS: Furosemide 20 MG Tab PO SCH (09:21)
[2018-10-12] MEDS: Aloe Vera/Sodium Chloride Gel 14.1 GM Tube NAS SCH (09:21)
[2018-10-12] MEDS: Tiotropium Inhaler 18 MCG Inhalation Powder Cap Kit of 5 INH SCH (09:22)
[2018-10-12] MEDS: Magnesium Oxide 400 MG Tab PO SCH (09:22)
[2018-10-12 09:23] VITALS: PULSE 82
[2018-10-12] MEDS: Sertraline 100 MG Tab PO SCH (09:23)
[2018-10-12] MEDS: Albuterol 8 GM Inhaler INH SCH (09:26)
[2018-10-12] MEDS: Atropine/Diphenoxylate 0.025-2.5 MG Tab PO SCH (09:26)
[2018-10-12 10:39] VITALS: BP 126/78
--- NOTE | 2018-10-12 11:20 | CR ---
INDICATION: Followup ileus. ABDOMEN: Five images of the abdomen were obtained in supine and upright projections 10/12/18 and compared with 10/10/18. Although there continue to be air fluid levels in the proximal to mid small bowel, the loops of bowel are less distended than on the previous examination, suggesting a decrease in degree of paralytic obstructive process. There is again no evidence of free air. IMPRESSION: Decreasing distention of small bowel loops but with continued air fluid levels present. Findings suggest improvement. MTDD
--- NOTE | 2018-10-12 11:33 | PCM.DCSUM1 ---
Discharge Summary - Hospital Course HPI Initial Comments: Patient is 58 yr [facility] for worsening diarrhea, weakness after being discharged from [facility] earlier in the week. He had normal labs at discharge. Labs at [place] [facility] showed elevated creatinine and critical potassium of 7.4. Patient was directly admitted from clinic to floor. He had been having increased output from ileostomy highest output over 4500/day on Thursday, staff were having hard time keeping back on. He had subtotal colectomy and end ileostomy done September 22 , discharged Oct 04. Diagnosis: Stroke: No - Discharge Data Discharge Date: 10/12/18 Discharge Disposition: DC/Tfer to [place] [address] Condition: Good - Discharge Diagnosis/Problem(s) (1) Hyperkalemia SNOMED Code(s): 98696926 ICD Code: E87.5 - HYPERKALEMIA Status: Resolved (2) Diarrhea SNOMED Code(s): 99894442 ICD Code: R19.7 - DIARRHEA, UNSPECIFIED Status: Acute Problem Details: improved (3) Left knee pain SNOMED Code(s): 26375205 ICD Code: M25.562 - PAIN IN LEFT KNEE Status: Acute Problem Details: improved Qualifiers: Chronicity: acute Qualified Code(s): M25.562 - Pain in left knee (4) Fall SNOMED Code(s): 0321601, 041685054 ICD Code: W19.XXXA - UNSPECIFIED FALL, INITIAL ENCOUNTER Status: Acute (5) Acute on chronic renal insufficiency SNOMED Code(s): 039025598 ICD Code: N28.9 - DISORDER OF KIDNEY AND URETER, UNSPECIFIED; N18.9 - CHRONIC KIDNEY DISEASE, UNSPECIFIED Status: Resolved (6) Congestive heart failure SNOMED Code(s): 82560526 ICD Code: I50.9 - HEART FAILURE, UNSPECIFIED Status: Chronic Qualifiers: Heart failure type: diastolic Heart failure chronicity: chronic Qualified Code(s): I50.32 - Chronic diastolic (congestive) heart failure (7) DM type 2 (diabetes mellitus, type 2) SNOMED Code(s): 76661489 ICD Code: E11.9 - TYPE 2 DIABETES MELLITUS WITHOUT COMPLICATIONS Status: Chronic Problem Details: With A1c of 5.3%, stopped insulin and started Januvia. BS stable here. 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 Tolerated low dose lisinopril and changed to Toprol XL 12.5 mg daily. May need to be titrated up for better BP control. Recheck BMP at visit on the . Qualifiers: Hypertension type: essential hypertension Qualified Code(s): I10 - Essential (primary) hypertension (9) Hypoalbuminemia SNOMED Code(s): 225447704 ICD Code: E88.09 - OTH DISORDERS OF PLASMA-PROTEIN METABOLISM, NEC Status: Chronic (10) Hypothyroidism SNOMED Code(s): 33840374 ICD Code: E03.9 - HYPOTHYROIDISM, UNSPECIFIED Status: Chronic Qualifiers: Hypothyroidism type: unspecified Qualified Code(s): E03.9 - Hypothyroidism , unspecified (11) Moderate dehydration SNOMED Code(s): 6016764571979 ICD Code: E86.0 - DEHYDRATION Status: Resolved (12) Parkinsons SNOMED Code(s): 46867019 ICD Code: G20 - PARKINSON'S DISEASE Status: Chronic (13) Dementia SNOMED Code(s): 63764987 ICD Code: F03.90 - UNSPECIFIED DEMENTIA WITHOUT BEHAVIORAL DISTURBANCE Status: Chronic Qualifiers: Alzheimer's disease onset: unspecified onset Dementia behavioral disturbance: with behavioral disturbance (14) Lives in intermediate SNOMED Code(s): 941427711 ICD Code: Z59.3 - PROBLEMS RELATED TO LIVING IN RESIDENTIAL INSTITUTION Status: Chronic - Patient Summary/Data Consults: Consultations 10/08/18 17:04 Consult to Case Management/Retail Stock Clerk [CONS] Routine Comment: Physician Instructions: Service(s) to be Consulted: Case Management Consult to Asphalt Mixing Machine Operator [CONS] Routine Comment: Physician Instructions: Quantity: PT Evaluation and Treatment [CONS] Routine Please Evaluate and Treat. PT Reason for Consult: Balance This query below is only for informational purposes and is not editable. Hospital Course: Patient repeat potassium was 7.7, received calcium gluconate x 2, albuterol nebs x 2 and D50 with Insulin 10 units along with EKG which showed peaked T waves, telemetry placed. Used Albuterol and calcium to help get his potassium down. He did fluctuate from 5.7 then back up to 6.9 then started trending down until he got to 4.3, back to 5.1 at discharge but still within normal range. IV fluids were started then changed to D5NS then D51/4NS for dehydration. His IV fluids were discontinued on Thursday when his creatinine returned to normal at 1.1. Renin and aldosterone were ordered and pending to find cause of his hyperkalemia in setting of mild renal insufficiency. His stools decreased and firmed up to pudding consistency and decreased output from his BUSHRA drain during hospital course. His abdominal x-ray on day of discharge showed improvement of air fluid levels. Patient was ambulating at his baseline. Denied any pain. [facility], will follow up with surgery and wound care tomorrow as previously scheduled. - Patient Instructions Diet: Diabetic Diet Other/Special Instructions: Follow up with surgery and wound care tomorrow as previously scheduled. - Discharge Plan *PRESCRIPTION DRUG MONITORING PROGRAM REVIEWED*: Not Applicable *COPY OF PRESCRIPTION DRUG MONITORING REPORT IN PATIENT [place]: No Prescriptions/Med Rec: Saccharomyces Boulardii [Florastor] 250 mg PO BID 90 Days #60 cap Home Medications: Home Meds Albuterol [Proventil HFA] 1 puff INH TID 06/13/14 [History] Cholecalciferol (Vitamin D3) [Vitamin D3] 1,000 unit PO DAILY@0600 06/13/14 [ History] Multivitamin with Minerals [Multivitamins with Minerals] 1 tab PO BEDTIME [History] Omeprazole 20 mg PO BEDTIME 06/13/14 [History] Sertraline [Zoloft] 200 mg PO DAILY 06/13/14 [History] Benzoyl Peroxide 1 applic TOP BEDTIME 05/09/15 [History] Nitroglycerin [Nitrostat] 0.4 mg SL Q5M PRN 05/09/15 [History] Aspirin [Halfprin] 81 mg PO DAILY 04/23/17 [History] Ferrous Gluconate 324 mg PO BIDMEALS 04/23/17 [History] Selenium Sulfide [Anti-Dandruff] 1 applic TOP SUWEFR 04/23/17 [History] atorvaSTATin [Lipitor] 10 mg PO BEDTIME 04/23/17 [History] Aloe Vera/Sodium Chloride [[place] Saline Nasal Gel] 1 applic LOBITO BID 09/30/17 [ History] Emollient Combination No.75 [[place] Butter] 1 applic TOP BID 09/30/17 [History] Levothyroxine 25 mcg PO 0600 tablet 10/01/17 [Rx] Gabapentin [Neurontin] 400 mg PO QID@08,12,16,20 06/01/18 [History] Glycerin 1 supp RECTAL DAILY PRN 06/01/18 [History] Magnesium Oxide 250 mg PO DAILY 06/01/18 [History] QUEtiapine [SEROquel] 50 mg PO 08,06/01/18 [History] QUEtiapine [SEROquel] 300 mg PO BEDTIME 06/01/18 [History] Acetaminophen [Tylenol Extra Strength] 500 mg PO TID PRN 10/08/18 [History] Acetaminophen [Tylenol] 650 mg PO Q4H PRN 10/08/18 [History] Albuterol Sulfate [Albuterol Sulfate Hfa] 1 puff IH Q4H PRN 10/08/18 [History] Diphenoxylate HCl/Atropine [Lomotil] 1 tab PO QID 10/08/18 [History] Furosemide [Lasix] 20 mg PO DAILY 10/08/18 [History] Levothyroxine 200 mcg PO DAILY@0600 10/08/18 [History] Loperamide [Imodium] 2 mg PO ASDIRECTED 10/08/18 [History] Metoprolol Succinate [Toprol XL] 12.5 mg PO DAILY 10/08/18 [History] Tiotropium [Spiriva HandiHaler] 18 mcg IH DAILY 10/08/18 [History] Triamcinolone Acetonide [Triamcinolone Acetonide 0.1% Crm] 1 applic TOP BID PRN 10/08/18 [History] oxyCODONE 5 mg PO Q4H PRN 10/08/18 [History] Jytdo-Z-Ttmkzqxwwfklr [Beano] 1 tab PO ASDIRECTED PRN tablet 10/12/18 [Rx] Saccharomyces Boulardii [Florastor] 250 mg PO BID 90 Days #60 cap 10/12/18 [Rx] Patient Handouts: Fall Prevention in Hospitals, Adult, Venous Thromboembolism Prevention - Discharge Summary/Plan Comment DC Time >30 min.: Yes - Patient Data Vitals - Most Recent: Last Vital Signs Temp 36.9 C 10/12/18 08:00 Pulse 82 10/12/18 09:22 Resp 18 10/12/18 08:00 BP 126/64 10/12/18 09:22 Pulse Ox 95 10/12/18 08:00 Weight - Most Recent: 77.065 kg I&O - Last 24 hours: Intake & Output 10/11/18 10/12/18 10/12/18 22:59 06:59 14:59 Intake Total 400 Output Total 1320 1060 Balance -1320 -660 Lab Results - Last 24 hrs: Laboratory Results - last 24 hr 10/11/18 10/11/18 10/11/18 Range/Units 06:15 11:48 13:05 Sodium 134 L (135-145) mmol/L Potassium 4.3 (3.5-5.3) mmol/L Chloride 107 (100-110) mmol/L Carbon Dioxide 17 L (21-32) mmol/L BUN 26 H (7-18) mg/dL Creatinine 1.1 (0.70-1.30) mg/dL Est Cr Clr Drug Dosing 65.23 mL/min Estimated GFR (MDRD) > 60 (>60) BUN/Creatinine Ratio 23.6 H (9-20) Glucose 118 H (80-116) mg/dL POC Glucose 102 (80-116) mg/dL Calcium 7.7 L (8.6-10.2) mg/dL Cortisol AM Sample 11.1 (6.2-19.4) ug/dL 10/11/18 10/11/18 10/12/18 Range/Units 17:11 20:31 05:46 Sodium (135-145) mmol/L Potassium (3.5-5.3) mmol/L Chloride (100-110) mmol/L Carbon Dioxide (21-32) mmol/L BUN (7-18) mg/dL Creatinine (0.70-1.30) mg/dL Est Cr Clr Drug Dosing mL/min Estimated GFR (MDRD) (>60) BUN/Creatinine Ratio (9-20) Glucose (80-116) mg/dL POC Glucose 139 H 141 H 96 (80-116) mg/dL Calcium (8.6-10.2) mg/dL Cortisol AM Sample (6.2-19.4) ug/dL 10/12/18 Range/Units 06:40 Sodium 134 L (135-145) mmol/L Potassium 5.1 (3.5-5.3) mmol/L Chloride 108 (100-110) mmol/L Carbon Dioxide 15 L (21-32) mmol/L BUN 30 H (7-18) mg/dL Creatinine 1.2 (0.70-1.30) mg/dL Est Cr Clr Drug Dosing 59.79 mL/min Estimated GFR (MDRD) > 60 (>60) BUN/Creatinine Ratio 25.0 H (9-20) Glucose 95 (80-116) mg/dL POC Glucose (80-116) mg/dL Calcium 7.9 L (8.6-10.2) mg/dL Cortisol AM Sample (6.2-19.4) ug/dL Med Orders - Current: Current Medications Acetaminophen (Tylenol) 650 mg PO Q4H PRN PRN Reason: FEVER/PAIN Albuterol (Ventolin Hfa) 0 gm INH TID [facility] Last Admin: 10/12/18 09:26 Dose: 1 puff Albuterol (Ventolin Hfa) 0 gm INH Q4H PRN PRN Reason: Wheezing Uychq-P-Xqjzhaehvzyed (Beano) 1 tab PO ASDIRECTED PRN PRN Reason: Gas Aspirin (Halfprin) 81 mg PO DAILY [facility] Last Admin: 10/12/18 09:21 Dose: 81 mg Atorvastatin Calcium (Lipitor) 10 mg PO BEDTIME [facility] Last Admin: 10/11/18 20:21 Dose: 10 mg Cholecalciferol (Vitamin D3) 25 mcg PO DAILY@0600 [facility] Last Admin: 10/12/18 05:37 Dose: 25 mcg Diphenoxylate HCl/Atropine (Lomotil 0.025-2.5 Mg) 1 tab PO QID [facility] Last Admin: 10/12/18 09:26 Dose: 1 tab Ferrous Sulfate (Ferrous Sulfate) 325 mg PO BIDMEALS [facility] Last Admin: 10/12/18 09:20 Dose: 325 mg Furosemide (Lasix) 20 mg PO DAILY [facility] Last Admin: 10/12/18 09:21 Dose: 20 mg Gabapentin (Neurontin) 400 mg PO QID@08,12,16,20 [facility] Last Admin: 10/12/18 09:20 Dose: 400 mg Insulin Human Lispro (Humalog) 0 unit SUBCUT TIDMEALS PRN; Protocol PRN Reason: Blood Glucose Levothyroxine Sodium (Levothyroxine) 25 mcg PO DAILY@0600 [facility] Last Admin: 10/12/18 05:37 Dose: 25 mcg Levothyroxine Sodium (Levothyroxine) 200 mcg PO DAILY@0600 [facility] Last Admin: 10/12/18 05:37 Dose: 200 mcg Loperamide HCl (Imodium) 2 mg PO ASDIRECTED [facility] Magnesium Oxide (Magnesium Oxide) 400 mg PO DAILY [facility] Last Admin: 10/12/18 09:22 Dose: 400 mg Metoprolol Succinate (Toprol Xl) 12.5 mg PO DAILY [facility] Last Admin: 10/12/18 09:22 Dose: 12.5 mg Multivitamins/Minerals (Thera M Plus) 1 tab PO BEDTIME [facility] Last Admin: 10/11/18 20:23 Dose: 1 tab Nitroglycerin (Nitrostat) 0.4 mg SL Q5M PRN PRN Reason: Chest Pain Oxycodone HCl (Oxycodone) 5 mg PO Q4H PRN PRN Reason: MODERATE PAIN Last Admin: 10/11/18 15:11 Dose: 5 mg Pantoprazole Sodium (Protonix) 40 mg PO BEDTIME [facility] Last Admin: 10/11/18 20:21 Dose: 40 mg Quetiapine Fumarate (Seroquel) 300 mg PO BEDTIME [facility] Last Admin: 10/11/18 20:20 Dose: 300 mg Quetiapine Fumarate (Seroquel) 50 mg PO BID@0800,1200 [facility] Last Admin: 10/12/18 09:20 Dose: 50 mg Saccharomyces Boulardii (Florastor) 250 mg PO BID [facility] Last Admin: 10/12/18 09:21 Dose: 250 mg Sertraline HCl (Zoloft) 200 mg PO DAILY [facility] Last Admin: 10/12/18 09:23 Dose: 200 mg Sodium Chloride (Saline Flush) 10 ml FLUSH ASDIRECTED PRN PRN Reason: Keep Vein Open Last Admin: 10/09/18 07:08 Dose: 10 ml Sodium Chloride ([place] Saline Nasal Gel) 0 gm LOBITO BID [facility] Last Admin: 10/12/18 09:21 Dose: 1 applic Sodium Chloride (Saline Flush) 10 ml FLUSH ASDIRECTED PRN PRN Reason: Keep Vein Open Tiotropium [place] (Spiriva Handihaler) 18 mcg INH DAILY [facility] Last Admin: 10/12/18 09:22 Dose: 1 inhalation Triamcinolone Acetonide (Triamcinolone Acetonide 0.1% Crm) 0 gm TOP BID PRN PRN Reason: Rash Discontinued Medications Acetaminophen (Tylenol Extra Strength) 500 mg PO TID PRN PRN Reason: MILD PAIN Albuterol (Proventil Neb Soln) 2.5 mg NEB ONETIME ONE Stop: 10/08/18 18:13 Last Admin: 10/08/18 18:25 Dose: 2.5 mg Albuterol (Proventil Neb Soln) 2.5 mg NEB ONETIME ONE Stop: 10/09/18 06:14 Last Admin: 10/09/18 06:35 Dose: 2.5 mg Albuterol (Proventil Neb Soln) 2.5 mg NEB ONETIME ONE Stop: 10/09/18 14:50 Last Admin: 10/09/18 15:50 Dose: 2.5 mg Albuterol (Proventil Neb Soln) 2.5 mg NEB ONETIME ONE Stop: 10/10/18 12:23 Last Admin: 10/10/18 13:17 Dose: 2.5 mg Amlodipine Besylate (Norvasc) 2.5 mg PO DAILY [facility] Last Admin: 10/11/18 08:58 Dose: 2.5 mg Calcium Gluconate (Calcium Gluconate) 1 gm IVPUSH ONETIME ONE Stop: 10/08/18 18:13 Last Admin: 10/08/18 18:25 Dose: 1 gm Calcium Gluconate (Calcium Gluconate) 1 gm IVPUSH ONETIME ONE Stop: 10/09/18 06:14 Last Admin: 10/09/18 06:42 Dose: 1 gm Dextrose/Water (Dextrose 50% In Water) 50 ml IVPUSH ONETIME ONE Stop: 10/08/18 18:15 Last Admin: 10/08/18 18:23 Dose: 50 ml Dextrose/Water (Dextrose 50% In Water) 50 ml IVPUSH ONETIME ONE Stop: 10/08/18 19:45 Last Admin: 10/08/18 19:50 Dose: 50 ml Dextrose/Water (Dextrose 50% In Water) 50 ml IVPUSH ONETIME ONE Stop: 10/09/18 06:14 Last Admin: 10/09/18 06:39 Dose: 50 ml Sodium Chloride (Normal Saline) 1,000 mls @ 125 mls/hr IV ASDIRECTED [facility] Last Admin: 10/08/18 19:39 Dose: 125 mls/hr Dextrose/Sodium Chloride (Dextrose 5%-Normal Saline) 1,000 mls @ 125 mls/hr IV ASDIRECTED [facility] Last Admin: 10/10/18 06:03 Dose: 125 mls/hr Dextrose/Sodium Chloride (Dextrose 5%-Normal Saline) 1,000 mls @ 999 mls/hr IV ASDIRECTED [facility] Last Admin: 10/09/18 07:04 Dose: 999 mls/hr Dextrose/Sodium Chloride (Dextrose 5%-1/4 Ns) 1,000 mls @ 125 mls/hr IV ASDIRECTED [facility] Last Admin: 10/11/18 02:01 Dose: 125 mls/hr Insulin Human Lispro (Humalog) 2 unit SUBCUT ONETIME ONE Stop: 10/10/18 13:00 Last Admin: 10/10/18 13:27 Dose: 2 units Insulin Human Regular (Humulin R) 10 unit IV ONETIME ONE Stop: 10/08/18 18:13 Last Admin: 10/08/18 18:28 Dose: 0.3 ml Insulin Human Regular (Humulin R) 10 unit IV ONETIME ONE Stop: 10/09/18 06:14 Last Admin: 10/09/18 06:52 Dose: 10 units Levothyroxine Sodium (Levothyroxine) 200 mcg PO DAILY@0600 [facility] Last Admin: 10/09/18 18:54 Dose: Not Given Levothyroxine Sodium (Synthroid) 200 mcg PO DAILY@0600 [facility] Last Admin: 10/11/18 05:08 Dose: 200 mcg Metoprolol Succinate (Toprol Xl) 12.5 mg PO DAILY [facility] Last Admin: 10/09/18 10:54 Dose: 12.5 mg Non-Formulary Medication (Benzoyl Peroxide [Benzoyl Peroxide]) 1 applic TOP BEDTIME [facility] Non-Formulary Medication (Emollient Combination No.75 [[place] Butter]) 1 applic TOP BID [facility] Non-Formulary Medication (Ferrous Gluconate [Ferrous Gluconate]) 324 mg PO BIDMEALS [facility] Last Admin: 10/09/18 19:26 Dose: Not Given Non-Formulary Medication (Selenium Sulfide [Anti-Dandruff]) 1 applic TOP SUWEFR [facility] Last Admin: 10/09/18 19:25 Dose: Not Given Quetiapine Fumarate (Seroquel) 50 mg PO BID@0800,1200 [facility] Last Admin: 10/09/18 18:53 Dose: Not Given Quetiapine Fumarate (Seroquel) 50 mg PO BID@0800,1200 [facility] Last Admin: 10/10/18 13:23 Dose: 50 mg - Exam General: Reports: Alert, Oriented, Cooperative Lungs: Reports: Clear to Auscultation, Normal Respiratory Effort Cardiovascular: Reports: Regular Rate, Regular Rhythm GI/Abdominal Exam: Normal Bowel Sounds, Soft, Non-Tender, No Distention Extremities: No Pedal Edema Skin: Reports: Warm, Dry, Intact
== END 2018-10-12 11:55 | DRG 641 ==
LOC: FB.MS 16:39
PROVIDERS: ADMIT Family Medicine; ATTEND Family Medicine
DX: E87.5 Hyperkalemia (principal); I13.0 Hypertensive heart and chronic kidney disease with heart failure and stage 1 through stage 4 chronic kidney disease, or unspecified chronic kidney disease; I50.32 Chronic diastolic (congestive) heart failure; N17.9 Acute kidney failure, unspecified; E86.0 Dehydration; R53.1 Weakness; R29.6 Repeated falls; H54.7 Unspecified visual loss; Z93.2 Ileostomy status; F71 Moderate intellectual disabilities; J44.9 Chronic obstructive pulmonary disease, unspecified; E11.22 Type 2 diabetes mellitus with diabetic chronic kidney disease; N18.9 Chronic kidney disease, unspecified; J30.9 Allergic rhinitis, unspecified; G20 Parkinson's disease; F03.90 Unspecified dementia, unspecified severity, without behavioral disturbance, psychotic disturbance, mood disturbance, and anxiety; F32.9 Major depressive disorder, single episode, unspecified; F41.9 Anxiety disorder, unspecified; E03.9 Hypothyroidism, unspecified; Z86.14 Personal history of Methicillin resistant Staphylococcus aureus infection; Z90.49 Acquired absence of other specified parts of digestive tract; M25.562 Pain in left knee; W19.XXXA Unspecified fall, initial encounter; E88.09 Other disorders of plasma-protein metabolism, not elsewhere classified; Z88.0 Allergy status to penicillin; Z88.1 Allergy status to other antibiotic agents; Z79.82 Long term (current) use of aspirin; Z79.890 Hormone replacement therapy; Z79.899 Other long term (current) drug therapy
CPT/HCPCS: 36415; 73562-LT; 74019; 80048; 80053; 82088; 82533; 82962; 83735; 84132; 84244; 87045; 87046; 87324; 87427; 93005; 94640; 97161-GP; A4216; A9270-GY; J0610; J1815; J1815-GY; J7030

== ENCOUNTER 2018-10-25 13:12 | Inpatient (IN) | payer MEDICAID ==
[2018-10-25] MEDS ORDERED: Acetaminophen 325 MG Tab PO PRN ×2 (16:25→17:02)
[2018-10-25] MEDS: SODIUM POLYSTYRENE SULFONATE 15 GM PO SCH ×2 (17:54→22:37)
[2018-10-25] MEDS: Cholestyramine/Sucrose Powder 4 GM Packet PO SCH (17:54)
[2018-10-25] MEDS ORDERED: SODIUM POLYSTYRENE SULFONATE 15 GM PO SCH (18:00)
[2018-10-25] MEDS ORDERED: QUEtiapine 100 MG Tab PO SCH (21:00)
[2018-10-25] MEDS: Loperamide 2 MG Cap PO SCH (21:17)
[2018-10-25] MEDS: Atropine/Diphenoxylate 0.025-2.5 MG Tab PO SCH (21:23)
--- NOTE | 2018-10-25 23:27 | HP ---
ADMISSION DATE: 10/25/2018 CHIEF COMPLAINT: Diarrhea with high ileostomy output and hyperkalemia. HISTORY OF PRESENT ILLNESS: Mr. Dejesus is a 58-year-old resident of the fpc in [place] with a history of moderate intellectual disability with psychotic disorder, drug-induced parkinsonism, COPD, hypothyroidism, type 2 diabetes, dementia, hypertension, and CKD stage 2. He has had a chronic megacolon and on 09/20/2018, he was admitted to [facility] in [place]. 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 On 09/22, he underwent subtotal colectomy with end ileostomy. Since that time, he has had recurring problem with high ostomy output and hyperkalemia. He was hospitalized for this at [facility] on 10/13/2018, and his hyperkalemia was felt to be acute kidney injury. His Imodium and Lomotil were continued, and he was discharged to home. He was seen by Noy in the clinic Thursday and again today and was found to have a climbing serum potassium again and high ileostomy output. The patient is a poor historian. He denies any current problems or complaints. He denies pain. LABORATORY DATA: Laboratory study in the clinic today showed hemoglobin of 7.8 g, MCV 93, platelets 364, potassium 6.7, BUN 37, and creatinine 1.1. For this reason, he is admitted to the hospital for further investigation and treatment. PAST MEDICAL HISTORY: See above. Significant for the fpc residence for intellectual disability, psychotic disorder, drug-induced parkinsonism. He is on medication for hypothyroidism. He has COPD, hypertension, history of obesity. PAST SURGICAL HISTORY: Also includes appendectomy and cholecystectomy. SOCIAL HISTORY: The patient is single, resident of a fpc, and no family is listed. REVIEW OF SYSTEMS: GENERAL: No seizures or syncope. HEENT: No complaints of headache. PULMONARY: No cough or dyspnea. CARDIOVASCULAR: No chest pain or palpitations. GASTROINTESTINAL: No abdominal pain. He has ileostomy with high fluid output. MUSCULOSKELETAL: He does have chronic low-grade swelling of the lower extremities. PHYSICAL EXAMINATION: GENERAL: He is alert, awake. He is able to give a history and reports seeing Noy in the clinic today. He is not able to give details of his past medical problems or treatments. VITAL SIGNS: Blood pressure 122/60, pulse 68, respirations normal, weight 176 pounds, temperature 97.6. SKIN: Anicteric. Warm and dry. He has slight dried excoriations with very mild erythema of the right lower extremity. He also has mild erythematous rash around his ileostomy site. HEENT: Shows pupils to be equal and reactive. Oropharynx is clear. LUNGS: Clear. HEART: Regular, without murmur or gallop. ABDOMEN: Normal bowel sounds. A healthy-appearing ileostomy is present in the right upper abdomen. No tenderness. EXTREMITIES: Show 1+ edema at the lower tibias and ankles and intact dorsalis pedis pulses. ASSESSMENT: 1. Hyperkalemia with likely secondary to a combination of medications and low renal potassium excretion. 2. Recent ileostomy for colonic megacolon with volvulus, high outputs. 3. Chronic fpc residence for intellectual disability and psychotic disorder. 4. Hypothyroidism. 5. Drug-induced parkinsonism. 6. Anemia, cause unclear. PLAN: He is admitted to acute care. We will assess his medications, provide IV fluid if necessary, and anticipate a 48- to 72-hour hospital stay, followed by return to the fpc. /[id number] KEYLA/TAMMI
[2018-10-26] MEDS: SODIUM POLYSTYRENE SULFONATE 15 GM PO SCH ×4 (05:33→23:42)
[2018-10-26] MEDS ORDERED: Levothyroxine 25 MCG Tab PO SCH (06:00)
[2018-10-26] MEDS: Loperamide 2 MG Cap PO SCH ×2 (07:29→20:00)
[2018-10-26] MEDS: Cholestyramine/Sucrose Powder 4 GM Packet PO SCH (10:02)
[2018-10-26] MEDS: Atropine/Diphenoxylate 0.025-2.5 MG Tab PO SCH ×4 (10:02→20:05)
[2018-10-26] MEDS: Verapamil 180 MG Tab.ER PO SCH (10:07)
--- NOTE | 2018-10-26 13:49 | PN ---
DATE SEEN: 10/26/2018 HISTORY: Canelo is a 58-year-old resident of a half-way, who underwent subtotal colectomy for megacolon and volvulus in August of 2018. Subsequent to that, he has had profuse copious watery output from his ileostomy. He has had repeated climbing serum potassium level and was admitted to [facility] with a potassium of 7.4 back on October 08. The patient has been followed as an outpatient, and potassium has climbed from 5.6 on Thursday of last week to 6.7 on 10/25/18. For this reason, he was sent over for admission. He continues to have watery output and a low hemoglobin at 7.8. PHYSICAL EXAMINATION: GENERAL: He is alert, comfortable, and pleasant. VITAL SIGNS: Blood pressure 151/74, pulse 82, respirations 20, O2 saturation 94% on room air, temperature 98.4, weight 173 pounds 11 ounces. SKIN: Clear. Mouth is dry. LUNGS: Clear to the bases. HEART: Regular without murmur or gallop. ABDOMEN: Normoactive bowel sounds. Soft and nontender. Healthy-appearing ileostomy with watery output in the bag. EXTREMITIES: Show trace edema at the ankles. ASSESSMENT: 1. Hyperkalemia, question due to bicarb wasting and renal malfunction. 2. Anemia with rising MCV, likely B12 malabsorption. 3. Hypothyroidism with TSH elevated over 20, also likely due to the copious ileostomy output and malabsorption. 4. Intellectual disability. 5. Psychiatric disorder. PLAN: We have held multiple of his medications. He is receiving Lomotil and loperamide. I have slightly increased his levothyroxine intake. Add cholestyramine and Kayexalate powder without sorbitol. We will continue to follow him clinically, his ileostomy outputs, and his serum electrolyte levels. Labs pending for tomorrow again, and we will likely begin supplementation of vitamin B12. We will continue to provide palliative care measures for his underlying medical problems and disabilities. Anticipate return to the half-way in another 48 to 72 hours, if he continues to improve. /[id number] KEYLA/DENNISL
[2018-10-26] MEDS ORDERED: QUEtiapine 100 MG Tab PO SCH (21:00)
[2018-10-27] MEDS: SODIUM POLYSTYRENE SULFONATE 15 GM PO SCH ×2 (05:45→10:39)
[2018-10-27] MEDS ORDERED: Levothyroxine 50 MCG Tab PO SCH (06:00)
[2018-10-27] MEDS: Loperamide 2 MG Cap PO SCH (09:01)
[2018-10-27] MEDS: Cholestyramine/Sucrose Powder 4 GM Packet PO SCH (09:02)
[2018-10-27] MEDS: Verapamil 180 MG Tab.ER PO SCH (09:02)
[2018-10-27] MEDS: Atropine/Diphenoxylate 0.025-2.5 MG Tab PO SCH ×2 (10:39→13:05)
[2018-10-27 10:47] VITALS: BP 121/61
--- NOTE | 2018-10-28 06:29 | DISCH ---
DISCHARGE DATE: 10/27/2018 PRIMARY FINAL DIAGNOSES: Hyperkalemia with mild hypovolemia, dehydration, and excessive ileostomy output. OTHER DIAGNOSES: Chronic mental deficiency, behavioral psychiatric disorder, medication induced parkinsonism, hypothyroidism, hypertension. OPERATIONS: None. COMPLICATIONS: None. SUMMARY: Canelo is a 58-year-old resident of a [facility] with the above medical problems who underwent subtotal colectomy at [facility] in [place] on 09/20/2018. Subsequent to that, he had copious watery output in his ileostomy tube and several episodes of climbing potassium up to 7.4, requiring hospitalization in [place]. He was followed as an outpatient by Noy Lepe and has again been found to have climbing potassium. He was admitted to [facility] on 10/25/2018 with a potassium of 6.3. His hemoglobin was stable at 7.8, but TSH was markedly elevated at 29.58. The patient underwent an extensive revamping of his medications, discontinuing many that were deemed noncritical. He became clinically improved, rehydrated. His ileostomy output ranged from 300 to 600 mL per shift. Cholestyramine was added to his medications. His levothyroxine was increased to 250 mg daily. His loperamide and atropine diphenoxylate were continued. His Seroquel was decreased to 200 mg at bedtime and verapamil 180 was added. This was both for blood pressure and stooling control and bowel motility suppression. The patient was given Kayexalate 15 g orally every 6 hours using the powdered non sorbitol product. He tolerated this well. By discharge on 10/27/2018, he was alert, healthy in appearance, very comfortable, in good spirits and talkative. Potassium had decreased to 5.7, BUN 29, creatinine 1.1. He is discharged to return at the [facility]. Laboratory has returned with a B12 level of 998, iron and ferritin levels pending. He is discharged on the following medications: 1. Verapamil ER, Verelan 180 mg daily. 2. Kayexalate powder mixed up for directions without sorbitol 15 g p.o. daily. 3. Selenium sulfide shampoo Thursday, Thursday, Thursday. 4. Florastor 250 mg b.i.d. 5. Quetiapine 200 mg at bedtime. 6. Nitroglycerin p.r.n. 7. Multiple vitamin 1 daily. 8. Metoprolol 12.5 mg daily. 9. Loperamide 2 mg b.i.d. 10.Levothyroxine 250 mg daily. 11.Barney butter cream p.r.n. 12.Cholestyramine 4 g p.o. daily. 13.Aloe vera saline gel p.r.n. 14.Tylenol 500 mg t.i.d. 15.Lomotil 1 tab q.i.d. He is to have an appointment to see Noy in the clinic with followup labs in one week and return sooner p.r.n. /[id number] KEYLA/TAMMI
[2018-10-28 09:09] LABS: IRON BIND.CAP.(TIBC) 213 ug/dL (250-450); IRON SATURATION 19 % (15-55); IRON, SERUM 41 ug/dL (38-169); UIBC 172 ug/dL (111-343)
== END 2018-10-27 13:15 | DRG 641 ==
LOC: FB.MS 15:38
PROVIDERS: ADMIT Family Medicine; ATTEND Family Medicine
DX: E87.5 Hyperkalemia (principal); G21.19 Other drug induced secondary parkinsonism; E86.0 Dehydration; E86.1 Hypovolemia; D64.9 Anemia, unspecified; J44.9 Chronic obstructive pulmonary disease, unspecified; E03.9 Hypothyroidism, unspecified; E11.9 Type 2 diabetes mellitus without complications; I12.9 Hypertensive chronic kidney disease with stage 1 through stage 4 chronic kidney disease, or unspecified chronic kidney disease; Z51.5 Encounter for palliative care; N18.2 Chronic kidney disease, stage 2 (mild); F03.90 Unspecified dementia, unspecified severity, without behavioral disturbance, psychotic disturbance, mood disturbance, and anxiety; F29 Unspecified psychosis not due to a substance or known physiological condition; E66.9 Obesity, unspecified; F71 Moderate intellectual disabilities; Z93.2 Ileostomy status; Z68.29 Body mass index [BMI] 29.0-29.9, adult; Z90.49 Acquired absence of other specified parts of digestive tract
CPT/HCPCS: 36415; 80053; 80069; 82270; 82607; 82728; 83540; 83550; 83735; 84443; 85018; 85025; 85045; A9270-GY

== ENCOUNTER 2018-12-29 14:06 | Emergency (ER) | payer MEDICAID ==
--- NOTE | 2018-12-29 15:01 | EDM.PDOC ---
ED HPI GENERAL MEDICAL PROBLEM - General Chief Complaint: General Stated Complaint: ill Time Seen by Provider: 12/29/18 14:30 Source of Information: Reports: Patient, Significant Other History Limitations: Reports: Other (mental illness. ) - History of Present Illness INITIAL COMMENTS - FREE TEXT/NARRATIVE: pt is a resident at a care home, comes in with career center director who is concerned for possibility of elevation of his potassium. pt as Hx of multiple morbidities including recurrent hyperkalemia , he was started on Ativan on Thursday for control of behavioral problems and today he seemed sleepy and somewhat lethargic at lunch time, hence he was brought here for evaluation, pt is alert and unreliable historian , denies any distress. there is no Hx of fever cough, pain complaints or GI sx or any other concerns. - Related Data Allergies Allergy/AdvReac Type Severity Reaction Status Date / Time Penicillins Allergy Cannot Verified 12/29/18 14:18 Remember vancomycin Allergy Cannot Verified 12/29/18 14:18 Remember Home Meds: Home Meds Multivitamin with Minerals [Multivitamins with Minerals] 1 tab PO BEDTIME [History] Nitroglycerin [Nitrostat] 0.4 mg SL Q5M PRN 05/09/15 [History] Selenium Sulfide [Anti-Dandruff] 1 applic TOP SUWEFR 04/23/17 [History] Aloe Vera/Sodium Chloride [[place] Saline Nasal Gel] 1 applic LOBITO BID 09/30/17 [ History] Emollient Combination No.75 [[place] Butter] 1 applic TOP BID 09/30/17 [History] Acetaminophen [Tylenol Extra Strength] 500 mg PO TID PRN 10/08/18 [History] Diphenoxylate HCl/Atropine [Lomotil] 1 tab PO QID 10/08/18 [History] Levothyroxine 200 mcg PO DAILY@0600 10/08/18 [History] Loperamide [Imodium] 4 mg PO BID@,10/08/18 [History] Metoprolol Succinate [Toprol XL] 12.5 mg PO DAILY 10/08/18 [History] Saccharomyces Boulardii [Florastor] 250 mg PO BID 90 Days #60 cap 10/12/18 [Rx] Loperamide [Imodium] 2 mg PO BID@12,16 10/25/18 [History] Saccharomyces Boulardii [Florastor] 250 mg PO BID 10/25/18 [History] Cholestyramine/Sucrose [Cholestyramine] 4 gm PO DAILY #1 canister 10/27/18 [Rx] Levothyroxine [Synthroid] 50 mcg PO DAILY@0600 tablet 10/27/18 [Rx] QUEtiapine [SEROquel] 200 mg PO BEDTIME tablet 10/27/18 [Rx] Sodium Polystyrene Sulfonate [Kayexalate] 15 gm PO DAILY 30 Days #30 cup [Rx] Verapamil [Verelan] 180 mg PO DAILY #30 cap.sr 10/27/18 [Rx] Past Medical History HEENT History: Reports: Allergic Rhinitis, Impaired Vision, Other (See Below) Other HEENT History: Allergic rhinitis. wears glasses Cardiovascular History: Reports: Angina, Hypertension Other Cardiovascular History: lower leg edema. Respiratory History: Reports: COPD Gastrointestinal History: Reports: Colon Polyp, Other (See Below) Genitourinary History: Reports: None Other Genitourinary History: Increased alkaline phosphatase, hypocalcemia. 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 Neurological History: Reports: Parkinson's, Seizure, Other (See Below) Other Neuro History: Neuroleptic induced Parkinsonism. Tremors Psychiatric History: Reports: Anxiety, Depression, Developmental Delay, Mood Swings, Psych Hospitalization(s), Suicide Attempt Other Psychiatric History: Transient alteration of awareness, moderate intellectual disabilities. Endocrine/Metabolic History: Reports: Diabetes, Type II, Hypothyroidism Hematologic History: Reports: Anemia Oncologic (Cancer) History: Reports: None Dermatologic History: Reports: Cellulitis, Other (See Below) Other Dermatologic History: Acne, dermatitis, dry scalp, stasis dermatitis both legs, history of VERSA. pink, warm galaviz area on right lower leg - Infectious Disease History Infectious Disease History: Reports: Other (See Below) Other Infectious Disease History: hx of versa - Past Surgical History GI Surgical History: Reports: Appendectomy, Cholecystectomy, Colon, Colonoscopy Other GI Surgeries/Procedures: pt had an ileostomy placed in the recent past Male Surgical History: Reports: None Social & Family History - Family History Family Medical History: Noncontributory - Caffeine Use Caffeine Use: Reports: Coffee, Soda - Living Situation & Occupation Living situation: Reports: Single, Extended Care Facility (Resident in care home for cognitive delay/disability.) ED ROS GENERAL - Review of Systems Review Of Systems: See Below Constitutional: Denies: Fever, Chills HEENT: Reports: No Symptoms Respiratory: Reports: No Symptoms Cardiovascular: Reports: No Symptoms GI/Abdominal: Reports: No Symptoms : Reports: No Symptoms ED EXAM, GENERAL - Physical Exam Exam: See Below Exam Limited By: Altered Mental Status General Appearance: Alert. No: Lethargic, Obtunded, Mild Distress Eye Exam: Bilateral Eye: Normal Inspection Ears: Normal External Exam, Normal TMs Nose: Normal Inspection Throat/Mouth: Normal Inspection, Normal Oropharynx Head: Atraumatic Neck: Normal Inspection, Supple Respiratory/Chest: No Respiratory Distress, Lungs Clear Cardiovascular: Normal Peripheral Pulses, Regular Rate, Rhythm GI/Abdominal: Normal Bowel Sounds, Soft, Non-Tender Neurological: Alert, Normal Reflexes, No Motor/Sensory Deficits Skin Exam: Warm Course - Vital Signs Text/Narrative:: labs results were explained to caregiver, pt has mild dehydration and his K is WNL at 5.1 pt symptoms are likely to recently started ativan. advised caregiver of this and recommended to use this medication only on as needed bases and follow with PCP in 2-3 days for re-check. Last Recorded V/S: Last Vital Signs Temp 36.4 C 12/29/18 14:06 Pulse 67 12/29/18 14:06 Resp 18 12/29/18 14:06 BP 155/76 H 12/29/18 14:06 Pulse Ox 100 12/29/18 14:06 - Orders/Labs/Meds Labs: Laboratory Tests 12/29/18 12/29/18 Range/Units 14:25 14:25 WBC 5.2 (4.5-12.0) X10-3/uL RBC 3.02 L (4.30-5.75) x10(6)uL Hgb 8.8 L (13.5-17.8) g/dL Hct 27.4 L (30.0-51.3) % MCV 90.7 (80-96) fL MCH 29.2 (27.7-33.6) pg MCHC 32.2 (32.2-35.4) g/dL RDW 16.9 H (11.5-15.5) % Plt Count 199 (125-369) X10(3)uL MPV 7.4 (7.4-10.4) fL Neut % (Auto) 65.7 (46-82) % Lymph % (Auto) 23.4 (13-37) % [place] % (Auto) 4.6 (4-12) % Eos % (Auto) 6 H (1.0-5.0) % Baso % (Auto) 1 (0-2) % Neut # (Auto) 3.5 (1.6-8.3) # Lymph # (Auto) 1.2 (0.6-5.0) # [place] # (Auto) 0.2 (0.0-1.3) # Eos # (Auto) 0.3 (0.0-0.8) # Baso # (Auto) 0.0 (0.0-0.2) # Sodium 140 (135-145) mmol/L Potassium 5.1 (3.5-5.3) mmol/L Chloride 109 (100-110) mmol/L Carbon Dioxide 24 (21-32) mmol/L BUN 31 H (7-18) mg/dL Creatinine 1.1 (0.70-1.30) mg/dL Est Cr Clr Drug Dosing 62.79 mL/min Estimated GFR (MDRD) > 60 (>60) BUN/Creatinine Ratio 28.2 H (9-20) Glucose 113 (80-116) mg/dL Calcium 8.1 L (8.6-10.2) mg/dL Total Bilirubin 0.1 (0.1-1.3) mg/dL AST 18 D (5-25) IU/L ALT 41 H D (12-36) U/L Alkaline Phosphatase 175 H (56-112) IU/L Total Protein 6.0 (6.0-8.0) g/dL Albumin 2.7 L (3.5-5.2) g/dL Globulin 3.3 g/dL Albumin/Globulin Ratio 0.8 Departure - Departure Time of Disposition: 16:01 Disposition: Home, Self-Care 01 Clinical Impression: Lethargy - Discharge Information Referrals: Noy Lepe NP [Primary Care Provider] - Forms: ED Department Discharge
[2018-12-29 19:51] VITALS: BP 160/61; PULSE 52
== END 2018-12-29 16:25 | disposition home or self-care (01) ==
LOC: FB.ED 14:06
DX: R53.83 Other fatigue (principal); I10 Essential (primary) hypertension; J44.9 Chronic obstructive pulmonary disease, unspecified; F41.9 Anxiety disorder, unspecified; F32.9 Major depressive disorder, single episode, unspecified; E11.9 Type 2 diabetes mellitus without complications; E03.9 Hypothyroidism, unspecified; Z88.0 Allergy status to penicillin; Z88.1 Allergy status to other antibiotic agents; Z79.899 Other long term (current) drug therapy
CPT/HCPCS: 36415; 80053; 85025; 99283

== ENCOUNTER 2019-01-17 21:04 | Emergency (ER) | payer MEDICAID ==
[2019-01-17] MEDS ORDERED: Sodium Chloride 0.9% 10 ML Syringe FLUSH PRN (21:05)
[2019-01-17] MEDS ORDERED: Sodium Chloride 0.9% 1,000 ML IV ONE (21:08)
[2019-01-17] MEDS ORDERED: Albuterol 0.083% 2.5 MG/3 ML Neb Soln NEB ONE (21:51)
[2019-01-17] MEDS ORDERED: Sodium Bicarbonate 8.4% 50 MEQ/50 ML Syringe IVPUSH ONE (21:53)
[2019-01-17] MEDS ORDERED: 50% Dextrose in Water 50 ML Syringe IVPUSH ONE ×2 (21:54→23:54)
[2019-01-17] MEDS ORDERED: Insulin Regular, Human 100 Units/ML 3 ML Vial IV ONE (21:56)
[2019-01-17] MEDS ORDERED: Atropine 1 MG/ML SDV IV ONE ×2 (22:12→22:18)
[2019-01-17] MEDS: Atropine 0.1 MG/ML 10 ML Syringe IVPUSH ONE ×2 (22:13→22:20)
[2019-01-17] MEDS ORDERED: Calcium Gluconate 10% 1 GM/10 ML SDV IVPUSH ONE (22:18)
[2019-01-17] MEDS ORDERED: Sodium Polystyrene Sulfonate 15 GM/60 ML Susp 60 ML Bot PO ONE (22:38)
[2019-01-17] MEDS ORDERED: Sodium Chloride 0.9% 1,000 ML IV SCH (22:45)
[2019-01-17 22:59] VITALS: BP 65/44; PULSE 41
--- NOTE | 2019-01-17 23:30 | EDM.PDOC ---
ED HPI GENERAL MEDICAL PROBLEM - General Stated Complaint: weakness and dizziness Time Seen by Provider: 01/17/19 22:10 Source of Information: Reports: Patient History Limitations: Reports: No Limitations - History of Present Illness INITIAL COMMENTS - FREE TEXT/NARRATIVE: Patient presented to the ED with a caregiver because of feeling weak and dizzy for 1 week and it got worse tonight. They checked his vs and was found to be bradycardic,hypotensive. He denies any N/V/D but has poor oral intake. There is no associated chest pain,dyspnea nor cough, fever and chills. - Related Data Allergies Allergy/AdvReac Type Severity Reaction Status Date / Time Penicillins Allergy Cannot Verified 12/29/18 14:18 Remember vancomycin Allergy Cannot Verified 12/29/18 14:18 Remember Home Meds: Home Meds Multivitamin with Minerals [Multivitamins with Minerals] 1 tab PO BEDTIME [History] Nitroglycerin [Nitrostat] 0.4 mg SL Q5M PRN 05/09/15 [History] Selenium Sulfide [Anti-Dandruff] 1 applic TOP SUWEFR 04/23/17 [History] Aloe Vera/Sodium Chloride [[place] Saline Nasal Gel] 1 applic LOBITO BID 09/30/17 [ History] Emollient Combination No.75 [[place] Butter] 1 applic TOP BID 09/30/17 [History] Acetaminophen [Tylenol Extra Strength] 500 mg PO TID PRN 10/08/18 [History] Diphenoxylate HCl/Atropine [Lomotil] 2 tab PO QID 10/08/18 [History] Levothyroxine 200 mcg PO DAILY@0600 10/08/18 [History] Metoprolol Succinate [Toprol XL] 12.5 mg PO DAILY 10/08/18 [History] Loperamide [Imodium] 4 mg PO TID 10/25/18 [History] Saccharomyces Boulardii [Florastor] 250 mg PO BID 10/25/18 [History] Cholestyramine/Sucrose [Cholestyramine] 4 gm PO DAILY #1 canister 10/27/18 [Rx] Levothyroxine [Synthroid] 50 mcg PO DAILY@0600 tablet 10/27/18 [Rx] QUEtiapine [SEROquel] 200 mg PO BEDTIME tablet 10/27/18 [Rx] Sodium Polystyrene Sulfonate [Kayexalate] 15 gm PO DAILY 30 Days #30 cup [Rx] Verapamil [Verelan] 180 mg PO DAILY #30 cap.sr 10/27/18 [Rx] Ferrous Gluconate 324 mg PO DAILY 12/29/18 [History] Loratadine 10 mg PO DAILY PRN 12/29/18 [History] Past Medical History HEENT History: Reports: Allergic Rhinitis, Impaired Vision, Other (See Below) Other HEENT History: Allergic rhinitis. wears glasses Cardiovascular History: Reports: Angina, Hypertension Other Cardiovascular History: lower leg edema. Respiratory History: Reports: COPD Gastrointestinal History: Reports: Colon Polyp, Other (See Below) Other Gastrointestinal History: hx megacolon Genitourinary History: Reports: None Other Genitourinary History: Increased alkaline phosphatase, hypocalcemia. 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 Neurological History: Reports: Parkinson's, Seizure, Other (See Below) Other Neuro History: Neuroleptic induced Parkinsonism. Tremors Psychiatric History: Reports: Anxiety, Depression, Developmental Delay, Mood Swings, Psych Hospitalization(s), Suicide Attempt Other Psychiatric History: Transient alteration of awareness, moderate intellectual disabilities. Endocrine/Metabolic History: Reports: Diabetes, Type II, Hypothyroidism Hematologic History: Reports: Anemia Other Hematologic History: hx iron transfusions 12/18 Oncologic (Cancer) History: Reports: None Dermatologic History: Reports: Cellulitis, Other (See Below) Other Dermatologic History: Acne, dermatitis, dry scalp, stasis dermatitis both legs, history of VERSA. pink, warm galaviz area on right lower leg - Infectious Disease History Infectious Disease History: Reports: Other (See Below) Other Infectious Disease History: hx of versa - Past Surgical History GI Surgical History: Reports: Appendectomy, Cholecystectomy, Colon, Colonoscopy Other GI Surgeries/Procedures: pt had an ileostomy placed in the recent past Male Surgical History: Reports: None Social & Family History - Family History Family Medical History: Noncontributory - Caffeine Use Caffeine Use: Reports: Coffee, Soda - Living Situation & Occupation Living situation: Reports: Single, Extended Care Facility (Resident in shelter for cognitive delay/disability.) ED ROS GENERAL - Review of Systems Review Of Systems: See Below Constitutional: Reports: No Symptoms HEENT: Reports: No Symptoms Respiratory: Denies: Wheezing, Pleuritic Chest Pain, Cough Cardiovascular: Reports: Other (hypotension,bradycardia) GI/Abdominal: Reports: No Symptoms : Reports: No Symptoms Musculoskeletal: Reports: No Symptoms, Joint Pain Neurological: Reports: No Symptoms ED EXAM, GENERAL - Physical Exam Exam: See Below Exam Limited By: No Limitations Eye Exam: Bilateral Eye: PERRL Nose: Normal Inspection, Normal Mucosa, No Blood Throat/Mouth: Normal Inspection, Normal Lips, Normal Teeth Head: Atraumatic, Normocephalic Neck: Normal Inspection, Supple, Non-Tender Respiratory/Chest: No Respiratory Distress, Lungs Clear, Normal Breath Sounds, No Accessory Muscle Use, Chest Non-Tender Cardiovascular: No Edema, No Gallop, No JVD, No Murmur, No Rub, Other ( bradycardia-39) Course - Vital Signs Text/Narrative:: labs reviewed with patient and caregiver EKG-Sinus Earnest trop-slightly elevated most likely due to the elevated creatinine BNP-chronically elevated. He looks more dry than wet. His oxygen saturation is 97% on RA hypotension-1L saline bolus bradycardia-atropine 0.5 mg x 2 doses hyperkalemia(8.2)- calcium gluconate 1gm IV ,50ml of 8.4% sodium bicarbonate, albuterol neb x2 doses, regular insulin 10 units IV followed by 50 ml of D50. Kayexalate 16 gms po x1 dose repeat K did show improvement of his K at 6.5 Hypoglycemia-50ml of D50 Critical Care consult was done with Dr Lord,[facility] who agreed with the above plan. Last Recorded V/S: Last Vital Signs Temp Pulse 41 L 01/17/19 22:07 Resp BP 65/44 L 01/17/19 22:07 Pulse Ox 100 01/17/19 22:07 - Orders/Labs/Meds Orders: Active Orders 24 hr Category Date Time Status Blood Glucose Check, Bedside [RC] ONETIME Care 01/18/19 01:09 Active EKG Documentation Completion [RC] ASDIRECTED Care 01/17/19 21:07 Active RT Aerosol Therapy [RC] ASDIRECTED Care 01/17/19 21:52 Active Chest 1V Frontal [CR] Stat Exams 01/17/19 21:05 Ordered CULTURE BLOOD [BC] Urgent Lab 01/18/19 01:26 Ordered CULTURE BLOOD [BC] Urgent Lab 01/18/19 01:26 Ordered LACTIC ACID [CHEM] Stat Lab 01/18/19 01:23 Ordered UA W/MICROSCOPIC [URIN] Stat Lab 01/17/19 21:11 Ordered Norepinephrine [Levophed] 4 mg Med 01/18/19 00:15 Active Dextrose 5% in Water 246 ml IV TITRATE Sodium Chloride 0.9% [Normal Saline] 1,000 ml Med 01/17/19 22:45 Active IV ASDIRECTED Sodium Chloride 0.9% [Saline Flush] Med 01/17/19 21:05 Active 10 ml FLUSH ASDIRECTED PRN Blood Culture x2 Reflex Set [OM.PC] Urgent Oth 01/18/19 01:23 Ordered Saline Lock Insert [OM.PC] Routine Oth 01/17/19 21:05 Ordered EKG 12 Lead [EK] Routine Ther 01/17/19 21:05 Ordered Medication Orders Sodium Chloride (Normal Saline) 1,000 mls @ 100 mls/hr IV ASDIRECTED MATT Last Admin: 01/17/19 23:11 Dose: 100 mls/hr Norepinephrine Bitartrate 4 mg (/ Dextrose/Water) 250 mls @ 7.5 mls/hr IV TITRATE MATT; Protocol Last Titration: 01/18/19 01:35 Dose: 10 mcg/min, 37.5 mls/hr Admin: 01/18/19 00:40 Dose: 2 mcg/min, 7.5 mls/hr Sodium Chloride (Saline Flush) 10 ml FLUSH ASDIRECTED PRN PRN Reason: Keep Vein Open Labs: Laboratory Tests 01/17/19 01/17/19 01/17/19 Range/Units 21:16 21:16 21:16 WBC 7.6 (4.5-12.0) X10-3/uL RBC 3.41 L (4.30-5.75) x10(6)uL Hgb 10.1 L (13.5-17.8) g/dL Hct 31.0 (30.0-51.3) % MCV 91.0 (80-96) fL MCH 29.6 (27.7-33.6) pg MCHC 32.5 (32.2-35.4) g/dL RDW 16.9 H (11.5-15.5) % Plt Count 224 (125-369) X10(3)uL MPV 7.7 (7.4-10.4) fL Neut % (Auto) 64.9 (46-82) % Lymph % (Auto) 27.9 (13-37) % [place] % (Auto) 2.4 L (4-12) % Eos % (Auto) 4 (1.0-5.0) % Baso % (Auto) 1 (0-2) % Neut # (Auto) 4.9 (1.6-8.3) # Lymph # (Auto) 2.1 (0.6-5.0) # [place] # (Auto) 0.2 (0.0-1.3) # Eos # (Auto) 0.3 (0.0-0.8) # Baso # (Auto) 0.1 (0.0-0.2) # Sodium 135 (135-145) mmol/L Potassium 8.2 H* D (3.5-5.3) mmol/L Chloride 107 (100-110) mmol/L Carbon Dioxide 20 L (21-32) mmol/L BUN 81 H D (7-18) mg/dL Creatinine 2.9 H* (0.70-1.30) mg/dL Est Cr Clr Drug Dosing TNP Estimated GFR (MDRD) 23 L (>60) BUN/Creatinine Ratio 27.9 H (9-20) Glucose 129 H (80-116) mg/dL Calcium 7.8 L (8.6-10.2) mg/dL Total Bilirubin 0.2 (0.1-1.3) mg/dL AST 75 H D (5-25) IU/L ALT 80 H D (12-36) U/L Alkaline Phosphatase 166 H (56-112) IU/L Troponin I < 0.017 L (<0.017-0.056) ng/mL NT-Pro-B Natriuret Pep 2122 H* (<=125) pg/mL Total Protein 5.9 L (6.0-8.0) g/dL Albumin 2.7 L (3.5-5.2) g/dL Globulin 3.2 g/dL Albumin/Globulin Ratio 0.8 /18/19 Range/Units 23:05 WBC (4.5-12.0) X10-3/uL RBC (4.30-5.75) x10(6)uL Hgb (13.5-17.8) g/dL Hct (30.0-51.3) % MCV (80-96) fL MCH (27.7-33.6) pg MCHC (32.2-35.4) g/dL RDW (11.5-15.5) % Plt Count (125-369) X10(3)uL MPV (7.4-10.4) fL Neut % (Auto) (46-82) % Lymph % (Auto) (13-37) % [place] % (Auto) (4-12) % Eos % (Auto) (1.0-5.0) % Baso % (Auto) (0-2) % Neut # (Auto) (1.6-8.3) # Lymph # (Auto) (0.6-5.0) # [place] # (Auto) (0.0-1.3) # Eos # (Auto) (0.0-0.8) # Baso # (Auto) (0.0-0.2) # Sodium 139 (135-145) mmol/L Potassium 6.5 H* D (3.5-5.3) mmol/L Chloride 109 (100-110) mmol/L Carbon Dioxide 23 (21-32) mmol/L BUN 80 H (7-18) mg/dL Creatinine 2.8 H* (0.70-1.30) mg/dL Est Cr Clr Drug Dosing 22.75 Estimated GFR (MDRD) 24 L (>60) BUN/Creatinine Ratio 28.6 H (9-20) Glucose 52 L (80-116) mg/dL Calcium 7.8 L (8.6-10.2) mg/dL Total Bilirubin (0.1-1.3) mg/dL AST (5-25) IU/L ALT (12-36) U/L Alkaline Phosphatase (56-112) IU/L Troponin I (<0.017-0.056) ng/mL NT-Pro-B Natriuret Pep (<=125) pg/mL Total Protein (6.0-8.0) g/dL Albumin (3.5-5.2) g/dL Globulin g/dL Albumin/Globulin Ratio Meds: Medications Generic Name Dose Route Start Last Admin Trade Name Freq PRN Reason Stop Dose Admin Sodium Chloride 1,000 mls @ 100 mls/hr 01/17/19 22:45 01/17/19 23:11 Normal Saline IV 100 mls/hr ASDIRECTED MATT Administration Norepinephrine Bitartrate 4 mg 250 mls @ 7.5 mls/hr 01/18/19 00:15 01/18/19 01:35 / Dextrose/Water IV 10 mcg/min TITRATE MATT 37.5 mls/hr Titration Protocol 2 MCG/MIN Sodium Chloride 10 ml 01/17/19 21:05 Saline Flush FLUSH ASDIRECTED PRN Keep Vein Open Discontinued Medications Generic Name Dose Route Start Last Admin Trade Name Freq PRN Reason Stop Dose Admin Albuterol 5 mg 01/17/19 21:51 01/17/19 23:04 Proventil Neb Soln NEB 01/17/19 21:52 5 mg ONETIME ONE Administration Atropine Sulfate 0.5 mg 01/17/19 22:12 01/17/19 23:11 Atropine 1 Mg/Ml IV 01/17/19 22:13 Not Given ONETIME ONE Atropine Sulfate 0.5 mg 01/17/19 22:18 01/17/19 23:11 Atropine 1 Mg/Ml IV 01/17/19 22:19 Not Given ONETIME ONE Atropine Sulfate 0.5 mg 01/17/19 22:13 01/17/19 22:20 Atropine 0.1 Mg/Ml IVPUSH 01/17/19 22:14 0.5 mg ONETIME ONE Administration Calcium Gluconate 1 gm 01/17/19 22:18 01/17/19 22:22 Calcium Gluconate IVPUSH 01/17/19 22:19 1 gm ONETIME ONE Administration Dextrose/Water 50 ml 01/17/19 21:54 01/17/19 22:05 Dextrose 50% In Water IVPUSH 01/17/19 21:55 50 ml ONETIME ONE Administration Dextrose/Water 50 ml 01/17/19 23:54 01/18/19 00:04 Dextrose 50% In Water IVPUSH 01/17/19 23:55 50 ml ONETIME ONE Administration Sodium Chloride 1,000 mls @ 500 mls/hr 01/17/19 21:08 01/17/19 21:12 Normal Saline IV 01/17/19 23:07 500 mls/hr .BOLUS ONE Administration Insulin Human Regular 10 unit 01/17/19 21:56 01/17/19 22:07 Humulin R IV 01/17/19 21:57 10 units ONETIME ONE Administration Sodium Bicarbonate 50 meq 01/17/19 21:53 01/17/19 22:19 Sodium Bicarbonate 8.4% IVPUSH 01/17/19 21:54 50 meq ONETIME ONE Administration Sodium Polystyrene Sulfonate 15 gm 01/17/19 22:38 01/17/19 22:46 Kayexalate PO 01/17/19 22:39 15 gm ONETIME ONE Administration Departure - Departure Time of Disposition: 11:55 Disposition: DC/Tfer to Acute Hospital 02 Condition: Good Clinical Impression: Dehydration, Hypotension, KATHY (acute kidney injury), Hyperkalemia, Hypoglycemia CHF (congestive heart failure) Qualifiers: Heart failure type: diastolic Heart failure chronicity: chronic Qualified Code( s): I50.32 - Chronic diastolic (congestive) heart failure - Discharge Information Referrals: PCP,Unknown [Primary Care Provider] - - My Orders Last 24 Hours: My Active Orders 01/17/19 21:05 Chest 1V Frontal [CR] Stat Sodium Chloride 0.9% [Saline Flush] 10 ml FLUSH ASDIRECTED PRN Saline Lock Insert [OM.PC] Routine EKG 12 Lead [EK] Routine 01/17/19 21:07 EKG Documentation Completion [RC] ASDIRECTED 01/17/19 21:11 UA W/MICROSCOPIC [URIN] Stat 01/17/19 21:52 RT Aerosol Therapy [RC] ASDIRECTED 01/17/19 22:45 Sodium Chloride 0.9% [Normal Saline] 1,000 ml IV ASDIRECTED 01/18/19 00:15 Norepinephrine [Levophed] 4 mg Dextrose 5% in Water 246 ml IV TITRATE 01/18/19 01:09 Blood Glucose Check, Bedside [RC] ONETIME 01/18/19 01:23 LACTIC ACID [CHEM] Stat Blood Culture x2 Reflex Set [OM.PC] Urgent 01/18/19 01:26 CULTURE BLOOD [BC] Urgent CULTURE BLOOD [BC] Urgent - Assessment/Plan Last 24 Hours: My Active Orders 01/17/19 21:05 Chest 1V Frontal [CR] Stat Sodium Chloride 0.9% [Saline Flush] 10 ml FLUSH ASDIRECTED PRN Saline Lock Insert [OM.PC] Routine EKG 12 Lead [EK] Routine 01/17/19 21:07 EKG Documentation Completion [RC] ASDIRECTED 01/17/19 21:11 UA W/MICROSCOPIC [URIN] Stat 01/17/19 21:52 RT Aerosol Therapy [RC] ASDIRECTED 01/17/19 22:45 Sodium Chloride 0.9% [Normal Saline] 1,000 ml IV ASDIRECTED 01/18/19 00:15 Norepinephrine [Levophed] 4 mg Dextrose 5% in Water 246 ml IV TITRATE 01/18/19 01:09 Blood Glucose Check, Bedside [RC] ONETIME 01/18/19 01:23 LACTIC ACID [CHEM] Stat Blood Culture x2 Reflex Set [OM.PC] Urgent 01/18/19 01:26 CULTURE BLOOD [BC] Urgent CULTURE BLOOD [BC] Urgent
[2019-01-18] MEDS ORDERED: Norepinephrine 4 MG in Dextrose 5% in Water 246 ML IV SCH ×2 (00:15)
== END 2019-01-18 02:35 ==
LOC: FB.ED 21:04
DX: E86.0 Dehydration (principal); I95.9 Hypotension, unspecified; N17.9 Acute kidney failure, unspecified; E87.5 Hyperkalemia; E11.649 Type 2 diabetes mellitus with hypoglycemia without coma; I11.0 Hypertensive heart disease with heart failure; I50.32 Chronic diastolic (congestive) heart failure; J44.9 Chronic obstructive pulmonary disease, unspecified; G20 Parkinson's disease; E03.9 Hypothyroidism, unspecified; Z88.0 Allergy status to penicillin; Z88.1 Allergy status to other antibiotic agents; Z79.890 Hormone replacement therapy; Z79.899 Other long term (current) drug therapy
CPT/HCPCS: 36415; 71045; 80048; 80053; 82962; 83605; 83880; 84484; 85025; 87040; 93005; 94640; 96361; 96374; 96375; 99285; A4216; A9270; J0461; J0610; J1815; J7030; J7060

== ENCOUNTER 2019-01-28 15:27 | Emergency (ER) | payer MEDICAID ==
--- NOTE | 2019-01-28 16:09 | EDM.PDOC ---
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 ) History Limitations: Reports: Altered Mental Status - History of Present Illness INITIAL COMMENTS - FREE TEXT/NARRATIVE: pt comes from nursing home by EMS , he was noted this afternoon after he woke up from a nap to be diaphoretic and hypotensive, c/o HAs and SOB , on arrival here pt is hypotensive with SBP in 50s and bradycardiac with HR in 30-40s, he is alert but lethargic, answers simple questions, still c/o HAs, denies any chest pain or leg pain and swelling, ocular care technician states he was doing fine otherwise earlier in the morning and in usual state of health. Headache, generalized pain Pain Score (Numeric/FACES): 8 - Related Data Allergies Allergy/AdvReac Type Severity Reaction Status Date / Time Penicillins Allergy Cannot Verified 01/19/19 14:28 Remember vancomycin Allergy Cannot Verified 01/19/19 14:28 Remember Home Meds: Home Meds Nitroglycerin [Nitrostat] 0.4 mg SL Q5M PRN 05/09/15 [History] Selenium Sulfide [Anti-Dandruff] 1 applic TOP SUWEFR 04/23/17 [History] Aloe Vera/Sodium Chloride [[place] Saline Nasal Gel] 1 applic LOBITO BID 09/30/17 [ History] Emollient Combination No.75 [[place] Butter] 1 applic TOP BID 09/30/17 [History] Acetaminophen [Tylenol Extra Strength] 500 mg PO TID PRN 10/08/18 [History] Diphenoxylate HCl/Atropine [Lomotil] 2 tab PO QID 10/08/18 [History] Levothyroxine 200 mcg PO DAILY@0600 10/08/18 [History] Loperamide [Imodium] 4 mg PO TID 10/25/18 [History] Levothyroxine [Synthroid] 50 mcg PO DAILY@0600 tablet 10/27/18 [Rx] Verapamil [Verelan] 180 mg PO DAILY #30 cap.sr 10/27/18 [Rx] Loratadine 10 mg PO DAILY PRN 12/29/18 [History] Acetaminophen [Tylenol] 650 mg PO Q4H 01/19/19 [History] Cholestyramine/Sucrose [Cholestyramine] 4 gm PO BEDTIME 01/19/19 [History] Ferrous Sulfate 325 mg PO DAILY 01/19/19 [History] Hydrocortisone 10 mg PO ACDINNER 01/19/19 [History] Hydrocortisone 20 mg PO ACBREAKFAST 01/19/19 [History] Multivits w-Fe,Other Min/Lut [Theratrum Complete] 1 tab PO BEDTIME 01/19/19 [ History] Propranolol [Inderal] 20 mg PO BID 01/19/19 [History] QUEtiapine [SEROquel] 25 mg PO DAILY@1600 01/19/19 [History] QUEtiapine [SEROquel] 300 mg PO BEDTIME 01/19/19 [History] Saccharomyces Boulardii [Florastor] 250 mg PO BID 01/19/19 [History] Sodium Polystyrene Sulfonate 4 tsp PO BEDTIME@2300 01/19/19 [History] Triamcinolone Acetonide [Triamcinolone Acetonide 0.1% Crm] 1 applic .XX BID [History] Past Medical History HEENT History: Reports: Allergic Rhinitis, Impaired Vision, Other (See Below) Other HEENT History: Allergic rhinitis. wears glasses Cardiovascular History: Reports: Angina, Hypertension Other Cardiovascular History: lower leg edema. Respiratory History: Reports: COPD Gastrointestinal History: Reports: Colon Polyp, Other (See Below) Other Gastrointestinal History: hx megacolon Genitourinary History: Reports: None Other Genitourinary History: Increased alkaline phosphatase, hypocalcemia. 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 Neurological History: Reports: Parkinson's, Seizure, Other (See Below) Other Neuro History: Neuroleptic induced Parkinsonism. Tremors Psychiatric History: Reports: Anxiety, Depression, Developmental Delay, Mood Swings, Psych Hospitalization(s), Suicide Attempt Other Psychiatric History: Transient alteration of awareness, moderate intellectual disabilities. Endocrine/Metabolic History: Reports: Diabetes, Type II, Hypothyroidism Hematologic History: Reports: Anemia Other Hematologic History: hx iron transfusions 12/18 Oncologic (Cancer) History: Reports: None Dermatologic History: Reports: Cellulitis, Other (See Below) Other Dermatologic History: Acne, dermatitis, dry scalp, stasis dermatitis both legs, history of VERSA. pink, warm galaviz area on right lower leg - Infectious Disease History Infectious Disease History: Reports: Other (See Below) Other Infectious Disease History: hx of versa - Past Surgical History GI Surgical History: Reports: Appendectomy, Cholecystectomy, Colon, Colonoscopy Other GI Surgeries/Procedures: pt had an ileostomy placed in the recent past Male Surgical History: Reports: None Social & Family History - Family History Family Medical History: Noncontributory - Caffeine Use Caffeine Use: Reports: Coffee, Soda - Living Situation & Occupation Living situation: Reports: Single, Extended Care Facility (Resident in nursing home for cognitive delay/disability.) ED ROS GENERAL - Review of Systems Review Of Systems: See Below (developmental delay and lethergy.) ED EXAM, GENERAL - Physical Exam Exam: See Below Exam Limited By: Other (developmental delay.) General Appearance: Lethargic Nose: Normal Inspection Throat/Mouth: Normal Inspection, Normal Oropharynx Head: Atraumatic, Normocephalic Neck: Normal Inspection Respiratory/Chest: No Respiratory Distress, Lungs Clear, Normal Breath Sounds Cardiovascular: Normal Peripheral Pulses, Regular Rate, Rhythm, No Edema GI/Abdominal: Normal Bowel Sounds, Soft Back Exam: Normal Inspection Extremities: Normal Inspection, Normal Range of Motion, No Pedal Edema Neurological: Alert, No Motor/Sensory Deficits Skin Exam: Warm, Dry Course - Vital Signs Text/Narrative:: EKG shows variable rhythm 3ed degree block and LBBB. with HR in 30s-40s , SBP at 50s-60s . 2 IV access were established and NS was started. atropin 0.5 mg X 2 did not improve bradycardia and a pacer was placed, HR now set at 70 . SBP did not improve to fluids , dopamine was then started and SBP now at 80s. labs are coming back showing neg trop , critical K at 8 , elevated dimer and creatinine. 1 gm calcium gluconate along with 1 amp D50 and 20 unites regular insulin were then given. [facility] is being contacted at this time and Dr Díza was in acceptance of pt care. pt condition at time of transfer is stabilized but critical. he is running dopamine at 15 , paced at 70 , had 1 liter of NS bolus and now at 200 cc/ hr NS , SBP is at 87 , sats at mid 90s , pt is alert. Dx. bradycardia / hypotension. dyspnea. hyperkalemia . elevated ddimer. Hx of CHF/ COPD/ CAD / DM/mental delay . please note that per records is a FULL CODE. Last Recorded V/S: Last Vital Signs Temp 34.3 C L 01/28/19 15:45 Pulse 34 L 01/28/19 15:45 Resp 22 H 01/28/19 15:45 BP 54/33 L 01/28/19 15:45 Pulse Ox 78 L 01/28/19 15:50 - Orders/Labs/Meds Orders: Active Orders 24 hr Category Date Time Status EKG Documentation Completion [RC] ASDIRECTED Care 01/28/19 16:12 Active Oxygen Therapy Adult [Oxygen Therapy, ED] [RC] Care 01/28/19 15:50 Active ASDIRECTED RT Aerosol Therapy [RC] ASDIRECTED Care 01/28/19 16:12 Active Chest 1V Frontal [CR] Stat Exams 01/28/19 16:11 Taken DOPamine/Dextrose 5%-Water [DOPamine in D5W 400 MG/250 Med 01/28/19 16:39 Active ML] 400 mg in 250 ml IV TITRATE EKG 12 Lead [EK] Routine Ther 01/28/19 16:11 Ordered Medication Orders Dopamine HCl/Dextrose (Dopamine In D5w 400 Mg/250 Ml) 400 mg in 250 mls @ 17.063 mls/hr IV TITRATE MATT; Protocol Last Admin: 01/28/19 16:39 Dose: 5 mcg/kg/min, 17.063 mls/hr Labs: Laboratory Tests 01/28/19 01/28/19 01/28/19 Range/Units 16:10 16:10 16:10 WBC 6.2 (4.5-12.0) X10-3/uL RBC 3.43 L (4.30-5.75) x10(6)uL Hgb 10.3 L (13.5-17.8) g/dL Hct 31.4 (30.0-51.3) % MCV 91.7 (80-96) fL MCH 29.9 (27.7-33.6) pg MCHC 32.6 (32.2-35.4) g/dL RDW 17.3 H (11.5-15.5) % Plt Count 212 (125-369) X10(3)uL MPV 7.8 (7.4-10.4) fL Neut % (Auto) 69.2 (46-82) % Lymph % (Auto) 27.5 (13-37) % Gem % (Auto) 1.6 L (4-12) % Eos % (Auto) 1 (1.0-5.0) % Baso % (Auto) 1 (0-2) % Neut # (Auto) 4.3 (1.6-8.3) # Lymph # (Auto) 1.7 (0.6-5.0) # Gem # (Auto) 0.1 (0.0-1.3) # Eos # (Auto) 0.1 (0.0-0.8) # Baso # (Auto) 0.0 (0.0-0.2) # D-Dimer, Quantitative 3.41 H (0.0-0.59) mg/LFEU Sodium 131 L (135-145) mmol/L Potassium 8.3 H* D (3.5-5.3) mmol/L Chloride 105 (100-110) mmol/L Carbon Dioxide 18 L (21-32) mmol/L BUN 71 H (7-18) mg/dL Creatinine 2.5 H* (0.70-1.30) mg/dL Est Cr Clr Drug Dosing TNP Estimated GFR (MDRD) 27 L (>60) BUN/Creatinine Ratio 28.4 H (9-20) Glucose 387 H D (80-116) mg/dL POC Glucose (80-116) mg/dL Calcium 7.8 L (8.6-10.2) mg/dL Total Bilirubin 0.3 (0.1-1.3) mg/dL AST 29 H D (5-25) IU/L ALT 53 H D (12-36) U/L Alkaline Phosphatase 133 H (56-112) IU/L Troponin I (<0.017-0.056) ng/mL Total Protein 5.4 L (6.0-8.0) g/dL Albumin 2.5 L (3.5-5.2) g/dL Globulin 2.9 g/dL Albumin/Globulin Ratio 0.9 Urine Color (YELLOW) Urine Appearance (CLEAR) Urine pH (5.0-6.5) Ur Specific [place] (1.010-1.025) Urine Protein (NEGATIVE) mg/dL Urine Glucose (UA) (NORMAL) mg/dL Urine Ketones (NEGATIVE) mg/dL Urine Occult Blood (NEGATIVE) Urine Nitrite (NEGATIVE) Urine Bilirubin (NEGATIVE) Urine Urobilinogen (NEGATIVE) mg/dL Ur Leukocyte Esterase (NEGATIVE) Urine RBC (0-5) Urine WBC (0-5) Ur Squamous Epith Cells (NS,R,O) Urine Bacteria (NS) Urine Mucus (NS) 01/28/19 01/28/19 01/28/19 Range/Units 16:10 16:15 17:09 WBC (4.5-12.0) X10-3/uL RBC (4.30-5.75) x10(6)uL Hgb (13.5-17.8) g/dL Hct (30.0-51.3) % MCV (80-96) fL MCH (27.7-33.6) pg MCHC (32.2-35.4) g/dL RDW (11.5-15.5) % Plt Count (125-369) X10(3)uL MPV (7.4-10.4) fL Neut % (Auto) (46-82) % Lymph % (Auto) (13-37) % Gem % (Auto) (4-12) % Eos % (Auto) (1.0-5.0) % Baso % (Auto) (0-2) % Neut # (Auto) (1.6-8.3) # Lymph # (Auto) (0.6-5.0) # Gem # (Auto) (0.0-1.3) # Eos # (Auto) (0.0-0.8) # Baso # (Auto) (0.0-0.2) # D-Dimer, Quantitative (0.0-0.59) mg/LFEU Sodium (135-145) mmol/L Potassium (3.5-5.3) mmol/L Chloride (100-110) mmol/L Carbon Dioxide (21-32) mmol/L BUN (7-18) mg/dL Creatinine (0.70-1.30) mg/dL Est Cr Clr Drug Dosing Estimated GFR (MDRD) (>60) BUN/Creatinine Ratio (9-20) Glucose (80-116) mg/dL POC Glucose 392 H D (80-116) mg/dL Calcium (8.6-10.2) mg/dL Total Bilirubin (0.1-1.3) mg/dL AST (5-25) IU/L ALT (12-36) U/L Alkaline Phosphatase (56-112) IU/L Troponin I < 0.017 L (<0.017-0.056) ng/mL Total Protein (6.0-8.0) g/dL Albumin (3.5-5.2) g/dL Globulin g/dL Albumin/Globulin Ratio Urine Color Yellow (YELLOW) Urine Appearance Cloudy (CLEAR) Urine pH 5.0 (5.0-6.5) Ur Specific [place] 1.025 (1.010-1.025) Urine Protein 500 H (NEGATIVE) mg/dL Urine Glucose (UA) Normal (NORMAL) mg/dL Urine Ketones Negative (NEGATIVE) mg/dL Urine Occult Blood Negative (NEGATIVE) Urine Nitrite Negative (NEGATIVE) Urine Bilirubin Negative (NEGATIVE) Urine Urobilinogen Normal (NEGATIVE) mg/dL Ur Leukocyte Esterase Large H (NEGATIVE) Urine RBC 0-5 (0-5) Urine WBC 50-75 H (0-5) Ur Squamous Epith Cells Few H (NS,R,O) Urine Bacteria Moderate H (NS) Urine Mucus Moderate H (NS) 01/28/19 Range/Units 17:16 WBC (4.5-12.0) X10-3/uL RBC (4.30-5.75) x10(6)uL Hgb (13.5-17.8) g/dL Hct (30.0-51.3) % MCV (80-96) fL MCH (27.7-33.6) pg MCHC (32.2-35.4) g/dL RDW (11.5-15.5) % Plt Count (125-369) X10(3)uL MPV (7.4-10.4) fL Neut % (Auto) (46-82) % Lymph % (Auto) (13-37) % Gem % (Auto) (4-12) % Eos % (Auto) (1.0-5.0) % Baso % (Auto) (0-2) % Neut # (Auto) (1.6-8.3) # Lymph # (Auto) (0.6-5.0) # Gem # (Auto) (0.0-1.3) # Eos # (Auto) (0.0-0.8) # Baso # (Auto) (0.0-0.2) # D-Dimer, Quantitative (0.0-0.59) mg/LFEU Sodium (135-145) mmol/L Potassium (3.5-5.3) mmol/L Chloride (100-110) mmol/L Carbon Dioxide (21-32) mmol/L BUN (7-18) mg/dL Creatinine (0.70-1.30) mg/dL Est Cr Clr Drug Dosing Estimated GFR (MDRD) (>60) BUN/Creatinine Ratio (9-20) Glucose (80-116) mg/dL POC Glucose 329 H (80-116) mg/dL Calcium (8.6-10.2) mg/dL Total Bilirubin (0.1-1.3) mg/dL AST (5-25) IU/L ALT (12-36) U/L Alkaline Phosphatase (56-112) IU/L Troponin I (<0.017-0.056) ng/mL Total Protein (6.0-8.0) g/dL Albumin (3.5-5.2) g/dL Globulin g/dL Albumin/Globulin Ratio Urine Color (YELLOW) Urine Appearance (CLEAR) Urine pH (5.0-6.5) Ur Specific [place] (1.010-1.025) Urine Protein (NEGATIVE) mg/dL Urine Glucose (UA) (NORMAL) mg/dL Urine Ketones (NEGATIVE) mg/dL Urine Occult Blood (NEGATIVE) Urine Nitrite (NEGATIVE) Urine Bilirubin (NEGATIVE) Urine Urobilinogen (NEGATIVE) mg/dL Ur Leukocyte Esterase (NEGATIVE) Urine RBC (0-5) Urine WBC (0-5) Ur Squamous Epith Cells (NS,R,O) Urine Bacteria (NS) Urine Mucus (NS) Meds: Medications Generic Name Dose Route Start Last Admin Trade Name Freq PRN Reason Stop Dose Admin Dopamine HCl/Dextrose 400 mg in 250 mls @ 17.063 mls/hr 01/28/19 16:39 16:39 Dopamine In D5w 400 Mg/250 Ml IV 5 mcg/kg/min TITRATE MATT 17.063 mls/hr Administration Protocol 5 MCG/KG/MIN Discontinued Medications Generic Name Dose Route Start Last Admin Trade Name Freq PRN Reason Stop Dose Admin Albuterol/Ipratropium 3 ml 01/28/19 16:11 01/29/19 00:31 Duoneb 3.0-0.5 Mg/3 Ml NEB 01/28/19 16:12 Not Given ONETIME ONE Atropine Sulfate 0.5 mg 01/28/19 16:26 01/29/19 00:27 Atropine 0.1 Mg/Ml IVPUSH 01/28/19 16:27 Not Given ONETIME ONE Atropine Sulfate 0.5 mg 01/28/19 16:17 01/29/19 00:31 Atropine IVPUSH 01/28/19 16:18 Not Given ONETIME ONE Atropine Sulfate 0.5 mg 01/28/19 16:26 01/29/19 00:34 Atropine IVPUSH 01/28/19 16:27 Not Given ONETIME ONE Atropine Sulfate 0.5 mg 01/28/19 16:26 01/28/19 16:26 Atropine 0.1 Mg/Ml IVPUSH 01/28/19 16:27 0.5 mg ONETIME ONE Administration Calcium Gluconate Confirm 01/28/19 16:33 01/28/19 16:37 Calcium Gluconate Administered 01/28/19 16:34 1 gm Dose Administration 1 gm .ROUTE .STK-MED ONE Dextrose/Water 50 ml 01/28/19 16:41 01/28/19 16:41 Dextrose 50% In Water IVPUSH 01/28/19 16:42 50 ml ONETIME ONE Administration Sodium Chloride 1,000 mls @ 999 drops/hr 01/28/19 16:11 01/29/19 00:39 Normal Saline IV 01/29/19 07:11 Not Given .BOLUS ONE Sodium Chloride 1,000 mls @ 999 mls/hr 01/28/19 17:05 01/28/19 17:05 Normal Saline IV 01/28/19 18:05 999 mls/hr .BOLUS ONE Administration Sodium Chloride 1,000 mls @ 200 mls/hr 01/28/19 17:05 01/28/19 17:05 Normal Saline IV 01/28/19 22:04 200 mls/hr .BOLUS ONE Administration Insulin Human Regular Confirm 01/28/19 16:40 01/29/19 00:30 Humulin R Administered 01/28/19 16:41 Not Given Dose 300 unit .ROUTE .STK-MED ONE Insulin Human Regular 20 unit 01/28/19 16:42 01/28/19 16:42 Humulin R IV 01/28/19 16:43 20 units ONETIME ONE Administration Departure - Departure Time of Disposition: 16:00 Disposition: DC/Tfer to Other 70 Clinical Impression: Cardiac arrhythmia - Discharge Information Referrals: Noy Lepe EGG CASER [Primary Care Provider] - Forms: ED Department Discharge - My Orders Last 24 Hours: My Active Orders 01/28/19 15:50 Oxygen Therapy Adult [Oxygen Therapy, ED] [RC] ASDIRECTED 01/28/19 16:11 Chest 1V Frontal [CR] Stat EKG 12 Lead [EK] Routine 01/28/19 16:12 EKG Documentation Completion [RC] ASDIRECTED RT Aerosol Therapy [RC] ASDIRECTED 01/28/19 16:39 DOPamine/Dextrose 5%-Water [DOPamine in D5W 400 MG/250 ML] 400 mg in 250 ml IV TITRATE - Assessment/Plan Last 24 Hours: My Active Orders 01/28/19 15:50 Oxygen Therapy Adult [Oxygen Therapy, ED] [RC] ASDIRECTED 01/28/19 16:11 Chest 1V Frontal [CR] Stat EKG 12 Lead [EK] Routine 01/28/19 16:12 EKG Documentation Completion [RC] ASDIRECTED RT Aerosol Therapy [RC] ASDIRECTED 01/28/19 16:39 DOPamine/Dextrose 5%-Water [DOPamine in D5W 400 MG/250 ML] 400 mg in 250 ml IV TITRATE
[2019-01-28] MEDS ORDERED: Albuterol/Ipratropium 3.0-0.5 MG/3 ML Neb Soln NEB ONE (16:11)
[2019-01-28] MEDS ORDERED: Atropine 0.4 MG/ML SDV IVPUSH ONE ×3 (16:11→16:26)
[2019-01-28] MEDS: Sodium Chloride 0.9% 1,000 ML IV ONE (16:20)
[2019-01-28] MEDS ORDERED: Atropine 0.1 MG/ML 10 ML Syringe IVPUSH ONE ×2 (16:26)
[2019-01-28] MEDS ORDERED: Calcium Gluconate 10% 1 GM/10 ML SDV IVPUSH ONE (16:30)
[2019-01-28] MEDS ORDERED: Calcium Gluconate 10% 1 GM/10 ML SDV ONE (16:33)
[2019-01-28] MEDS ORDERED: DOPamine/Dextrose 5%-Water 400 MG/250 ML BAG IV SCH (16:39)
[2019-01-28] MEDS ORDERED: Insulin Regular, Human 100 Units/ML 3 ML Vial ONE (16:40)
[2019-01-28] MEDS ORDERED: 50% Dextrose in Water 50 ML Syringe IVPUSH ONE (16:41)
[2019-01-28] MEDS ORDERED: Insulin Regular, Human 100 Units/ML 3 ML Vial IV ONE (16:42)
[2019-01-28] MEDS ORDERED: Sodium Chloride 0.9% 1,000 ML IV ONE ×2 (17:05)
[2019-01-29 00:09] VITALS: BP 54/33; PULSE 34
[2019-01-29] MEDS: Sodium Chloride 0.9% 1,000 ML IV ONE (00:39)
[2019-01-29] MEDS ORDERED: Calcium Gluconate 10% 1 GM/10 ML SDV IVPUSH ONE (16:30)
== END 2019-01-28 18:00 | disposition other institution (70) ==
LOC: FB.ED 15:27
DX: I49.8 Other specified cardiac arrhythmias (principal); R06.00 Dyspnea, unspecified; E87.5 Hyperkalemia; I95.9 Hypotension, unspecified; R79.1 Abnormal coagulation profile; J44.9 Chronic obstructive pulmonary disease, unspecified; G20 Parkinson's disease; F32.9 Major depressive disorder, single episode, unspecified; E11.9 Type 2 diabetes mellitus without complications; E03.9 Hypothyroidism, unspecified; I25.10 Atherosclerotic heart disease of native coronary artery without angina pectoris; Z86.59 Personal history of other mental and behavioral disorders; Z88.0 Allergy status to penicillin; Z88.1 Allergy status to other antibiotic agents; Z79.899 Other long term (current) drug therapy; Z79.890 Hormone replacement therapy
CPT/HCPCS: 36415; 71045; 80053; 81001; 82962; 84484; 85025; 85379; 93005; 96365; 96375; 99285; A4216; J0461; J0610; J1265; J1815; J7030

== ENCOUNTER 2019-02-14 11:48 | Observation (INO) | payer MEDICAID ==
[2019-02-14] MEDS: Sodium Chloride 0.9% 1,000 ML IV SCH ×2 (12:30→20:07)
--- NOTE | 2019-02-14 14:29 | CR ---
INDICATION: Hypotension. CHEST, 1 VIEW: AP portable upright view of the chest 02/14/19 was compared with 01/28/19 and 01/17/19 revealing decrease in pulmonary vascular congestion with perhaps very minimal or early CHF remaining present as a residual. A definite active infiltrate or effusion was not identified. The heart appeared enlarged to a moderate degree. The aorta is somewhat tortuous with some minimal calcifications suggested in the arch. IMPRESSION: Much improved appearance of the chest compared with the previous study. There does appear to be some residual mild or early CHF, however. MTDD
[2019-02-14] MEDS ORDERED: Triamcinolone Acetonide 0.1% Crm 15 GM Tube TOP PRN (17:00)
[2019-02-14] MEDS ORDERED: Acetaminophen 500 MG Tab PO PRN (17:00)
[2019-02-14] MEDS ORDERED: Nitroglycerin 0.4 MG Tab.SL SL PRN (17:00)
--- NOTE | 2019-02-14 17:06 | PCM.HP.2 ---
H&P History of Present Illness - General Date of Service: 02/14/19 Admit Problem/Dx: Admission Diagnosis/Problem Admission Diagnosis/Problem Dehydration Source of Information: Patient, Provider - History of Present Illness Initial Comments - Free Text/Narative: Patient started feeling weak today, had low blood pressure. He has been rehabilitating at [facility] since his last discharge from [place]. He has been having more loose stools in his ileostomy. Denies fevers, chills, sinus congestion, sore throat, nausea or vomiting. Has a little cough but denies chest pain or rapid heart rate. States his urination is normal. Legs are very swollen, weeping, Bilateral angelina wraps placed in ER. Chest x-ray mild/residual CHF. Troponin negative. Creatinine was elevated at 2.9, BUN 72, potassium 5.5, was 7.7 in September when I last admitted him. - Related Data Allergies/Adverse Reactions: Allergies Allergy/AdvReac Type Severity Reaction Status Date / Time Penicillins Allergy Cannot Verified 02/14/19 13:06 Remember vancomycin Allergy Cannot Verified 02/14/19 13:06 Remember Home Medications: Home Meds Nitroglycerin [Nitrostat] 0.4 mg SL Q5M PRN 05/09/15 [History] Selenium Sulfide [Anti-Dandruff] 1 applic TOP TH 04/23/17 [History] Acetaminophen [Tylenol Extra Strength] 500 mg PO TID PRN 10/08/18 [History] Levothyroxine 200 mcg PO DAILY@0600 10/08/18 [History] Loperamide [Imodium] 4 mg PO TID 10/25/18 [History] Levothyroxine [Synthroid] 50 mcg PO DAILY@0600 tablet 10/27/18 [Rx] Loratadine 10 mg PO DAILY PRN 12/29/18 [History] Cholestyramine/Sucrose [Cholestyramine] 4 gm PO BEDTIME 01/19/19 [History] Ferrous Sulfate 325 mg PO DAILY 01/19/19 [History] Hydrocortisone 10 mg PO ACDINNER 01/19/19 [History] Hydrocortisone 40 mg PO ACBREAKFAST 01/19/19 [History] Propranolol [Inderal] 20 mg PO BID 01/19/19 [History] QUEtiapine [SEROquel] 25 mg PO DAILY@1600 01/19/19 [History] QUEtiapine [SEROquel] 300 mg PO BEDTIME 01/19/19 [History] Saccharomyces Boulardii [Florastor] 250 mg PO BID 01/19/19 [History] Triamcinolone Acetonide [Triamcinolone Acetonide 0.1% Crm] 1 applic TOP BID PRN 01/19/19 [History] Omeprazole 20 mg PO DAILY 02/14/19 [History] Tamsulosin [Flomax] 0.4 mg PO DAILY 02/14/19 [History] Verapamil [Verelan] 240 mg PO DAILY 02/14/19 [History] Past Medical History HEENT History: Reports: Allergic Rhinitis, Impaired Vision, Other (See Below) Other HEENT History: Allergic rhinitis. wears glasses Cardiovascular History: Reports: Angina, Hypertension Other Cardiovascular History: lower leg edema. Respiratory History: Reports: COPD Gastrointestinal History: Reports: Colon Polyp, Other (See Below) Other Gastrointestinal History: hx megacolon Genitourinary History: Reports: None Other Genitourinary History: Increased alkaline phosphatase, hypocalcemia. SENIOR ACCOUNTS PAYABLE SPECIALIST History: Reports: None Musculoskeletal History: Reports: None Other Musculoskeletal History: Unsteady gait, recurrent falls, plantar fasciitis. Neurological History: Reports: Parkinson's, Seizure, Other (See Below) Other Neuro History: Neuroleptic induced Parkinsonism. Tremors Psychiatric History: Reports: Anxiety, Depression, Developmental Delay, Mood Swings, Psych Hospitalization(s), Suicide Attempt Other Psychiatric History: Transient alteration of awareness, moderate intellectual disabilities. Endocrine/Metabolic History: Reports: Diabetes, Type II, Hypothyroidism Hematologic History: Reports: Anemia Other Hematologic History: hx iron transfusions 12/18 Oncologic (Cancer) History: Reports: None Dermatologic History: Reports: Cellulitis, Other (See Below) Other Dermatologic History: Acne, dermatitis, dry scalp, stasis dermatitis both legs, history of VERSA. pink, warm galaviz area on right lower leg - Infectious Disease History Infectious Disease History: Reports: Other (See Below) Other Infectious Disease History: hx of versa - Past Surgical History GI Surgical History: Reports: Appendectomy, Cholecystectomy, Colon, Colonoscopy Other GI Surgeries/Procedures: pt had an ileostomy placed in the recent past Male Surgical History: Reports: None Social & Family History - Family History Family Medical History: Noncontributory - Tobacco Use Smoking Status *Q: Never Smoker - Caffeine Use Caffeine Use: Reports: None - Recreational Drug Use Recreational Drug Use: No - Living Situation & Occupation Living situation: Reports: Single, Extended Care Facility (Resident in skilled nursing for cognitive delay/disability.) H&P Review of Systems - Review of Systems: Review Of Systems: Comprehensive ROS is negative, except as noted in HPI. Exam - Exam Exam: See Below - Vital Signs Vital Signs: Last Vital Signs Temp 97.2 F 02/14/19 11:48 Pulse 47 L 02/14/19 15:30 Resp 18 02/14/19 15:30 BP 118/72 02/14/19 15:30 Pulse Ox 97 02/14/19 15:30 Weight: 202 lb - Exam General: Alert, Oriented, Cooperative. No: Mild Distress HEENT: PERRLA, Conjunctiva Clear, EACs Clear, EOMI, Nares Patent, Normal Nasal Septum, Posterior Pharynx Clear, Pupils Equal, Pupils Reactive, TMs Clear ( cerumen present) Neck: Supple, Trachea Midline Lungs: Clear to Auscultation, Normal Respiratory Effort, Crackles (fine crackles occasionally LLL) Cardiovascular: Regular Rhythm, Bradycardia GI/Abdominal Exam: Soft, Non-Tender, No Distention, Abnormal Bowel Sounds ( hyperactive) (Male) Exam: Deferred Rectal (Males) Exam: Deferred Back Exam: Normal Inspection Extremities: Pedal Edema (4+, stasis dermatitis with weeping present RLE, BLE angelina wraps/dressing in place) Peripheral Pulses: 2+: Radial (L), Radial (R) Skin: Other (Stasis dermatitis with weeping RLE, weeping areas covered by ANGELINA wrap moderate area just distal to right knee is open to air.) Neuro Extensive - Mental Status: Alert (Mental delay, stable), Oriented x3, Normal Mood/Affect Sepsis Event Note - Evaluation Sepsis Screening Result: No Definite Risk - Focused Exam Vital Signs: Vital Signs Temp Pulse Resp BP Pulse Ox 02/14/19 15:30 47 L 18 118/72 97 02/14/19 15:00 53 L 18 106/66 96 02/14/19 13:32 52 L 18 98/57 L 99 02/14/19 13:00 50 L 18 99/63 98 02/14/19 12:30 58 L 18 96/64 98 02/14/19 12:00 97 16 86/69 L 98 02/14/19 11:49 78 20 88/52 L 98 02/14/19 11:48 97.2 F 75 18 85/50 L 92 L Date Exam was Performed: 02/14/19 Time Exam was Performed: 15:45 - Problem List (1) Moderate dehydration SNOMED Code(s): 9240567041835 ICD Code: E86.0 - DEHYDRATION Status: Resolved Current Visit: No (2) Hyperkalemia SNOMED Code(s): 51317826 ICD Code: E87.5 - HYPERKALEMIA Status: Acute Current Visit: No (3) Hypotension due to hypovolemia SNOMED Code(s): 24979675 ICD Code: I95.89 - OTHER HYPOTENSION; E86.1 - HYPOVOLEMIA Status: Acute Current Visit: No (4) Hypoalbuminemia SNOMED Code(s): 385655789 ICD Code: E88.09 - OTH DISORDERS OF PLASMA-PROTEIN METABOLISM, NEC Status: Chronic Current Visit: No (5) DM type 2 (diabetes mellitus, type 2) SNOMED Code(s): 12482520 ICD Code: E11.9 - TYPE 2 DIABETES MELLITUS WITHOUT COMPLICATIONS Status: Chronic Current Visit: No Qualifiers: Diabetes mellitus director long term care insulin use: without longterm use (6) Dementia SNOMED Code(s): 36028195 ICD Code: F03.90 - UNSPECIFIED DEMENTIA WITHOUT BEHAVIORAL DISTURBANCE Status: Chronic Current Visit: No Qualifiers: Alzheimer's disease onset: unspecified onset Dementia behavioral disturbance: with behavioral disturbance (7) HTN (hypertension) SNOMED Code(s): 56535174 ICD Code: I10 - ESSENTIAL (PRIMARY) HYPERTENSION Status: Chronic Current Visit: No Qualifiers: Hypertension type: essential hypertension Qualified Code(s): I10 - Essential (primary) hypertension (8) Parkinsons SNOMED Code(s): 93429799 ICD Code: G20 - PARKINSON'S DISEASE Status: Chronic Current Visit: No (9) Acute on chronic renal insufficiency SNOMED Code(s): 339128746 ICD Code: N28.9 - DISORDER OF KIDNEY AND URETER, UNSPECIFIED; N18.9 - CHRONIC KIDNEY DISEASE, UNSPECIFIED Status: Resolved Current Visit: No (10) COPD (chronic obstructive pulmonary disease) SNOMED Code(s): 61886542 ICD Code: J44.9 - CHRONIC OBSTRUCTIVE PULMONARY DISEASE, UNSPECIFIED Status : Acute Current Visit: No Qualifiers: COPD type: emphysema Emphysema type: unspecified Qualified Code(s): J43.9 - Emphysema, unspecified (11) Stasis dermatitis Status: Acute Current Visit: Yes Problem List Initiated/Reviewed/Updated: Yes Orders Last 24hrs: Active Orders 24 hr Category Date Time Status Patient Status [ADT] Routine ADT 02/14/19 16:49 Active Height and Weight [RC] DAILY Care 02/14/19 16:54 Active Intake and Output [RC] QSHIFT Care 02/14/19 16:55 Active Oxygen Therapy [RC] PRN Care 02/14/19 16:49 Active Oxygen Therapy [RC] PRN Care 02/14/19 16:54 Inactive Up With Assistance [RC] ASDIRECTED Care 02/14/19 16:54 Active VTE/DVT Education [RC] Per Unit Routine Care 02/14/19 16:49 Active Vital Signs [RC] Q4H Care 02/14/19 16:49 Active Vital Signs [RC] Q4H Care 02/14/19 16:54 Inactive Consult to Interventional Physiatrist [CONS] Routine Cons 02/14/19 16:54 Active Regular Diet [DIET] Diet 02/14/19 Dinner Active RENAL FUNCTION PANEL,RFP [CHEM] Routine Lab 02/15/19 06:00 Ordered STOOL CULTURE Routine Lab 02/14/19 16:54 Ordered Acetaminophen [Tylenol Extra Strength] Med 02/14/19 17:00 Ordered 500 mg PO TID PRN Cholestyramine/Sucrose [Cholestyramine Packet] Med 02/14/19 21:00 Ordered 4 gm PO BEDTIME Ferrous Sulfate Med 02/15/19 09:00 Ordered 325 mg PO DAILY Hydrocortisone [Cortef] Med 02/14/19 17:30 Ordered 10 mg PO ACDINNER Hydrocortisone [Cortef] Med 02/15/19 07:30 Ordered 40 mg PO ACBREAKFAST Levothyroxine Med 02/15/19 06:00 Ordered 200 mcg PO DAILY@0600 Levothyroxine [Synthroid] Med 02/15/19 06:00 Ordered 50 mcg PO DAILY@0600 Loperamide [Imodium] Med 02/14/19 21:00 Ordered 4 mg PO TID Loratadine [Claritin] Med 02/15/19 09:00 Ordered 10 mg PO DAILY PRN Nitroglycerin [Nitrostat] Med 02/14/19 17:00 Ordered 0.4 mg SL Q5M PRN Omeprazole [Omeprazole] Med 02/15/19 09:00 Ordered 20 mg PO DAILY Propranolol [Inderal] Med 02/15/19 09:00 Ordered 20 mg PO BID QUEtiapine [SEROqueL] Med 02/15/19 16:00 Ordered 25 mg PO DAILY@1600 QUEtiapine [SEROquel] Med 02/14/19 21:00 Ordered 300 mg PO BEDTIME Saccharomyces Boulardii [Florastor] Med 02/14/19 21:00 Ordered 250 mg PO BID Selenium Sulfide [Anti-Dandruff] Med 02/17/19 17:00 Ordered 1 applic TOP TH Sodium Chloride 0.9% [Normal Saline] 1,000 ml Med 02/14/19 12:15 Active IV ASDIRECTED Tamsulosin [Flomax] Med 02/15/19 09:00 Ordered 0.4 mg PO DAILY Triamcinolone Acetonide [Triamcinolone Acetonide 0.1% Med 02/14/19 17:00 Ordered Crm] DOSE gm TOP BID PRN Verapamil [Verelan] Med 02/15/19 09:00 Ordered 240 mg PO DAILY Elastic Wrap [OM.PC] Routine Oth 02/14/19 16:54 Ordered Resuscitation Status Routine Resus Stat 02/14/19 16:49 Ordered Medication Orders Acetaminophen (Tylenol Extra Strength) 500 mg PO TID PRN PRN Reason: MILD PAIN Cholestyramine Resin (Cholestyramine Packet) 4 gm PO BEDTIME MATT Ferrous Sulfate (Ferrous Sulfate) 325 mg PO DAILY MATT Hydrocortisone (Cortef) 10 mg PO ACDINNER [facility] Hydrocortisone (Cortef) 40 mg PO ACBREAKFAST MATT Sodium Chloride (Normal Saline) 1,000 mls @ 125 mls/hr IV ASDIRECTED MATT Last Admin: 02/14/19 12:30 Dose: 125 mls/hr Levothyroxine Sodium (Levothyroxine) 200 mcg PO DAILY@0600 MATT Levothyroxine Sodium (Synthroid) 50 mcg PO DAILY@0600 [facility] Loperamide HCl (Imodium) 4 mg PO TID MATT Loratadine (Claritin) 10 mg PO DAILY PRN PRN Reason: Itching Nitroglycerin (Nitrostat) 0.4 mg SL Q5M PRN PRN Reason: Chest Pain Non-Formulary Medication (Omeprazole [Omeprazole]) 20 mg PO DAILY [facility] Non-Formulary Medication (Quetiapine [Seroquel]) 300 mg PO BEDTIME MATT Non-Formulary Medication (Selenium Sulfide [Anti-Dandruff]) 1 applic TOP TH MATT Propranolol HCl (Inderal) 20 mg PO BID [facility] Quetiapine Fumarate (Seroquel) 25 mg PO DAILY@1600 [facility]ATT Saccharomyces Boulardii (Florastor) 250 mg PO BID [facility] Tamsulosin HCl (Flomax) 0.4 mg PO DAILY [facility] Triamcinolone Acetonide (Triamcinolone Acetonide 0.1% Crm) gm TOP BID PRN PRN Reason: Itching Verapamil HCl (Verelan) 240 mg PO DAILY [facility] Assessment/Plan Comment:: 1. Admit to med/surg with telemetry for hypotension, dehydration, diarrhea, hyperkalemia. 2. NS at 125 ml/hr, recheck Renal panel tomorrow and if potassium goes up will have to switch to D51/4NS. 3. Consistent carb diet, accuchecks bid with meals. 4. Stool cultures pending. 5. Dietary consult for hypoalbuminemia, chronic venous stasis dermatitis with weeping. 6. FULL CODE. - Mortality Measure Prognosis:: Good
[2019-02-14] MEDS ORDERED: Hydrocortisone 20 MG Tab PO SCH (17:30)
[2019-02-14] MEDS: Saccharomyces Boulardii (Probiotic) 250 MG Cap PO SCH (20:12)
[2019-02-14] MEDS: Loperamide 2 MG Cap PO SCH (20:12)
[2019-02-14] MEDS ORDERED: QUEtiapine 100 MG Tab PO SCH (21:00)
[2019-02-14] MEDS ORDERED: Cholestyramine/Sucrose Powder 4 GM Packet PO SCH (21:00)
[2019-02-15] MEDS: Sodium Chloride 0.9% 1,000 ML IV SCH (04:20)
[2019-02-15] MEDS ORDERED: Levothyroxine 50 MCG Tab PO SCH (06:00)
[2019-02-15] MEDS ORDERED: Pantoprazole 40 MG Tab.CR PO SCH (06:00)
[2019-02-15] MEDS ORDERED: Hydrocortisone 20 MG Tab PO SCH (07:30)
[2019-02-15] MEDS: Saccharomyces Boulardii (Probiotic) 250 MG Cap PO SCH (08:47)
[2019-02-15] MEDS: Loperamide 2 MG Cap PO SCH (08:48)
[2019-02-15] MEDS ORDERED: Tamsulosin 0.4 MG Cap.ER PO SCH (09:00)
[2019-02-15] MEDS ORDERED: Propranolol 20 MG Tab PO SCH (09:00)
[2019-02-15] MEDS ORDERED: Verapamil 240 MG Cap.ER PO SCH (09:00)
[2019-02-15] MEDS ORDERED: Loratadine 10 MG Tab PO PRN (09:00)
[2019-02-15] MEDS ORDERED: Ferrous Sulfate 325 MG Tab PO SCH (09:00)
--- NOTE | 2019-02-15 09:23 | EDM.PDOC ---
ED HPI GENERAL MEDICAL PROBLEM - General Chief Complaint: Cardiovascular Problem Time Seen by Provider: 02/14/19 11:55 Source of Information: Reports: Patient, Provider History Limitations: Reports: No Limitations - History of Present Illness INITIAL COMMENTS - FREE TEXT/NARRATIVE: Patient presented to the ED with his caregiver because of weakness,dizziness, altered LOC. He has a poor oral intake and has been having diarrhea from his ileostomy bag ever since he had a colectomy due to a recurrent bowel obstruction. DENIES ANY PAIN WHEN ASKED AT PRESENT TIME Pain Score (Numeric/FACES): 0 - Related Data Allergies Allergy/AdvReac Type Severity Reaction Status Date / Time Penicillins Allergy Cannot Verified 02/14/19 13:06 Remember vancomycin Allergy Cannot Verified 02/14/19 13:06 Remember Home Meds: Home Meds Nitroglycerin [Nitrostat] 0.4 mg SL Q5M PRN 05/09/15 [History] Selenium Sulfide [Anti-Dandruff] 1 applic TOP TH 04/23/17 [History] Acetaminophen [Tylenol Extra Strength] 500 mg PO TID PRN 10/08/18 [History] Levothyroxine 200 mcg PO DAILY@0600 10/08/18 [History] Loperamide [Imodium] 4 mg PO TID 10/25/18 [History] Levothyroxine [Synthroid] 50 mcg PO DAILY@0600 tablet 10/27/18 [Rx] Loratadine 10 mg PO DAILY PRN 12/29/18 [History] Cholestyramine/Sucrose [Cholestyramine] 4 gm PO BEDTIME 01/19/19 [History] Ferrous Sulfate 325 mg PO DAILY 01/19/19 [History] Hydrocortisone 10 mg PO ACDINNER 01/19/19 [History] Hydrocortisone 40 mg PO ACBREAKFAST 01/19/19 [History] Propranolol [Inderal] 20 mg PO BID 01/19/19 [History] QUEtiapine [SEROquel] 25 mg PO DAILY@1600 01/19/19 [History] QUEtiapine [SEROquel] 300 mg PO BEDTIME 01/19/19 [History] Saccharomyces Boulardii [Florastor] 250 mg PO BID 01/19/19 [History] Triamcinolone Acetonide [Triamcinolone Acetonide 0.1% Crm] 1 applic TOP BID PRN 01/19/19 [History] Omeprazole 20 mg PO DAILY 02/14/19 [History] Tamsulosin [Flomax] 0.4 mg PO DAILY 02/14/19 [History] Verapamil [Verelan] 240 mg PO DAILY 02/14/19 [History] Past Medical History HEENT History: Reports: Allergic Rhinitis, Impaired Vision, Other (See Below) Other HEENT History: Allergic rhinitis. wears glasses Cardiovascular History: Reports: Angina, Hypertension Other Cardiovascular History: lower leg edema. Respiratory History: Reports: COPD Gastrointestinal History: Reports: Colon Polyp, Other (See Below) Other Gastrointestinal History: hx megacolon Genitourinary History: Reports: None Other Genitourinary History: Increased alkaline phosphatase, hypocalcemia. BUSINESS SOLUTIONS DIRECTOR History: Reports: None Musculoskeletal History: Reports: None Other Musculoskeletal History: Unsteady gait, recurrent falls, plantar fasciitis. Neurological History: Reports: Parkinson's, Seizure, Other (See Below) Other Neuro History: Neuroleptic induced Parkinsonism. Tremors Psychiatric History: Reports: Anxiety, Depression, Developmental Delay, Mood Swings, Psych Hospitalization(s), Suicide Attempt Other Psychiatric History: Transient alteration of awareness, moderate intellectual disabilities. Endocrine/Metabolic History: Reports: Diabetes, Type II, Hypothyroidism Hematologic History: Reports: Anemia Other Hematologic History: hx iron transfusions 12/18 Oncologic (Cancer) History: Reports: None Dermatologic History: Reports: Cellulitis, Other (See Below) Other Dermatologic History: Acne, dermatitis, dry scalp, stasis dermatitis both legs, history of VERSA. pink, warm galaviz area on right lower leg - Infectious Disease History Infectious Disease History: Reports: Other (See Below) Other Infectious Disease History: hx of versa - Past Surgical History GI Surgical History: Reports: Appendectomy, Cholecystectomy, Colon, Colonoscopy Other GI Surgeries/Procedures: pt had an ileostomy placed in the recent past Male Surgical History: Reports: None Social & Family History - Family History Family Medical History: Noncontributory - Tobacco Use Smoking Status *Q: Never Smoker - Caffeine Use Caffeine Use: Reports: None - Recreational Drug Use Recreational Drug Use: No - Living Situation & Occupation Living situation: Reports: Single, Extended Care Facility (Resident in [facility] for cognitive delay/disability.) ED ROS GENERAL - Review of Systems Review Of Systems: See Below Constitutional: Reports: Malaise, Weakness, Fatigue. Denies: Fever, Chills HEENT: Reports: No Symptoms Respiratory: Reports: No Symptoms Cardiovascular: Reports: No Symptoms Endocrine: Reports: No Symptoms GI/Abdominal: Reports: Diarrhea : Reports: No Symptoms Musculoskeletal: Reports: No Symptoms Skin: Reports: No Symptoms Neurological: Reports: No Symptoms Psychiatric: Reports: No Symptoms ED EXAM, GENERAL - Physical Exam Exam: See Below Exam Limited By: Altered Mental Status General Appearance: Lethargic Eye Exam: Bilateral Eye: PERRL Ears: Normal External Exam, Normal Canal, Hearing Grossly Normal Nose: Normal Inspection, Normal Mucosa, No Blood Throat/Mouth: Normal Inspection, Normal Lips Head: Atraumatic, Normocephalic Neck: Normal Inspection, Supple, Non-Tender, Full Range of Motion Respiratory/Chest: No Respiratory Distress, Lungs Clear, Normal Breath Sounds, No Accessory Muscle Use, Chest Non-Tender Cardiovascular: Normal Peripheral Pulses, Regular Rate, Rhythm, No Edema, No Gallop, No JVD, No Murmur, No Rub Peripheral Pulses: 2+: Radial (L), Radial (R) GI/Abdominal: Soft, Non-Tender, No Distention, Abnormal Bowel Sounds ( hyperactive) Back Exam: Normal Inspection Extremities: Normal Inspection, Pedal Edema (4+, stasis dermatitis with weeping present RLE, BLE jessy wraps/dressing in place) Neurological: Slow to Respond Psychiatric: Normal Affect Skin Exam: Warm, Other (weeping dermatitis bilateral LE) Course - Vital Signs Text/Narrative:: labs reviewed discussed with patient and caregiver CREA-2.9 K-5.5 EKG-No changes 0.9 NS @125 ml/hr Admit to inpatient,case discussed with Dr Man who agreed with the above plan Last Recorded V/S: Last Vital Signs Temp 36.7 C 02/15/19 04:00 Pulse 73 02/15/19 04:00 Resp 17 02/15/19 04:00 BP 156/81 H 02/15/19 04:00 Pulse Ox 98 02/15/19 04:00 - Orders/Labs/Meds Orders: Medication Orders Acetaminophen (Tylenol Extra Strength) 500 mg PO TID PRN PRN Reason: MILD PAIN Cholestyramine Resin (Cholestyramine Packet) 4 gm PO BEDTIME [facility] Last Admin: 02/14/19 20:12 Dose: 4 gm Ferrous Sulfate (Ferrous Sulfate) 325 mg PO DAILY [facility] Last Admin: 02/15/19 08:52 Dose: 325 mg Hydrocortisone (Cortef) 10 mg PO ACDINNER [facility] Last Admin: 02/14/19 18:17 Dose: 10 mg Hydrocortisone (Cortef) 40 mg PO ACBREAKFAST [facility] Last Admin: 02/15/19 06:30 Dose: 40 mg Levothyroxine Sodium (Levothyroxine) 200 mcg PO DAILY@0600 [facility] Last Admin: 02/15/19 06:16 Dose: 200 mcg Levothyroxine Sodium (Synthroid) 50 mcg PO DAILY@0600 [facility] Last Admin: 02/15/19 06:17 Dose: 50 mcg Loperamide HCl (Imodium) 4 mg PO TID [facility] Last Admin: 02/15/19 08:48 Dose: 4 mg Admin: 02/14/19 20:12 Dose: 4 mg Loratadine (Claritin) 10 mg PO DAILY PRN PRN Reason: Itching Nitroglycerin (Nitrostat) 0.4 mg SL Q5M PRN PRN Reason: Chest Pain Pantoprazole Sodium (Protonix) 40 mg PO DAILY@0600 [facility] Last Admin: 02/15/19 06:17 Dose: 40 mg Propranolol HCl (Inderal) 20 mg PO BID [facility] Last Admin: 02/15/19 08:52 Dose: 20 mg Quetiapine Fumarate (Seroquel) 25 mg PO DAILY@1600 [facility] Quetiapine Fumarate (Seroquel) 300 mg PO BEDTIME [facility] Last Admin: 02/14/19 20:12 Dose: 300 mg Saccharomyces Boulardii (Florastor) 250 mg PO BID [facility] Last Admin: 02/15/19 08:47 Dose: 250 mg Admin: 02/14/19 20:12 Dose: 250 mg Tamsulosin HCl (Flomax) 0.4 mg PO DAILY [facility] Last Admin: 02/15/19 08:52 Dose: 0.4 mg Triamcinolone Acetonide (Triamcinolone Acetonide 0.1% Crm) 0 gm TOP BID PRN PRN Reason: Itching Verapamil HCl (Verelan) 240 mg PO DAILY [facility] Last Admin: 02/15/19 08:53 Dose: 240 mg Meds: Medications Generic Name Dose Route Start Last Admin Trade Name Freq PRN Reason Stop Dose Admin Acetaminophen 500 mg 02/14/19 17:00 Tylenol Extra Strength PO TID PRN MILD PAIN Cholestyramine Resin 4 gm 02/14/19 21:00 02/14/19 20:12 Cholestyramine Packet PO 4 gm BEDTIME [facility] Administration Ferrous Sulfate 325 mg 02/15/19 09:00 02/15/19 08:52 Ferrous Sulfate PO 325 mg DAILY [facility]ATT Administration Hydrocortisone 10 mg 02/14/19 17:30 02/14/19 18:17 Cortef PO 10 mg ACDINNER MATT Administration Hydrocortisone 40 mg 02/15/19 07:30 02/15/19 06:30 Cortef PO 40 mg ACBREAKFAST [facility] Administration Levothyroxine Sodium 200 mcg 02/15/19 06:00 02/15/19 06:16 Levothyroxine PO 200 mcg DAILY@0600 [facility] Administration Levothyroxine Sodium 50 mcg 02/15/19 06:00 02/15/19 06:17 Synthroid PO 50 mcg DAILY@0600 [facility] Administration Loperamide HCl 4 mg 02/14/19 21:00 02/15/19 08:48 Imodium PO 4 mg TID [facility] Administration Loratadine 10 mg 02/15/19 09:00 Claritin PO DAILY PRN Itching Nitroglycerin 0.4 mg 02/14/19 17:00 Nitrostat SL Q5M PRN Chest Pain Pantoprazole Sodium 40 mg 02/15/19 06:00 02/15/19 06:17 Protonix PO 40 mg DAILY@0600 [facility] Administration Propranolol HCl 20 mg 02/15/19 09:00 02/15/19 08:52 Inderal PO 20 mg BID [facility] Administration Quetiapine Fumarate 25 mg 02/15/19 16:00 Seroquel PO DAILY@1600 [facility] Quetiapine Fumarate 300 mg 02/14/19 21:00 02/14/19 20:12 Seroquel PO 300 mg BEDTIME [facility] Administration Saccharomyces Boulardii 250 mg 02/14/19 21:00 02/15/19 08:47 Florastor PO 250 mg BID [facility] Administration Tamsulosin HCl 0.4 mg 02/15/19 09:00 02/15/19 08:52 Flomax PO 0.4 mg DAILY [facility] Administration Triamcinolone Acetonide 0 gm 02/14/19 17:00 Triamcinolone Acetonide 0.1% Crm TOP BID PRN Itching Verapamil HCl 240 mg 02/15/19 09:00 02/15/19 08:53 Verelan PO 240 mg DAILY [facility]ATT Administration Discontinued Medications Generic Name Dose Route Start Last Admin Trade Name Carlso PRN Reason Stop Dose Admin Sodium Chloride 1,000 mls @ 125 mls/hr 02/14/19 12:15 02/15/19 04:20 Normal Saline IV 125 mls/hr ASDIRECTED MATT Administration Non-Formulary Medication 1 applic 02/17/19 17:00 Selenium Sulfide [Anti-Dandruff] TOP TH [facility] Departure - Departure Time of Disposition: 14:00 Disposition: Admitted As Inpatient 68 Condition: Good Clinical Impression: KATHY (acute kidney injury), Dehydration, Hypotension, Hypoalbuminemia, Hyperkalemia - Discharge Information Sepsis Event Note - Evaluation Sepsis Screening Result: No Definite Risk - Focused Exam Date Exam was Performed: 02/15/19 Time Exam was Performed: 09:25
--- NOTE | 2019-02-15 10:22 | PCM.DCSUM1 ---
Discharge Summary - Hospital Course HPI Initial Comments: Patient started feeling weak today, had low blood pressure. He has been rehabilitating at [facility] since his last discharge from [place]. He has been having more loose stools in his ileostomy. Denies fevers, chills, sinus congestion, sore throat, nausea or vomiting. Has a little cough but denies chest pain or rapid heart rate. States his urination is normal. Legs are very swollen, weeping, Bilateral angelina wraps placed in ER. Chest x-ray mild/residual CHF. Troponin negative. Creatinine was elevated at 2.9, BUN 72, potassium 5.5, was 7.7 in September when I last admitted him. Required free water replacement with D5W and insulin to correct for hyperglycemia at that time. Diagnosis: Stroke: No - Discharge Data Discharge Date: 02/15/19 Discharge Disposition: DC/Tfer to [facility] 03 Condition: Stable - Referral to Home Health Date of Face to Face Encounter: 02/15/19 Reason for Homebound Status: Custodial Primary Care Physician: Sanchez Rodríguez MD Skilled Need: PT/OT. Wound care: dressing on RLE, BLE ANGELINA wraps - Discharge Diagnosis/Problem(s) (1) Moderate dehydration SNOMED Code(s): 2821159508326 ICD Code: E86.0 - DEHYDRATION Status: Acute Current Visit: No Problem Details: Resolving, patient has been urinating large amounts to point soaking his incontinent brief with leakage onto the bed. (2) Hyperkalemia SNOMED Code(s): 43596894 ICD Code: E87.5 - HYPERKALEMIA Status: Acute Current Visit: Yes Problem Details: Improving (3) Hypotension due to hypovolemia SNOMED Code(s): 24776987 ICD Code: I95.89 - OTHER HYPOTENSION; E86.1 - HYPOVOLEMIA Status: Resolved Current Visit: No (4) Hypoalbuminemia SNOMED Code(s): 103045394 ICD Code: E88.09 - OTH DISORDERS OF PLASMA-PROTEIN METABOLISM, NEC Status: Chronic Current Visit: Yes (5) DM type 2 (diabetes mellitus, type 2) SNOMED Code(s): 48457228 ICD Code: E11.9 - TYPE 2 DIABETES MELLITUS WITHOUT COMPLICATIONS Status: Chronic Current Visit: No Qualifiers: Diabetes mellitus moth exterminator insulin use: without moth exterminator use (6) Dementia SNOMED Code(s): 11134930 ICD Code: F03.90 - UNSPECIFIED DEMENTIA WITHOUT BEHAVIORAL DISTURBANCE Status: Chronic Current Visit: No Qualifiers: Alzheimer's disease onset: unspecified onset Dementia behavioral disturbance: with behavioral disturbance (7) HTN (hypertension) SNOMED Code(s): 13082865 ICD Code: I10 - ESSENTIAL (PRIMARY) HYPERTENSION Status: Chronic Current Visit: No Qualifiers: Hypertension type: essential hypertension Qualified Code(s): I10 - Essential (primary) hypertension (8) Parkinsons SNOMED Code(s): 66915386 ICD Code: G20 - PARKINSON'S DISEASE Status: Chronic Current Visit: No (9) Acute on chronic renal insufficiency SNOMED Code(s): 453412314 ICD Code: N28.9 - DISORDER OF KIDNEY AND URETER, UNSPECIFIED; N18.9 - CHRONIC KIDNEY DISEASE, UNSPECIFIED Status: Resolved Current Visit: No Problem Details: Improved to 2.8, needs few water replacement, goal 1500-2000ml/ day (10) COPD (chronic obstructive pulmonary disease) SNOMED Code(s): 46854022 ICD Code: J44.9 - CHRONIC OBSTRUCTIVE PULMONARY DISEASE, UNSPECIFIED Status : Acute Current Visit: No Qualifiers: COPD type: emphysema Emphysema type: unspecified Qualified Code(s): J43.9 - Emphysema, unspecified (11) Stasis dermatitis Status: Acute Current Visit: Yes - Patient Summary/Data Consults: Consultations 02/14/19 16:54 Consult to Motor Vehicle Technician [CONS] Routine Comment: Physician Instructions: Quantity: Reason for Consult: low albumin, third spacing, chronic diarrhea Hospital Course: Patient was admitted from ER for hypotension, acute on chronic kidney insufficiency, diarrhea. Patient had NS at 125 ml/hr, labs corrected slightly today. Blood pressures up to 130s/140s systolic, patient's stool have decreased in frequency. Patient leaked through his incontinent brief and soaked the bed. He is asking to go home as he feels good and at his normal. Spoke with [facility], was going to push free water today and repeat labs tomorrow which he could do there. Goal of free water 3422-6379 ml/day, dietary consult for hypoalbuminemia & venous stasis are most likely cause for his peripheral edema. Repeat renal panel weekly to monitor him as he can quickly get dehydrated. Kimi at [facility] stated that they could encourage free water, keep track of his intake and do the weekly labs and will come pick him up at 1045. - Patient Instructions Diet: Diabetic Diet Diet, Other: Free water goal 2536-6072 ml/day Activity: As Tolerated Showering/Bathing: May Shower Other/Special Instructions: Renal panel weekly on Wed starting 02/16/19. Notify provider hypotension, worsening diarrhea, worsening peripheral edema. Follow up with Dr Rodríguez in 1-2 weeks. - Discharge Plan *PRESCRIPTION DRUG MONITORING PROGRAM REVIEWED*: Not Applicable *COPY OF PRESCRIPTION DRUG MONITORING REPORT IN PATIENT [place]: No Home Medications: Home Meds Nitroglycerin [Nitrostat] 0.4 mg SL Q5M PRN 05/09/15 [History] Selenium Sulfide [Anti-Dandruff] 1 applic TOP TH 04/23/17 [History] Acetaminophen [Tylenol Extra Strength] 500 mg PO TID PRN 10/08/18 [History] Levothyroxine 200 mcg PO DAILY@0600 10/08/18 [History] Loperamide [Imodium] 4 mg PO TID 10/25/18 [History] Levothyroxine [Synthroid] 50 mcg PO DAILY@0600 tablet 10/27/18 [Rx] Loratadine 10 mg PO DAILY PRN 12/29/18 [History] Cholestyramine/Sucrose [Cholestyramine] 4 gm PO BEDTIME 01/19/19 [History] Ferrous Sulfate 325 mg PO DAILY 01/19/19 [History] Hydrocortisone 10 mg PO ACDINNER 01/19/19 [History] Hydrocortisone 40 mg PO ACBREAKFAST 01/19/19 [History] Propranolol [Inderal] 20 mg PO BID 01/19/19 [History] QUEtiapine [SEROquel] 25 mg PO DAILY@1600 01/19/19 [History] QUEtiapine [SEROquel] 300 mg PO BEDTIME 01/19/19 [History] Saccharomyces Boulardii [Florastor] 250 mg PO BID 01/19/19 [History] Triamcinolone Acetonide [Triamcinolone Acetonide 0.1% Crm] 1 applic TOP BID PRN 01/19/19 [History] Omeprazole 20 mg PO DAILY 02/14/19 [History] Tamsulosin [Flomax] 0.4 mg PO DAILY 02/14/19 [History] Verapamil [Verelan] 240 mg PO DAILY 02/14/19 [History] Oxygen Therapy Mode: Room Air Forms: ED Department Discharge Referrals: Sanchez Rodríguez MD [Primary Care Provider] - - Discharge Summary/Plan Comment DC Time >30 min.: Yes - Patient Data Vitals - Most Recent: Last Vital Signs Temp 98.0 F 02/15/19 04:00 Pulse 73 02/15/19 04:00 Resp 17 02/15/19 04:00 BP 156/81 H 02/15/19 04:00 Pulse Ox 98 02/15/19 04:00 Weight - Most Recent: 202 lb I&O - Last 24 hours: Intake & Output 02/14/19 02/15/19 02/15/19 22:59 06:59 14:59 Intake Total 1988 300 Output Total 150 300 Balance 1838 0 Lab Results - Last 24 hrs: Laboratory Results - last 24 hr 02/14/19 02/15/19 02/15/19 Range/Units 18:16 06:36 06:45 Sodium 146 H (135-145) mmol/L Potassium 5.4 H (3.5-5.3) mmol/L Chloride 114 H D (100-110) mmol/L Carbon Dioxide 23 (21-32) mmol/L BUN 51 H (7-18) mg/dL Creatinine 2.8 H* (0.70-1.30) mg/dL Est Cr Clr Drug Dosing 20.83 mL/min Estimated GFR (MDRD) 24 L (>60) BUN/Creatinine Ratio 18.2 (9-20) Glucose 84 (80-116) mg/dL POC Glucose 123 H D 80 (80-116) mg/dL Calcium 8.4 L (8.6-10.2) mg/dL Phosphorus 5.1 H (2.6-4.6) mg/dL Albumin 2.3 L (3.5-5.2) g/dL Med Orders - Current: Current Medications Acetaminophen (Tylenol Extra Strength) 500 mg PO TID PRN PRN Reason: MILD PAIN Cholestyramine Resin (Cholestyramine Packet) 4 gm PO BEDTIME MATT Last Admin: 02/14/19 20:12 Dose: 4 gm Ferrous Sulfate (Ferrous Sulfate) 325 mg PO DAILY MATT Last Admin: 02/15/19 08:52 Dose: 325 mg Hydrocortisone (Cortef) 10 mg PO ACDINNER [facility] Last Admin: 02/14/19 18:17 Dose: 10 mg Hydrocortisone (Cortef) 40 mg PO ACBREAKFAST [facility] Last Admin: 02/15/19 06:30 Dose: 40 mg Levothyroxine Sodium (Levothyroxine) 200 mcg PO DAILY@0600 [facility] Last Admin: 02/15/19 06:16 Dose: 200 mcg Levothyroxine Sodium (Synthroid) 50 mcg PO DAILY@0600 [facility] Last Admin: 02/15/19 06:17 Dose: 50 mcg Loperamide HCl (Imodium) 4 mg PO TID [facility] Last Admin: 02/15/19 08:48 Dose: 4 mg Loratadine (Claritin) 10 mg PO DAILY PRN PRN Reason: Itching Nitroglycerin (Nitrostat) 0.4 mg SL Q5M PRN PRN Reason: Chest Pain Pantoprazole Sodium (Protonix) 40 mg PO DAILY@0600 [facility] Last Admin: 02/15/19 06:17 Dose: 40 mg Propranolol HCl (Inderal) 20 mg PO BID [facility] Last Admin: 02/15/19 08:52 Dose: 20 mg Quetiapine Fumarate (Seroquel) 25 mg PO DAILY@1600 [facility] Quetiapine Fumarate (Seroquel) 300 mg PO BEDTIME [facility] Last Admin: 02/14/19 20:12 Dose: 300 mg Saccharomyces Boulardii (Florastor) 250 mg PO BID [facility] Last Admin: 02/15/19 08:47 Dose: 250 mg Tamsulosin HCl (Flomax) 0.4 mg PO DAILY [facility] Last Admin: 02/15/19 08:52 Dose: 0.4 mg Triamcinolone Acetonide (Triamcinolone Acetonide 0.1% Crm) 0 gm TOP BID PRN PRN Reason: Itching Verapamil HCl (Verelan) 240 mg PO DAILY [facility] Last Admin: 02/15/19 08:53 Dose: 240 mg Discontinued Medications Sodium Chloride (Normal Saline) 1,000 mls @ 125 mls/hr IV ASDIRECTED [facility] Last Admin: 02/15/19 04:20 Dose: 125 mls/hr Non-Formulary Medication (Selenium Sulfide [Anti-Dandruff]) 1 applic TOP [facility] - Exam General: Reports: Alert, Oriented, Cooperative, No Acute Distress Lungs: Reports: Clear to Auscultation, Normal Respiratory Effort, Decreased Breath Sounds (left base) Cardiovascular: Reports: Regular Rate, Regular Rhythm GI/Abdominal Exam: Normal Bowel Sounds, Soft, Non-Tender, No Distention Extremities: Pedal Edema (4+ BLE, unchanged.)
[2019-02-15 11:27] VITALS: BP 172/95; PULSE 72
[2019-02-15] MEDS ORDERED: QUEtiapine 25 MG Tab PO SCH (16:00)
[2019-02-17] MEDS ORDERED: SELENIUM SULFIDE TOP SCH (17:00)
== END 2019-02-15 11:00 ==
LOC: FB.ED 11:48 → INTOOBSV 15:36 → FB.MS 15:36
PROVIDERS: ADMIT Emergency Medicine; ATTEND Family Medicine
DX: E86.0 Dehydration (principal); E87.5 Hyperkalemia; I95.89 Other hypotension; E88.09 Other disorders of plasma-protein metabolism, not elsewhere classified; G20 Parkinson's disease; F03.90 Unspecified dementia, unspecified severity, without behavioral disturbance, psychotic disturbance, mood disturbance, and anxiety; J43.9 Emphysema, unspecified; I87.2 Venous insufficiency (chronic) (peripheral); I95.9 Hypotension, unspecified; I12.9 Hypertensive chronic kidney disease with stage 1 through stage 4 chronic kidney disease, or unspecified chronic kidney disease; E11.22 Type 2 diabetes mellitus with diabetic chronic kidney disease; N18.9 Chronic kidney disease, unspecified; N17.9 Acute kidney failure, unspecified; E03.9 Hypothyroidism, unspecified; Z79.899 Other long term (current) drug therapy; Z88.0 Allergy status to penicillin; Z88.1 Allergy status to other antibiotic agents
CPT/HCPCS: 36415; 71045; 80069; 82962; 87045; 87046; 87427; 96360; 96361; 99285; A9270; J7030

== ENCOUNTER 2019-02-27 14:06 | Emergency (ER) | payer MEDICAID ==
[2019-02-27] MEDS: Sodium Chloride 0.9% 1,000 ML IV SCH ×2 (14:13→15:30)
[2019-02-27] MEDS: EPINEPHrine 1:10,000 1 MG/10 ML Syringe IVPUSH PRN ×8 (14:25→16:20)
[2019-02-27] MEDS: Atropine 0.1 MG/ML 10 ML Syringe IVPUSH PRN ×3 (14:42→15:57)
[2019-02-27] MEDS ORDERED: Midazolam 1 MG/ML 2 ML SDV ONE (14:44)
[2019-02-27] MEDS: Midazolam 1 MG/ML 2 ML SDV IVPUSH PRN ×3 (14:47→15:45)
[2019-02-27] MEDS ORDERED: Sodium Chloride 0.9% 10 ML Syringe FLUSH PRN (14:47)
[2019-02-27] MEDS ORDERED: Sodium Chloride 0.9% 1,000 ML IV ONE (15:29)
[2019-02-27] MEDS ORDERED: EPINEPHrine 4 MG in Dextrose 5% in Water 250 ML IV SCH ×2 (15:30)
[2019-02-27] MEDS ORDERED: Sodium Bicarbonate 8.4% 50 MEQ/50 ML Syringe IVPUSH ONE (16:00)
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
--- NOTE | 2019-02-27 17:44 | PCM.SN ---
- Free Text/Narrative Note: ANESTHESIA SERVICE Date: 02/27/2019 Time: 1441 to 1645 Dx: Active CPR in Progress, Critical Care Services I was called by the ED physician to come in for this adult resuscitation / CPR in progress. Upon arrival, chest compressions were being done and was already intubated. The blood work was Potassium 6.2, Hgb 10.8, Creatine 3.7, blood glucose 225 and elevated LFT's. Shortly there after, external pacemaker was start at 200 mA and a rate of 60 beats per minute. I checked for tube placement with positive EtCO2 and pulled the ETT back to 22 cm to the lower teeth securing it. I had clear bilateral breath sounds and the Floor RN manually ventilated him using an Ambu-Bag with O2 at 15L/M. The SpO2 monitored had huge swings from the low 70's to upper 90's%. I did provide as- needed IV sedation using 2mgs of VERSED IV X at least 3 times due to perceived patient response to the resuscitation efforts. I directed the RN on the rate of ventilation using the EtCo2. At the end this patient had agonal breathing in which she did not assist following the SpO2 / EtCO2 monitors. I did start one peripheral venous catheter. I placed a 20 Ga. X 1.25 IN. Jelco ProtectIV Plus X 1 attempt in the right medial ACF. It was flushed with 10 ml' s of .9 normal saline and a dressing applied. After this, I rechecked the ETT breath sounds without change. I also used the ED ultrasound machine to locate the right Femoral Artery per the request of the telemedicine ER physician. It appeared that the Femoral pulse rate was extremely bradycardic at 20 to 24 beats/minute. I did this twice with good artery location with the ED physician and the telemedicine physician agreeing. I also multiple times located the right Femoral pulse using a portable Doppler to access the pulse rate and quality. I also assisted in the the type of medication to be given consulting with the Hospitalist and the telemedicine physician. I personally gave intravenously at least 6 rounds of Epinephrine 1 mg/10 ml's, a total of 1.5 mg's of Atropine 1 mg /10 ml's and 1 amp of Na Bicarb. During this medication period, I did recheck his breath sounds with a slight decrease right lower and checked his pupils that were non reactive to light, fixed biloaterally and were 5mm in size bilaterally. Thank you for using this service. Canelo Mcdonough CRNA, A
[2019-02-27 22:11] VITALS: PULSE 60
[2019-02-27 22:12] VITALS: BP 121/75
--- NOTE | 2019-03-29 08:00 | ER ---
DATE OF SERVICE: 02/27/2019 Canelo Dejesus is a 58-year-old male, who was admitted here through [facility] ER. Presented with recent onset of acute chest pain, shortness of breath, low blood pressure, and slow heart rate. Within 5 minutes of arrival, Canelo lost consciousness, was coded. Initial intervention medically, Blair Rodriguez, ER physician, and Dr. Caenlo Mcdonough, Anesthesia, involved with resuscitation efforts. [facility] ER provider supervising through telemedicine throughout his lengthy interventional resuscitation. Underwent aggressive medical treatment including medications, intravenous care, resuscitative efforts, and lengthy, lengthy resuscitation. Attempts to maintain repeatable blood pressure, transferable pulse, and respiratory effort, and declining respiratory well-being eventually resulted, after nearly 2 hours of resuscitation, with subsequent decline and . Attempts to transfer the patient to a more high level interventional hospital were unsuccessful due to bad weather. Resuscitative efforts were stopped and patient subsequently . ADDENDUM: One half hour critical care observation with nursing staff and telemedicine ER physician. /[id number] SHANE/TAMMI CORREA
== END 2019-02-27 20:00 | disposition expired ==
LOC: FB.ED 14:06
DX: I11.0 Hypertensive heart disease with heart failure (principal); I50.9 Heart failure, unspecified; I44.2 Atrioventricular block, complete; E03.9 Hypothyroidism, unspecified; Z79.899 Other long term (current) drug therapy; Z88.0 Allergy status to penicillin; Z90.49 Acquired absence of other specified parts of digestive tract
CPT/HCPCS: 31500; 36415; 36680; 51702; 80053; 84484; 85025; 85379; 85610; 92950; 93005; 96361; 96374; 99291; 99292; J0171; J0461; J2250; J7030; 99285